=== PATIENT | female | born 1940 | race Caucasian/White ===

== ENCOUNTER 2020-03-05 14:52 | Outpatient (REF) | payer MEDICARE, MEDICAID, SELFPAY | END 2020-03-05 14:53 | disposition home or self-care (01) | LOC: HO.MANLNP 14:52 | PROVIDERS: PCP Physician Assistant; Visit Provider Physician Assistant | DX: N39.0 Urinary tract infection, site not specified (principal) | CPT/HCPCS: 87086 ==

== ENCOUNTER 2020-07-30 10:14 | Outpatient (REF) | payer MEDICARE, MEDICAID, SELFPAY ==
[2020-07-30 12:54] LABS: Monocytes Absolute Auto 0.4 X10*3/uL (0.1-1.2); Monocytes Percent Auto 9.1 % (2-11); Neutrophils Absolute Auto 3.2 X10*3/uL (2.0-8.3); Red Blood Count 4.01 X10*6/uL (4.20-5.50)
[2020-07-30 12:55] LABS: Basophils Percent Auto 0.4 % (0-2); Eosinophils Absolute Auto 0.1 X10*3/uL (0.0-0.4); Eosinophils Percent Auto 2.9 % (0-4); Hematocrit 35.1 % (37-47); Hemoglobin 11.8 g/dl (12.0-16.0); Imm Gran Abs Auto 0.01 X10*3/uL (0.00-0.03); Imm Gran Pct Auto 0.2 % (0.0-0.4); Lymphocytes Percent Auto 21.6 % (20-40); Mean Corpuscular HGB Conc 33.6 g/dl (31.0-35.0); Mean Corpuscular Hemoglobin 29.4 pg (27.0-33.0); Mean Corpuscular Volume 87.5 fL (80-98); Neutrophils Percent Auto 65.8 % (45-73); Platelet Count 134 X10*3/uL (160-400); White Blood Count 4.8 X10*3/uL (4.8-10.8)
[2020-07-30 13:11] LABS: Alanine Aminotransferase 17 U/L (0-31); Albumin Level 4.6 g/dL (3.5-5.0); Alkaline Phosphatase 81 U/L (39-117); Anion Gap 14 (12-20); Aspartate Amino Transferase 33 U/L (5-31); Bilirubin Total 0.6 mg/dL (0.0-1.0); Blood Urea Nitrogen 15 mg/dL (9-16); Calcium 9.3 mg/dL (8.4-10.2); Carbon Dioxide 23 mmol/L (22-29); Chloride 106 mmol/L (96-108); Cholesterol 228 mg/dL; Estimated Glomerular Filt Rate > 60; Glucose Fasting 79 mg/dL (60-99); HDL Cholesterol 35 mg/dL; LDL Cholesterol Calculated 172 mg/dl; Potassium 4.3 mmol/L (3.3-5.1); Sodium 139 mmol/L (135-145); Total Protein 6.8 g/dL (6.5-8.0); Triglycerides 106 mg/dL
[2020-07-30 13:18] LABS: MANUAL DIFF FLAG NO
== END 2020-07-30 10:15 | disposition home or self-care (01) ==
LOC: HO.MANLDS 10:14
PROVIDERS: PCP Internal Medicine; Visit Provider Physician Assistant
DX: E78.00 Pure hypercholesterolemia, unspecified (principal)
CPT/HCPCS: 36415; 80053; 80061; 85025

== ENCOUNTER 2020-11-12 14:59 | Outpatient (REF) | payer MEDICARE, MEDICAID, SELFPAY ==
[2020-11-12 18:14] LABS: Glucose Urine UA NEG (NEG); Leukocyte Esterase Urine 1+ (NEG); Nitrite Urine NEG (NEG); PH 6.5 (5.0-8.0); Urine Blood TRACE (NEG); Urine Ketones NEG (NEG); Urine Protein NEG (NEG-TRACE)
[2020-11-12 18:21] LABS: Appearance Urine CLEAR; Color Urine STRAW
[2020-11-12 18:43] LABS: Bacteria Urine TRACE /LPF; Squamous Epithelial Cell Urine TRACE /LPF
== END 2020-11-12 15:00 | disposition home or self-care (01) ==
LOC: HO.MANLDS 14:59
PROVIDERS: PCP Internal Medicine; Visit Provider Physician Assistant
DX: N39.0 Urinary tract infection, site not specified (principal)
CPT/HCPCS: 81001; 87086

== ENCOUNTER 2021-07-13 09:43 | Outpatient (REF) | payer MEDICARE, MEDICAID, SELFPAY ==
[2021-07-13 12:17] LABS: Anion Gap 11 (12-20); Blood Urea Nitrogen 13 mg/dL (9-16); Calcium 9.5 mg/dL (8.4-10.2); Carbon Dioxide 28 mmol/L (22-29); Chloride 103 mmol/L (96-108); Estimated Glomerular Filt Rate > 60; Glucose Random 93 mg/dL (60-115); Potassium 4.9 mmol/L (3.3-5.1); Sodium 137 mmol/L (135-145)
== END 2021-07-13 09:44 | disposition home or self-care (01) ==
LOC: HO.MANLDS 09:43
PROVIDERS: PCP Physician Assistant; Visit Provider Physician Assistant
DX: N17.8 Other acute kidney failure (principal)
CPT/HCPCS: 36415; 80048

== ENCOUNTER 2023-04-10 18:23 | Inpatient (IN) | payer MEDICARE, MEDICAID, SELFPAY ==
--- NOTE | ~2023-04-10 | CT_ITS ---
EXAMINATION: CT HEAD WITHOUT CONTRAST CLINICAL INFORMATION: Status post fall in bathroom. COMPARISON: Head CT 04/10/2023. TECHNIQUE: Contiguous axial imaging was performed from the skull base to vertex without intravenous administration of contrast. This CT examination was performed using dose optimization techniques as appropriate, variously including the following: *Automated exposure control *Adjustment of mA and/or kV according to patient size (this includes techniques or standardized protocols for targeted exams where dose is matched to indication/reason for exam; i.e. extremities or head) *Use of iterative reconstruction technique DLP: 726 mGy-cm. FINDINGS: There is no intracranial hemorrhage, large infarction, or mass lesion. There is no extra-axial collection. The ventricles are normal in size and configuration without evidence of hydrocephalus. Mild patchy hypoattenuation is seen within the cerebral white matter, typical of chronic microangiopathy. There is mild degree of brain parenchymal volume loss with prominence of ventricles and sulci. The calvarium is intact without fracture. The visualized paranasal sinuses and mastoid air cells are clear. CT/CT head/brain wo IV con IMPRESSION: No acute intracranial abnormality.
--- NOTE | ~2023-04-10 | CT_ITS ---
CT HEAD WITHOUT IV CONTRAST CT CERVICAL SPINE WITHOUT IV CONTRAST CT MAXILLOFACIAL WITHOUT IV CONTRAST INDICATION: Fall. COMPARISON: None TECHNIQUE: Multidetector CT acquisitions of the head, maxillofacial region, and cervical spine were obtained without IV contrast. Multiplanar reformats were acquired and utilized for image interpretation. DLP: 193 mGy-cm FINDINGS: Motion degradation limits assessment. HEAD: There is no intracranial hemorrhage or extra-axial fluid collection. The ventricles are unremarkable without hydrocephalus. No midline shift or mass effect. Will to white matter differentiation is diffusely maintained without evidence of an evolved acute territorial infarct. The basilar cisterns are preserved. Subcortical and periventricular white matter hypoattenuation is suggestive of [] small vessel ischemic disease. No soft tissue or osseous abnormality. The mastoid air cells and paranasal sinuses are well-aerated. MAXILLOFACIAL: The mandible, maxilla, pterygoid plates, nasal bones, zygomatic arches, paranasal sinus conde, and bony orbits are intact. No acute osseous abnormality within the maxillofacial region. The paranasal sinuses and mastoid air cells are notable for chronic mild changes of sinus disease involving the maxillary sphenoid and ethmoid sinuses.. The globes and extra-ocular musculature is intact. No significant soft tissue findings. CERVICAL SPINE: There is anatomic alignment of the vertebral bodies and posterior elements. There is no acute fracture and there is no acute subluxation. The craniocervical and atlantoaxial articulations are normal. Moderate degenerative disc space narrowing mid cervical spine and lower cervical spine with minor anterolisthesis 1 to 2 mm C4-C5 and C6-C7 likely degenerative. No disruption of the apophyseal joints. Posterior elements intact. There is no prevertebral soft tissue swelling. No significant soft tissue abnormality within the neck. The visualized lung apices are clear. CT/CT cervical spine wo IV con IMPRESSION: 1. No acute intracranial abnormality. 2. No acute osseous abnormality within the cervical spine. 3. No acute osseous abnormality within the maxillofacial region.
--- NOTE | ~2023-04-10 | CT_ITS ---
EXAMINATION: CT ABDOMEN AND PELVIS WITHOUT CONTRAST CLINICAL INFORMATION: Fall. Question fracture. COMPARISON: None available. TECHNIQUE: Multidetector volumetric imaging was performed from the superior aspect of the liver through the pubic symphysis. Sagittal and coronal reformatted images were obtained on the technologist's workstation. This CT examination was performed using dose optimization techniques as appropriate, variously including the following: *Automated exposure control *Adjustment of mA and/or kV according to patient size (this includes techniques or standardized protocols for targeted exams where dose is matched to indication/reason for exam; i.e. extremities or head) *Use of iterative reconstruction technique DLP: 326 mGy-cm FINDINGS: LUNG BASES: Minimal scarring fibrotic change at the left lower lobe posteriorly. LIVER, GALLBLADDER, AND BILIARY TREE: The liver is normal in size, shape, and attenuation. No focal hepatic lesion or biliary ductal dilatation is present. The gallbladder is unremarkable with no evidence of radiopaque gallstones, gallbladder wall thickening, or obvious pericholecystic inflammatory changes. PANCREAS: Unremarkable. SPLEEN: Unremarkable. ADRENAL GLANDS: Unremarkable. KIDNEYS AND URETERS: The kidneys are normal in size, shape, and attenuation. No hydronephrosis, hydroureter, or calculi seen. No perinephric stranding. BLADDER: Unremarkable. GASTROINTESTINAL TRACT: Contrast material noted within the large bowel scattered diverticulosis of the sigmoid colon without diverticulitis. Large bowel otherwise unremarkable. Appendix not clearly visualized. However no inflammatory changes in the right lower quadrant. Small bowel normal. Stomach unremarkable. ABDOMINAL WALL: No significant hernia is appreciated. LYMPH NODES: Normal. VASCULAR: Advanced calcific atherosclerotic disease noted throughout PELVIC VISCERA: Age-related change versus hysterectomy. No mass. OSSEOUS STRUCTURES: Severe degenerative scoliosis lumbar sacral spine with a convex left curvature estimated at 40 degrees. There is grade 1 degenerative anterolisthesis at L5-S1. No fracture. Transitional lumbosacral junction with partial lumbarization of S1 Bone and joints in the pelvis normal. No fractures of the visible portions of the ribs CT/CT abdomen pelvis wo IV con IMPRESSION: 1. No acute abnormality. 2. Severe degenerative scoliosis. 3. Advanced calcific atherosclerotic disease. 4. Diverticulosis without diverticulitis. Fleischner guidelines were followed.
--- NOTE | ~2023-04-10 | CT_ITS ---
EXAMINATION: CT CHEST WITHOUT CONTRAST CLINICAL INFORMATION: Fall rib fracture images COMPARISON: CT scanning abdomen and pelvis performed same time. TECHNIQUE: Multidetector volumetric CT imaging of the chest was done. Axial MIP volume rendering provided. Sagittal and coronal reformatted images were obtained. This CT examination was performed using dose optimization techniques as appropriate, variously including the following: *Automated exposure control *Adjustment of mA and/or kV according to patient size (this includes techniques or standardized protocols for targeted exams where dose is matched to indication/reason for exam; i.e. extremities or head) *Use of iterative reconstruction technique DLP: 174 mGy-cm FINDINGS: LUNGS: Minimal fibrotic change and/or atelectasis in the left lower lobe posteriorly. No prominent focal consolidation. No pneumothorax. MEDIASTINUM: No lymphadenopathy. Esophagus normal. Calcific atherosclerotic disease including coronary artery calcification CORONARY ARTERY CALCIFICATION: Present. PLEURA: There is no pleural effusion. No pleural mass or thickening. AXILLA: No lymphadenopathy. UPPER ABDOMEN: Arterial calcification. OSSEOUS STRUCTURES: Degenerative scoliosis of the dorsal spine with curvature estimated at 33 degrees. Ribs intact without fracture. CT/CT chest wo IV con IMPRESSION: 1. No acute abnormality. 2. No rib fracture. 3. Minimal fibrotic change and/or atelectasis in the left lower lobe. 4. Calcific atherosclerotic disease including coronary artery calcification. 5. Degenerative scoliosis of the dorsal spine. Fleischner guidelines were followed.
[2023-04-10 18:33] VITALS: BMI 19.7
[2023-04-10 18:37] VITALS: BP 127/53; PULSE 73; RESP 16; TEMP 36.9; O2SAT 94
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
[2023-04-10 19:44] LABS: MANUAL DIFF FLAG NO
--- NOTE | 2023-04-10 19:45 | PC.NURSE ---
This marine underwriter assumed care of this Pt at 1900. Pt A&O to self and place, denies any pain, c-collar in place, son at bedside. IV line placed blood work collected and sent to lab. Pt assisted to BR with one staff assist, unsteady gait.
[2023-04-10 19:47] LABS: Basophils Percent Auto 0.1 % (0-2); Eosinophils Percent Auto 0.1 % (0-4); Hematocrit 32.1 % (37.0-47.0); Hemoglobin 11.3 g/dl (12.0-16.0); Imm Gran Abs Auto 0.06 X10*3/uL (0.00-0.03); Imm Gran Pct Auto 0.6 % (0.0-0.4); Lymphocytes Absolute Auto 0.4 X10*3/uL (1.2-4.9); Lymphocytes Percent Auto 4.4 % (20-40); Mean Corpuscular HGB Conc 35.2 g/dl (31.0-35.0); Mean Corpuscular Hemoglobin 29.3 pg (27.0-33.0); Mean Corpuscular Volume 83.2 fL (80.0-98.0); Mean Platelet Volume 9.7 fL (9.4-12.3); Monocytes Absolute Auto 0.9 X10*3/uL (0.1-1.2); Monocytes Percent Auto 9.2 % (2-11); Neutrophils Absolute Auto 8.6 x10*3/uL (2.0-8.3); Neutrophils Percent Auto 85.6 % (45-73); Platelet Count 208 X10*3/uL (160-400); Red Blood Count 3.86 X10*6/uL (4.20-5.50); Red Cell Distribution Width 13.9 % (11.0-16.0)
[2023-04-10 19:52] LABS: Prothrombin Time 12.3 SEC (11.1-13.3)
[2023-04-10 19:55] LABS: Partial Thromboplastin Time 28.3 SEC (26.0-36.4)
[2023-04-10 19:59] LABS: Alanine Aminotransferase 26 U/L (0-31); Albumin Level 4.2 g/dL (3.5-5.0); Alkaline Phosphatase 90 U/L (39-117); Anion Gap 14 (12-20); Aspartate Amino Transferase 37 U/L (5-31); Bilirubin Total 0.5 mg/dL (0.0-1.0); Blood Urea Nitrogen 23 mg/dL (9-16); Calcium 9.6 mg/dL (8.4-10.2); Carbon Dioxide 23 mmol/L (22-29); Chloride 96 mmol/L (96-108); Creatinine Clr Calc Pharmacy 42.8; Estimated Glomerular Filt Rate > 60; Glucose Random 127 mg/dL (60-115); Potassium 3.8 mmol/L (3.3-5.1); Sodium 129 mmol/L (135-145); Total Protein 6.7 g/dL (6.5-8.0)
[2023-04-10 20:21] VITALS: BP 137/65; PULSE 73; RESP 16; TEMP 36.7; O2SAT 98
[2023-04-10 20:23] LABS: Influenza A PCR NEGATIVE (Negative); Influenza B PCR NEGATIVE (Negative); Resp Syncy Virus RNA Qual PCR NEGATIVE (Negative); SARS COV2 PCR INHOUSE POSITIVE (Negative)
[2023-04-10] MEDS: 0.9 % Sodium Chloride 1,000 ML 999 ML IV ×2 (21:00→22:25)
[2023-04-10 21:24] VITALS: BP 163/70; PULSE 79; RESP 18; O2SAT 97
[2023-04-10 21:58] LABS: Amphetamine Screen Urine Not Detected (Not Detect); Barbiturates, Urine Not Detected (Not Detect); Benzodiazepines Screen Urine Not Detected (Not Detect); Cannabinoid Screen Urine Not Detected (Not Detect); Cocaine Screen Urine Not Detected (Not Detect); Fentanyl, urine Not Detected (Not Detect); Opiate Screen Urine Not Detected (Not Detect); Phencyclidine Screen Urine Not Detected (Not Detect)
[2023-04-10 23:52] LABS: Appearance Urine Turbid; Color Urine Yellow; Glucose Urine UA Negative (Negative); Leukocyte Esterase Urine Small (1+) (Negative); Nitrite Urine Negative (Negative); PH 6.5 (5.0-9.0); Specific Gravity - Urine 1.015 (1.005-1.025); UMIC TRIGGER UACC YES; Urine Blood Trace (Negative); Urine Ketones Trace mg/dL (Negative); Urine Protein Negative (Neg-Trace)
[2023-04-11] LABS: Bacteria Urine 4+ (None Seen); Calcium Oxalate Crystals Urine Present; Squamous Epithelial Cell Urine 0-2 /HPF (0-2); UACC Culture Trigger YES; WBC Urine 0-5 /HPF (0-5)
[2023-04-11 01:26] LABS: Alanine Aminotransferase 21 U/L (0-31); Albumin Level 3.6 g/dL (3.5-5.0); Alkaline Phosphatase 76 U/L (39-117); Anion Gap 13 (12-20); Aspartate Amino Transferase 32 U/L (5-31); Bilirubin Total 0.4 mg/dL (0.0-1.0); Blood Urea Nitrogen 16 mg/dL (9-16); Calcium 8.5 mg/dL (8.4-10.2); Carbon Dioxide 23 mmol/L (22-29); Chloride 103 mmol/L (96-108); Creatinine Clr Calc Pharmacy 51.8; Estimated Glomerular Filt Rate > 60; Glucose Random 97 mg/dL (60-115); Potassium 3.6 mmol/L (3.3-5.1); Sodium 135 mmol/L (135-145); Total Protein 5.8 g/dL (6.5-8.0)
--- NOTE | 2023-04-11 03:22 | PC.NURSE ---
Pt attempting to get out of bed without assistance, redirected, reminded to push call gresham if need assistance. Pt forgetful, states there is a white powder on the floor, it is a chemical I cant smell .
[2023-04-11 03:44] VITALS: BP 159/66; PULSE 67; RESP 16; TEMP 37.1; O2SAT 97
--- NOTE | 2023-04-11 05:37 | PC.NURSE ---
MED REC done with facility list.
[2023-04-11 09:49] VITALS: BP 166/67; PULSE 67; RESP 15; O2SAT 98
[2023-04-11] MEDS: Metoprolol Succinate ER 25 MG TAB.ER.24H PO (10:18)
[2023-04-11] MEDS: QUEtiapine Fumarate 25 MG TABLET 12.5 MG PO (10:18)
[2023-04-11] MEDS: Sertraline HCL 100 MG TABLET PO (10:18)
[2023-04-11] MEDS: cephALEXin 500 MG CAPSULE PO (10:19)
[2023-04-11] MEDS: Haloperidol Lactate 5 MG/ML VIAL IM (15:30)
[2023-04-11 16:07] VITALS: RESP 16
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
--- NOTE | 2023-04-11 23:49 | PC.NURSE ---
this RN assumed care of pt at this time. pt resting in bed quietly with eyes closed, breathing even and unlabored, no apparent distress noted at this time. camera in place at bedside
[2023-04-12] VITALS (7 sets, daily range): BP systolic 101–155; BP diastolic 42–69; PULSE 63–97; RESP 12–18; TEMP 36.3–37.4; O2SAT 95–99
--- NOTE | 2023-04-12 | ECG_ITS ---
Test Reason : MEDICAL CLEARANCE Blood Pressure : / mmHG Vent. Rate : 080 BPM Atrial Rate : 080 BPM P-R Int : 190 ms QRS Dur : 072 ms QT Int : 392 ms P-R-T Axes : 069 035 057 degrees QTc Int : 452 ms Normal sinus rhythm Nonspecific ST abnormality Abnormal ECG No previous ECGs available Referred By: Yana Dixon Electronically Signed By:TAI DAN
--- NOTE | 2023-04-12 02:36 | MHC.EDTECH ---
patient sleeping soundly . patient continues video monitoring
--- NOTE | 2023-04-12 05:33 | PC.NURSE ---
pt's son called. updated on pt's condition, pt has been resting quietly with eyes closed, no distress throughout the night. did inform son that she refused her abx again, d/c abx order yesterday. son questioning other chief medical physicist options, states the abx is not needed, no UTI. awaiting care team and psych consults.
--- NOTE | 2023-04-12 08:04 | PC.NURSE ---
this RN resumed care of pt at this time. vss and up to date. pt asleep/resting comfortably in no apparent distress. no sob/wob noted. respirations even and unlabored. bed alarm turned on/camera in place for safety precautions. call gresham placed within reach.
[2023-04-12] MEDS: QUEtiapine Fumarate 25 MG TABLET 12.5 MG PO (09:37)
[2023-04-12] MEDS: Metoprolol Succinate ER 25 MG TAB.ER.24H PO (09:37)
[2023-04-12] MEDS: Sertraline HCL 100 MG TABLET PO (09:37)
--- NOTE | 2023-04-12 09:50 | PC.NURSE ---
medication administered per provider order. pt incontinent of urine. bed change completed - fresh pads applied. pt changed into clean hospital attire/repositioned to comfort. purewick applied. pt seemingly warm - rectal temp obtained - 99.3. resting comfortably in no apparent distress. respirations remain even and unlabored. call gresham placed within reach.
--- NOTE | 2023-04-12 12:04 | MHC.EDTECH ---
Patient was known to be COVID+ on 03/20. Patient is still testing positive but out of the window.
--- NOTE | 2023-04-12 13:56 | MHC.CARE ---
Patient to be seen by AUTOMOTIVE [employer] CONVERTER Destniy per consult order. CARE plan to observe/ meet with patient
--- NOTE | 2023-04-12 14:17 | PC.NURSE ---
Other children of Brissa include Rene, Amaya, and Basil. Son Karl, who is the primary caregiver for the patient stated that it is ok for updates to be given if and when his siblings call. Carrie from Pt experience was also here and witnessed this conversation with Karl.
--- NOTE | 2023-04-12 14:27 | PM.PSYCN ---
History of Present Illness Date of Service: 04/12/2023 Chief Complaint: fall with head strike, C collar in place Reason for Consult: ombative behaviors Discussed with referring provider: Yes Sources of Information: patient interviewed, chart reviewed and crisis/core team assessment reviewed Additional Sources of Information: Karl, son present during assessment HPI Narrative: Mrs. Barnes is a 82 year-old woman with who was brought from [facility] due to increase combative behaviors. She felt while trying to run away from staff at [facility]. Pt had been at [facility] ED last week with plan to be admitted to [facility] but later dispo changed as pt appeared calmer and had possibility of psych eval at [facility]. Pt was brought back to ED due to ongoing combative behaviors on 04/10. Pt was agitated on 04/11 at 3pm requiring haldol 5mg IM with good effect. Pt seen today. She is mumbling. She denies any physical concerns. Per son, pt was telling him that she was being accused of hurting children. Pt tells this development writer that she knows she is in [place]. She also knows month and year. However, pt is somewhat confused as to why she is here. Pt was recently started on seroquel 12.5mg po daily. She has been on sertraline 100mg po daily for several decades according to son, Karl. Diagnostics Vital Signs (24Hr): Vital Signs - 24 hr 04/11/23 16:07 04/12/23 02:26 04/12/23 04:32 Temperature Pulse Rate 82 97 Respiratory Rate 16 12 12 Blood Pressure 138/54 L 155/69 H Pulse Oximetry 97 99 Oxygen Delivery Method Room Air Room Air 04/12/23 08:03 04/12/23 09:51 04/12/23 11:26 Temperature 99.3 F 97.3 F Pulse Rate 74 84 Respiratory Rate 16 14 Blood Pressure 148/60 H 145/61 H Pulse Oximetry 98 97 Oxygen Delivery Method Room Air Room Air BMI result Body Mass Index 19.7 Labs 04/10/23 19:38 04/11/23 00:47 Labs: Laboratory Results - last 48 hr 04/10/23 04/10/23 04/10/23 19:38 21:42 21:43 WBC 10.0 RBC 3.86 L Hgb 11.3 L Hct 32.1 L MCV 83.2 MCH 29.3 MCHC 35.2 H RDW 13.9 Plt Count 208 MPV 9.7 Immature Gran % (Auto) 0.6 H Neut % (Auto) 85.6 H Lymph % (Auto) 4.4 L [place] % (Auto) 9.2 Eos % (Auto) 0.1 Baso % (Auto) 0.1 Lymph # (Auto) 0.4 L [place] # (Auto) 0.9 Eos # (Auto) 0.0 Baso # (Auto) 0.0 Abs Immat Gran (auto) 0.06 H Absolute Neuts (auto) 8.6 H Absolute Nucleated RBC 0.000 Nucleated RBC % (auto) 0.0 PT 12.3 INR 1.0 APTT 28.3 Sodium 129 L Potassium 3.8 D Chloride 96 Carbon Dioxide 23 Anion Gap 14 BUN 23 H Creatinine 0.86 Estim Creat Clear Calc 42.8 Estimated GFR > 60 Random Glucose 127 H Calcium 9.6 Total Bilirubin 0.5 AST 37 H ALT 26 Alkaline Phosphatase 90 Total Protein 6.7 Albumin 4.2 Urine Color Yellow Urine Appearance Turbid Urine pH 6.5 Ur Specific [place] 1.015 Urine Protein Negative Urine Glucose (UA) Negative Urine Ketones Trace Urine Blood Trace H Urine Nitrite Negative Ur Leukocyte Esterase Small (1+) H Urine RBC 3-5 H Urine WBC 0-5 Ur Squamous Epith Cells 0-2 Calcium Oxalate Crystal Present Urine Bacteria 4+ Hyaline Casts 3-5 Urine Opiates Screen Not Detected Urine Fentanyl Screen Not Detected Ur Barbiturates Screen Not Detected Ur Phencyclidine Scrn Not Detected Ur Amphetamines Screen Not Detected U Benzodiazepines Scrn Not Detected Urine Cocaine Screen Not Detected U Marijuana (THC) Screen Not Detected Influenza Type A (PCR) NEGATIVE Influenza Type B (PCR) NEGATIVE RSV RNA Qual (PCR) NEGATIVE SARS-CoV-2 RNA (RT-PCR) POSITIVE A 04/11/23 00:47 WBC RBC Hgb Hct MCV MCH MCHC RDW Plt Count MPV Immature Gran % (Auto) Neut % (Auto) Lymph % (Auto) [place] % (Auto) Eos % (Auto) Baso % (Auto) Lymph # (Auto) [place] # (Auto) Eos # (Auto) Baso # (Auto) Abs Immat Gran (auto) Absolute Neuts (auto) Absolute Nucleated RBC Nucleated RBC % (auto) PT INR APTT Sodium 135 Potassium 3.6 Chloride 103 Carbon Dioxide 23 Anion Gap 13 BUN 16 Creatinine 0.71 Estim Creat Clear Calc 51.8 Estimated GFR > 60 Random Glucose 97 Calcium 8.5 D Total Bilirubin 0.4 AST 32 H ALT 21 Alkaline Phosphatase 76 Total Protein 5.8 L Albumin 3.6 Urine Color Urine Appearance Urine pH Ur Specific [place] Urine Protein Urine Glucose (UA) Urine Ketones Urine Blood Urine Nitrite Ur Leukocyte Esterase Urine RBC Urine WBC Ur Squamous Epith Cells Calcium Oxalate Crystal Urine Bacteria Hyaline Casts Urine Opiates Screen Urine Fentanyl Screen Ur Barbiturates Screen Ur Phencyclidine Scrn Ur Amphetamines Screen U Benzodiazepines Scrn Urine Cocaine Screen U Marijuana (THC) Screen Influenza Type A (PCR) Influenza Type B (PCR) RSV RNA Qual (PCR) SARS-CoV-2 RNA (RT-PCR) Imaging Radiology Impressions: ITS Impressions Cervical Spine CT 04/10/23 19:54 IMPRESSION: 1. No acute intracranial abnormality. 2. No acute osseous abnormality within the cervical spine. 3. No acute osseous abnormality within the maxillofacial region. Face CT 04/10/23 19:54 IMPRESSION: 1. No acute intracranial abnormality. 2. No acute osseous abnormality within the cervical spine. 3. No acute osseous abnormality within the maxillofacial region. Head CT 04/10/23 19:54 IMPRESSION: 1. No acute intracranial abnormality. 2. No acute osseous abnormality within the cervical spine. 3. No acute osseous abnormality within the maxillofacial region. Abdomen/Pelvis CT 04/10/23 20:04 IMPRESSION: 1. No acute abnormality. 2. Severe degenerative scoliosis. 3. Advanced calcific atherosclerotic disease. 4. Diverticulosis without diverticulitis. Fleischner guidelines were followed. Chest CT 04/10/23 20:04 IMPRESSION: 1. No acute abnormality. 2. No rib fracture. 3. Minimal fibrotic change and/or atelectasis in the left lower lobe. 4. Calcific atherosclerotic disease including coronary artery calcification. 5. Degenerative scoliosis of the dorsal spine. Fleischner guidelines were followed. Mental Status Exam Mental Status Exam Narrative: Appearance: wearing hospital gown, in NAD Behavior: calm, somnolent Psychomotor: some retardation noted Speech: very soft tone, delayed response rate, minimally spontaneous TP: single word answers TC:feeling tired Mood: tired Affect: somnolent SI: none HI: none VH/AH: no overt, but pt barely talking at this point Delusions: per son, pt was just reporting she is being accused of hurting children Insight/judgment: impaired x 2. Memory/cog: alert, oriented to year, month, not situation. Pending MOCA and ACL. Medications Medications Current Medications Metoprolol Succinate (Metoprolol Succinate Er 25 Mg Tab.Er.24h) 25 mg PO DAILY [facility]; Protocol Last Admin: 04/12/23 09:37 Dose: 25 mg Quetiapine Fumarate (Quetiapine Fumarate 25 Mg Tablet) 12.5 mg PO DAILY [facility] Last Admin: 04/12/23 09:37 Dose: 12.5 mg Sertraline HCl (Sertraline Hcl 100 Mg Tablet) 100 mg PO DAILY [facility] Last Admin: 04/12/23 09:37 Dose: 100 mg Allergies Allergies Allergy/AdvReac Type Severity Reaction Status Date / Time No Known Allergies Allergy Verified 04/10/23 18:33 Assessment & Plan Assessment & Plan (1) Cognitive impairment: Status: Acute Code(s): R41.89 - Other symptoms and signs involving cognitive functions and awareness Plan Mrs. Gomez is a 82 year-old woman who was brought to [facility] ED due to increase conbative behaviors and suspiciousness at SNF where she resides. Pt recently was assessed at [facility] and plan was for [facility]. Pt finally appeared calmer and was sent back to facility with plan to be seen by their psych team there. Pt was combative yesterday requiring haldol 5mg IM. Pt presents calmer, somewhat somnolent PLAN 1. Continue psych [facility] bed search for stabilization, diagnostic clarification (per son no formal dementia dx) and medication management. 2. Will add seroquel 25mg q6h prn agitation. monitor over sedation. will order EKG, monitor Qtc <500ms, maintain K> 4, Mg>2 Total time managing care of this patient today ____ minutes.
[2023-04-13 06:00] VITALS: BP 145/59; PULSE 88; RESP 18; TEMP 36.9; O2SAT 95
--- NOTE | 2023-04-13 06:46 | PC.NURSE ---
Pt calm and cooperative. Son at bedside visiting with pt.
[2023-04-13] MEDS: Sertraline HCL 100 MG TABLET PO (07:55)
[2023-04-13] MEDS: Metoprolol Succinate ER 25 MG TAB.ER.24H PO (07:55)
[2023-04-13] MEDS: QUEtiapine Fumarate 25 MG TABLET 12.5 MG PO (07:56)
--- NOTE | 2023-04-13 09:01 | PC.NURSE ---
PT IN NAD THIS AM, RESP EVEN NONLABOURED. ENVIRONMENTAL CONSTRUCTION ENGINEER HAS BEEN AT BEDSIDE AT HER REQUEST. BREAKFAST EATEN WITH NO ISSUE, MEDICATED PER EMR. REMAINS IN GOOD HYGIENE. WCTM.
--- NOTE | 2023-04-13 12:55 | PC.NURSE ---
PT EATING SERVERAL BITES OF LUNCH. SPOKE WITH DIETARY FOR ORDERS FOR SUPPLEMENTAL NUTRITION.
[2023-04-13 13:23] VITALS: TEMP 37.9
[2023-04-13 13:30] VITALS: BP 116/50; PULSE 73; RESP 16; O2SAT 95
[2023-04-13] MEDS: Acetaminophen 325 MG TABLET 650 MG PO (13:48)
[2023-04-13] MEDS: Doxycycline Monohydrate 100 MG CAPSULE PO ×2 (13:48→20:46)
[2023-04-13 14:00] VITALS: BP 116/50; PULSE 73; RESP 16; TEMP 37.9; O2SAT 95
--- NOTE | 2023-04-13 14:51 | PC.NURSE ---
PT INTERMITTENTLY MAKING PARANOID STATEMENTS WONDERING IF WE ARE EUTHANIZING HER, CONCERNED ABOUT WRONGDOING SHE HAS COMMITTED. EASILY REASSURED. HAS REMAINED CALM & COOPERATIVE TODAY. ORDERS IN FOR ABX TO COVER UTI.
--- NOTE | 2023-04-13 17:52 | PHA.MEDREC ---
Pharmacy Consult ? Medication Reconciliation Pharmacy has reviewed the medication reconciliation completed by Xio. Mercedes Worthington, UriD
[2023-04-13 19:06] VITALS: TEMP 37.2
[2023-04-13 21:06] VITALS: BP 167/67; PULSE 77; RESP 16; TEMP 37.1; O2SAT 95
--- NOTE | 2023-04-13 23:10 | PC.NURSE ---
Patient continues to be alert and confused, paranoid that something has happened to her son. Patient's son was here earlier visiting with patient and will be back tomorrow to spend time with her. Patient cooperative with staff, chest rises even.
[2023-04-14] MEDS: Melatonin 3 MG TABLET 6 MG PO (01:01)
--- NOTE | 2023-04-14 01:06 | PC.NURSE ---
Patient laying in bed with eyes open seeming unable to sleep. Patient occasionally voices concern about family members and is otherwise calm and cooperative with staff. Provider made aware of patients inability to sleep and melatonin was ordered and administered per JUN.
[2023-04-14 04:30] VITALS: BP 153/70; PULSE 63; RESP 16; TEMP 36.6; O2SAT 94
--- NOTE | 2023-04-14 08:42 | MHC.CARE ---
Addendum entered by Christelle Jones 04/14/23 13:29: Late Entry- 04/14/23-@943-referral packet faxed to [facility] per request of pt?s son, confirmed with [facility] that no bed is available today and to continue to call back tomorrow about bed availability if deemed necessary Original Note: RAD team conducted statewide geriatric bed[place], unfortunately no beds available statewide. RAD Team will continue bedsearch tomorrow (04/15) if deemed necessary.
--- NOTE | 2023-04-14 09:30 | PC.NURSE ---
pt ambulated using walker by tech with 2 family members present.
[2023-04-14] MEDS: Doxycycline Monohydrate 100 MG CAPSULE PO ×2 (10:36→21:22)
[2023-04-14] MEDS: Metoprolol Succinate ER 25 MG TAB.ER.24H PO (10:37)
[2023-04-14] MEDS: QUEtiapine Fumarate 25 MG TABLET 12.5 MG PO (10:37)
[2023-04-14] MEDS: Sertraline HCL 100 MG TABLET PO (10:39)
--- NOTE | 2023-04-14 11:00 | PC.NURSE ---
pt given shower by tech, complete bed change done, meds given as documented. pt denies pain, vss. pt's son Karl is at her bedside. pt sitting in recliner.
--- NOTE | 2023-04-14 12:39 | PM.PSYCN ---
History of Present Illness Date of Service: 04/15/2023 Chief Complaint: psychosisi HPI Narrative: Interim Hx: pt more alert, more talkative, less suspiciousness. She does know this is the hospital. reason for her to be in the hospital is not as clear to her, but hopes to go home soon. no si/hi. sleeping well. no aggression towards self or others. Diagnostics Vital Signs (24Hr): Vital Signs - 24 hr 04/13/23 13:23 04/13/23 13:30 04/13/23 14:00 Temperature 100.3 F 100.3 F Pulse Rate 73 73 Respiratory Rate 16 16 Blood Pressure 116/50 L 116/50 L Pulse Oximetry 95 95 Oxygen Delivery Method Room Air Room Air 04/13/23 19:06 04/13/23 21:06 04/14/23 04:30 Temperature 99 F 98.7 F 97.9 F Pulse Rate 77 63 Respiratory Rate 16 16 Blood Pressure 167/67 H 153/70 H Pulse Oximetry 95 94 Oxygen Delivery Method Room Air Room Air BMI result Body Mass Index 19.7 Labs 04/10/23 19:38 04/15/23 07:49 Imaging Radiology Impressions: ITS Impressions Cervical Spine CT 04/10/23 19:54 IMPRESSION: 1. No acute intracranial abnormality. 2. No acute osseous abnormality within the cervical spine. 3. No acute osseous abnormality within the maxillofacial region. Face CT 04/10/23 19:54 IMPRESSION: 1. No acute intracranial abnormality. 2. No acute osseous abnormality within the cervical spine. 3. No acute osseous abnormality within the maxillofacial region. Head CT 04/10/23 19:54 IMPRESSION: 1. No acute intracranial abnormality. 2. No acute osseous abnormality within the cervical spine. 3. No acute osseous abnormality within the maxillofacial region. Abdomen/Pelvis CT 04/10/23 20:04 IMPRESSION: 1. No acute abnormality. 2. Severe degenerative scoliosis. 3. Advanced calcific atherosclerotic disease. 4. Diverticulosis without diverticulitis. Fleischner guidelines were followed. Chest CT 04/10/23 20:04 IMPRESSION: 1. No acute abnormality. 2. No rib fracture. 3. Minimal fibrotic change and/or atelectasis in the left lower lobe. 4. Calcific atherosclerotic disease including coronary artery calcification. 5. Degenerative scoliosis of the dorsal spine. Fleischner guidelines were followed. Mental Status Exam Mental Status Exam Narrative: Appearance: wearing hospital gown, in NAD Behavior: calm, Psychomotor: some retardation noted Speech: very soft tone, regular rate, more spontaneous TP: more linear TC:feeling better Mood: better Affect: constricted, congruent SI: none HI: none VH/AH: no overt Delusions: no overt Insight/judgment: impaired x 2. Memory/cog: alert, oriented to year, month, not situation. Pending MOCA and ACL. Medications Medications Current Medications Doxycycline Monohydrate (Doxycycline Monohydrate 100 Mg Capsule) 100 mg PO BID [facility] Stop: 04/20/23 13:44 Last Admin: 04/14/23 10:36 Dose: 100 mg Metoprolol Succinate (Metoprolol Succinate Er 25 Mg Tab.Er.24h) 25 mg PO DAILY [facility]; Protocol Last Admin: 04/14/23 10:37 Dose: 25 mg Quetiapine Fumarate (Quetiapine Fumarate 25 Mg Tablet) 12.5 mg PO DAILY [facility] Last Admin: 04/14/23 10:37 Dose: 12.5 mg Sertraline HCl (Sertraline Hcl 100 Mg Tablet) 100 mg PO DAILY [facility] Last Admin: 04/14/23 10:39 Dose: 100 mg Allergies Allergies Allergy/AdvReac Type Severity Reaction Status Date / Time No Known Allergies Allergy Verified 04/10/23 18:33 Assessment & Plan Assessment & Plan (1) Cognitive impairment: Status: Acute Code(s): R41.89 - Other symptoms and signs involving cognitive functions and awareness Plan pt less agitated, less paranoia. discussed with son admission to [facility] for dx clarification and med management, which he is in agreement, if bed comes up soon. Total time managing care of this patient today ____ minutes.
--- NOTE | 2023-04-14 12:59 | MHC.CM.PN ---
PT NO LONGER A [facility] BED SEARCH SHE HAS BEEN CLEARED BY PSYCHIATRY AND IS PENDING A PT EVAL CM INFORMED PTS SON WAS REQUESTING A REFERRAL TO [facility] REFERRAL WILL BE MADE HOWEVER PT WILL LIKELY NEED STR CARE TEAM ALSO REQUESTING [facility] BE COMPLETED CM WILL SPEAK WITH SON ABOUT APPROPRIATE REFERRALS ONCE ASSESSMENTS ARE IN
[2023-04-14 13:25] VITALS: BP 153/70; PULSE 63; O2SAT 94
--- NOTE | 2023-04-14 14:46 | MHC.CM.PN ---
CM HAS CONFIRMED WITH PSYCH PROVIDER THAT SHE WILL BE GOING TO [facility] PSYCH BED.
[2023-04-14 15:48] VITALS: BP 114/62; PULSE 80; RESP 17; TEMP 36.3; O2SAT 97
[2023-04-14 16:20] VITALS: BP 123/73; PULSE 81; RESP 18; TEMP 36.2; O2SAT 97
--- NOTE | 2023-04-14 16:21 | PC.NURSE ---
pt transported to [facility] via w/c by 2 RNs from the unit. pt's son present during transfer.
[2023-04-14 17:17] VITALS: BMI 18.9
--- NOTE | 2023-04-14 18:08 | PC.ADMIT ---
Brissa was admitted to on 04/14/23 at 16:15 from [facility] overflow on a CV for the treatment of anxiety and depression. She was boarding at [facility] and became aggressive and combative with staff and while attempting to run away from the facility she fell and hit the right side of her face. She is oriented to self and location. She was pleasant and cooperative with admission. Skin check/contraband search was completed upon arrival by staff. She reports anxiety and more frequent panic attacks recently. She denies suicidal and homicidal thoughts and intent. She denies auditory hallucinations but reports visual hallucinations of cats or other animals. She stated sometimes I look out into the [place] behind my apartment and see what looks like a giraffe or something. I wake up in the morning and see a glimpse of a cat or something running by in my house . She reports good sleep and poor appetite. Pt denies ETOH and substance abuse, utox was negative in ED. She reports history of HTN, depression, and anxiety. She was placed on 15 minute checks for safety.
[2023-04-14 19:52] VITALS: BP 107/55; PULSE 76; RESP 16; TEMP 36.5; O2SAT 95
[2023-04-14] MEDS: traZODone HCL 50 MG TABLET PO (21:22)
[2023-04-15 08:10] VITALS: BP 92/50; PULSE 74; RESP 18; TEMP 36.5; O2SAT 94
[2023-04-15 08:11] LABS: Alanine Aminotransferase 28 U/L (0-31); Albumin Level 4.1 g/dL (3.5-5.0); Alkaline Phosphatase 86 U/L (39-117); Anion Gap 14 (12-20); Aspartate Amino Transferase 57 U/L (5-31); Bilirubin Total 0.4 mg/dL (0.0-1.0); Blood Urea Nitrogen 25 mg/dL (9-16); Calcium 9.6 mg/dL (8.4-10.2); Carbon Dioxide 26 mmol/L (22-29); Chloride 101 mmol/L (96-108); Cholesterol 166 mg/dL (<200); Creatinine Clr Calc Pharmacy 43.2; Estimated Glomerular Filt Rate > 60; Glucose Fasting 113 mg/dL (60-99); HDL Cholesterol 43 mg/dL (>40); LDL Cholesterol Calculated 107 mg/dL (<100); Potassium 3.5 mmol/L (3.3-5.1); Sodium 137 mmol/L (135-145); Total Protein 6.8 g/dL (6.5-8.0); Triglycerides 80 mg/dL (<150)
[2023-04-15] MEDS: Doxycycline Monohydrate 100 MG CAPSULE PO ×2 (09:16→21:08)
[2023-04-15] MEDS: QUEtiapine Fumarate 25 MG TABLET 12.5 MG PO (09:17)
[2023-04-15] MEDS: Sertraline HCL 100 MG TABLET PO (09:21)
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
[2023-04-15 14:06] VITALS: BMI 18.9
--- NOTE | 2023-04-15 14:11 | MHC.CLN ---
RE: CONSULT PT'S FAMILY MEMBER REPORTED POOR PO INTAKE MOLDING TECHNICIAN PT WITH DX PSYCHOSIS WITH AGGRESSIVE BEHAVIORS AND COMBATIVE PT WITH 2 WEIGHTS UPON ADMISSION 109.5# (04/14/23) 118# (04/10/23) OBTAIN RE-WEIGHT PT IS 91% IBW INDICATES ADEQUATE WT FOR HT; BMI 18.9 BORDERLINE LOW WT FOR HT BUT REMAINS WNL PO INTAKE 25% X 2 MEALS DIET RX: REGULAR-APPROPRIATE PT RECEIVING ENSURE TID SUPPLEMENT SINCE IN ER R/T POOR PO SUPP PROVIDES 1050KCALS, 60G PROTEIN MONITOR PO INTAKE AND ENCOURAGE SUPPLEMENTS OBTAIN RE-WEIGHT SEE ALSO FULL CLINICAL NUTRITION ASSESSMENT
[2023-04-15 19:40] VITALS: BP 141/67; PULSE 73; RESP 16; TEMP 36.3; O2SAT 97
[2023-04-16] MEDS: traZODone HCL 50 MG TABLET PO (01:30)
--- NOTE | 2023-04-16 07:50 | HO.PSYCHPN ---
Subjective Subjective Date of Service: 04/16/23 Reason For Visit: psychosisi Subjective Notes: Conditional Voluntary Medical Problems Affecting Mental Status: Yes (covid, uti) Interim History: 82 yo with covid + and decompensation of dementia with uti as well - slowly recovering - after several falls- getting up and walking with help - 1:1 - cooperative Review of Systems Acute medical concerns: Yes Medical Review of Systems: unchanged Mental Status Exam Mental Status Exam Patient Appearance: Well Grooomed Patient Orientation: Person Level of Consciousness: Awake and Appropriate Patient Behavior: Appropriate and Cooperative Mood Description: Anxious Affect Description: Constricted Patient Cognition Impaired: Yes Ability to Follow Directions: Fair Speech Pattern: Impoverished Hallucinations: None Judgement: Poor Diagnostics Vital Signs (24Hr): Vital Signs - 24 hr 04/15/23 08:10 04/15/23 19:40 Temperature 97.7 F 97.4 F Pulse Rate 74 73 Respiratory Rate 18 16 Blood Pressure 92/50 L 141/67 H Pulse Oximetry 94 97 Oxygen Delivery Method Room Air Room Air BMI result Body Mass Index 18.9 Labs 04/10/23 19:38 04/15/23 07:49 Labs: Laboratory Results - last 48 hr 04/15/23 07:49 Sodium 137 Potassium 3.5 Chloride 101 Carbon Dioxide 26 Anion Gap 14 BUN 25 H Creatinine 0.79 Estim Creat Clear Calc 43.2 Estimated GFR > 60 Fasting Glucose 113 H Calcium 9.6 D Total Bilirubin 0.4 AST 57 H ALT 28 Alkaline Phosphatase 86 Total Protein 6.8 Albumin 4.1 Triglycerides 80 Cholesterol 166 LDL Cholesterol, Calc 107 H HDL Cholesterol 43 Imaging Radiology Impressions: ITS Impressions Cervical Spine CT 04/10/23 19:54 IMPRESSION: 1. No acute intracranial abnormality. 2. No acute osseous abnormality within the cervical spine. 3. No acute osseous abnormality within the maxillofacial region. Face CT 04/10/23 19:54 IMPRESSION: 1. No acute intracranial abnormality. 2. No acute osseous abnormality within the cervical spine. 3. No acute osseous abnormality within the maxillofacial region. Head CT 04/10/23 19:54 IMPRESSION: 1. No acute intracranial abnormality. 2. No acute osseous abnormality within the cervical spine. 3. No acute osseous abnormality within the maxillofacial region. Abdomen/Pelvis CT 04/10/23 20:04 IMPRESSION: 1. No acute abnormality. 2. Severe degenerative scoliosis. 3. Advanced calcific atherosclerotic disease. 4. Diverticulosis without diverticulitis. Fleischner guidelines were followed. Chest CT 04/10/23 20:04 IMPRESSION: 1. No acute abnormality. 2. No rib fracture. 3. Minimal fibrotic change and/or atelectasis in the left lower lobe. 4. Calcific atherosclerotic disease including coronary artery calcification. 5. Degenerative scoliosis of the dorsal spine. Fleischner guidelines were followed. Medications Medications Current Medications Acetaminophen (Acetaminophen 325 Mg Tablet) 650 mg PO Q6H PRN PRN Reason: Headache/Pain Mild Scale (1-3) Al Hydroxide/Mg Hydroxide (Magnesium Hydrox/Alum Hydrox 30 Ml Oral.Susp) 30 ml PO Q6H PRN PRN Reason: Heartburn/Nausea Doxycycline Monohydrate (Doxycycline Monohydrate 100 Mg Capsule) 100 mg PO BID [facility] Stop: 04/20/23 13:44 Last Admin: 04/15/23 21:08 Dose: 100 mg Hydroxyzine HCl (Hydroxyzine Hcl 25 Mg Tablet) 25 mg PO Q6H PRN PRN Reason: Anxiety Magnesium Hydroxide (Milk Of Magnesia 30 Ml Oral.Susp) 30 ml PO DAILY PRN PRN Reason: Constipation Metoprolol Succinate (Metoprolol Succinate Er 25 Mg Tab.Er.24h) 25 mg PO DAILY [facility]; Protocol Last Admin: 04/15/23 09:16 Dose: Not Given Quetiapine Fumarate (Quetiapine Fumarate 25 Mg Tablet) 12.5 mg PO DAILY [facility] Last Admin: 04/15/23 09:17 Dose: 12.5 mg Quetiapine Fumarate (Quetiapine Fumarate 25 Mg Tablet) 12.5 mg PO BID PRN PRN Reason: Agitation Sertraline HCl (Sertraline Hcl 100 Mg Tablet) 100 mg PO DAILY [facility] Last Admin: 04/15/23 09:21 Dose: 100 mg Trazodone HCl (Trazodone Hcl 50 Mg Tablet) 50 mg PO BEDTIME MRX1 PRN PRN Reason: Insomnia Last Admin: 04/16/23 01:30 Dose: 50 mg Allergies Allergies Allergy/AdvReac Type Severity Reaction Status Date / Time No Known Allergies Allergy Verified 04/10/23 18:33 Assessment & Plan Assessment & Plan (1) Cognitive impairment: Status: Acute Code(s): R41.89 - Other symptoms and signs involving cognitive functions and awareness Assessment and Plan: 04/16covid positive felt to be more responsible for decompensation of baseline mild dementia, than mild ? uti- but both are being cared for- pt seems improved also with geripsych admit and 1:1 care due to falls. (2) Dementia: Status: Acute Code(s): F03.90 - Unspecified dementia, unspecified severity, without behavioral disturbance, psychotic disturbance, mood disturbance, and anxiety (3) COVID-19: Status: Acute Code(s): U07.1 - COVID-19 (4) Delirium: Status: Acute Code(s): R41.0 - Disorientation, unspecified Plan pt less agitated, less paranoia. discussed with son admission to [facility] for dx clarification and med management, which he is in agreement, if bed comes up soon. Informed Consent: does not understand Reason for continued inpatient stay Substantial Risk for: inability to function and med/psych decompensation Time Spent With Patient Time: Total time managing care of this patient today ____ minutes.
[2023-04-16 08:23] VITALS: BP 116/52; PULSE 72; RESP 14; TEMP 36.7; O2SAT 96
[2023-04-16] MEDS: Doxycycline Monohydrate 100 MG CAPSULE PO ×2 (08:27→20:15)
[2023-04-16] MEDS: QUEtiapine Fumarate 25 MG TABLET 12.5 MG PO (08:28)
[2023-04-16] MEDS: Metoprolol Succinate ER 25 MG TAB.ER.24H PO (08:29)
[2023-04-16] MEDS: Sertraline HCL 100 MG TABLET PO (08:29)
[2023-04-16] MEDS: Docusate Sodium 100 MG CAPSULE PO ×2 (13:11→20:15)
[2023-04-16 19:35] VITALS: BP 147/70; PULSE 71; RESP 18; TEMP 36.7; O2SAT 98
[2023-04-17 08:49] VITALS: BP 132/60; PULSE 75; RESP 18; TEMP 36.6; O2SAT 98
[2023-04-17] MEDS: QUEtiapine Fumarate 25 MG TABLET 12.5 MG PO ×2 (08:50→20:52)
[2023-04-17] MEDS: Docusate Sodium 100 MG CAPSULE PO (08:50)
[2023-04-17] MEDS: Doxycycline Monohydrate 100 MG CAPSULE PO (08:51)
[2023-04-17] MEDS: Metoprolol Succinate ER 25 MG TAB.ER.24H PO (08:52)
[2023-04-17] MEDS: Sertraline HCL 100 MG TABLET PO (08:54)
--- NOTE | 2023-04-17 16:29 | P.PNPSI_ITS ---
Subjective Subjective Date of Service: 04/17/23 Reason For Visit: psychosisi Subjective Notes: Conditional Voluntary Medical Problems Affecting Mental Status: Yes (recovering by covid ) Interim History: 82 yo female feeling better , brighter knows it is 04/17 and year denies depression or confusion to this provider- reported what happened that brought her in- a fall at home- Asked her if she had a home alert button- she said she refused it because she likes to walk to town- Nursing reports social with roomate and went to a group Using walker with fair effect- re her balance Medication Compliance: Yes Side effects from medications: No Attending Groups: Intermittent Review of Systems recovery from covid Mental Status Exam Mental Status Exam Patient Appearance: Unkempt Patient Orientation: Person, Place and Situation Level of Consciousness: Awake and Alert Patient Behavior: Appropriate and Cooperative Mood Description: Calm Affect Description: Constricted Ability to Follow Directions: Good Speech Pattern: Clear Thought Process: Intact and Goal Oriented Thought Content: positive for Intact and positive for Goal Oriented Judgement: Fair Diagnostics Vital Signs (24Hr): Vital Signs - 24 hr 04/16/23 19:35 04/17/23 08:49 Temperature 98.0 F 97.9 F Pulse Rate 71 75 Respiratory Rate 18 18 Blood Pressure 147/70 H 132/60 Pulse Oximetry 98 98 Oxygen Delivery Method Room Air Room Air BMI result Body Mass Index 18.9 Labs 04/10/23 19:38 04/15/23 07:49 Imaging Radiology Impressions: ITS Impressions Cervical Spine CT 04/10/23 19:54 IMPRESSION: 1. No acute intracranial abnormality. 2. No acute osseous abnormality within the cervical spine. 3. No acute osseous abnormality within the maxillofacial region. Face CT 04/10/23 19:54 IMPRESSION: 1. No acute intracranial abnormality. 2. No acute osseous abnormality within the cervical spine. 3. No acute osseous abnormality within the maxillofacial region. Head CT 04/10/23 19:54 IMPRESSION: 1. No acute intracranial abnormality. 2. No acute osseous abnormality within the cervical spine. 3. No acute osseous abnormality within the maxillofacial region. Abdomen/Pelvis CT 04/10/23 20:04 IMPRESSION: 1. No acute abnormality. 2. Severe degenerative scoliosis. 3. Advanced calcific atherosclerotic disease. 4. Diverticulosis without diverticulitis. Fleischner guidelines were followed. Chest CT 04/10/23 20:04 IMPRESSION: 1. No acute abnormality. 2. No rib fracture. 3. Minimal fibrotic change and/or atelectasis in the left lower lobe. 4. Calcific atherosclerotic disease including coronary artery calcification. 5. Degenerative scoliosis of the dorsal spine. Fleischner guidelines were followed. Medications Medications Current Medications Acetaminophen (Acetaminophen 325 Mg Tablet) 650 mg PO Q6H PRN PRN Reason: Headache/Pain Mild Scale (1-3) Al Hydroxide/Mg Hydroxide (Magnesium Hydrox/Alum Hydrox 30 Ml Oral.Susp) 30 ml PO Q6H PRN PRN Reason: Heartburn/Nausea Docusate Sodium (Docusate Sodium 100 Mg Capsule) 100 mg PO BID [facility] Last Admin: 04/17/23 08:50 Dose: 100 mg Doxycycline Monohydrate (Doxycycline Monohydrate 100 Mg Capsule) 100 mg PO BID [facility] Stop: 04/20/23 13:44 Last Admin: 04/17/23 08:51 Dose: 100 mg Hydroxyzine HCl (Hydroxyzine Hcl 25 Mg Tablet) 25 mg PO Q6H PRN PRN Reason: Anxiety Magnesium Hydroxide (Milk Of Magnesia 30 Ml Oral.Susp) 30 ml PO DAILY PRN PRN Reason: Constipation Metoprolol Succinate (Metoprolol Succinate Er 25 Mg Tab.Er.24h) 25 mg PO DAILY [facility]; Protocol Last Admin: 04/17/23 08:52 Dose: 25 mg Quetiapine Fumarate (Quetiapine Fumarate 25 Mg Tablet) 12.5 mg PO DAILY [facility] Last Admin: 04/17/23 08:50 Dose: 12.5 mg Quetiapine Fumarate (Quetiapine Fumarate 25 Mg Tablet) 12.5 mg PO BID PRN PRN Reason: Agitation Sertraline HCl (Sertraline Hcl 100 Mg Tablet) 100 mg PO DAILY [facility] Last Admin: 04/17/23 08:54 Dose: 100 mg Trazodone HCl (Trazodone Hcl 50 Mg Tablet) 50 mg PO BEDTIME MRX1 PRN PRN Reason: Insomnia Last Admin: 04/16/23 01:30 Dose: 50 mg Allergies Allergies Allergy/AdvReac Type Severity Reaction Status Date / Time No Known Allergies Allergy Verified 04/10/23 18:33 Assessment & Plan Assessment & Plan (1) Cognitive impairment: Status: Acute Code(s): R41.89 - Other symptoms and signs involving cognitive functions and awareness Assessment and Plan: 04/16covid positive felt to be more responsible for decompensation of baseline mild dementia, than mild ? uti- but both are being cared for- pt seems improved also with geripsych admit and 1:1 care due to falls. (2) Dementia: Status: Acute Code(s): F03.90 - Unspecified dementia, unspecified severity, without behavioral disturbance, psychotic disturbance, mood disturbance, and anxiety (3) COVID-19: Status: Acute Code(s): U07.1 - COVID-19 (4) Delirium: Status: Acute Code(s): R41.0 - Disorientation, unspecified Plan pt less agitated, less paranoia. discussed with son admission to [facility] for dx clarification and med management, which he is in agreement, if bed comes up soon. 04/17 doing better recovering from covid/uti Patient educated on: medical condition Informed Consent: understands Reason for continued inpatient stay Substantial Risk for: med/psych decompensation Time Spent With Patient Time: Total time managing care of this patient today ____ minutes.
[2023-04-17 17:32] VITALS: BP 106/52; PULSE 70; TEMP 36.6; O2SAT 97
[2023-04-18] MEDS: Acetaminophen 325 MG TABLET 650 MG PO (03:08)
[2023-04-18 07:40] VITALS: BP 155/67; PULSE 68; RESP 16; TEMP 36.8; O2SAT 96
--- NOTE | 2023-04-18 10:51 | P.PNPSI_ITS ---
Subjective Subjective Date of Service: 04/18/23 Reason For Visit: psychosisi Subjective Notes: Conditional Voluntary Healthcare Proxy: Yes (needs to be invoked patient refusing meds) Interim History: 82 yo WF just s/p covid recovery- had been bright for last 2 days but not is refusing medications and reactive to another patient on unit saying /accusing staff of sexual things- more withdrawn and flat affect today- saying God doesn't want her to take medications- she will pray for her health- instead Medication Compliance: No Attending Groups: No (attended one yesteday where another pt accused staff) Review of Systems Acute medical concerns: No Medical Review of Systems: unchanged Mental Status Exam Mental Status Exam Patient Appearance: Unkempt and Rigid Patient Orientation: Person and Place Level of Consciousness: Awake and Alert Patient Behavior: Guarded, Passive and Resistive to Care Mood Description: Suspicious, Withdrawn and Depressed Affect Description: Blunted Patient Cognition Impaired: Yes Ability to Follow Directions: Fair Speech Pattern: Clear Delusions: Present (/ hyper tenriism or if she was just referring to her own sense of methodist) Thought Content: positive for Goal Oriented and positive for Preoccupation Depressive Symptoms: Increased Anxiety and Muscle Tension Judgement: Poor Diagnostics Vital Signs (24Hr): Vital Signs - 24 hr 04/17/23 17:32 04/18/23 07:40 Temperature 97.9 F 98.2 F Pulse Rate 70 68 Respiratory Rate 16 Blood Pressure 106/52 L 155/67 H Pulse Oximetry 97 96 Oxygen Delivery Method Room Air Room Air BMI result Body Mass Index 18.9 Labs 04/10/23 19:38 04/15/23 07:49 Imaging Radiology Impressions: ITS Impressions Cervical Spine CT 04/10/23 19:54 IMPRESSION: 1. No acute intracranial abnormality. 2. No acute osseous abnormality within the cervical spine. 3. No acute osseous abnormality within the maxillofacial region. Face CT 04/10/23 19:54 IMPRESSION: 1. No acute intracranial abnormality. 2. No acute osseous abnormality within the cervical spine. 3. No acute osseous abnormality within the maxillofacial region. Head CT 04/10/23 19:54 IMPRESSION: 1. No acute intracranial abnormality. 2. No acute osseous abnormality within the cervical spine. 3. No acute osseous abnormality within the maxillofacial region. Abdomen/Pelvis CT 04/10/23 20:04 IMPRESSION: 1. No acute abnormality. 2. Severe degenerative scoliosis. 3. Advanced calcific atherosclerotic disease. 4. Diverticulosis without diverticulitis. Fleischner guidelines were followed. Chest CT 04/10/23 20:04 IMPRESSION: 1. No acute abnormality. 2. No rib fracture. 3. Minimal fibrotic change and/or atelectasis in the left lower lobe. 4. Calcific atherosclerotic disease including coronary artery calcification. 5. Degenerative scoliosis of the dorsal spine. Fleischner guidelines were followed. Medications Medications Current Medications Acetaminophen (Acetaminophen 325 Mg Tablet) 650 mg PO Q6H PRN PRN Reason: Headache/Pain Mild Scale (1-3) Last Admin: 04/18/23 03:08 Dose: 650 mg Al Hydroxide/Mg Hydroxide (Magnesium Hydrox/Alum Hydrox 30 Ml Oral.Susp) 30 ml PO Q6H PRN PRN Reason: Heartburn/Nausea Docusate Sodium (Docusate Sodium 100 Mg Capsule) 100 mg PO BID [facility] Last Admin: 04/17/23 22:54 Dose: Not Given Doxycycline Monohydrate (Doxycycline Monohydrate 100 Mg Capsule) 100 mg PO BID [facility] Stop: 04/20/23 13:44 Last Admin: 04/17/23 22:54 Dose: Not Given Hydroxyzine HCl (Hydroxyzine Hcl 25 Mg Tablet) 25 mg PO Q6H PRN PRN Reason: Anxiety Magnesium Hydroxide (Milk Of Magnesia 30 Ml Oral.Susp) 30 ml PO DAILY PRN PRN Reason: Constipation Metoprolol Succinate (Metoprolol Succinate Er 25 Mg Tab.Er.24h) 25 mg PO DAILY [facility]; Protocol Last Admin: 04/17/23 08:52 Dose: 25 mg Quetiapine Fumarate (Quetiapine Fumarate 25 Mg Tablet) 12.5 mg PO DAILY [facility] Last Admin: 04/17/23 08:50 Dose: 12.5 mg Quetiapine Fumarate (Quetiapine Fumarate 25 Mg Tablet) 12.5 mg PO BID PRN PRN Reason: Agitation Last Admin: 04/17/23 20:52 Dose: 12.5 mg Sertraline HCl (Sertraline Hcl 100 Mg Tablet) 100 mg PO DAILY [facility] Last Admin: 04/17/23 08:54 Dose: 100 mg Trazodone HCl (Trazodone Hcl 50 Mg Tablet) 50 mg PO BEDTIME MRX1 PRN PRN Reason: Insomnia Last Admin: 04/16/23 01:30 Dose: 50 mg Allergies Allergies Allergy/AdvReac Type Severity Reaction Status Date / Time No Known Allergies Allergy Verified 04/10/23 18:33 Assessment & Plan Assessment & Plan (1) Cognitive impairment: Status: Acute Code(s): R41.89 - Other symptoms and signs involving cognitive functions and awareness Assessment and Plan: 04/16covid positive felt to be more responsible for decompensation of baseline mild dementia, than mild ? uti- but both are being cared for- pt seems improved also with geripsych admit and 1:1 care due to falls. (2) Dementia: Status: Acute Code(s): F03.90 - Unspecified dementia, unspecified severity, without behavioral disturbance, psychotic disturbance, mood disturbance, and anxiety (3) COVID-19: Status: Acute Code(s): U07.1 - COVID-19 (4) Delirium: Status: Acute Code(s): R41.0 - Disorientation, unspecified Plan pt less agitated, less paranoia. discussed with son admission to [facility] for dx clarification and med management, which he is in agreement, if bed comes up soon. 04/17 doing better recovering from covid/uti 04/18/23 scared by another patient at a group, now refusing meds, more withdrawn- even with nursing calling son to discuss taking meds- she refuses and has withdrawn from [facility] Patient educated on: medication risk/benefits, therapeutic strategies and other Informed Consent: further education needed Reason for continued inpatient stay Substantial Risk for: inability to function, rapid decompensation and med/psych decompensation Time Spent With Patient Time: Total time managing care of this patient today ____ minutes.
[2023-04-18 18:00] VITALS: BP 136/65; PULSE 79; RESP 17; TEMP 36.6; O2SAT 97
[2023-04-19 07:54] VITALS: BP 105/52; PULSE 75; RESP 16; TEMP 36.4; O2SAT 97
--- NOTE | 2023-04-19 09:29 | PC.NURSE ---
Refused meds; Dr. Mahan notified.
[2023-04-19] MEDS: Sertraline HCL 100 MG TABLET PO (11:52)
[2023-04-19] MEDS: Docusate Sodium 100 MG CAPSULE PO ×2 (11:52→21:02)
[2023-04-19] MEDS: QUEtiapine Fumarate 25 MG TABLET 12.5 MG PO (11:52)
[2023-04-19] MEDS: Metoprolol Succinate ER 25 MG TAB.ER.24H PO (11:52)
[2023-04-19] MEDS: Doxycycline Monohydrate 100 MG CAPSULE PO ×2 (11:53→21:02)
--- NOTE | 2023-04-19 13:50 | P.PNPSI_ITS ---
Subjective Subjective Date of Service: 04/19/23 Reason For Visit: psychosisi Subjective Notes: Conditional Voluntary Interim History: The nursing staff reported the patient had been very paranoid withdrawn fearful guarded refusing care. Today the nursing staff reported that they have to call her son who convince her to take her medications. He has been taking doxycycline for his UTI. On interview the patient remains paranoid and confused at times, we will try to gather more collateral information. She was selectively mute, very paranoid Mental Status Exam Mental Status Exam Patient Appearance: Appropriate Patient Orientation: Person Level of Consciousness: Awake Patient Behavior: Guarded and Passive Mood Description: Withdrawn Affect Description: Constricted Patient Cognition Impaired: Yes Ability to Follow Directions: Good Speech Pattern: Inappropriate and Delayed Hallucinations: None Delusions: Paranoid Ideation and Ideas of Reference Thought Process: Illogical, Distracted and Slowed Thinking Thought Content: positive for [place] and positive for Poverty of Content Judgement: Poor Diagnostics Vital Signs (24Hr): Vital Signs - 24 hr 04/18/23 18:00 04/19/23 07:54 Temperature 97.8 F 97.6 F Pulse Rate 79 75 Respiratory Rate 17 16 Blood Pressure 136/65 105/52 L Pulse Oximetry 97 97 Oxygen Delivery Method Room Air BMI result Body Mass Index 18.9 Labs 04/10/23 19:38 04/15/23 07:49 Imaging Radiology Impressions: ITS Impressions Cervical Spine CT 04/10/23 19:54 IMPRESSION: 1. No acute intracranial abnormality. 2. No acute osseous abnormality within the cervical spine. 3. No acute osseous abnormality within the maxillofacial region. Face CT 04/10/23 19:54 IMPRESSION: 1. No acute intracranial abnormality. 2. No acute osseous abnormality within the cervical spine. 3. No acute osseous abnormality within the maxillofacial region. Head CT 04/10/23 19:54 IMPRESSION: 1. No acute intracranial abnormality. 2. No acute osseous abnormality within the cervical spine. 3. No acute osseous abnormality within the maxillofacial region. Abdomen/Pelvis CT 04/10/23 20:04 IMPRESSION: 1. No acute abnormality. 2. Severe degenerative scoliosis. 3. Advanced calcific atherosclerotic disease. 4. Diverticulosis without diverticulitis. Fleischner guidelines were followed. Chest CT 04/10/23 20:04 IMPRESSION: 1. No acute abnormality. 2. No rib fracture. 3. Minimal fibrotic change and/or atelectasis in the left lower lobe. 4. Calcific atherosclerotic disease including coronary artery calcification. 5. Degenerative scoliosis of the dorsal spine. Fleischner guidelines were followed. Medications Medications Current Medications Acetaminophen (Acetaminophen 325 Mg Tablet) 650 mg PO Q6H PRN PRN Reason: Headache/Pain Mild Scale (1-3) Last Admin: 04/18/23 03:08 Dose: 650 mg Al Hydroxide/Mg Hydroxide (Magnesium Hydrox/Alum Hydrox 30 Ml Oral.Susp) 30 ml PO Q6H PRN PRN Reason: Heartburn/Nausea Docusate Sodium (Docusate Sodium 100 Mg Capsule) 100 mg PO BID [facility] Last Admin: 04/19/23 11:52 Dose: 100 mg Doxycycline Monohydrate (Doxycycline Monohydrate 100 Mg Capsule) 100 mg PO BID [facility] Stop: 04/20/23 13:44 Last Admin: 04/19/23 11:53 Dose: 100 mg Hydroxyzine HCl (Hydroxyzine Hcl 25 Mg Tablet) 25 mg PO Q6H PRN PRN Reason: Anxiety Magnesium Hydroxide (Milk Of Magnesia 30 Ml Oral.Susp) 30 ml PO DAILY PRN PRN Reason: Constipation Metoprolol Succinate (Metoprolol Succinate Er 25 Mg Tab.Er.24h) 25 mg PO DAILY [facility]; Protocol Last Admin: 04/19/23 11:52 Dose: 25 mg Quetiapine Fumarate (Quetiapine Fumarate 25 Mg Tablet) 12.5 mg PO DAILY [facility] Last Admin: 04/19/23 11:52 Dose: 12.5 mg Quetiapine Fumarate (Quetiapine Fumarate 25 Mg Tablet) 12.5 mg PO BID PRN PRN Reason: Agitation Last Admin: 04/17/23 20:52 Dose: 12.5 mg Sertraline HCl (Sertraline Hcl 100 Mg Tablet) 100 mg PO DAILY [facility] Last Admin: 04/19/23 11:52 Dose: 100 mg Trazodone HCl (Trazodone Hcl 50 Mg Tablet) 50 mg PO BEDTIME MRX1 PRN PRN Reason: Insomnia Last Admin: 04/16/23 01:30 Dose: 50 mg Allergies Allergies Allergy/AdvReac Type Severity Reaction Status Date / Time No Known Allergies Allergy Verified 04/10/23 18:33 Assessment & Plan Assessment & Plan (1) Cognitive impairment: Status: Acute Code(s): R41.89 - Other symptoms and signs involving cognitive functions and awareness Assessment and Plan: 04/16covid positive felt to be more responsible for decompensation of baseline mild dementia, than mild ? uti- but both are being cared for- pt seems improved also with geripsych admit and 1:1 care due to falls. (2) Dementia: Status: Acute Code(s): F03.90 - Unspecified dementia, unspecified severity, without behavioral disturbance, psychotic disturbance, mood disturbance, and anxiety (3) COVID-19: Status: Acute Code(s): U07.1 - COVID-19 (4) Delirium: Status: Acute Code(s): R41.0 - Disorientation, unspecified Plan pt less agitated, less paranoia. discussed with son admission to [facility] for dx clarification and med management, which he is in agreement, if bed comes up soon. 04/17 doing better recovering from covid/uti 04/18/23 scared by another patient at a group, now refusing meds, more withdrawn- even with nursing calling son to discuss taking meds- she refuses [facility] Plan 1. Gather collateral information. 2. Continue with pamol Garcia. We are going to discuss with the son the possibility of starting long-acting injectables or any other types of antipsychotics. Reason for continued inpatient stay Substantial Risk for: inability to function, rapid decompensation and med/psych decompensation Time Spent With Patient Time: Total time managing care of this patient today __20__ minutes.
[2023-04-19 14:50] LABS: IDNOW Serial# 9DB6401D
[2023-04-19 14:51] LABS: COVID-19 Test Positive (Negative)
[2023-04-19 19:01] VITALS: BP 134/63; PULSE 82; RESP 16; TEMP 36.3; O2SAT 97
[2023-04-19] MEDS: traZODone HCL 50 MG TABLET PO (21:02)
[2023-04-20 06:00] VITALS: BP 107/53; PULSE 83; RESP 17; TEMP 36.3; O2SAT 97
[2023-04-20] MEDS: Docusate Sodium 100 MG CAPSULE PO ×2 (08:19→21:53)
[2023-04-20] MEDS: Metoprolol Succinate ER 25 MG TAB.ER.24H PO (08:20)
[2023-04-20] MEDS: Doxycycline Monohydrate 100 MG CAPSULE PO (08:20)
[2023-04-20] MEDS: Sertraline HCL 100 MG TABLET PO (08:20)
[2023-04-20] MEDS: QUEtiapine Fumarate 25 MG TABLET 12.5 MG PO (08:20)
--- NOTE | 2023-04-20 14:01 | MHC.CLN ---
F/U DIET=REGULAR. ENSURE TID PROVIDES ADDITIONAL 1050 KCALS, 60 G PROTEIN. NO NEW WEIGHTS. PO INTAKE IS VARIABLE, 0-100%. THREE DAY RANDOM AVERAGE 42% PER MEAL. MONITOR WEIGHT, PO INTAKE, AND ENCOURAGE INTAKE ABLE.
--- NOTE | 2023-04-20 15:18 | HO.PSYCHPN ---
Subjective Subjective Date of Service: 04/20/23 Reason For Visit: psychosisi Subjective Notes: Conditional Voluntary Healthcare Proxy: Yes Interim History: The nursing staff reported the patient had been very paranoid, fearful at times, we needed to call her son so she can be compliant with treatment. The social science research assistant arrange a meeting with her son and over the phone with her other children. During the family meeting the son reported the patient does not suffer from dementia she is independent at baseline, living by herself. Whenever she has a UTI she becomes very delirium Zydis time mixed or use that she delirious. On interview the patient was pleasant cooperative, we discussed with her son and she was very pleased about that. At this moment we are going to use only Seroquel p.r.n.. Mental Status Exam Mental Status Exam Patient Appearance: Appropriate Patient Orientation: Person and Situation Level of Consciousness: Awake and Appropriate Patient Behavior: Guarded and Passive Mood Description: Withdrawn Affect Description: Constricted Patient Cognition Impaired: Yes Ability to Follow Directions: Good Speech Pattern: Clear Hallucinations: None Delusions: Paranoid Ideation and Ideas of Reference Thought Process: Distracted Thought Content: positive for [place] and positive for Poverty of Content Judgement: Fair Diagnostics Vital Signs (24Hr): Vital Signs - 24 hr 04/19/23 19:01 04/20/23 06:00 Temperature 97.3 F 97.3 F Pulse Rate 82 83 Respiratory Rate 16 17 Blood Pressure 134/63 107/53 L Pulse Oximetry 97 97 Oxygen Delivery Method Room Air Room Air BMI result Body Mass Index 18.9 Labs 04/10/23 19:38 04/15/23 07:49 Labs: Laboratory Results - last 48 hr 04/19/23 13:56 COVID-19 (ALHAJI) Positive A COVID-19 Clin Com See Note Imaging Radiology Impressions: ITS Impressions Cervical Spine CT 04/10/23 19:54 IMPRESSION: 1. No acute intracranial abnormality. 2. No acute osseous abnormality within the cervical spine. 3. No acute osseous abnormality within the maxillofacial region. Face CT 04/10/23 19:54 IMPRESSION: 1. No acute intracranial abnormality. 2. No acute osseous abnormality within the cervical spine. 3. No acute osseous abnormality within the maxillofacial region. Head CT 04/10/23 19:54 IMPRESSION: 1. No acute intracranial abnormality. 2. No acute osseous abnormality within the cervical spine. 3. No acute osseous abnormality within the maxillofacial region. Abdomen/Pelvis CT 04/10/23 20:04 IMPRESSION: 1. No acute abnormality. 2. Severe degenerative scoliosis. 3. Advanced calcific atherosclerotic disease. 4. Diverticulosis without diverticulitis. Fleischner guidelines were followed. Chest CT 04/10/23 20:04 IMPRESSION: 1. No acute abnormality. 2. No rib fracture. 3. Minimal fibrotic change and/or atelectasis in the left lower lobe. 4. Calcific atherosclerotic disease including coronary artery calcification. 5. Degenerative scoliosis of the dorsal spine. Fleischner guidelines were followed. Medications Medications Current Medications Acetaminophen (Acetaminophen 325 Mg Tablet) 650 mg PO Q6H PRN PRN Reason: Headache/Pain Mild Scale (1-3) Last Admin: 04/18/23 03:08 Dose: 650 mg Al Hydroxide/Mg Hydroxide (Magnesium Hydrox/Alum Hydrox 30 Ml Oral.Susp) 30 ml PO Q6H PRN PRN Reason: Heartburn/Nausea Docusate Sodium (Docusate Sodium 100 Mg Capsule) 100 mg PO BID [facility] Last Admin: 04/20/23 08:19 Dose: 100 mg Hydroxyzine HCl (Hydroxyzine Hcl 25 Mg Tablet) 25 mg PO Q6H PRN PRN Reason: Anxiety Magnesium Hydroxide (Milk Of Magnesia 30 Ml Oral.Susp) 30 ml PO DAILY PRN PRN Reason: Constipation Metoprolol Succinate (Metoprolol Succinate Er 25 Mg Tab.Er.24h) 25 mg PO DAILY [facility]; Protocol Last Admin: 04/20/23 08:20 Dose: 25 mg Quetiapine Fumarate (Quetiapine Fumarate 25 Mg Tablet) 12.5 mg PO DAILY [facility] Last Admin: 04/20/23 08:20 Dose: 12.5 mg Quetiapine Fumarate (Quetiapine Fumarate 25 Mg Tablet) 12.5 mg PO BID PRN PRN Reason: Agitation Last Admin: 04/17/23 20:52 Dose: 12.5 mg Sertraline HCl (Sertraline Hcl 100 Mg Tablet) 100 mg PO DAILY [facility] Last Admin: 04/20/23 08:20 Dose: 100 mg Trazodone HCl (Trazodone Hcl 50 Mg Tablet) 50 mg PO BEDTIME MRX1 PRN PRN Reason: Insomnia Last Admin: 04/19/23 21:02 Dose: 50 mg Allergies Allergies Allergy/AdvReac Type Severity Reaction Status Date / Time No Known Allergies Allergy Verified 04/10/23 18:33 Assessment & Plan Assessment & Plan (1) Cognitive impairment: Status: Acute Code(s): R41.89 - Other symptoms and signs involving cognitive functions and awareness Assessment and Plan: 04/16covid positive felt to be more responsible for decompensation of baseline mild dementia, than mild ? uti- but both are being cared for- pt seems improved also with geripsych admit and 1:1 care due to falls. (2) Dementia: Status: Acute Code(s): F03.90 - Unspecified dementia, unspecified severity, without behavioral disturbance, psychotic disturbance, mood disturbance, and anxiety (3) COVID-19: Status: Acute Code(s): U07.1 - COVID-19 (4) Delirium: Status: Acute Code(s): R41.0 - Disorientation, unspecified Plan pt less agitated, less paranoia. discussed with son admission to [facility] psych for dx clarification and med management, which he is in agreement, if bed comes up soon. 04/17 doing better recovering from covid/uti 04/18/23 scared by another patient at a group, now refusing meds, more withdrawn- even with nursing calling son to discuss taking meds- she refuses and [facility] Plan 1. Gather collateral information. 2. Continue with p.r.nPalomo Serdonta. We are going to discuss with the son the possibility of starting long-acting injectables or any other types of antipsychotics. Reason for continued inpatient stay Substantial Risk for: inability to function, rapid decompensation and med/psych decompensation Time Spent With Patient Time: Total time managing care of this patient today __20__ minutes.
[2023-04-20 18:00] VITALS: BP 129/62; PULSE 74; RESP 18; TEMP 36.6; O2SAT 97
[2023-04-20] MEDS: traZODone HCL 50 MG TABLET PO ×2 (21:53→23:14)
[2023-04-20] MEDS: hydrOXYzine HCL 25 MG TABLET PO (23:17)
[2023-04-21 07:00] VITALS: BMI 19.5
[2023-04-21 07:40] VITALS: BP 102/52; PULSE 71; RESP 16; TEMP 36.2; O2SAT 99
[2023-04-21] MEDS: QUEtiapine Fumarate 25 MG TABLET 12.5 MG PO (08:03)
[2023-04-21] MEDS: Docusate Sodium 100 MG CAPSULE PO ×2 (08:03→20:52)
[2023-04-21] MEDS: Metoprolol Succinate ER 25 MG TAB.ER.24H PO (08:03)
--- NOTE | 2023-04-21 15:05 | HO.PSYCHPN ---
Subjective Subjective Date of Service: 04/21/23 Reason For Visit: psychosisi Subjective Notes: Conditional Voluntary Interim History: The nursing staff reported the patient had been flat and quiet, withdrawal. She had been fully compliant with treatment. On interview the patient remains passive, withdrawn, slightly confused but much better than yesterday. We ordered today a UA and he came back similar to the last 1 but no clinical symptoms of UTI at this moment. She finished her antibiotic course yesterday. Mental Status Exam Mental Status Exam Patient Appearance: Well Grooomed and Appropriate Patient Orientation: Person and Situation Level of Consciousness: Awake and Appropriate Patient Behavior: Guarded and Passive Mood Description: Withdrawn Affect Description: Constricted Patient Cognition Impaired: Yes Ability to Follow Directions: Good Speech Pattern: Clear Hallucinations: None Delusions: Not Present Thought Process: Distracted and Slowed Thinking Thought Content: positive for [place] and positive for Poverty of Content Judgement: Fair Diagnostics Vital Signs (24Hr): Vital Signs - 24 hr 04/20/23 18:00 04/21/23 07:40 Temperature 97.9 F 97.1 F Pulse Rate 74 71 Respiratory Rate 18 16 Blood Pressure 129/62 102/52 L Pulse Oximetry 97 99 Oxygen Delivery Method Room Air Room Air BMI result Body Mass Index 19.5 Labs 04/10/23 19:38 04/15/23 07:49 Labs: Laboratory Results - last 48 hr 04/21/23 Unknown Urine Color Dark Yellow Urine Appearance Clear Urine pH 6.0 Ur Specific [place] 1.020 Urine Protein Negative Urine Glucose (UA) Negative Urine Ketones Trace Urine Blood Negative Urine Nitrite Negative Ur Leukocyte Esterase Small (1+) H Urine RBC 3-5 H Urine WBC 0-5 Ur Squamous Epith Cells 0-2 Urine Bacteria None Seen Hyaline Casts 0-2 Imaging Radiology Impressions: ITS Impressions Cervical Spine CT 04/10/23 19:54 IMPRESSION: 1. No acute intracranial abnormality. 2. No acute osseous abnormality within the cervical spine. 3. No acute osseous abnormality within the maxillofacial region. Face CT 04/10/23 19:54 IMPRESSION: 1. No acute intracranial abnormality. 2. No acute osseous abnormality within the cervical spine. 3. No acute osseous abnormality within the maxillofacial region. Head CT 04/10/23 19:54 IMPRESSION: 1. No acute intracranial abnormality. 2. No acute osseous abnormality within the cervical spine. 3. No acute osseous abnormality within the maxillofacial region. Abdomen/Pelvis CT 04/10/23 20:04 IMPRESSION: 1. No acute abnormality. 2. Severe degenerative scoliosis. 3. Advanced calcific atherosclerotic disease. 4. Diverticulosis without diverticulitis. Fleischner guidelines were followed. Chest CT 04/10/23 20:04 IMPRESSION: 1. No acute abnormality. 2. No rib fracture. 3. Minimal fibrotic change and/or atelectasis in the left lower lobe. 4. Calcific atherosclerotic disease including coronary artery calcification. 5. Degenerative scoliosis of the dorsal spine. Fleischner guidelines were followed. Medications Medications Current Medications Acetaminophen (Acetaminophen 325 Mg Tablet) 650 mg PO Q6H PRN PRN Reason: Headache/Pain Mild Scale (1-3) Last Admin: 04/18/23 03:08 Dose: 650 mg Al Hydroxide/Mg Hydroxide (Magnesium Hydrox/Alum Hydrox 30 Ml Oral.Susp) 30 ml PO Q6H PRN PRN Reason: Heartburn/Nausea Docusate Sodium (Docusate Sodium 100 Mg Capsule) 100 mg PO BID [facility] Last Admin: 04/21/23 08:03 Dose: 100 mg Hydroxyzine HCl (Hydroxyzine Hcl 25 Mg Tablet) 25 mg PO Q6H PRN PRN Reason: Anxiety Last Admin: 04/20/23 23:17 Dose: 25 mg Magnesium Hydroxide (Milk Of Magnesia 30 Ml Oral.Susp) 30 ml PO DAILY PRN PRN Reason: Constipation Metoprolol Succinate (Metoprolol Succinate Er 25 Mg Tab.Er.24h) 25 mg PO DAILY [facility]; Protocol Last Admin: 04/21/23 08:03 Dose: 25 mg Quetiapine Fumarate (Quetiapine Fumarate 25 Mg Tablet) 12.5 mg PO DAILY [facility] Last Admin: 04/21/23 08:03 Dose: 12.5 mg Quetiapine Fumarate (Quetiapine Fumarate 25 Mg Tablet) 12.5 mg PO BID PRN PRN Reason: Agitation Last Admin: 04/17/23 20:52 Dose: 12.5 mg Sertraline HCl (Sertraline Hcl 100 Mg Tablet) 100 mg PO DAILY [facility] Last Admin: 04/21/23 08:03 Dose: 100 mg Trazodone HCl (Trazodone Hcl 50 Mg Tablet) 50 mg PO BEDTIME MRX1 PRN PRN Reason: Insomnia Last Admin: 04/20/23 23:14 Dose: 50 mg Allergies Allergies Allergy/AdvReac Type Severity Reaction Status Date / Time No Known Allergies Allergy Verified 04/10/23 18:33 Assessment & Plan Assessment & Plan (1) Cognitive impairment: Status: Acute Code(s): R41.89 - Other symptoms and signs involving cognitive functions and awareness Assessment and Plan: 04/16covid positive felt to be more responsible for decompensation of baseline mild dementia, than mild ? uti- but both are being cared for- pt seems improved also with geripsych admit and 1:1 care due to falls. (2) Dementia: Status: Acute Code(s): F03.90 - Unspecified dementia, unspecified severity, without behavioral disturbance, psychotic disturbance, mood disturbance, and anxiety (3) COVID-19: Status: Acute Code(s): U07.1 - COVID-19 (4) Delirium: Status: Acute Code(s): R41.0 - Disorientation, unspecified Plan pt less agitated, less paranoia. discussed with son admission to [facility] psych for dx clarification and med management, which he is in agreement, if bed comes up soon. 04/17 doing better recovering from covid/uti 04/18/23 scared by another patient at a group, now refusing meds, more withdrawn- even with nursing calling son to discuss taking meds- she refuses and [facility] Plan 1. Gather collateral information. 2. Continue with p.rshila Garcia. We are going to discuss with the son the possibility of starting long-acting injectables or any other types of antipsychotics. Reason for continued inpatient stay Substantial Risk for: inability to function, rapid decompensation and med/psych decompensation Time Spent With Patient Time: Total time managing care of this patient today __20__ minutes.
[2023-04-21 18:00] VITALS: BP 106/57; PULSE 77; RESP 18; TEMP 36.3; O2SAT 97
[2023-04-21] MEDS: hydrOXYzine HCL 25 MG TABLET PO (20:52)
[2023-04-21] MEDS: traZODone HCL 50 MG TABLET PO (20:52)
[2023-04-22 08:14] VITALS: BP 122/58; PULSE 72; RESP 16; TEMP 36.3; O2SAT 98
[2023-04-22] MEDS: Metoprolol Succinate ER 25 MG TAB.ER.24H PO (08:17)
[2023-04-22 08:38] LABS: Anion Gap 10 (12-20); Blood Urea Nitrogen 19 mg/dL (9-16); Calcium 9.4 mg/dL (8.4-10.2); Carbon Dioxide 30 mmol/L (22-29); Chloride 103 mmol/L (96-108); Creatinine Clr Calc Pharmacy 48.3; Estimated Glomerular Filt Rate > 60; Glucose Random 84 mg/dL (60-115); Potassium 3.9 mmol/L (3.3-5.1); Sodium 139 mmol/L (135-145)
--- NOTE | 2023-04-22 09:18 | HO.PSYCHPN ---
Subjective Subjective Date of Service: 04/22/23 Reason For Visit: psychosisi Subjective Notes: Conditional Voluntary Interim History: The nursing staff reported the patient had poor sleep, she needed Atarax and trazodone, she slept only 4 hours. On interview the patient denies new symptoms she looks less internally preoccupied. We will continue with Seroquel 12.5 in the morning. Today we will call her son reports improvement. Her UA came back with no changes with the previous 1. Waiting for the culture. Mental Status Exam Mental Status Exam Patient Appearance: Appropriate Patient Orientation: Person and Situation Level of Consciousness: Awake Patient Behavior: Guarded and Passive Mood Description: Calm Affect Description: Blunted Patient Cognition Impaired: Yes Ability to Follow Directions: Good Speech Pattern: Impoverished Hallucinations: None Delusions: Ideas of Reference Thought Content: positive for [place] and positive for Poverty of Content Judgement: Fair Diagnostics Vital Signs (24Hr): Vital Signs - 24 hr 04/21/23 18:00 04/22/23 08:14 Temperature 97.3 F 97.4 F Pulse Rate 77 72 Respiratory Rate 18 16 Blood Pressure 106/57 L 122/58 L Pulse Oximetry 97 98 Oxygen Delivery Method Room Air Room Air BMI result Body Mass Index 19.5 Labs 04/22/23 08:12 04/22/23 08:12 Labs: Laboratory Results - last 48 hr 04/21/23 04/22/23 Unknown 08:12 WBC 4.6 L RBC 3.89 L Hgb 11.4 L Hct 34.6 L MCV 88.9 MCH 29.3 MCHC 32.9 RDW 14.6 Plt Count 169 MPV 9.6 Immature Gran % (Auto) 0.6 H Neut % (Auto) 71.4 Lymph % (Auto) 19.0 L [place] % (Auto) 7.1 Eos % (Auto) 1.7 Baso % (Auto) 0.2 Lymph # (Auto) 0.9 L [place] # (Auto) 0.3 Eos # (Auto) 0.1 Baso # (Auto) 0.0 Abs Immat Gran (auto) 0.03 Absolute Neuts (auto) 3.3 Absolute Nucleated RBC 0.000 Nucleated RBC % (auto) 0.0 Sodium 139 Potassium 3.9 Chloride 103 Carbon Dioxide 30 H Anion Gap 10 L BUN 19 H Creatinine 0.73 Estim Creat Clear Calc 48.3 Estimated GFR > 60 Random Glucose 84 Calcium 9.4 Urine Color Dark Yellow Urine Appearance Clear Urine pH 6.0 Ur Specific [place] 1.020 Urine Protein Negative Urine Glucose (UA) Negative Urine Ketones Trace Urine Blood Negative Urine Nitrite Negative Ur Leukocyte Esterase Small (1+) H Urine RBC 3-5 H Urine WBC 0-5 Ur Squamous Epith Cells 0-2 Urine Bacteria None Seen Hyaline Casts 0-2 Imaging Radiology Impressions: ITS Impressions Cervical Spine CT 04/10/23 19:54 IMPRESSION: 1. No acute intracranial abnormality. 2. No acute osseous abnormality within the cervical spine. 3. No acute osseous abnormality within the maxillofacial region. Face CT 04/10/23 19:54 IMPRESSION: 1. No acute intracranial abnormality. 2. No acute osseous abnormality within the cervical spine. 3. No acute osseous abnormality within the maxillofacial region. Head CT 04/10/23 19:54 IMPRESSION: 1. No acute intracranial abnormality. 2. No acute osseous abnormality within the cervical spine. 3. No acute osseous abnormality within the maxillofacial region. Abdomen/Pelvis CT 04/10/23 20:04 IMPRESSION: 1. No acute abnormality. 2. Severe degenerative scoliosis. 3. Advanced calcific atherosclerotic disease. 4. Diverticulosis without diverticulitis. Fleischner guidelines were followed. Chest CT 04/10/23 20:04 IMPRESSION: 1. No acute abnormality. 2. No rib fracture. 3. Minimal fibrotic change and/or atelectasis in the left lower lobe. 4. Calcific atherosclerotic disease including coronary artery calcification. 5. Degenerative scoliosis of the dorsal spine. Fleischner guidelines were followed. Medications Medications Current Medications Acetaminophen (Acetaminophen 325 Mg Tablet) 650 mg PO Q6H PRN PRN Reason: Headache/Pain Mild Scale (1-3) Last Admin: 04/18/23 03:08 Dose: 650 mg Al Hydroxide/Mg Hydroxide (Magnesium Hydrox/Alum Hydrox 30 Ml Oral.Susp) 30 ml PO Q6H PRN PRN Reason: Heartburn/Nausea Docusate Sodium (Docusate Sodium 100 Mg Capsule) 100 mg PO BID [facility] Last Admin: 04/22/23 08:16 Dose: 100 mg Hydroxyzine HCl (Hydroxyzine Hcl 25 Mg Tablet) 25 mg PO Q6H PRN PRN Reason: Anxiety Last Admin: 04/21/23 20:52 Dose: 25 mg Magnesium Hydroxide (Milk Of Magnesia 30 Ml Oral.Susp) 30 ml PO DAILY PRN PRN Reason: Constipation Metoprolol Succinate (Metoprolol Succinate Er 25 Mg Tab.Er.24h) 25 mg PO DAILY [facility]; Protocol Last Admin: 04/22/23 08:17 Dose: 25 mg Quetiapine Fumarate (Quetiapine Fumarate 25 Mg Tablet) 12.5 mg PO DAILY [facility] Last Admin: 04/22/23 08:17 Dose: 12.5 mg Quetiapine Fumarate (Quetiapine Fumarate 25 Mg Tablet) 12.5 mg PO BID PRN PRN Reason: Agitation Last Admin: 04/17/23 20:52 Dose: 12.5 mg Sertraline HCl (Sertraline Hcl 100 Mg Tablet) 100 mg PO DAILY [facility] Last Admin: 04/22/23 08:18 Dose: 100 mg Trazodone HCl (Trazodone Hcl 50 Mg Tablet) 50 mg PO BEDTIME MRX1 PRN PRN Reason: Insomnia Last Admin: 04/21/23 20:52 Dose: 50 mg Allergies Allergies Allergy/AdvReac Type Severity Reaction Status Date / Time No Known Allergies Allergy Verified 04/10/23 18:33 Assessment & Plan Assessment & Plan (1) Cognitive impairment: Status: Acute Code(s): R41.89 - Other symptoms and signs involving cognitive functions and awareness Assessment and Plan: 04/16covid positive felt to be more responsible for decompensation of baseline mild dementia, than mild ? uti- but both are being cared for- pt seems improved also with geripsych admit and 1:1 care due to falls. (2) Dementia: Status: Acute Code(s): F03.90 - Unspecified dementia, unspecified severity, without behavioral disturbance, psychotic disturbance, mood disturbance, and anxiety (3) COVID-19: Status: Acute Code(s): U07.1 - COVID-19 (4) Delirium: Status: Acute Code(s): R41.0 - Disorientation, unspecified Plan pt less agitated, less paranoia. discussed with son admission to [facility] for dx clarification and med management, which he is in agreement, if bed comes up soon. 04/17 doing better recovering from covid/uti 04/18/23 scared by another patient at a group, now refusing meds, more withdrawn- even with nursing calling son to discuss taking meds- she refuses and [facility] Plan 1. Gather collateral information. 2. Continue with pamol Garcia. We are going to discuss with the son the possibility of starting long-acting injectables or any other types of antipsychotics. Reason for continued inpatient stay Substantial Risk for: inability to function, rapid decompensation and med/psych decompensation Time Spent With Patient Time: Total time managing care of this patient today __20__ minutes.
[2023-04-22 20:13] VITALS: BP 143/65; PULSE 73; RESP 16; TEMP 36.6; O2SAT 99
[2023-04-22] MEDS: traZODone HCL 50 MG TABLET PO (20:14)
[2023-04-23 08:29] VITALS: BP 104/53; PULSE 75; RESP 15; TEMP 37; O2SAT 96
--- NOTE | 2023-04-23 15:26 | HO.PSYCHPN ---
Subjective Subjective Date of Service: 04/23/23 Reason For Visit: psychosisi Interim History: Pt seen and discussed in team rounds. Plan of care reviewed. Team reports 5 hours of sleep last night. BP parameters are low this a.m. Metoprolol held. Pt was reportedly mute last evening. Today, she is quiet spoken but interacts. She is present in the milieu, and resting. She reports feeling tired, but not ill. She smiles when she interacts, maintains eye contact and communicates clearly. Medication Compliance: Yes Side effects from medications: No Review of Systems Acute medical concerns: No Medical Review of Systems: unchanged Review of Systems Review of Systems Yes Unobtainable due to mental status Mental Status Exam Mental Status Exam Patient Appearance: Appropriate Patient Orientation: Person and Situation Level of Consciousness: Awake Patient Behavior: Guarded, Talkative and Passive Mood Description: Calm Affect Description: Constricted Patient Cognition Impaired: Yes Ability to Follow Directions: Good Speech Pattern: Impoverished and Soft-Spoken Memory Description: Remote Impaired Hallucinations: None Delusions: Ideas of Reference Thought Content: positive for [place] and positive for Poverty of Content Judgement: Fair Diagnostics Vital Signs (24Hr): Vital Signs - 24 hr 04/22/23 20:13 04/23/23 08:29 Temperature 97.9 F 98.6 F Pulse Rate 73 75 Respiratory Rate 16 15 Blood Pressure 143/65 H 104/53 L Pulse Oximetry 99 96 Oxygen Delivery Method Room Air Room Air BMI result Body Mass Index 19.5 Labs 04/22/23 08:12 04/22/23 08:12 Labs: Laboratory Results - last 48 hr 04/22/23 08:12 WBC 4.6 L RBC 3.89 L Hgb 11.4 L Hct 34.6 L MCV 88.9 MCH 29.3 MCHC 32.9 RDW 14.6 Plt Count 169 MPV 9.6 Immature Gran % (Auto) 0.6 H Neut % (Auto) 71.4 Lymph % (Auto) 19.0 L [place] % (Auto) 7.1 Eos % (Auto) 1.7 Baso % (Auto) 0.2 Lymph # (Auto) 0.9 L [place] # (Auto) 0.3 Eos # (Auto) 0.1 Baso # (Auto) 0.0 Abs Immat Gran (auto) 0.03 Absolute Neuts (auto) 3.3 Absolute Nucleated RBC 0.000 Nucleated RBC % (auto) 0.0 Sodium 139 Potassium 3.9 Chloride 103 Carbon Dioxide 30 H Anion Gap 10 L BUN 19 H Creatinine 0.73 Estim Creat Clear Calc 48.3 Estimated GFR > 60 Random Glucose 84 Calcium 9.4 Imaging Radiology Impressions: ITS Impressions Cervical Spine CT 04/10/23 19:54 IMPRESSION: 1. No acute intracranial abnormality. 2. No acute osseous abnormality within the cervical spine. 3. No acute osseous abnormality within the maxillofacial region. Face CT 04/10/23 19:54 IMPRESSION: 1. No acute intracranial abnormality. 2. No acute osseous abnormality within the cervical spine. 3. No acute osseous abnormality within the maxillofacial region. Head CT 04/10/23 19:54 IMPRESSION: 1. No acute intracranial abnormality. 2. No acute osseous abnormality within the cervical spine. 3. No acute osseous abnormality within the maxillofacial region. Abdomen/Pelvis CT 04/10/23 20:04 IMPRESSION: 1. No acute abnormality. 2. Severe degenerative scoliosis. 3. Advanced calcific atherosclerotic disease. 4. Diverticulosis without diverticulitis. Fleischner guidelines were followed. Chest CT 04/10/23 20:04 IMPRESSION: 1. No acute abnormality. 2. No rib fracture. 3. Minimal fibrotic change and/or atelectasis in the left lower lobe. 4. Calcific atherosclerotic disease including coronary artery calcification. 5. Degenerative scoliosis of the dorsal spine. Fleischner guidelines were followed. Medications Medications Current Medications Acetaminophen (Acetaminophen 325 Mg Tablet) 650 mg PO Q6H PRN PRN Reason: Headache/Pain Mild Scale (1-3) Last Admin: 04/18/23 03:08 Dose: 650 mg Al Hydroxide/Mg Hydroxide (Magnesium Hydrox/Alum Hydrox 30 Ml Oral.Susp) 30 ml PO Q6H PRN PRN Reason: Heartburn/Nausea Docusate Sodium (Docusate Sodium 100 Mg Capsule) 100 mg PO BID [facility] Last Admin: 04/23/23 08:30 Dose: 100 mg Hydroxyzine HCl (Hydroxyzine Hcl 25 Mg Tablet) 25 mg PO Q6H PRN PRN Reason: Anxiety Last Admin: 04/21/23 20:52 Dose: 25 mg Magnesium Hydroxide (Milk Of Magnesia 30 Ml Oral.Susp) 30 ml PO DAILY PRN PRN Reason: Constipation Metoprolol Succinate (Metoprolol Succinate Er 25 Mg Tab.Er.24h) 25 mg PO DAILY [facility]; Protocol Last Admin: 04/23/23 08:32 Dose: Not Given Quetiapine Fumarate (Quetiapine Fumarate 25 Mg Tablet) 12.5 mg PO DAILY [facility] Last Admin: 04/23/23 08:31 Dose: 12.5 mg Quetiapine Fumarate (Quetiapine Fumarate 25 Mg Tablet) 12.5 mg PO BID PRN PRN Reason: Agitation Last Admin: 04/17/23 20:52 Dose: 12.5 mg Sertraline HCl (Sertraline Hcl 100 Mg Tablet) 100 mg PO DAILY [facility] Last Admin: 04/23/23 08:31 Dose: 100 mg Trazodone HCl (Trazodone Hcl 50 Mg Tablet) 50 mg PO BEDTIME MRX1 PRN PRN Reason: Insomnia Last Admin: 04/22/23 20:14 Dose: 50 mg Allergies Allergies Allergy/AdvReac Type Severity Reaction Status Date / Time No Known Allergies Allergy Verified 04/10/23 18:33 Assessment & Plan Assessment & Plan (1) Cognitive impairment: Status: Acute Code(s): R41.89 - Other symptoms and signs involving cognitive functions and awareness Assessment and Plan: 04/16covid positive felt to be more responsible for decompensation of baseline mild dementia, than mild ? uti- but both are being cared for- [facility] due to falls. (2) Dementia: Status: Acute Code(s): F03.90 - Unspecified dementia, unspecified severity, without behavioral disturbance, psychotic disturbance, mood disturbance, and anxiety (3) COVID-19: Status: Acute Code(s): U07.1 - COVID-19 (4) Delirium: Status: Acute Code(s): R41.0 - Disorientation, unspecified Plan pt less agitated, less paranoia. discussed with son admission to [facility] for dx clarification and med management, which he is in agreement, if bed comes up soon. 04/17 doing better recovering from covid/uti 04/18/23 scared by another patient at a group, now refusing meds, more withdrawn- even with nursing calling son to discuss taking meds- she refuses and has withdrawn from [facility] 04/23/23 Continue tx Plan 1. Gather collateral information. 2. Continue with p.rshila Serdonta. We are going to discuss with the son the possibility of starting long-acting injectables or any other types of antipsychotics. Informed Consent: does not understand Reason for continued inpatient stay Substantial Risk for: rapid decompensation Time Spent With Patient Time: Total time managing care of this patient today ____ minutes.
[2023-04-23 19:58] VITALS: BP 148/70; PULSE 73; RESP 16; TEMP 36.4; O2SAT 99
[2023-04-23] MEDS: traZODone HCL 50 MG TABLET PO (19:59)
[2023-04-24 08:46] VITALS: BP 129/59; PULSE 88; RESP 16; TEMP 36.2; O2SAT 100
--- NOTE | 2023-04-24 17:23 | HO.PSYCHPN ---
Subjective Subjective Date of Service: 04/24/23 Reason For Visit: psychosisi Interim History: Met with pt, reviewed with team. Team has observed an increase in paranoia and accusatory sx. They report she has been focused on accusing others of accusing her of wrong doing. Pt is in bed. She is sleeping. She awakens easily, has eye contact and denies sx. She appears preoccupied, yet alisa concerns. We will continue to monitor Medication Compliance: Yes Side effects from medications: No Attending Groups: Intermittent Review of Systems Acute medical concerns: No Review of Systems Review of Systems L foot, fourth toe dressing due to skin breakdown Mental Status Exam Mental Status Exam Patient Appearance: Appropriate Patient Orientation: Person and Situation Level of Consciousness: Awake Patient Behavior: Guarded, Talkative and Passive Mood Description: Calm Affect Description: Constricted Patient Cognition Impaired: Yes Ability to Follow Directions: Good Speech Pattern: Impoverished and Soft-Spoken Memory Description: Remote Impaired Hallucinations: None Delusions: Ideas of Reference Thought Content: positive for [place] and positive for Poverty of Content Judgement: Fair Diagnostics Vital Signs (24Hr): Vital Signs - 24 hr 04/23/23 19:58 04/24/23 08:46 Temperature 97.5 F 97.2 F Pulse Rate 73 88 Respiratory Rate 16 16 Blood Pressure 148/70 H 129/59 L Pulse Oximetry 99 100 Oxygen Delivery Method Room Air Room Air BMI result Body Mass Index 19.5 Labs 04/22/23 08:12 04/22/23 08:12 Imaging Radiology Impressions: ITS Impressions Cervical Spine CT 04/10/23 19:54 IMPRESSION: 1. No acute intracranial abnormality. 2. No acute osseous abnormality within the cervical spine. 3. No acute osseous abnormality within the maxillofacial region. Face CT 04/10/23 19:54 IMPRESSION: 1. No acute intracranial abnormality. 2. No acute osseous abnormality within the cervical spine. 3. No acute osseous abnormality within the maxillofacial region. Head CT 04/10/23 19:54 IMPRESSION: 1. No acute intracranial abnormality. 2. No acute osseous abnormality within the cervical spine. 3. No acute osseous abnormality within the maxillofacial region. Abdomen/Pelvis CT 04/10/23 20:04 IMPRESSION: 1. No acute abnormality. 2. Severe degenerative scoliosis. 3. Advanced calcific atherosclerotic disease. 4. Diverticulosis without diverticulitis. Fleischner guidelines were followed. Chest CT 04/10/23 20:04 IMPRESSION: 1. No acute abnormality. 2. No rib fracture. 3. Minimal fibrotic change and/or atelectasis in the left lower lobe. 4. Calcific atherosclerotic disease including coronary artery calcification. 5. Degenerative scoliosis of the dorsal spine. Fleischner guidelines were followed. Medications Medications Current Medications Acetaminophen (Acetaminophen 325 Mg Tablet) 650 mg PO Q6H PRN PRN Reason: Headache/Pain Mild Scale (1-3) Last Admin: 04/18/23 03:08 Dose: 650 mg Al Hydroxide/Mg Hydroxide (Magnesium Hydrox/Alum Hydrox 30 Ml Oral.Susp) 30 ml PO Q6H PRN PRN Reason: Heartburn/Nausea Docusate Sodium (Docusate Sodium 100 Mg Capsule) 100 mg PO BID [facility] Last Admin: 04/24/23 08:52 Dose: Not Given Hydroxyzine HCl (Hydroxyzine Hcl 25 Mg Tablet) 25 mg PO Q6H PRN PRN Reason: Anxiety Last Admin: 04/21/23 20:52 Dose: 25 mg Magnesium Hydroxide (Milk Of Magnesia 30 Ml Oral.Susp) 30 ml PO DAILY PRN PRN Reason: Constipation Metoprolol Succinate (Metoprolol Succinate Er 25 Mg Tab.Er.24h) 25 mg PO DAILY [facility]; Protocol Last Admin: 04/24/23 08:52 Dose: Not Given Quetiapine Fumarate (Quetiapine Fumarate 25 Mg Tablet) 12.5 mg PO DAILY [facility] Last Admin: 04/24/23 08:47 Dose: 12.5 mg Quetiapine Fumarate (Quetiapine Fumarate 25 Mg Tablet) 12.5 mg PO BID PRN PRN Reason: Agitation Last Admin: 04/17/23 20:52 Dose: 12.5 mg Sertraline HCl (Sertraline Hcl 100 Mg Tablet) 100 mg PO DAILY [facility] Last Admin: 04/24/23 08:48 Dose: 100 mg Trazodone HCl (Trazodone Hcl 50 Mg Tablet) 50 mg PO BEDTIME MRX1 PRN PRN Reason: Insomnia Last Admin: 04/23/23 19:59 Dose: 50 mg Allergies Allergies Allergy/AdvReac Type Severity Reaction Status Date / Time No Known Allergies Allergy Verified 04/10/23 18:33 Assessment & Plan Assessment & Plan (1) Cognitive impairment: Status: Acute Code(s): R41.89 - Other symptoms and signs involving cognitive functions and awareness Assessment and Plan: 04/16covid positive felt to be more responsible for decompensation of baseline mild dementia, than mild ? uti- but both are being cared for- pt seems improved also with geripsych admit and 1:1 care due to falls. (2) Dementia: Status: Acute Code(s): F03.90 - Unspecified dementia, unspecified severity, without behavioral disturbance, psychotic disturbance, mood disturbance, and anxiety (3) COVID-19: Status: Acute Code(s): U07.1 - COVID-19 (4) Delirium: Status: Acute Code(s): R41.0 - Disorientation, unspecified Plan pt less agitated, less paranoia. discussed with son admission to [facility] for dx clarification and med management, which he is in agreement, if bed comes up soon. 04/17 doing better recovering from covid/uti 04/18/23 scared by another patient at a group, now refusing meds, more withdrawn- even with nursing calling son to discuss taking meds- she refuses and has withdrawn from [facility] 04/23/23 Continue tx 04/24/23 Continue tx and monitoring. Plan 1. Gather collateral information. 2. Continue with p.r.n. Seromichellel. We are going to discuss with the son the possibility of starting long-acting injectables or any other types of antipsychotics. Informed Consent: does not understand Reason for continued inpatient stay Substantial Risk for: rapid decompensation Time Spent With Patient Time: Total time managing care of this patient today ____ minutes.
[2023-04-24 18:00] VITALS: BP 171/74; PULSE 88; RESP 16; TEMP 36.9; O2SAT 96
[2023-04-24] MEDS: traZODone HCL 50 MG TABLET PO (23:00)
[2023-04-24] MEDS: hydrOXYzine HCL 25 MG TABLET PO (23:00)
[2023-04-25 07:53] VITALS: BP 164/75; PULSE 77; RESP 18; TEMP 36.4; O2SAT 99
[2023-04-25] MEDS: Metoprolol Succinate ER 25 MG TAB.ER.24H PO (08:57)
--- NOTE | 2023-04-25 10:03 | PC.NURSE ---
Morning BP 164/75, MD Mahan notified. Brissa was asymptomatic.
[2023-04-25 11:49] VITALS: BP 149/80
--- NOTE | 2023-04-25 11:50 | PC.NURSE ---
Recheck BP 149/80; Dr. Mahan notified.
--- NOTE | 2023-04-25 14:28 | HO.PSYCHPN ---
Subjective Subjective Date of Service: 04/25/23 Reason For Visit: psychosisi Subjective Notes: Conditional Voluntary Interim History: The nursing staff reported the patient has been paranoid and quiet. She had been religiously preoccupied and she slept 4 hours. On interview the patient denies new symptoms she reports that she is doing fine. Her urine culture came back only positive to contaminant leo. Today she was visited by her son and I reported that we will do some cognitive tests, blood work for tomorrow and we will have a meeting next Tuesday. Mental Status Exam Mental Status Exam Patient Appearance: Appropriate Patient Orientation: Person Level of Consciousness: Awake Patient Behavior: Guarded and Passive Mood Description: Withdrawn Affect Description: Constricted Patient Cognition Impaired: Yes Ability to Follow Directions: Good Speech Pattern: Clear Hallucinations: None Delusions: Paranoid Ideation Thought Process: Distracted Thought Content: positive for [place] and positive for Poverty of Content Judgement: Fair Diagnostics Vital Signs (24Hr): Vital Signs - 24 hr 04/24/23 18:00 04/25/23 07:53 04/25/23 11:49 Temperature 98.4 F 97.5 F Pulse Rate 88 77 Respiratory Rate 16 18 Blood Pressure 171/74 H 164/75 H 149/80 H Pulse Oximetry 96 99 Oxygen Delivery Method Room Air Room Air BMI result Body Mass Index 19.5 Labs 04/22/23 08:12 04/22/23 08:12 Imaging Radiology Impressions: ITS Impressions Cervical Spine CT 04/10/23 19:54 IMPRESSION: 1. No acute intracranial abnormality. 2. No acute osseous abnormality within the cervical spine. 3. No acute osseous abnormality within the maxillofacial region. Face CT 04/10/23 19:54 IMPRESSION: 1. No acute intracranial abnormality. 2. No acute osseous abnormality within the cervical spine. 3. No acute osseous abnormality within the maxillofacial region. Head CT 04/10/23 19:54 IMPRESSION: 1. No acute intracranial abnormality. 2. No acute osseous abnormality within the cervical spine. 3. No acute osseous abnormality within the maxillofacial region. Abdomen/Pelvis CT 04/10/23 20:04 IMPRESSION: 1. No acute abnormality. 2. Severe degenerative scoliosis. 3. Advanced calcific atherosclerotic disease. 4. Diverticulosis without diverticulitis. Fleischner guidelines were followed. Chest CT 04/10/23 20:04 IMPRESSION: 1. No acute abnormality. 2. No rib fracture. 3. Minimal fibrotic change and/or atelectasis in the left lower lobe. 4. Calcific atherosclerotic disease including coronary artery calcification. 5. Degenerative scoliosis of the dorsal spine. Fleischner guidelines were followed. Medications Medications Current Medications Acetaminophen (Acetaminophen 325 Mg Tablet) 650 mg PO Q6H PRN PRN Reason: Headache/Pain Mild Scale (1-3) Last Admin: 04/18/23 03:08 Dose: 650 mg Al Hydroxide/Mg Hydroxide (Magnesium Hydrox/Alum Hydrox 30 Ml Oral.Susp) 30 ml PO Q6H PRN PRN Reason: Heartburn/Nausea Docusate Sodium (Docusate Sodium 100 Mg Capsule) 100 mg PO BID [facility] Last Admin: 04/25/23 08:57 Dose: 100 mg Hydroxyzine HCl (Hydroxyzine Hcl 25 Mg Tablet) 25 mg PO Q6H PRN PRN Reason: Anxiety Last Admin: 04/24/23 23:00 Dose: 25 mg Magnesium Hydroxide (Milk Of Magnesia 30 Ml Oral.Susp) 30 ml PO DAILY PRN PRN Reason: Constipation Metoprolol Succinate (Metoprolol Succinate Er 25 Mg Tab.Er.24h) 25 mg PO DAILY [facility]; Protocol Last Admin: 04/25/23 08:57 Dose: 25 mg Quetiapine Fumarate (Quetiapine Fumarate 25 Mg Tablet) 12.5 mg PO DAILY [facility] Last Admin: 04/25/23 08:57 Dose: 12.5 mg Quetiapine Fumarate (Quetiapine Fumarate 25 Mg Tablet) 12.5 mg PO BID PRN PRN Reason: Agitation Last Admin: 04/17/23 20:52 Dose: 12.5 mg Sertraline HCl (Sertraline Hcl 100 Mg Tablet) 100 mg PO DAILY [facility] Last Admin: 04/25/23 08:57 Dose: 100 mg Trazodone HCl (Trazodone Hcl 50 Mg Tablet) 50 mg PO BEDTIME MRX1 PRN PRN Reason: Insomnia Last Admin: 04/24/23 23:00 Dose: 50 mg Allergies Allergies Allergy/AdvReac Type Severity Reaction Status Date / Time No Known Allergies Allergy Verified 04/10/23 18:33 Assessment & Plan Assessment & Plan (1) Cognitive impairment: Status: Acute Code(s): R41.89 - Other symptoms and signs involving cognitive functions and awareness Assessment and Plan: 04/16covid positive felt to be more responsible for decompensation of baseline mild dementia, than mild ? uti- but both are being cared for- pt seems improved also with geripsych admit and 1:1 care due to falls. (2) Dementia: Status: Acute Code(s): F03.90 - Unspecified dementia, unspecified severity, without behavioral disturbance, psychotic disturbance, mood disturbance, and anxiety (3) COVID-19: Status: Acute Code(s): U07.1 - COVID-19 (4) Delirium: Status: Acute Code(s): R41.0 - Disorientation, unspecified Plan pt less agitated, less paranoia. discussed with son admission to [facility] for dx clarification and med management, which he is in agreement, if bed comes up soon. 04/17 doing better recovering from covid/uti 04/18/23 scared by another patient at a group, now refusing meds, more withdrawn- even with nursing calling son to discuss taking meds- she refuses and has withdrawn from [facility] 04/23/23 Continue tx 04/24/23 Continue tx and monitoring. Plan 1. Gather collateral information. 2. Continue with p.r.n. Seroquel. We are going to discuss with the son the possibility of starting long-acting injectables or any other types of antipsychotics. 3. Blood work with CBC, basic metabolic panel, ammonia level for tomorrow morning. Reason for continued inpatient stay Substantial Risk for: inability to function, rapid decompensation and med/psych decompensation Time Spent With Patient Time: Total time managing care of this patient today __20__ minutes.
[2023-04-25 18:00] VITALS: BP 150/80; PULSE 71; RESP 17; TEMP 36.1; O2SAT 95
[2023-04-25] MEDS: hydrOXYzine HCL 25 MG TABLET PO (20:44)
[2023-04-25] MEDS: Docusate Sodium 100 MG CAPSULE PO (20:44)
[2023-04-26 08:04] VITALS: BP 113/62; PULSE 79; RESP 18; TEMP 36.7; O2SAT 99
[2023-04-26 08:32] LABS: MANUAL DIFF FLAG NO
[2023-04-26] MEDS: Sertraline HCL 100 MG TABLET PO (08:33)
[2023-04-26] MEDS: QUEtiapine Fumarate 25 MG TABLET 12.5 MG PO (08:33)
[2023-04-26] MEDS: Metoprolol Succinate ER 25 MG TAB.ER.24H PO (08:33)
[2023-04-26 08:35] LABS: Basophils Percent Auto 0.4 % (0-2); Eosinophils Absolute Auto 0.1 X10*3/uL (0.0-0.4); Eosinophils Percent Auto 1.5 % (0-4); Hematocrit 34.6 % (37.0-47.0); Hemoglobin 11.1 g/dl (12.0-16.0); Imm Gran Abs Auto 0.03 X10*3/uL (0.00-0.03); Imm Gran Pct Auto 0.5 % (0.0-0.4); Lymphocytes Absolute Auto 0.9 X10*3/uL (1.2-4.9); Lymphocytes Percent Auto 16.5 % (20-40); Mean Corpuscular HGB Conc 32.1 g/dl (31.0-35.0); Mean Corpuscular Hemoglobin 29.3 pg (27.0-33.0); Mean Corpuscular Volume 91.3 fL (80.0-98.0); Mean Platelet Volume 10.4 fL (9.4-12.3); Monocytes Absolute Auto 0.4 X10*3/uL (0.1-1.2); Monocytes Percent Auto 7.3 % (2-11); Neutrophils Absolute Auto 4.1 x10*3/uL (2.0-8.3); Neutrophils Percent Auto 73.8 % (45-73); Platelet Count 180 X10*3/uL (160-400); Red Blood Count 3.79 X10*6/uL (4.20-5.50); Red Cell Distribution Width 14.9 % (11.0-16.0); White Blood Count 5.5 X10*3/uL (4.8-10.8)
[2023-04-26 08:43] LABS: Ammonia 24 umol/L (13-55)
[2023-04-26 08:52] LABS: Anion Gap 12 (12-20); Blood Urea Nitrogen 13 mg/dL (9-16); Calcium 9.5 mg/dL (8.4-10.2); Carbon Dioxide 25 mmol/L (22-29); Chloride 106 mmol/L (96-108); Estimated Glomerular Filt Rate > 60; Glucose Random 87 mg/dL (60-115); Potassium 4.3 mmol/L (3.3-5.1); Sodium 139 mmol/L (135-145)
--- NOTE | 2023-04-26 13:40 | HO.PSYCHPN ---
Subjective Subjective Date of Service: 04/26/23 Reason For Visit: psychosisi Subjective Notes: Conditional Voluntary Interim History: The nursing staff reported that she slept well last night, compliant with treatment. Today OT will reassess her cogniviitely. Mental Status Exam Mental Status Exam Patient Appearance: Well Grooomed and Appropriate Patient Orientation: Person and Situation Level of Consciousness: Awake and Appropriate Patient Behavior: Guarded and Passive Mood Description: Withdrawn Affect Description: Constricted Patient Cognition Impaired: Yes Ability to Follow Directions: Good Speech Pattern: Clear Hallucinations: None Delusions: Ideas of Reference Thought Process: Distracted and Evasive Thought Content: positive for [place] and positive for Circumstantial Judgement: Fair Diagnostics Vital Signs (24Hr): Vital Signs - 24 hr 04/25/23 18:00 04/26/23 08:04 Temperature 96.9 F 98.1 F Pulse Rate 71 79 Respiratory Rate 17 18 Blood Pressure 150/80 H 113/62 Pulse Oximetry 95 99 Oxygen Delivery Method Room Air Room Air BMI result Body Mass Index 19.5 Labs 04/26/23 07:56 04/26/23 07:56 Labs: Laboratory Results - last 48 hr 04/26/23 07:56 WBC 5.5 RBC 3.79 L Hgb 11.1 L Hct 34.6 L MCV 91.3 MCH 29.3 MCHC 32.1 RDW 14.9 Plt Count 180 MPV 10.4 Immature Gran % (Auto) 0.5 H Neut % (Auto) 73.8 H Lymph % (Auto) 16.[address] [place] % (Auto) 7.3 Eos % (Auto) 1.5 Baso % (Auto) 0.4 Lymph # (Auto) 0.[address] [place] # (Auto) 0.4 Eos # (Auto) 0.1 Baso # (Auto) 0.0 Abs Immat Gran (auto) 0.03 Absolute Neuts (auto) 4.1 Absolute Nucleated RBC 0.000 Nucleated RBC % (auto) 0.0 Sodium 139 Potassium 4.3 Chloride 106 Carbon Dioxide 25 Anion Gap 12 BUN 13 Creatinine 0.75 Estim Creat Clear Calc 47.0 Estimated GFR > 60 Random Glucose 87 Calcium 9.5 Ammonia 24 Imaging Radiology Impressions: ITS Impressions Cervical Spine CT 04/10/23 19:54 IMPRESSION: 1. No acute intracranial abnormality. 2. No acute osseous abnormality within the cervical spine. 3. No acute osseous abnormality within the maxillofacial region. Face CT 04/10/23 19:54 IMPRESSION: 1. No acute intracranial abnormality. 2. No acute osseous abnormality within the cervical spine. 3. No acute osseous abnormality within the maxillofacial region. Head CT 04/10/23 19:54 IMPRESSION: 1. No acute intracranial abnormality. 2. No acute osseous abnormality within the cervical spine. 3. No acute osseous abnormality within the maxillofacial region. Abdomen/Pelvis CT 04/10/23 20:04 IMPRESSION: 1. No acute abnormality. 2. Severe degenerative scoliosis. 3. Advanced calcific atherosclerotic disease. 4. Diverticulosis without diverticulitis. Fleischner guidelines were followed. Chest CT 04/10/23 20:04 IMPRESSION: 1. No acute abnormality. 2. No rib fracture. 3. Minimal fibrotic change and/or atelectasis in the left lower lobe. 4. Calcific atherosclerotic disease including coronary artery calcification. 5. Degenerative scoliosis of the dorsal spine. Fleischner guidelines were followed. Medications Medications Current Medications Acetaminophen (Acetaminophen 325 Mg Tablet) 650 mg PO Q6H PRN PRN Reason: Headache/Pain Mild Scale (1-3) Last Admin: 04/18/23 03:08 Dose: 650 mg Al Hydroxide/Mg Hydroxide (Magnesium Hydrox/Alum Hydrox 30 Ml Oral.Susp) 30 ml PO Q6H PRN PRN Reason: Heartburn/Nausea Docusate Sodium (Docusate Sodium 100 Mg Capsule) 100 mg PO BID [facility] Last Admin: 04/26/23 08:36 Dose: Not Given Hydroxyzine HCl (Hydroxyzine Hcl 25 Mg Tablet) 25 mg PO Q6H PRN PRN Reason: Anxiety Last Admin: 04/25/23 20:44 Dose: 25 mg Magnesium Hydroxide (Milk Of Magnesia 30 Ml Oral.Susp) 30 ml PO DAILY PRN PRN Reason: Constipation Metoprolol Succinate (Metoprolol Succinate Er 25 Mg Tab.Er.24h) 25 mg PO DAILY [facility]; Protocol Last Admin: 04/26/23 08:33 Dose: 25 mg Quetiapine Fumarate (Quetiapine Fumarate 25 Mg Tablet) 12.5 mg PO DAILY [facility] Last Admin: 04/26/23 08:33 Dose: 12.5 mg Quetiapine Fumarate (Quetiapine Fumarate 25 Mg Tablet) 12.5 mg PO BID PRN PRN Reason: Agitation Last Admin: 04/17/23 20:52 Dose: 12.5 mg Sertraline HCl (Sertraline Hcl 100 Mg Tablet) 100 mg PO DAILY [facility] Last Admin: 04/26/23 08:33 Dose: 100 mg Trazodone HCl (Trazodone Hcl 50 Mg Tablet) 50 mg PO BEDTIME MRX1 PRN PRN Reason: Insomnia Last Admin: 04/24/23 23:00 Dose: 50 mg Allergies Allergies Allergy/AdvReac Type Severity Reaction Status Date / Time No Known Allergies Allergy Verified 04/10/23 18:33 Assessment & Plan Assessment & Plan (1) Cognitive impairment: Status: Acute Code(s): R41.89 - Other symptoms and signs involving cognitive functions and awareness Assessment and Plan: 04/16covid positive felt to be more responsible for decompensation of baseline mild dementia, than mild ? uti- but both are being cared for- pt seems improved also with geripsych admit and 1:1 care due to falls. (2) Dementia: Status: Acute Code(s): F03.90 - Unspecified dementia, unspecified severity, without behavioral disturbance, psychotic disturbance, mood disturbance, and anxiety (3) COVID-19: Status: Acute Code(s): U07.1 - COVID-19 (4) Delirium: Status: Acute Code(s): R41.0 - Disorientation, unspecified Plan pt less agitated, less paranoia. discussed with son admission to [facility] for dx clarification and med management, which he is in agreement, if bed comes up soon. 04/17 doing better recovering from covid/uti 04/18/23 scared by another patient at a group, now refusing meds, more withdrawn- even with nursing calling son to discuss taking meds- she refuses and has withdrawn from [facility] 04/23/23 Continue tx 04/24/23 Continue tx and monitoring. Plan 1. Gather collateral information. 2. Continue with p.rPalomonPalomo Sernicolel. We are going to discuss with the son the possibility of starting long-acting injectables or any other types of antipsychotics. 3. Blood work with CBC, basic metabolic panel, ammonia level for tomorrow morning. Reason for continued inpatient stay Substantial Risk for: inability to function, rapid decompensation and med/psych decompensation Time Spent With Patient Time: Total time managing care of this patient today _20___ minutes.
[2023-04-26 18:00] VITALS: BP 167/72; PULSE 81; RESP 18; TEMP 36.7; O2SAT 98
[2023-04-26] MEDS: Docusate Sodium 100 MG CAPSULE PO (20:39)
[2023-04-26] MEDS: hydrOXYzine HCL 25 MG TABLET PO (20:39)
[2023-04-27 06:00] VITALS: BP 104/61; PULSE 78; RESP 18; TEMP 36.8; O2SAT 98
[2023-04-27] MEDS: Metoprolol Succinate ER 25 MG TAB.ER.24H PO (09:04)
[2023-04-27] MEDS: Sertraline HCL 100 MG TABLET PO (09:04)
[2023-04-27] MEDS: Docusate Sodium 100 MG CAPSULE PO ×2 (09:04→20:11)
[2023-04-27] MEDS: QUEtiapine Fumarate 25 MG TABLET 12.5 MG PO (09:04)
--- NOTE | 2023-04-27 09:09 | HO.PSYCHPN ---
Subjective Subjective Date of Service: 04/27/23 Reason For Visit: psychosisi Subjective Notes: Conditional Voluntary Interim History: The nursing staff reported the patient took Atarax p.r.n. for anxiety. She remains minimally interactive but compliant with treatment. Today we had a family meeting and we explained to her son that the patient is severely impaired, we are discussing alternatives for safe discharge planning. They agreed to start on Namenda to target dementia. Mental Status Exam Mental Status Exam Patient Appearance: Well Grooomed and Appropriate Patient Orientation: Person and Situation Level of Consciousness: Awake Patient Behavior: Guarded and Passive Mood Description: Withdrawn Affect Description: Constricted Patient Cognition Impaired: Yes Ability to Follow Directions: Good Speech Pattern: Clear Hallucinations: None Delusions: Not Present Thought Process: Distracted and Evasive Thought Content: positive for [place] and positive for Poverty of Content Judgement: Poor Diagnostics Vital Signs (24Hr): Vital Signs - 24 hr 04/26/23 18:00 Temperature 98.1 F Pulse Rate 81 Respiratory Rate 18 Blood Pressure 167/72 H Pulse Oximetry 98 Oxygen Delivery Method Room Air BMI result Body Mass Index 19.5 Labs 04/26/23 07:56 04/26/23 07:56 Labs: Laboratory Results - last 48 hr 04/26/23 07:56 WBC 5.5 RBC 3.79 L Hgb 11.1 L Hct 34.6 L MCV 91.3 MCH 29.3 MCHC 32.1 RDW 14.9 Plt Count 180 MPV 10.4 Immature Gran % (Auto) 0.5 H Neut % (Auto) 73.8 H Lymph % (Auto) 16.5 L [place] % (Auto) 7.3 Eos % (Auto) 1.5 Baso % (Auto) 0.4 Lymph # (Auto) 0.9 L [place] # (Auto) 0.4 Eos # (Auto) 0.1 Baso # (Auto) 0.0 Abs Immat Gran (auto) 0.03 Absolute Neuts (auto) 4.1 Absolute Nucleated RBC 0.000 Nucleated RBC % (auto) 0.0 Sodium 139 Potassium 4.3 Chloride 106 Carbon Dioxide 25 Anion Gap 12 BUN 13 Creatinine 0.75 Estim Creat Clear Calc 47.0 Estimated GFR > 60 Random Glucose 87 Calcium 9.5 Ammonia 24 Imaging Radiology Impressions: ITS Impressions Cervical Spine CT 04/10/23 19:54 IMPRESSION: 1. No acute intracranial abnormality. 2. No acute osseous abnormality within the cervical spine. 3. No acute osseous abnormality within the maxillofacial region. Face CT 04/10/23 19:54 IMPRESSION: 1. No acute intracranial abnormality. 2. No acute osseous abnormality within the cervical spine. 3. No acute osseous abnormality within the maxillofacial region. Head CT 04/10/23 19:54 IMPRESSION: 1. No acute intracranial abnormality. 2. No acute osseous abnormality within the cervical spine. 3. No acute osseous abnormality within the maxillofacial region. Abdomen/Pelvis CT 04/10/23 20:04 IMPRESSION: 1. No acute abnormality. 2. Severe degenerative scoliosis. 3. Advanced calcific atherosclerotic disease. 4. Diverticulosis without diverticulitis. Fleischner guidelines were followed. Chest CT 04/10/23 20:04 IMPRESSION: 1. No acute abnormality. 2. No rib fracture. 3. Minimal fibrotic change and/or atelectasis in the left lower lobe. 4. Calcific atherosclerotic disease including coronary artery calcification. 5. Degenerative scoliosis of the dorsal spine. Fleischner guidelines were followed. Medications Medications Current Medications Acetaminophen (Acetaminophen 325 Mg Tablet) 650 mg PO Q6H PRN PRN Reason: Headache/Pain Mild Scale (1-3) Last Admin: 04/18/23 03:08 Dose: 650 mg Al Hydroxide/Mg Hydroxide (Magnesium Hydrox/Alum Hydrox 30 Ml Oral.Susp) 30 ml PO Q6H PRN PRN Reason: Heartburn/Nausea Docusate Sodium (Docusate Sodium 100 Mg Capsule) 100 mg PO BID [facility] Last Admin: 04/27/23 09:04 Dose: 100 mg Hydroxyzine HCl (Hydroxyzine Hcl 25 Mg Tablet) 25 mg PO Q6H PRN PRN Reason: Anxiety Last Admin: 04/26/23 20:39 Dose: 25 mg Magnesium Hydroxide (Milk Of Magnesia 30 Ml Oral.Susp) 30 ml PO DAILY PRN PRN Reason: Constipation Metoprolol Succinate (Metoprolol Succinate Er 25 Mg Tab.Er.24h) 25 mg PO DAILY [facility]; Protocol Last Admin: 04/27/23 09:04 Dose: 25 mg Quetiapine Fumarate (Quetiapine Fumarate 25 Mg Tablet) 12.5 mg PO DAILY [facility] Last Admin: 04/27/23 09:04 Dose: 12.5 mg Quetiapine Fumarate (Quetiapine Fumarate 25 Mg Tablet) 12.5 mg PO BID PRN PRN Reason: Agitation Last Admin: 04/17/23 20:52 Dose: 12.5 mg Sertraline HCl (Sertraline Hcl 100 Mg Tablet) 100 mg PO DAILY [facility] Last Admin: 04/27/23 09:04 Dose: 100 mg Trazodone HCl (Trazodone Hcl 50 Mg Tablet) 50 mg PO BEDTIME MRX1 PRN PRN Reason: Insomnia Last Admin: 04/24/23 23:00 Dose: 50 mg Allergies Allergies Allergy/AdvReac Type Severity Reaction Status Date / Time No Known Allergies Allergy Verified 04/10/23 18:33 Assessment & Plan Assessment & Plan (1) Cognitive impairment: Status: Acute Code(s): R41.89 - Other symptoms and signs involving cognitive functions and awareness Assessment and Plan: 04/16covid positive felt to be more responsible for decompensation of baseline mild dementia, than mild ? uti- but both are being cared for- pt seems improved also with geripsych admit and 1:1 care due to falls. (2) Dementia: Status: Acute Code(s): F03.90 - Unspecified dementia, unspecified severity, without behavioral disturbance, psychotic disturbance, mood disturbance, and anxiety (3) COVID-19: Status: Acute Code(s): U07.1 - COVID-19 (4) Delirium: Status: Acute Code(s): R41.0 - Disorientation, unspecified Plan pt less agitated, less paranoia. discussed with son admission to [facility] for dx clarification and med management, which he is in agreement, if bed comes up soon. 04/17 doing better recovering from covid/uti 04/18/23 scared by another patient at a group, now refusing meds, more withdrawn- even with nursing calling son to discuss taking meds- she refuses and has withdrawn from [facility] 04/23/23 Continue tx 04/24/23 Continue tx and monitoring. Plan 1. Gather collateral information. 2. Continue with p.r.n. Seroquel. We are going to discuss with the son the possibility of starting long-acting injectables or any other types of antipsychotics. 3. Blood work with CBC, basic metabolic panel, ammonia level and came back negative. 4. Discontinue Seroquel on April 27 and we will start Namenda 5 mg p.o. q.h.s. Reason for continued inpatient stay Substantial Risk for: inability to function, rapid decompensation and med/psych decompensation Time Spent With Patient Time: Total time managing care of this patient today __20__ minutes.
--- NOTE | 2023-04-27 14:10 | MHC.CLN ---
F/U DIET=REGULAR. ENSURE TID PROVIDES ADDITIONAL 1050 KCALS, 60 G PROTEIN. WEIGHT ON 04/21=51.5 KG, BMI=19.5. PATIENT IS NOT UNDERWEIGHT. PO INTAKE IS VARIABLE, WITH MOST MEALS 100%. RD TO MONITOR WEEKLY.
[2023-04-27 19:45] VITALS: BP 169/72; PULSE 66; RESP 17; TEMP 35.9; O2SAT 99
[2023-04-27] MEDS: Memantine HCl 5 MG TABLET PO (20:11)
[2023-04-27] MEDS: traZODone HCL 50 MG TABLET PO (20:11)
[2023-04-28 08:08] VITALS: BP 115/57; PULSE 74; RESP 16; TEMP 36.2; O2SAT 95
[2023-04-28] MEDS: Sertraline HCL 100 MG TABLET PO (08:12)
[2023-04-28] MEDS: Metoprolol Succinate ER 25 MG TAB.ER.24H PO (08:12)
--- NOTE | 2023-04-28 14:43 | HO.PSYCHPN ---
Subjective Subjective Date of Service: 04/28/23 Reason For Visit: psychosisi Subjective Notes: Conditional Voluntary Interim History: The nursing staff reported the patient complained of dizziness even though that it was not started on Namenda. On interview the patient denies new symptoms still internally preoccupied. It was evident the patient has signs and symptoms of dementia she is impaired. We are working on discharge planning with proper ancillary services. Mental Status Exam Mental Status Exam Patient Appearance: Well Grooomed and Appropriate Patient Orientation: Person and Situation Level of Consciousness: Awake and Appropriate Patient Behavior: Guarded and Passive Mood Description: Withdrawn Affect Description: Constricted Patient Cognition Impaired: Yes Ability to Follow Directions: Good Speech Pattern: Clear Hallucinations: None Delusions: Not Present Thought Process: Distracted and Slowed Thinking Thought Content: positive for [place] and positive for Poverty of Content Judgement: Fair Diagnostics Vital Signs (24Hr): Vital Signs - 24 hr 04/27/23 19:45 04/28/23 08:08 Temperature 96.7 F L 97.1 F Pulse Rate 66 74 Respiratory Rate 17 16 Blood Pressure 169/72 H 115/57 L Pulse Oximetry 99 95 Oxygen Delivery Method Room Air Room Air BMI result Body Mass Index 19.5 Labs 04/26/23 07:56 04/26/23 07:56 Imaging Radiology Impressions: ITS Impressions Cervical Spine CT 04/10/23 19:54 IMPRESSION: 1. No acute intracranial abnormality. 2. No acute osseous abnormality within the cervical spine. 3. No acute osseous abnormality within the maxillofacial region. Face CT 04/10/23 19:54 IMPRESSION: 1. No acute intracranial abnormality. 2. No acute osseous abnormality within the cervical spine. 3. No acute osseous abnormality within the maxillofacial region. Head CT 04/10/23 19:54 IMPRESSION: 1. No acute intracranial abnormality. 2. No acute osseous abnormality within the cervical spine. 3. No acute osseous abnormality within the maxillofacial region. Abdomen/Pelvis CT 04/10/23 20:04 IMPRESSION: 1. No acute abnormality. 2. Severe degenerative scoliosis. 3. Advanced calcific atherosclerotic disease. 4. Diverticulosis without diverticulitis. Fleischner guidelines were followed. Chest CT 04/10/23 20:04 IMPRESSION: 1. No acute abnormality. 2. No rib fracture. 3. Minimal fibrotic change and/or atelectasis in the left lower lobe. 4. Calcific atherosclerotic disease including coronary artery calcification. 5. Degenerative scoliosis of the dorsal spine. Fleischner guidelines were followed. Medications Medications Current Medications Acetaminophen (Acetaminophen 325 Mg Tablet) 650 mg PO Q6H PRN PRN Reason: Headache/Pain Mild Scale (1-3) Last Admin: 04/18/23 03:08 Dose: 650 mg Al Hydroxide/Mg Hydroxide (Magnesium Hydrox/Alum Hydrox 30 Ml Oral.Susp) 30 ml PO Q6H PRN PRN Reason: Heartburn/Nausea Docusate Sodium (Docusate Sodium 100 Mg Capsule) 100 mg PO BID [facility] Last Admin: 04/28/23 08:14 Dose: Not Given Hydroxyzine HCl (Hydroxyzine Hcl 25 Mg Tablet) 25 mg PO Q6H PRN PRN Reason: Anxiety Last Admin: 04/26/23 20:39 Dose: 25 mg Magnesium Hydroxide (Milk Of Magnesia 30 Ml Oral.Susp) 30 ml PO DAILY PRN PRN Reason: Constipation Memantine (Memantine Hcl 5 Mg Tablet) 5 mg PO BEDTIME [facility] Last Admin: 04/27/23 20:11 Dose: 5 mg Metoprolol Succinate (Metoprolol Succinate Er 25 Mg Tab.Er.24h) 25 mg PO DAILY [facility]; Protocol Last Admin: 04/28/23 08:12 Dose: 25 mg Quetiapine Fumarate (Quetiapine Fumarate 25 Mg Tablet) 12.5 mg PO BID PRN PRN Reason: Agitation Last Admin: 04/17/23 20:52 Dose: 12.5 mg Sertraline HCl (Sertraline Hcl 100 Mg Tablet) 100 mg PO DAILY [facility] Last Admin: 04/28/23 08:12 Dose: 100 mg Trazodone HCl (Trazodone Hcl 50 Mg Tablet) 50 mg PO BEDTIME MRX1 PRN PRN Reason: Insomnia Last Admin: 04/27/23 20:11 Dose: 50 mg Allergies Allergies Allergy/AdvReac Type Severity Reaction Status Date / Time No Known Allergies Allergy Verified 04/10/23 18:33 Assessment & Plan Assessment & Plan (1) Cognitive impairment: Status: Acute Code(s): R41.89 - Other symptoms and signs involving cognitive functions and awareness Assessment and Plan: 04/16covid positive felt to be more responsible for decompensation of baseline mild dementia, than mild ? uti- but both are being cared for- pt seems improved also with geripsych admit and 1:1 care due to falls. (2) Dementia: Status: Acute Code(s): F03.90 - Unspecified dementia, unspecified severity, without behavioral disturbance, psychotic disturbance, mood disturbance, and anxiety (3) COVID-19: Status: Acute Code(s): U07.1 - COVID-19 (4) Delirium: Status: Acute Code(s): R41.0 - Disorientation, unspecified Plan pt less agitated, less paranoia. discussed with son admission to [facility] for dx clarification and med management, which he is in agreement, if bed comes up soon. 04/17 doing better recovering from covid/uti 04/18/23 scared by another patient at a group, now refusing meds, more withdrawn- even with nursing calling son to discuss taking meds- she refuses and has withdrawn from [facility] 04/23/23 Continue tx 04/24/23 Continue tx and monitoring. Plan 1. Gather collateral information. 2. Continue with p.r.n. Seroquel. We are going to discuss with the son the possibility of starting long-acting injectables or any other types of antipsychotics. 3. Blood work with CBC, basic metabolic panel, ammonia level and came back negative. 4. Discontinue Seroquel on April 27 and we will start Namenda 5 mg p.o. q.h.s. Reason for continued inpatient stay Substantial Risk for: inability to function, rapid decompensation and med/psych decompensation Time Spent With Patient Time: Total time managing care of this patient today _20___ minutes.
[2023-04-28 19:39] VITALS: BP 164/67; PULSE 70; RESP 17; TEMP 37.2; O2SAT 96
[2023-04-28] MEDS: Docusate Sodium 100 MG CAPSULE PO (20:20)
[2023-04-28] MEDS: traZODone HCL 50 MG TABLET PO (20:20)
[2023-04-28] MEDS: Memantine HCl 5 MG TABLET PO (20:20)
[2023-04-29 08:20] VITALS: BP 114/53; PULSE 65; RESP 16; TEMP 36.3; O2SAT 99
[2023-04-29] MEDS: Metoprolol Succinate ER 25 MG TAB.ER.24H PO (08:22)
[2023-04-29] MEDS: Sertraline HCL 100 MG TABLET PO (08:22)
[2023-04-29] MEDS: Docusate Sodium 100 MG CAPSULE PO ×2 (08:22→20:44)
--- NOTE | 2023-04-29 14:49 | P.PNPSI_ITS ---
Subjective Subjective Date of Service: 04/29/23 Reason For Visit: psychosisi Subjective Notes: Conditional Voluntary Interim History: The nursing staff reported the patient complained of dizziness after taking Namenda. She had been guarded and withdrawn. The social work msw reported that [facility] facility was applied. On interview the patient remains internally preoccupied, easily redirectable. Mental Status Exam Mental Status Exam Patient Appearance: Well Grooomed and Appropriate Patient Orientation: Person and Situation Level of Consciousness: Awake Patient Behavior: Guarded and Passive Mood Description: Withdrawn Affect Description: Constricted Patient Cognition Impaired: Yes Ability to Follow Directions: Good Speech Pattern: Clear Hallucinations: None Delusions: Paranoid Ideation and Ideas of Reference Thought Process: Distracted Thought Content: positive for [place] and positive for Goal Oriented Judgement: Fair Diagnostics Vital Signs (24Hr): Vital Signs - 24 hr 04/28/23 19:39 04/29/23 08:20 Temperature 99 F 97.4 F Pulse Rate 70 65 Respiratory Rate 17 16 Blood Pressure 164/67 H 114/53 L Pulse Oximetry 96 99 Oxygen Delivery Method Room Air Room Air BMI result Body Mass Index 19.5 Labs 04/26/23 07:56 04/26/23 07:56 Imaging Radiology Impressions: ITS Impressions Cervical Spine CT 04/10/23 19:54 IMPRESSION: 1. No acute intracranial abnormality. 2. No acute osseous abnormality within the cervical spine. 3. No acute osseous abnormality within the maxillofacial region. Face CT 04/10/23 19:54 IMPRESSION: 1. No acute intracranial abnormality. 2. No acute osseous abnormality within the cervical spine. 3. No acute osseous abnormality within the maxillofacial region. Head CT 04/10/23 19:54 IMPRESSION: 1. No acute intracranial abnormality. 2. No acute osseous abnormality within the cervical spine. 3. No acute osseous abnormality within the maxillofacial region. Abdomen/Pelvis CT 04/10/23 20:04 IMPRESSION: 1. No acute abnormality. 2. Severe degenerative scoliosis. 3. Advanced calcific atherosclerotic disease. 4. Diverticulosis without diverticulitis. Fleischner guidelines were followed. Chest CT 04/10/23 20:04 IMPRESSION: 1. No acute abnormality. 2. No rib fracture. 3. Minimal fibrotic change and/or atelectasis in the left lower lobe. 4. Calcific atherosclerotic disease including coronary artery calcification. 5. Degenerative scoliosis of the dorsal spine. Fleischner guidelines were followed. Medications Medications Current Medications Acetaminophen (Acetaminophen 325 Mg Tablet) 650 mg PO Q6H PRN PRN Reason: Headache/Pain Mild Scale (1-3) Last Admin: 04/18/23 03:08 Dose: 650 mg Al Hydroxide/Mg Hydroxide (Magnesium Hydrox/Alum Hydrox 30 Ml Oral.Susp) 30 ml PO Q6H PRN PRN Reason: Heartburn/Nausea Docusate Sodium (Docusate Sodium 100 Mg Capsule) 100 mg PO BID [facility] Last Admin: 04/29/23 08:22 Dose: 100 mg Guaifenesin/Dextromethorphan (Guaifenesin Dm 200/20/10 Ml 10 Ml Syrup) 10 ml PO Q6H PRN PRN Reason: Cough Hydroxyzine HCl (Hydroxyzine Hcl 25 Mg Tablet) 25 mg PO Q6H PRN PRN Reason: Anxiety Last Admin: 04/26/23 20:39 Dose: 25 mg Magnesium Hydroxide (Milk Of Magnesia 30 Ml Oral.Susp) 30 ml PO DAILY PRN PRN Reason: Constipation Memantine (Memantine Hcl 5 Mg Tablet) 5 mg PO BEDTIME [facility] Last Admin: 04/28/23 20:20 Dose: 5 mg Metoprolol Succinate (Metoprolol Succinate Er 25 Mg Tab.Er.24h) 25 mg PO DAILY [facility]; Protocol Last Admin: 04/29/23 08:22 Dose: 25 mg Quetiapine Fumarate (Quetiapine Fumarate 25 Mg Tablet) 12.5 mg PO BID PRN PRN Reason: Agitation Last Admin: 04/17/23 20:52 Dose: 12.5 mg Sertraline HCl (Sertraline Hcl 100 Mg Tablet) 100 mg PO DAILY [facility] Last Admin: 04/29/23 08:22 Dose: 100 mg Trazodone HCl (Trazodone Hcl 50 Mg Tablet) 50 mg PO BEDTIME MRX1 PRN PRN Reason: Insomnia Last Admin: 04/28/23 20:20 Dose: 50 mg Allergies Allergies Allergy/AdvReac Type Severity Reaction Status Date / Time No Known Allergies Allergy Verified 04/10/23 18:33 Assessment & Plan Assessment & Plan (1) Cognitive impairment: Status: Acute Code(s): R41.89 - Other symptoms and signs involving cognitive functions and awareness Assessment and Plan: 04/16covid positive felt to be more responsible for decompensation of baseline mild dementia, than mild ? uti- but both are being cared for- pt seems improved also with geripsych admit and 1:1 care due to falls. (2) Dementia: Status: Acute Code(s): F03.90 - Unspecified dementia, unspecified severity, without behavioral disturbance, psychotic disturbance, mood disturbance, and anxiety (3) COVID-19: Status: Acute Code(s): U07.1 - COVID-19 (4) Delirium: Status: Acute Code(s): R41.0 - Disorientation, unspecified Plan pt less agitated, less paranoia. discussed with son admission to [facility] for dx clarification and med management, which he is in agreement, if bed comes up soon. 04/17 doing better recovering from covid/uti 04/18/23 scared by another patient at a group, now refusing meds, more withdrawn- even with nursing calling son to discuss taking meds- she refuses and has withdrawn from [facility] 04/23/23 Continue tx 04/24/23 Continue tx and monitoring. Plan 1. Gather collateral information. 2. Continue with p.r.n. Seroquel. We are going to discuss with the son the possibility of starting long-acting injectables or any other types of antipsychotics. 3. Blood work with CBC, basic metabolic panel, ammonia level and came back negative. 4. Discontinue Seroquel on April 27 and we will start Namenda 5 mg p.o. q.h.s. Reason for continued inpatient stay Substantial Risk for: inability to function, rapid decompensation and med/psych decompensation Time Spent With Patient Time: Total time managing care of this patient today __20__ minutes.
[2023-04-29 19:40] VITALS: BP 140/68; PULSE 81; RESP 18; TEMP 36.7; O2SAT 95
[2023-04-29] MEDS: traZODone HCL 50 MG TABLET PO (20:43)
[2023-04-29] MEDS: Memantine HCl 5 MG TABLET PO (20:44)
[2023-04-30 08:47] VITALS: BP 179/76; PULSE 69; RESP 16; TEMP 36.1; O2SAT 97
[2023-04-30] MEDS: Docusate Sodium 100 MG CAPSULE PO ×2 (08:52→20:43)
[2023-04-30] MEDS: Sertraline HCL 100 MG TABLET PO (08:52)
[2023-04-30] MEDS: Metoprolol Succinate ER 25 MG TAB.ER.24H PO (08:52)
--- NOTE | 2023-04-30 09:55 | HO.PSYCHPN ---
Subjective Subjective Date of Service: 04/30/23 Reason For Visit: psychosisi Subjective Notes: Conditional Voluntary Interim History: The nursing staff reported the patient was agitated yesterday after she met the staff of the facility. She become very accusatory and psychotic. Apparently she had visual hallucinations last night reported that there were people in her room. Today the staff assessed her and she reported that she is feeling anxious and paranoid but with some sense of the insight of the delusions. We discussed with the patient and I explained her that sometimes she could get confused we will start a low dose of an antipsychotic. She reports paranoia. Mental Status Exam Mental Status Exam Patient Appearance: Well Grooomed and Appropriate Patient Orientation: Person and Situation Level of Consciousness: Awake and Appropriate Patient Behavior: Guarded and Passive Mood Description: Withdrawn Affect Description: Labile Patient Cognition Impaired: Yes Ability to Follow Directions: Good Speech Pattern: Clear Hallucinations: None Delusions: Ideas of Reference Thought Process: Distracted Thought Content: positive for Circumstantial Judgement: Fair Diagnostics Vital Signs (24Hr): Vital Signs - 24 hr 04/29/23 19:40 04/30/23 08:47 Temperature 98.1 F 97.0 F Pulse Rate 81 69 Respiratory Rate 18 16 Blood Pressure 140/68 H 179/76 H Pulse Oximetry 95 97 Oxygen Delivery Method Room Air Room Air BMI result Body Mass Index 19.5 Labs 04/26/23 07:56 04/26/23 07:56 Imaging Radiology Impressions: ITS Impressions Cervical Spine CT 04/10/23 19:54 IMPRESSION: 1. No acute intracranial abnormality. 2. No acute osseous abnormality within the cervical spine. 3. No acute osseous abnormality within the maxillofacial region. Face CT 04/10/23 19:54 IMPRESSION: 1. No acute intracranial abnormality. 2. No acute osseous abnormality within the cervical spine. 3. No acute osseous abnormality within the maxillofacial region. Head CT 04/10/23 19:54 IMPRESSION: 1. No acute intracranial abnormality. 2. No acute osseous abnormality within the cervical spine. 3. No acute osseous abnormality within the maxillofacial region. Abdomen/Pelvis CT 04/10/23 20:04 IMPRESSION: 1. No acute abnormality. 2. Severe degenerative scoliosis. 3. Advanced calcific atherosclerotic disease. 4. Diverticulosis without diverticulitis. Fleischner guidelines were followed. Chest CT 04/10/23 20:04 IMPRESSION: 1. No acute abnormality. 2. No rib fracture. 3. Minimal fibrotic change and/or atelectasis in the left lower lobe. 4. Calcific atherosclerotic disease including coronary artery calcification. 5. Degenerative scoliosis of the dorsal spine. Fleischner guidelines were followed. Medications Medications Current Medications Acetaminophen (Acetaminophen 325 Mg Tablet) 650 mg PO Q6H PRN PRN Reason: Headache/Pain Mild Scale (1-3) Last Admin: 04/18/23 03:08 Dose: 650 mg Al Hydroxide/Mg Hydroxide (Magnesium Hydrox/Alum Hydrox 30 Ml Oral.Susp) 30 ml PO Q6H PRN PRN Reason: Heartburn/Nausea Docusate Sodium (Docusate Sodium 100 Mg Capsule) 100 mg PO BID [facility] Last Admin: 04/30/23 08:52 Dose: 100 mg Guaifenesin/Dextromethorphan (Guaifenesin Dm 200/20/10 Ml 10 Ml Syrup) 10 ml PO Q6H PRN PRN Reason: Cough Hydroxyzine HCl (Hydroxyzine Hcl 25 Mg Tablet) 25 mg PO Q6H PRN PRN Reason: Anxiety Last Admin: 04/26/23 20:39 Dose: 25 mg Magnesium Hydroxide (Milk Of Magnesia 30 Ml Oral.Susp) 30 ml PO DAILY PRN PRN Reason: Constipation Memantine (Memantine Hcl 5 Mg Tablet) 5 mg PO BEDTIME [facility] Last Admin: 04/29/23 20:44 Dose: 5 mg Metoprolol Succinate (Metoprolol Succinate Er 25 Mg Tab.Er.24h) 25 mg PO DAILY [facility]; Protocol Last Admin: 04/30/23 08:52 Dose: 25 mg Quetiapine Fumarate (Quetiapine Fumarate 25 Mg Tablet) 12.5 mg PO BID PRN PRN Reason: Agitation Last Admin: 04/17/23 20:52 Dose: 12.5 mg Sertraline HCl (Sertraline Hcl 100 Mg Tablet) 100 mg PO DAILY [facility] Last Admin: 04/30/23 08:52 Dose: 100 mg Trazodone HCl (Trazodone Hcl 50 Mg Tablet) 50 mg PO BEDTIME MRX1 PRN PRN Reason: Insomnia Last Admin: 04/29/23 20:43 Dose: 50 mg Allergies Allergies Allergy/AdvReac Type Severity Reaction Status Date / Time No Known Allergies Allergy Verified 04/10/23 18:33 Assessment & Plan Assessment & Plan (1) Cognitive impairment: Status: Acute Code(s): R41.89 - Other symptoms and signs involving cognitive functions and awareness Assessment and Plan: 04/16covid positive felt to be more responsible for decompensation of baseline mild dementia, than mild ? uti- but both are being cared for- pt seems improved also with geripsych admit and 1:1 care due to falls. (2) Dementia: Status: Acute Code(s): F03.90 - Unspecified dementia, unspecified severity, without behavioral disturbance, psychotic disturbance, mood disturbance, and anxiety (3) COVID-19: Status: Acute Code(s): U07.1 - COVID-19 (4) Delirium: Status: Acute Code(s): R41.0 - Disorientation, unspecified Plan pt less agitated, less paranoia. discussed with son admission to [facility] for dx clarification and med management, which he is in agreement, if bed comes up soon. 04/17 doing better recovering from covid/uti 04/18/23 scared by another patient at a group, now refusing meds, more withdrawn- even with nursing calling son to discuss taking meds- she refuses and has withdrawn from [facility] 04/23/23 Continue tx 04/24/23 Continue tx and monitoring. Plan 1. Gather collateral information. 2. Continue with p.r.n. Seroquel. We are going to discuss with the son the possibility of starting long-acting injectables or any other types of antipsychotics. 3. Blood work with CBC, basic metabolic panel, ammonia level and came back negative. 4. Discontinue Seroquel on April 27 and we will start Namenda 5 mg p.o. q.h.s. 5. Start haloperidol 0.5 p.o. b.i.d. to target psychosis. Case discussed with her son who agreed on the plan. Reason for continued inpatient stay Substantial Risk for: inability to function, rapid decompensation and med/psych decompensation Time Spent With Patient Time: Total time managing care of this patient today __20__ minutes.
[2023-04-30 10:12] VITALS: BP 142/65
--- NOTE | 2023-04-30 10:17 | PC.NURSE ---
Morning blood pressure at 0847 179/79 and Brissa asymptomatic; Dr. Mahan notified. Recheck blood pressure at 1012; 142/[address] Mahan notified.
[2023-04-30 19:35] VITALS: BP 151/75; PULSE 62; RESP 18; TEMP 36.2; O2SAT 96
[2023-04-30] MEDS: Memantine HCl 5 MG TABLET PO (20:43)
[2023-04-30] MEDS: HaloperidoL 0.5 MG TABLET PO (20:43)
[2023-04-30] MEDS: traZODone HCL 50 MG TABLET PO (20:43)
[2023-05-01 08:03] VITALS: BP 94/52; PULSE 86; RESP 16; TEMP 36.8; O2SAT 95
[2023-05-01] MEDS: HaloperidoL 0.5 MG TABLET PO ×2 (08:41→21:05)
[2023-05-01] MEDS: Docusate Sodium 100 MG CAPSULE PO ×2 (08:41→21:05)
[2023-05-01] MEDS: Sertraline HCL 100 MG TABLET PO (08:41)
[2023-05-01 11:15] VITALS: BP 109/58
--- NOTE | 2023-05-01 11:36 | P.PNPSI_ITS ---
Subjective Subjective Date of Service: 05/01/23 Reason For Visit: psychosisi Subjective Notes: Conditional Voluntary Interim History: The nursing staff reported the patient woke up very early she had been confused internally preoccupied and hypoactive. On interview the patient denies new symptoms but she looks internally preoccupied no side effects with the addition of Haldol. Mental Status Exam Mental Status Exam Patient Appearance: Well Grooomed Patient Orientation: Person and Situation Level of Consciousness: Awake and Appropriate Patient Behavior: Guarded and Passive Mood Description: Withdrawn Affect Description: Constricted Patient Cognition Impaired: Yes Ability to Follow Directions: Good Speech Pattern: Clear Hallucinations: None Delusions: Paranoid Ideation Thought Process: Distracted and Slowed Thinking Thought Content: positive for [place] and positive for Poverty of Content Judgement: Poor Diagnostics Vital Signs (24Hr): Vital Signs - 24 hr 04/30/23 19:35 05/01/23 08:03 Temperature 97.2 F 98.2 F Pulse Rate 62 86 Respiratory Rate 18 16 Blood Pressure 151/75 H 94/52 L Pulse Oximetry 96 95 Oxygen Delivery Method Room Air Room Air BMI result Body Mass Index 19.5 Labs 04/26/23 07:56 04/26/23 07:56 Imaging Radiology Impressions: ITS Impressions Cervical Spine CT 04/10/23 19:54 IMPRESSION: 1. No acute intracranial abnormality. 2. No acute osseous abnormality within the cervical spine. 3. No acute osseous abnormality within the maxillofacial region. Face CT 04/10/23 19:54 IMPRESSION: 1. No acute intracranial abnormality. 2. No acute osseous abnormality within the cervical spine. 3. No acute osseous abnormality within the maxillofacial region. Head CT 04/10/23 19:54 IMPRESSION: 1. No acute intracranial abnormality. 2. No acute osseous abnormality within the cervical spine. 3. No acute osseous abnormality within the maxillofacial region. Abdomen/Pelvis CT 04/10/23 20:04 IMPRESSION: 1. No acute abnormality. 2. Severe degenerative scoliosis. 3. Advanced calcific atherosclerotic disease. 4. Diverticulosis without diverticulitis. Fleischner guidelines were followed. Chest CT 04/10/23 20:04 IMPRESSION: 1. No acute abnormality. 2. No rib fracture. 3. Minimal fibrotic change and/or atelectasis in the left lower lobe. 4. Calcific atherosclerotic disease including coronary artery calcification. 5. Degenerative scoliosis of the dorsal spine. Fleischner guidelines were followed. Medications Medications Current Medications Acetaminophen (Acetaminophen 325 Mg Tablet) 650 mg PO Q6H PRN PRN Reason: Headache/Pain Mild Scale (1-3) Last Admin: 04/18/23 03:08 Dose: 650 mg Al Hydroxide/Mg Hydroxide (Magnesium Hydrox/Alum Hydrox 30 Ml Oral.Susp) 30 ml PO Q6H PRN PRN Reason: Heartburn/Nausea Docusate Sodium (Docusate Sodium 100 Mg Capsule) 100 mg PO BID [facility] Last Admin: 05/01/23 08:41 Dose: 100 mg Guaifenesin/Dextromethorphan (Guaifenesin Dm 200/20/10 Ml 10 Ml Syrup) 10 ml PO Q6H PRN PRN Reason: Cough Haloperidol (Haloperidol 0.5 Mg Tablet) 0.5 mg PO BID [facility] Last Admin: 05/01/23 08:41 Dose: 0.5 mg Magnesium Hydroxide (Milk Of Magnesia 30 Ml Oral.Susp) 30 ml PO DAILY PRN PRN Reason: Constipation Memantine (Memantine Hcl 5 Mg Tablet) 5 mg PO BEDTIME [facility] Last Admin: 04/30/23 20:43 Dose: 5 mg Metoprolol Succinate (Metoprolol Succinate Er 25 Mg Tab.Er.24h) 25 mg PO DAILY [facility]; Protocol Last Admin: 04/30/23 08:52 Dose: 25 mg Sertraline HCl (Sertraline Hcl 100 Mg Tablet) 100 mg PO DAILY [facility] Last Admin: 05/01/23 08:41 Dose: 100 mg Trazodone HCl (Trazodone Hcl 50 Mg Tablet) 50 mg PO BEDTIME MRX1 PRN PRN Reason: Insomnia Last Admin: 04/30/23 20:43 Dose: 50 mg Allergies Allergies Allergy/AdvReac Type Severity Reaction Status Date / Time No Known Allergies Allergy Verified 04/10/23 18:33 Assessment & Plan Assessment & Plan (1) Cognitive impairment: Status: Acute Code(s): R41.89 - Other symptoms and signs involving cognitive functions and awareness Assessment and Plan: 04/16covid positive felt to be more responsible for decompensation of baseline mild dementia, than mild ? uti- but both are being cared for- pt seems improved also with geripsych admit and 1:1 care due to falls. (2) Dementia: Status: Acute Code(s): F03.90 - Unspecified dementia, unspecified severity, without behavioral disturbance, psychotic disturbance, mood disturbance, and anxiety (3) COVID-19: Status: Acute Code(s): U07.1 - COVID-19 (4) Delirium: Status: Acute Code(s): R41.0 - Disorientation, unspecified Plan pt less agitated, less paranoia. discussed with [facility] for dx clarification and med management, which he is in agreement, if bed comes up soon. 04/17 doing better recovering from covid/uti 04/18/23 scared by another patient at a group, now refusing meds, more withdrawn- even with nursing calling son to discuss taking meds- she refuses and has withdrawn from [facility] 04/23/23 Continue tx 04/24/23 Continue tx and monitoring. Plan 1. Gather collateral information. 2. Continue with p.r.n. Seroquel. We are going to discuss with the son the possibility of starting long-acting injectables or any other types of antipsychotics. 3. Blood work with CBC, basic metabolic panel, ammonia level and came back negative. 4. Discontinue Seroquel on April 27 and we will start Namenda 5 mg p.o. q.h.s. 5. Start haloperidol 0.5 p.o. b.i.d. to target psychosis. Case discussed with her son who agreed on the plan. Reason for continued inpatient stay Substantial Risk for: inability to function, rapid decompensation and med/psych decompensation Time Spent With Patient Time: Total time managing care of this patient today __20__ minutes.
--- NOTE | 2023-05-01 11:40 | PC.NURSE ---
Morning BP 94/52, Brissa asymptomatic and Toprol held. Recheck of BP at 1115 109/58 and she continues to be asymptomatic. Dr. Mahan notified of all of the above.
[2023-05-01 18:00] VITALS: BP 125/57; PULSE 69; RESP 16; TEMP 37.2; O2SAT 96
[2023-05-01] MEDS: Memantine HCl 5 MG TABLET PO (21:05)
[2023-05-02 08:49] VITALS: BP 122/58; PULSE 79; RESP 15; TEMP 37.6; O2SAT 96
[2023-05-02] MEDS: HaloperidoL 0.5 MG TABLET PO ×2 (08:50→20:58)
[2023-05-02] MEDS: Metoprolol Succinate ER 25 MG TAB.ER.24H PO (08:50)
[2023-05-02] MEDS: Docusate Sodium 100 MG CAPSULE PO ×2 (08:51→20:58)
[2023-05-02] MEDS: Sertraline HCL 100 MG TABLET PO (08:51)
[2023-05-02 09:27] LABS: COVID-19 Test Negative (Negative); IDNOW Serial# 152EDE1D
--- NOTE | 2023-05-02 16:07 | P.PNPSI_ITS ---
Subjective Subjective Date of Service: 05/02/23 Reason For Visit: psychosisi Subjective Notes: Conditional Voluntary Interim History: The nursing staff reported the patient had been flat withdrawn, guarded. She slept well last night. Later on, the occupational therapist reported the patient participate in group and her affect was brighter. She scored 13/30 on the Gooding and 3.4 on the Curtis test. The web content & social media manager reported that she was been assessed by another facility today. On interview the patient looks better no evidence of side effects or EPS with Haldol. Mental Status Exam Mental Status Exam Patient Appearance: Appropriate Patient Orientation: Person Level of Consciousness: Awake Patient Behavior: Guarded and Passive Mood Description: Withdrawn Affect Description: Constricted Patient Cognition Impaired: Yes Ability to Follow Directions: Good Speech Pattern: Clear Hallucinations: None Delusions: Paranoid Ideation and Ideas of Reference Thought Process: Distracted Thought Content: positive for [place] and positive for Poverty of Content Judgement: Fair Diagnostics Vital Signs (24Hr): Vital Signs - 24 hr 05/01/23 18:00 05/02/23 08:49 Temperature 98.9 F 99.7 F Pulse Rate 69 79 Respiratory Rate 16 15 Blood Pressure 125/57 L 122/58 L Pulse Oximetry 96 96 Oxygen Delivery Method Room Air Room Air BMI result Body Mass Index 19.5 Labs 04/26/23 07:56 04/26/23 07:56 Labs: Laboratory Results - last 48 hr 05/02/23 09:05 COVID-19 ([facility]) Negative COVID-19 Clin Com See Note Imaging Radiology Impressions: ITS Impressions Cervical Spine CT 04/10/23 19:54 IMPRESSION: 1. No acute intracranial abnormality. 2. No acute osseous abnormality within the cervical spine. 3. No acute osseous abnormality within the maxillofacial region. Face CT 04/10/23 19:54 IMPRESSION: 1. No acute intracranial abnormality. 2. No acute osseous abnormality within the cervical spine. 3. No acute osseous abnormality within the maxillofacial region. Head CT 04/10/23 19:54 IMPRESSION: 1. No acute intracranial abnormality. 2. No acute osseous abnormality within the cervical spine. 3. No acute osseous abnormality within the maxillofacial region. Abdomen/Pelvis CT 04/10/23 20:04 IMPRESSION: 1. No acute abnormality. 2. Severe degenerative scoliosis. 3. Advanced calcific atherosclerotic disease. 4. Diverticulosis without diverticulitis. Fleischner guidelines were followed. Chest CT 04/10/23 20:04 IMPRESSION: 1. No acute abnormality. 2. No rib fracture. 3. Minimal fibrotic change and/or atelectasis in the left lower lobe. 4. Calcific atherosclerotic disease including coronary artery calcification. 5. Degenerative scoliosis of the dorsal spine. Fleischner guidelines were followed. Medications Medications Current Medications Acetaminophen (Acetaminophen 325 Mg Tablet) 650 mg PO Q6H PRN PRN Reason: Headache/Pain Mild Scale (1-3) Last Admin: 04/18/23 03:08 Dose: 650 mg Al Hydroxide/Mg Hydroxide (Magnesium Hydrox/Alum Hydrox 30 Ml Oral.Susp) 30 ml PO Q6H PRN PRN Reason: Heartburn/Nausea Docusate Sodium (Docusate Sodium 100 Mg Capsule) 100 mg PO BID [facility] Last Admin: 05/02/23 08:51 Dose: 100 mg Guaifenesin/Dextromethorphan (Guaifenesin Dm 200/20/10 Ml 10 Ml Syrup) 10 ml PO Q6H PRN PRN Reason: Cough Haloperidol (Haloperidol 0.5 Mg Tablet) 0.5 mg PO BID [facility] Last Admin: 05/02/23 08:50 Dose: 0.5 mg Magnesium Hydroxide (Milk Of Magnesia 30 Ml Oral.Susp) 30 ml PO DAILY PRN PRN Reason: Constipation Memantine (Memantine Hcl 5 Mg Tablet) 5 mg PO BEDTIME [facility] Last Admin: 05/01/23 21:05 Dose: 5 mg Metoprolol Succinate (Metoprolol Succinate Er 25 Mg Tab.Er.24h) 25 mg PO DAILY [facility]; Protocol Last Admin: 05/02/23 08:50 Dose: 25 mg Sertraline HCl (Sertraline Hcl 100 Mg Tablet) 100 mg PO DAILY [facility] Last Admin: 05/02/23 08:51 Dose: 100 mg Trazodone HCl (Trazodone Hcl 50 Mg Tablet) 50 mg PO BEDTIME MRX1 PRN PRN Reason: Insomnia Last Admin: 04/30/23 20:43 Dose: 50 mg Allergies Allergies Allergy/AdvReac Type Severity Reaction Status Date / Time No Known Allergies Allergy Verified 04/10/23 18:33 Assessment & Plan Assessment & Plan (1) Cognitive impairment: Status: Acute Code(s): R41.89 - Other symptoms and signs involving cognitive functions and awareness Assessment and Plan: 04/16covid positive felt to be more responsible for decompensation of baseline mild dementia, than mild ? uti- but both are being cared for- pt seems improved also with geripsych admit and 1:1 care due to falls. (2) Dementia: Status: Acute Code(s): F03.90 - Unspecified dementia, unspecified severity, without behavioral disturbance, psychotic disturbance, mood disturbance, and anxiety (3) COVID-19: Status: Acute Code(s): U07.1 - COVID-19 (4) Delirium: Status: Acute Code(s): R41.0 - Disorientation, unspecified Plan pt less agitated, less paranoia. discussed with son admission to [facility] for dx clarification and med management, which he is in agreement, if bed comes up soon. 04/17 doing better recovering from covid/uti 04/18/23 scared by another patient at a group, now refusing meds, more withdrawn- even with nursing calling son to discuss taking meds- she refuses and has withdrawn from [facility] 04/23/23 Continue tx 04/24/23 Continue tx and monitoring. Plan 1. Gather collateral information. 2. Continue with p.r.n. Seroquel. We are going to discuss with the son the possibility of starting long-acting injectables or any other types of antipsychotics. 3. Blood work with CBC, basic metabolic panel, ammonia level and came back negative. 4. Discontinue Seroquel on April 27 and we will start Namenda 5 mg p.o. q.h.s. 5. Start haloperidol 0.5 p.o. b.i.d. to target psychosis. Case discussed with her son who agreed on the plan. Reason for continued inpatient stay Substantial Risk for: inability to function, rapid decompensation and med/psych decompensation Time Spent With Patient Time: Total time managing care of this patient today __20__ minutes.
[2023-05-02 18:00] VITALS: BP 145/65; PULSE 77; RESP 17; TEMP 36.4; O2SAT 96
[2023-05-02] MEDS: Memantine HCl 5 MG TABLET PO (20:58)
--- NOTE | 2023-05-03 03:57 | PC.NURSE ---
Pt. at 22:00h reported to this magnetic tape typewriter operator that She slide from the toilet bowl at around 17:30h and fell in the floor. Pt said she did not call for help and she get up by herself. Pt said she did not hit her head but she hit her L.lower arm in the toilet bowl causing a skin tear around 2 cm. slghtly bleeding cleansed w/ NSS and Tegaderm applied. Body assessment done w/ no other injury noted. No bruises noted on visible areas,able to move all extremities w/o pain. No c/o dizziness,headache,nausea/vomiting. VS taken and recorded. Last Sawyer- Clara Nick and donation worker provider-Staci Maurer w/ new order to have pt on CT of the head.We ll continue to monitor patient.
[2023-05-03 08:03] LABS: MANUAL DIFF FLAG NO
[2023-05-03 08:13] LABS: Basophils Percent Auto 0.4 % (0-2); Eosinophils Absolute Auto 0.1 X10*3/uL (0.0-0.4); Eosinophils Percent Auto 1.1 % (0-4); Hematocrit 33.3 % (37.0-47.0); Hemoglobin 11.2 g/dl (12.0-16.0); Imm Gran Abs Auto 0.01 X10*3/uL (0.00-0.03); Imm Gran Pct Auto 0.2 % (0.0-0.4); Lymphocytes Absolute Auto 0.8 X10*3/uL (1.2-4.9); Lymphocytes Percent Auto 15.7 % (20-40); Mean Corpuscular HGB Conc 33.6 g/dl (31.0-35.0); Mean Corpuscular Hemoglobin 29.8 pg (27.0-33.0); Mean Corpuscular Volume 88.6 fL (80.0-98.0); Mean Platelet Volume 10.6 fL (9.4-12.3); Monocytes Absolute Auto 0.4 X10*3/uL (0.1-1.2); Monocytes Percent Auto 8.4 % (2-11); Neutrophils Absolute Auto 3.9 x10*3/uL (2.0-8.3); Neutrophils Percent Auto 74.2 % (45-73); Platelet Count 165 X10*3/uL (160-400); Red Blood Count 3.76 X10*6/uL (4.20-5.50); Red Cell Distribution Width 14.9 % (11.0-16.0); White Blood Count 5.2 X10*3/uL (4.8-10.8)
[2023-05-03 08:19] LABS: Ammonia 21 umol/L (13-55)
--- NOTE | 2023-05-03 08:26 | P.PNPSI_ITS ---
Subjective Subjective Date of Service: 05/03/23 Reason For Visit: psychosisi Subjective Notes: Conditional Voluntary Interim History: The nursing staff reported the patient had been very quiet withdrawn, she slept 8 hours. The social sciences lecturer reported that [facility] will come to assess her today. On interview the patient denies new symptoms she looks hypoactive but no evidence of EPS or tardive dyskinesia with an additional Haldol. Still internally preoccupied. Mental Status Exam Mental Status Exam Patient Appearance: Appropriate Patient Orientation: Person and Situation Level of Consciousness: Awake Patient Behavior: Guarded and Passive Mood Description: Withdrawn Affect Description: Constricted Patient Cognition Impaired: Yes Ability to Follow Directions: Good Speech Pattern: Clear Hallucinations: None Delusions: Ideas of Reference Thought Process: Distracted and Slowed Thinking Thought Content: positive for [place] and positive for Poverty of Content Judgement: Poor Diagnostics Vital Signs (24Hr): Vital Signs - 24 hr 05/02/23 08:49 05/02/23 18:00 Temperature 99.7 F 97.6 F Pulse Rate 79 77 Respiratory Rate 15 17 Blood Pressure 122/58 L 145/65 H Pulse Oximetry 96 96 Oxygen Delivery Method Room Air Room Air BMI result Body Mass Index 19.5 Labs 05/03/23 07:47 05/03/23 07:47 Labs: Laboratory Results - last 48 hr 05/02/23 05/03/23 09:05 07:47 WBC 5.2 RBC 3.76 L Hgb 11.2 L Hct 33.3 L MCV 88.6 MCH 29.8 MCHC 33.6 RDW 14.9 Plt Count 165 MPV 10.6 Immature Gran % (Auto) 0.2 Neut % (Auto) 74.2 H Lymph % (Auto) 15.7 L [place] % (Auto) 8.4 Eos % (Auto) 1.1 Baso % (Auto) 0.4 Lymph # (Auto) 0.8 L [place] # (Auto) 0.4 Eos # (Auto) 0.1 Baso # (Auto) 0.0 Abs Immat Gran (auto) 0.01 Absolute Neuts (auto) 3.9 Absolute Nucleated RBC 0.000 Nucleated RBC % (auto) 0.0 Ammonia 21 COVID-19 ([facility]) Negative COVID-19 Clin Com See Note Imaging Radiology Impressions: ITS Impressions Cervical Spine CT 04/10/23 19:54 IMPRESSION: 1. No acute intracranial abnormality. 2. No acute osseous abnormality within the cervical spine. 3. No acute osseous abnormality within the maxillofacial region. Face CT 04/10/23 19:54 IMPRESSION: 1. No acute intracranial abnormality. 2. No acute osseous abnormality within the cervical spine. 3. No acute osseous abnormality within the maxillofacial region. Head CT 04/10/23 19:54 IMPRESSION: 1. No acute intracranial abnormality. 2. No acute osseous abnormality within the cervical spine. 3. No acute osseous abnormality within the maxillofacial region. Abdomen/Pelvis CT 04/10/23 20:04 IMPRESSION: 1. No acute abnormality. 2. Severe degenerative scoliosis. 3. Advanced calcific atherosclerotic disease. 4. Diverticulosis without diverticulitis. Fleischner guidelines were followed. Chest CT 04/10/23 20:04 IMPRESSION: 1. No acute abnormality. 2. No rib fracture. 3. Minimal fibrotic change and/or atelectasis in the left lower lobe. 4. Calcific atherosclerotic disease including coronary artery calcification. 5. Degenerative scoliosis of the dorsal spine. Fleischner guidelines were followed. Medications Medications Current Medications Acetaminophen (Acetaminophen 325 Mg Tablet) 650 mg PO Q6H PRN PRN Reason: Headache/Pain Mild Scale (1-3) Last Admin: 04/18/23 03:08 Dose: 650 mg Al Hydroxide/Mg Hydroxide (Magnesium Hydrox/Alum Hydrox 30 Ml Oral.Susp) 30 ml PO Q6H PRN PRN Reason: Heartburn/Nausea Docusate Sodium (Docusate Sodium 100 Mg Capsule) 100 mg PO BID [facility] Last Admin: 05/02/23 20:58 Dose: 100 mg Guaifenesin/Dextromethorphan (Guaifenesin Dm 200/20/10 Ml 10 Ml Syrup) 10 ml PO Q6H PRN PRN Reason: Cough Haloperidol (Haloperidol 0.5 Mg Tablet) 0.5 mg PO BID [facility] Last Admin: 05/02/23 20:58 Dose: 0.5 mg Magnesium Hydroxide (Milk Of Magnesia 30 Ml Oral.Susp) 30 ml PO DAILY PRN PRN Reason: Constipation Memantine (Memantine Hcl 5 Mg Tablet) 5 mg PO BEDTIME [facility] Last Admin: 05/02/23 20:58 Dose: 5 mg Metoprolol Succinate (Metoprolol Succinate Er 25 Mg Tab.Er.24h) 25 mg PO DAILY [facility]; Protocol Last Admin: 05/02/23 08:50 Dose: 25 mg Sertraline HCl (Sertraline Hcl 100 Mg Tablet) 100 mg PO DAILY [facility] Last Admin: 05/02/23 08:51 Dose: 100 mg Trazodone HCl (Trazodone Hcl 50 Mg Tablet) 50 mg PO BEDTIME MRX1 PRN PRN Reason: Insomnia Last Admin: 04/30/23 20:43 Dose: 50 mg Allergies Allergies Allergy/AdvReac Type Severity Reaction Status Date / Time No Known Allergies Allergy Verified 04/10/23 18:33 Assessment & Plan Assessment & Plan (1) Cognitive impairment: Status: Acute Code(s): R41.89 - Other symptoms and signs involving cognitive functions and awareness Assessment and Plan: 04/16covid positive felt to be more responsible for decompensation of baseline mild dementia, than mild ? uti- but both are being cared for- pt seems improved also with geripsych admit and 1:1 care due to falls. (2) Dementia: Status: Acute Code(s): F03.90 - Unspecified dementia, unspecified severity, without behavioral disturbance, psychotic disturbance, mood disturbance, and anxiety (3) COVID-19: Status: Acute Code(s): U07.1 - COVID-19 (4) Delirium: Status: Acute Code(s): R41.0 - Disorientation, unspecified Plan pt less agitated, less paranoia. discussed with son admission [facility] for dx clarification and med management, which he is in agreement, if bed comes up soon. 04/17 doing better recovering from covid/uti 04/18/23 scared by another patient at a group, now refusing meds, more withdrawn- even with nursing calling son to discuss taking meds- she refuses and has withdrawn from [facility] 04/23/23 Continue tx 04/24/23 Continue tx and monitoring. Plan 1. Gather collateral information. 2. Continue with p.r.n. Seroquel. We are going to discuss with the son the possibility of starting long-acting injectables or any other types of antipsychotics. 3. Blood work with CBC, basic metabolic panel, ammonia level and came back negative. 4. Discontinue Seroquel on April 27 and we will start Namenda 5 mg p.o. q.h.s. 5. Start haloperidol 0.5 p.o. b.i.d. to target psychosis. Case discussed with her son who agreed on the plan. Reason for continued inpatient stay Substantial Risk for: inability to function, rapid decompensation and med/psych decompensation Time Spent With Patient Time: Total time managing care of this patient today __20__ minutes.
[2023-05-03 08:27] LABS: Alanine Aminotransferase 16 U/L (0-31); Albumin Level 4.1 g/dL (3.5-5.0); Alkaline Phosphatase 86 U/L (39-117); Anion Gap 12 (12-20); Aspartate Amino Transferase 25 U/L (5-31); Bilirubin Total 0.5 mg/dL (0.0-1.0); Blood Urea Nitrogen 14 mg/dL (9-16); Calcium 9.7 mg/dL (8.4-10.2); Carbon Dioxide 26 mmol/L (22-29); Chloride 102 mmol/L (96-108); Creatinine Clr Calc Pharmacy 45.7; Estimated Glomerular Filt Rate > 60; Glucose Fasting 92 mg/dL (60-99); Potassium 4.3 mmol/L (3.3-5.1); Sodium 136 mmol/L (135-145); Total Protein 6.8 g/dL (6.5-8.0)
[2023-05-03 10:33] VITALS: BP 149/68; PULSE 71; RESP 15; TEMP 36.9; O2SAT 97
[2023-05-03] MEDS: Metoprolol Succinate ER 25 MG TAB.ER.24H PO (10:34)
[2023-05-03] MEDS: HaloperidoL 0.5 MG TABLET PO ×2 (10:35→21:05)
[2023-05-03] MEDS: Docusate Sodium 100 MG CAPSULE PO ×2 (10:35→21:05)
[2023-05-03] MEDS: Sertraline HCL 100 MG TABLET PO (10:35)
[2023-05-03 19:40] VITALS: BP 159/72; PULSE 69; RESP 18; TEMP 36.6; O2SAT 96
[2023-05-03] MEDS: Memantine HCl 5 MG TABLET PO (21:05)
[2023-05-03] MEDS: traZODone HCL 50 MG TABLET PO (21:05)
[2023-05-04 08:18] VITALS: BP 117/56; PULSE 72; RESP 16; TEMP 36.5; O2SAT 98
[2023-05-04 09:40] VITALS: BP 134/61; PULSE 68
[2023-05-04] MEDS: Docusate Sodium 100 MG CAPSULE PO ×2 (09:46→21:02)
[2023-05-04] MEDS: Metoprolol Succinate ER 25 MG TAB.ER.24H PO (09:46)
[2023-05-04] MEDS: HaloperidoL 0.5 MG TABLET PO ×2 (09:46→21:02)
[2023-05-04] MEDS: Sertraline HCL 100 MG TABLET PO (09:46)
--- NOTE | 2023-05-04 14:50 | P.PNPSI_ITS ---
Subjective Subjective Date of Service: 05/04/23 Reason For Visit: psychosisi Subjective Notes: Conditional Voluntary Interim History: The nursing staff reported the patient had being fully workout after she fell yesterday. CT scan came back negative. On interview the patient denies new symptoms. The clinical social work aide reported that [facility] did not want her because she is on Haldol. The try to called the institution. On interview the patient denies new symptoms, no side effects. Mental Status Exam Mental Status Exam Patient Appearance: Well Grooomed and Appropriate Patient Orientation: Person and Situation Level of Consciousness: Awake and Appropriate Patient Behavior: Guarded and Passive Mood Description: Withdrawn Affect Description: Constricted Patient Cognition Impaired: Yes Ability to Follow Directions: Good Speech Pattern: Clear Hallucinations: None Delusions: Ideas of Reference Thought Process: Distracted and Slowed Thinking Thought Content: positive for [place] and positive for Poverty of Content Judgement: Fair Diagnostics Vital Signs (24Hr): Vital Signs - 24 hr 05/03/23 19:40 05/04/23 08:18 05/04/23 09:40 Temperature 97.9 F 97.7 F Pulse Rate 69 72 68 Respiratory Rate 18 16 Blood Pressure 159/72 H 117/56 L 134/61 Pulse Oximetry 96 98 Oxygen Delivery Method Room Air Room Air BMI result Body Mass Index 19.5 Labs 05/03/23 07:47 05/03/23 07:47 Labs: Laboratory Results - last 48 hr 05/03/23 07:47 WBC 5.2 RBC 3.76 L Hgb 11.2 L Hct 33.3 L MCV 88.6 MCH 29.8 MCHC 33.6 RDW 14.9 Plt Count 165 MPV 10.6 Immature Gran % (Auto) 0.2 Neut % (Auto) 74.2 H Lymph % (Auto) 15.7 L [place] % (Auto) 8.4 Eos % (Auto) 1.1 Baso % (Auto) 0.4 Lymph # (Auto) 0.8 L [place] # (Auto) 0.4 Eos # (Auto) 0.1 Baso # (Auto) 0.0 Abs Immat Gran (auto) 0.01 Absolute Neuts (auto) 3.9 Absolute Nucleated RBC 0.000 Nucleated RBC % (auto) 0.0 Sodium 136 Potassium 4.3 Chloride 102 Carbon Dioxide 26 Anion Gap 12 BUN 14 Creatinine 0.77 Estim Creat Clear Calc 45.7 Estimated GFR > 60 Fasting Glucose 92 Calcium 9.7 Total Bilirubin 0.5 AST 25 ALT 16 Alkaline Phosphatase 86 Ammonia 21 Total Protein 6.8 Albumin 4.1 Imaging Radiology Impressions: ITS Impressions Cervical Spine CT 04/10/23 19:54 IMPRESSION: 1. No acute intracranial abnormality. 2. No acute osseous abnormality within the cervical spine. 3. No acute osseous abnormality within the maxillofacial region. Face CT 04/10/23 19:54 IMPRESSION: 1. No acute intracranial abnormality. 2. No acute osseous abnormality within the cervical spine. 3. No acute osseous abnormality within the maxillofacial region. Head CT 04/10/23 19:54 IMPRESSION: 1. No acute intracranial abnormality. 2. No acute osseous abnormality within the cervical spine. 3. No acute osseous abnormality within the maxillofacial region. Abdomen/Pelvis CT 04/10/23 20:04 IMPRESSION: 1. No acute abnormality. 2. Severe degenerative scoliosis. 3. Advanced calcific atherosclerotic disease. 4. Diverticulosis without diverticulitis. Fleischner guidelines were followed. Chest CT 04/10/23 20:04 IMPRESSION: 1. No acute abnormality. 2. No rib fracture. 3. Minimal fibrotic change and/or atelectasis in the left lower lobe. 4. Calcific atherosclerotic disease including coronary artery calcification. 5. Degenerative scoliosis of the dorsal spine. Fleischner guidelines were followed. Head CT 05/03/23 11:06 IMPRESSION: No acute intracranial abnormality. Medications Medications Current Medications Acetaminophen (Acetaminophen 325 Mg Tablet) 650 mg PO Q6H PRN PRN Reason: Headache/Pain Mild Scale (1-3) Last Admin: 04/18/23 03:08 Dose: 650 mg Al Hydroxide/Mg Hydroxide (Magnesium Hydrox/Alum Hydrox 30 Ml Oral.Susp) 30 ml PO Q6H PRN PRN Reason: Heartburn/Nausea Docusate Sodium (Docusate Sodium 100 Mg Capsule) 100 mg PO BID [facility] Last Admin: 05/04/23 09:46 Dose: 100 mg Guaifenesin/Dextromethorphan (Guaifenesin Dm 200/20/10 Ml 10 Ml Syrup) 10 ml PO Q6H PRN PRN Reason: Cough Haloperidol (Haloperidol 0.5 Mg Tablet) 0.5 mg PO BID [facility] Last Admin: 05/04/23 09:46 Dose: 0.5 mg Magnesium Hydroxide (Milk Of Magnesia 30 Ml Oral.Susp) 30 ml PO DAILY PRN PRN Reason: Constipation Memantine (Memantine Hcl 5 Mg Tablet) 5 mg PO BID [facility] Metoprolol Succinate (Metoprolol Succinate Er 25 Mg Tab.Er.24h) 25 mg PO DAILY [facility]; Protocol Last Admin: 05/04/23 09:46 Dose: 25 mg Sertraline HCl (Sertraline Hcl 100 Mg Tablet) 100 mg PO DAILY [facility] Last Admin: 05/04/23 09:46 Dose: 100 mg Trazodone HCl (Trazodone Hcl 50 Mg Tablet) 50 mg PO BEDTIME MRX1 PRN PRN Reason: Insomnia Last Admin: 05/03/23 21:05 Dose: 50 mg Allergies Allergies Allergy/AdvReac Type Severity Reaction Status Date / Time No Known Allergies Allergy Verified 04/10/23 18:33 Assessment & Plan Assessment & Plan (1) Cognitive impairment: Status: Acute Code(s): R41.89 - Other symptoms and signs involving cognitive functions and awareness Assessment and Plan: 04/16covid positive felt to be more responsible for decompensation of baseline mild dementia, than mild ? uti- but both are being cared for- [facility] due to falls. (2) Dementia: Status: Acute Code(s): F03.90 - Unspecified dementia, unspecified severity, without behavioral disturbance, psychotic disturbance, mood disturbance, and anxiety (3) COVID-19: Status: Acute Code(s): U07.1 - COVID-19 (4) Delirium: Status: Acute Code(s): R41.0 - Disorientation, unspecified Plan pt less agitated, less paranoia. discussed with son admission [facility] for dx clarification and med management, which he is in agreement, if bed comes up soon. 04/17 doing better recovering from covid/uti 04/18/23 scared by another patient at a group, now refusing meds, more withdrawn- even with nursing calling son to discuss taking meds- she refuses and has withdrawn from [facility] 04/23/23 Continue tx 04/24/23 Continue tx and monitoring. Plan 1. Gather collateral information. 2. Continue with [facility]r.[facility]. We are going to discuss with the son the possibility of starting long-acting injectables or any other types of antipsychotics. 3. Blood work with CBC, basic metabolic panel, ammonia level and came back negative. 4. Discontinue Seroquel on April 27 and we will start Namenda 5 mg p.o. q.h.s. 5. Start haloperidol 0.5 p.o. b.i.d. to target psychosis. Case discussed with her son who agreed on the plan. Reason for continued inpatient stay Substantial Risk for: inability to function, rapid decompensation and med/psych decompensation Time Spent With Patient Time: Total time managing care of this patient today __20__ minutes.
--- NOTE | 2023-05-04 14:50 | MHC.CLN ---
F/U SUPPLEMENT CHANGED TO MAGIC CUP FORTIFIED ICE CREAM BID. PROVIDES 580 KCALS, 18 G PROTEIN.
[2023-05-04 18:00] VITALS: BP 138/63; PULSE 75; RESP 16; TEMP 36.6; O2SAT 96
[2023-05-04] MEDS: traZODone HCL 50 MG TABLET PO (21:02)
[2023-05-04] MEDS: Memantine HCl 5 MG TABLET PO (21:02)
[2023-05-05 07:00] VITALS: BMI 19.1
[2023-05-05 08:24] VITALS: BP 102/50; PULSE 68; RESP 16; TEMP 36.5; O2SAT 98
[2023-05-05] MEDS: Sertraline HCL 100 MG TABLET PO (08:25)
[2023-05-05] MEDS: Metoprolol Succinate ER 25 MG TAB.ER.24H PO (08:25)
[2023-05-05] MEDS: Docusate Sodium 100 MG CAPSULE PO ×2 (08:26→20:26)
[2023-05-05] MEDS: HaloperidoL 0.5 MG TABLET PO ×2 (08:26→20:26)
[2023-05-05] MEDS: Memantine HCl 5 MG TABLET PO ×2 (08:26→20:27)
--- NOTE | 2023-05-05 14:31 | P.PNPSI_ITS ---
Subjective Subjective Date of Service: 05/05/23 Reason For Visit: psychosisi Subjective Notes: Conditional Voluntary Interim History: The nursing staff reported the patient had been medication compliant she remains flat but easily redirectable. She slept 7 hours. The occupational therapist reported that today she looked more hypoactive. Yesterday spoke with her son came in regarding discharge planning and why the alf facility does not want to take her because she is on Haldol. On interview the patient denies new symptoms, waiting for placement. Mental Status Exam Mental Status Exam Patient Appearance: Well Grooomed and Appropriate Patient Orientation: Person and Situation Level of Consciousness: Awake and Appropriate Patient Behavior: Guarded and Passive Mood Description: Withdrawn Affect Description: Constricted Patient Cognition Impaired: Yes Ability to Follow Directions: Good Speech Pattern: Clear Hallucinations: None Delusions: Ideas of Reference Thought Process: Distracted and Slowed Thinking Thought Content: positive for [place] and positive for Poverty of Content Judgement: Fair Diagnostics Vital Signs (24Hr): Vital Signs - 24 hr 05/04/23 18:00 05/05/23 08:24 Temperature 97.8 F 97.7 F Pulse Rate 75 68 Respiratory Rate 16 16 Blood Pressure 138/63 102/50 L Pulse Oximetry 96 98 Oxygen Delivery Method Room Air Room Air BMI result Body Mass Index 19.1 Labs 05/03/23 07:47 05/03/23 07:47 Imaging Radiology Impressions: ITS Impressions Cervical Spine CT 04/10/23 19:54 IMPRESSION: 1. No acute intracranial abnormality. 2. No acute osseous abnormality within the cervical spine. 3. No acute osseous abnormality within the maxillofacial region. Face CT 04/10/23 19:54 IMPRESSION: 1. No acute intracranial abnormality. 2. No acute osseous abnormality within the cervical spine. 3. No acute osseous abnormality within the maxillofacial region. Head CT 04/10/23 19:54 IMPRESSION: 1. No acute intracranial abnormality. 2. No acute osseous abnormality within the cervical spine. 3. No acute osseous abnormality within the maxillofacial region. Abdomen/Pelvis CT 04/10/23 20:04 IMPRESSION: 1. No acute abnormality. 2. Severe degenerative scoliosis. 3. Advanced calcific atherosclerotic disease. 4. Diverticulosis without diverticulitis. Fleischner guidelines were followed. Chest CT 04/10/23 20:04 IMPRESSION: 1. No acute abnormality. 2. No rib fracture. 3. Minimal fibrotic change and/or atelectasis in the left lower lobe. 4. Calcific atherosclerotic disease including coronary artery calcification. 5. Degenerative scoliosis of the dorsal spine. Fleischner guidelines were followed. Head CT 05/03/23 11:06 IMPRESSION: No acute intracranial abnormality. Medications Medications Current Medications Acetaminophen (Acetaminophen 325 Mg Tablet) 650 mg PO Q6H PRN PRN Reason: Headache/Pain Mild Scale (1-3) Last Admin: 04/18/23 03:08 Dose: 650 mg Al Hydroxide/Mg Hydroxide (Magnesium Hydrox/Alum Hydrox 30 Ml Oral.Susp) 30 ml PO Q6H PRN PRN Reason: Heartburn/Nausea Docusate Sodium (Docusate Sodium 100 Mg Capsule) 100 mg PO BID [facility] Last Admin: 05/05/23 08:26 Dose: 100 mg Guaifenesin/Dextromethorphan (Guaifenesin Dm 200/20/10 Ml 10 Ml Syrup) 10 ml PO Q6H PRN PRN Reason: Cough Haloperidol (Haloperidol 0.5 Mg Tablet) 0.5 mg PO BID [facility] Last Admin: 05/05/23 08:26 Dose: 0.5 mg Magnesium Hydroxide (Milk Of Magnesia 30 Ml Oral.Susp) 30 ml PO DAILY PRN PRN Reason: Constipation Memantine (Memantine Hcl 5 Mg Tablet) 5 mg PO BID [facility] Last Admin: 05/05/23 08:26 Dose: 5 mg Metoprolol Succinate (Metoprolol Succinate Er 25 Mg Tab.Er.24h) 25 mg PO DAILY [facility]; Protocol Last Admin: 05/05/23 08:25 Dose: 25 mg Sertraline HCl (Sertraline Hcl 100 Mg Tablet) 100 mg PO DAILY [facility] Last Admin: 05/05/23 08:25 Dose: 100 mg Trazodone HCl (Trazodone Hcl 50 Mg Tablet) 50 mg PO BEDTIME MRX1 PRN PRN Reason: Insomnia Last Admin: 05/04/23 21:02 Dose: 50 mg Allergies Allergies Allergy/AdvReac Type Severity Reaction Status Date / Time No Known Allergies Allergy Verified 04/10/23 18:33 Assessment & Plan Assessment & Plan (1) Cognitive impairment: Status: Acute Code(s): R41.89 - Other symptoms and signs involving cognitive functions and awareness Assessment and Plan: 04/16covid positive felt to be more responsible for decompensation of baseline mild dementia, than mild ? uti- but both are being cared for- pt seems improved also with geripsych admit and 1:1 care due to falls. (2) Dementia: Status: Acute Code(s): F03.90 - Unspecified dementia, unspecified severity, without behavioral disturbance, psychotic disturbance, mood disturbance, and anxiety (3) COVID-19: Status: Acute Code(s): U07.1 - COVID-19 (4) Delirium: Status: Acute Code(s): R41.0 - Disorientation, unspecified Plan pt less agitated, less paranoia. discussed with son admission to [facility] for dx clarification and med management, which he is in agreement, if bed comes up soon. 04/17 doing better recovering from covid/uti 04/18/23 scared by another patient at a group, now refusing meds, more withdrawn- even with nursing calling son to discuss taking meds- she refuses and has withdrawn from [facility] 04/23/23 Continue tx 04/24/23 Continue tx and monitoring. Plan 1. Gather collateral information. 2. Continue with p.r.n. Seroquel. We are going to discuss with the son the possibility of starting long-acting injectables or any other types of antipsychotics. 3. Blood work with CBC, basic metabolic panel, ammonia level and came back negative. 4. Discontinue Seroquel on April 27 and we will start Namenda 5 mg p.o. q.h.s. 5. Start haloperidol 0.5 p.o. b.i.d. to target psychosis. Case discussed with her son who agreed on the plan. On May 05 we are lowering to Haldol to once a day at night. Reason for continued inpatient stay Substantial Risk for: inability to function, rapid decompensation and med/psych decompensation Time Spent With Patient Time: Total time managing care of this patient today _20___ minutes.
[2023-05-05 18:00] VITALS: BP 145/66; PULSE 74; RESP 18; TEMP 37.1; O2SAT 96
--- NOTE | 2023-05-05 18:31 | PC.NURSE ---
This evening, it was noted patient had a medium sized purple/yellowish bruise on her left buttocks and left hip, which appears to be in the healing stage. Patient reports it was from the fall that occurred on the but was scared to report the bruise in case it affected her discharge , she denies any pain at this time.
[2023-05-05] MEDS: traZODone HCL 50 MG TABLET PO (20:27)
[2023-05-06 08:10] VITALS: BP 144/66; PULSE 80; RESP 18; TEMP 36.5; O2SAT 98
[2023-05-06] MEDS: Docusate Sodium 100 MG CAPSULE PO ×2 (08:48→20:53)
[2023-05-06] MEDS: Sertraline HCL 100 MG TABLET PO (08:48)
[2023-05-06] MEDS: Metoprolol Succinate ER 25 MG TAB.ER.24H PO (08:48)
[2023-05-06] MEDS: Memantine HCl 5 MG TABLET PO ×2 (08:48→20:53)
--- NOTE | 2023-05-06 10:29 | P.PNPSI_ITS ---
Subjective Subjective Date of Service: 05/06/23 Reason For Visit: psychosisi Subjective Notes: Conditional Voluntary Interim History: Pt slept through the night. She reports overall feeling well, but states she ahs her ups and downs. She reported falling while going to the bathroom dome days ago. RN check bruise on left side of buttock, pt denies pain, looks with yellowish discoloration signs of older bruise. No difficulty walking to suggest hip fracture. Review of Systems Review of Systems L foot, fourth toe dressing due to skin breakdown Yes all other systems are reviewed and are negative and Unobtainable due to mental status Mental Status Exam Mental Status Exam Narrative: Appearance: wearing hospital gown, in NAD Behavior: calm, Psychomotor: some retardation noted Speech: very soft tone, regular rate, more spontaneous TP: more linear TC:feeling better Mood: better Affect: constricted, congruent SI: none HI: none VH/AH: no overt Delusions: no overt Insight/judgment: impaired x 2. Memory/cog: alert, oriented to year, month, not situation. Pending MOCA and ACL. Diagnostics Vital Signs (24Hr): Vital Signs - 24 hr 05/05/23 18:00 05/06/23 08:10 Temperature 98.7 F 97.7 F Pulse Rate 74 80 Respiratory Rate 18 18 Blood Pressure 145/66 H 144/66 H Pulse Oximetry 96 98 Oxygen Delivery Method Room Air Room Air BMI result Body Mass Index 19.1 Labs 05/03/23 07:47 05/03/23 07:47 Imaging Radiology Impressions: ITS Impressions Cervical Spine CT 04/10/23 19:54 IMPRESSION: 1. No acute intracranial abnormality. 2. No acute osseous abnormality within the cervical spine. 3. No acute osseous abnormality within the maxillofacial region. Face CT 04/10/23 19:54 IMPRESSION: 1. No acute intracranial abnormality. 2. No acute osseous abnormality within the cervical spine. 3. No acute osseous abnormality within the maxillofacial region. Head CT 04/10/23 19:54 IMPRESSION: 1. No acute intracranial abnormality. 2. No acute osseous abnormality within the cervical spine. 3. No acute osseous abnormality within the maxillofacial region. Abdomen/Pelvis CT 04/10/23 20:04 IMPRESSION: 1. No acute abnormality. 2. Severe degenerative scoliosis. 3. Advanced calcific atherosclerotic disease. 4. Diverticulosis without diverticulitis. Fleischner guidelines were followed. Chest CT 04/10/23 20:04 IMPRESSION: 1. No acute abnormality. 2. No rib fracture. 3. Minimal fibrotic change and/or atelectasis in the left lower lobe. 4. Calcific atherosclerotic disease including coronary artery calcification. 5. Degenerative scoliosis of the dorsal spine. Fleischner guidelines were followed. Head CT 05/03/23 11:06 IMPRESSION: No acute intracranial abnormality. Medications Medications Current Medications Acetaminophen (Acetaminophen 325 Mg Tablet) 650 mg PO Q6H PRN PRN Reason: Headache/Pain Mild Scale (1-3) Last Admin: 04/18/23 03:08 Dose: 650 mg Al Hydroxide/Mg Hydroxide (Magnesium Hydrox/Alum Hydrox 30 Ml Oral.Susp) 30 ml PO Q6H PRN PRN Reason: Heartburn/Nausea Docusate Sodium (Docusate Sodium 100 Mg Capsule) 100 mg PO BID [facility] Last Admin: 05/06/23 08:48 Dose: 100 mg Guaifenesin/Dextromethorphan (Guaifenesin Dm 200/20/10 Ml 10 Ml Syrup) 10 ml PO Q6H PRN PRN Reason: Cough Haloperidol (Haloperidol 0.5 Mg Tablet) 0.5 mg PO BEDTIME [facility] Last Admin: 05/05/23 20:26 Dose: 0.5 mg Magnesium Hydroxide (Milk Of Magnesia 30 Ml Oral.Susp) 30 ml PO DAILY PRN PRN Reason: Constipation Memantine (Memantine Hcl 5 Mg Tablet) 5 mg PO BID [facility] Last Admin: 05/06/23 08:48 Dose: 5 mg Metoprolol Succinate (Metoprolol Succinate Er 25 Mg Tab.Er.24h) 25 mg PO DAILY [facility]; Protocol Last Admin: 05/06/23 08:48 Dose: 25 mg Sertraline HCl (Sertraline Hcl 100 Mg Tablet) 100 mg PO DAILY [facility] Last Admin: 05/06/23 08:48 Dose: 100 mg Trazodone HCl (Trazodone Hcl 50 Mg Tablet) 50 mg PO BEDTIME MRX1 PRN PRN Reason: Insomnia Last Admin: 05/05/23 20:27 Dose: 50 mg Allergies Allergies Allergy/AdvReac Type Severity Reaction Status Date / Time No Known Allergies Allergy Verified 04/10/23 18:33 Assessment & Plan Assessment & Plan (1) Cognitive impairment: Status: Acute Code(s): R41.89 - Other symptoms and signs involving cognitive functions and awareness Assessment and Plan: 04/16covid positive felt to be more responsible for decompensation of baseline mild dementia, than mild ? uti- but both are being cared for- pt seems improved also with geripsych admit and 1:1 care due to falls. (2) Dementia: Status: Acute Code(s): F03.90 - Unspecified dementia, unspecified severity, without behavioral disturbance, psychotic disturbance, mood disturbance, and anxiety (3) COVID-19: Status: Acute Code(s): U07.1 - COVID-19 (4) Delirium: Status: Acute Code(s): R41.0 - Disorientation, unspecified Plan pt less agitated, less paranoia. discussed with son admission to [facility] for dx clarification and med management, which he is in agreement, if bed comes up soon. 04/17 doing better recovering from covid/uti 04/18/23 scared by another patient at a group, now refusing meds, more withdrawn- even with nursing calling son to discuss taking meds- she refuses and has withdrawn from [facility] 04/23/23 Continue tx 04/24/23 Continue tx and monitoring. 05/06- continue tx: Plan 1. Gather collateral information. 2. Continue with p.r.n. Seroquel. We are going to discuss with the son the possibility of starting long-acting injectables or any other types of antipsychotics. 3. Blood work with CBC, basic metabolic panel, ammonia level and came back negative. 4. Discontinue Seroquel on April 27 and we will start Namenda 5 mg p.o. q.h.s. 5. Start haloperidol 0.5 p.o. b.i.d. to target psychosis. Case discussed with her son who agreed on the plan. On May 05 we are lowering to Haldol to once a day at night. Reason for continued inpatient stay Substantial Risk for: inability to function Time Spent With Patient Time: Total time managing care of this patient today ____ minutes.
[2023-05-06 18:00] VITALS: BP 133/81; PULSE 77; RESP 18; TEMP 36.5; O2SAT 96
[2023-05-06] MEDS: HaloperidoL 0.5 MG TABLET PO (20:53)
[2023-05-06] MEDS: traZODone HCL 50 MG TABLET PO (21:17)
[2023-05-07 08:00] VITALS: BP 125/59; PULSE 72; RESP 18; TEMP 36.6; O2SAT 95
[2023-05-07] MEDS: Sertraline HCL 100 MG TABLET PO (08:26)
[2023-05-07] MEDS: Docusate Sodium 100 MG CAPSULE PO ×2 (08:26→21:04)
[2023-05-07] MEDS: Metoprolol Succinate ER 25 MG TAB.ER.24H PO (08:26)
[2023-05-07] MEDS: Memantine HCl 5 MG TABLET PO ×2 (08:26→21:04)
--- NOTE | 2023-05-07 10:35 | P.PNPSI_ITS ---
Subjective Subjective Date of Service: 05/07/23 Reason For Visit: psychosisi Subjective Notes: Conditional Voluntary Interim History: Pt slept through the night. She has been mostly in her room. She denies SI/HI. She reports feeling tired or at times states I don't know how I feel. Some muslim themes of getting in trouble but no overt delusional content noted. Review of Systems Review of Systems L foot, fourth toe dressing due to skin breakdown Yes all other systems are reviewed and are negative and Unobtainable due to mental status Mental Status Exam Mental Status Exam Narrative: Appearance: wearing hospital gown, in NAD Behavior: calm, Psychomotor: some retardation noted Speech: very soft tone, regular rate, more spontaneous TP: more linear TC:feeling better Mood: better Affect: constricted, congruent SI: none HI: none VH/AH: no overt Delusions: no overt Insight/judgment: impaired x 2. Memory/cog: alert, oriented to year, month, not situation. Pending MOCA and ACL. Diagnostics Vital Signs (24Hr): Vital Signs - 24 hr 05/06/23 18:00 05/07/23 08:00 Temperature 97.7 F 97.9 F Pulse Rate 77 72 Respiratory Rate 18 18 Blood Pressure 133/81 125/59 L Pulse Oximetry 96 95 Oxygen Delivery Method Room Air Room Air BMI result Body Mass Index 19.1 Labs 05/03/23 07:47 05/03/23 07:47 Imaging Radiology Impressions: ITS Impressions Cervical Spine CT 04/10/23 19:54 IMPRESSION: 1. No acute intracranial abnormality. 2. No acute osseous abnormality within the cervical spine. 3. No acute osseous abnormality within the maxillofacial region. Face CT 04/10/23 19:54 IMPRESSION: 1. No acute intracranial abnormality. 2. No acute osseous abnormality within the cervical spine. 3. No acute osseous abnormality within the maxillofacial region. Head CT 04/10/23 19:54 IMPRESSION: 1. No acute intracranial abnormality. 2. No acute osseous abnormality within the cervical spine. 3. No acute osseous abnormality within the maxillofacial region. Abdomen/Pelvis CT 04/10/23 20:04 IMPRESSION: 1. No acute abnormality. 2. Severe degenerative scoliosis. 3. Advanced calcific atherosclerotic disease. 4. Diverticulosis without diverticulitis. Fleischner guidelines were followed. Chest CT 04/10/23 20:04 IMPRESSION: 1. No acute abnormality. 2. No rib fracture. 3. Minimal fibrotic change and/or atelectasis in the left lower lobe. 4. Calcific atherosclerotic disease including coronary artery calcification. 5. Degenerative scoliosis of the dorsal spine. Fleischner guidelines were followed. Head CT 05/03/23 11:06 IMPRESSION: No acute intracranial abnormality. Medications Medications Current Medications Acetaminophen (Acetaminophen 325 Mg Tablet) 650 mg PO Q6H PRN PRN Reason: Headache/Pain Mild Scale (1-3) Last Admin: 04/18/23 03:08 Dose: 650 mg Al Hydroxide/Mg Hydroxide (Magnesium Hydrox/Alum Hydrox 30 Ml Oral.Susp) 30 ml PO Q6H PRN PRN Reason: Heartburn/Nausea Docusate Sodium (Docusate Sodium 100 Mg Capsule) 100 mg PO BID [facility] Last Admin: 05/07/23 08:26 Dose: 100 mg Guaifenesin/Dextromethorphan (Guaifenesin Dm 200/20/10 Ml 10 Ml Syrup) 10 ml PO Q6H PRN PRN Reason: Cough Haloperidol (Haloperidol 0.5 Mg Tablet) 0.5 mg PO BEDTIME [facility] Last Admin: 05/06/23 20:53 Dose: 0.5 mg Magnesium Hydroxide (Milk Of Magnesia 30 Ml Oral.Susp) 30 ml PO DAILY PRN PRN Reason: Constipation Memantine (Memantine Hcl 5 Mg Tablet) 5 mg PO BID [facility] Last Admin: 05/07/23 08:26 Dose: 5 mg Metoprolol Succinate (Metoprolol Succinate Er 25 Mg Tab.Er.24h) 25 mg PO DAILY [facility]; Protocol Last Admin: 05/07/23 08:26 Dose: 25 mg Sertraline HCl (Sertraline Hcl 100 Mg Tablet) 100 mg PO DAILY [facility] Last Admin: 05/07/23 08:26 Dose: 100 mg Trazodone HCl (Trazodone Hcl 50 Mg Tablet) 50 mg PO BEDTIME MRX1 PRN PRN Reason: Insomnia Last Admin: 05/06/23 21:17 Dose: 50 mg Allergies Allergies Allergy/AdvReac Type Severity Reaction Status Date / Time No Known Allergies Allergy Verified 04/10/23 18:33 Assessment & Plan Assessment & Plan (1) Cognitive impairment: Status: Acute Code(s): R41.89 - Other symptoms and signs involving cognitive functions and awareness Assessment and Plan: 04/16covid positive felt to be more responsible for decompensation of baseline mild dementia, than mild ? uti- but both are being cared for- pt seems improved also with geripsych admit and 1:1 care due to falls. (2) Dementia: Status: Acute Code(s): F03.90 - Unspecified dementia, unspecified severity, without behavioral disturbance, psychotic disturbance, mood disturbance, and anxiety (3) COVID-19: Status: Acute Code(s): U07.1 - COVID-19 (4) Delirium: Status: Acute Code(s): R41.0 - Disorientation, unspecified Plan pt less agitated, less paranoia. discussed with son admission to [facility] for dx clarification and med management, which he is in agreement, if bed comes up soon. 04/17 doing better recovering from covid/uti 04/18/23 scared by another patient at a group, now refusing meds, more withdrawn- even with nursing calling son to discuss taking meds- she refuses and has withdrawn from [facility] 04/23/23 Continue tx 04/24/23 Continue tx and monitoring. 05/06- continue tx: 05/07 continue tx Plan 1. Gather collateral information. 2. Continue with p.r.n. Seroquel. We are going to discuss with the son the possibility of starting long-acting injectables or any other types of antipsychotics. 3. Blood work with CBC, basic metabolic panel, ammonia level and came back negative. 4. Discontinue Seroquel on April 27 and we will start Namenda 5 mg p.o. q.h.s. 5. Start haloperidol 0.5 p.o. b.i.d. to target psychosis. Case discussed with her son who agreed on the plan. On May 05 we are lowering to Haldol to once a day at night. Reason for continued inpatient stay Substantial Risk for: inability to function Time Spent With Patient Time: Total time managing care of this patient today ____ minutes.
[2023-05-07 18:00] VITALS: BP 134/63; PULSE 66; RESP 18; TEMP 36.6; O2SAT 98
[2023-05-07] MEDS: HaloperidoL 0.5 MG TABLET PO (21:04)
[2023-05-08 08:15] VITALS: BP 97/51; PULSE 72; RESP 18; TEMP 36.1; O2SAT 97
[2023-05-08] MEDS: Metoprolol Succinate ER 25 MG TAB.ER.24H PO (08:57)
[2023-05-08] MEDS: Sertraline HCL 100 MG TABLET PO (08:57)
[2023-05-08] MEDS: Docusate Sodium 100 MG CAPSULE PO ×2 (08:57→19:48)
[2023-05-08] MEDS: Memantine HCl 5 MG TABLET PO (08:57)
--- NOTE | 2023-05-08 15:41 | HO.PSYCHPN ---
Subjective Subjective Date of Service: 05/08/23 Reason For Visit: psychosisi Subjective Notes: Conditional Voluntary Interim History: Pt slept through the night. She has been mostly in her room. She denies SI/HI. She reports feeling tired and wanting to rest. She is eating well. She had visit with son. Some mormonism themes of getting in trouble but no overt delusional content noted. Review of Systems Review of Systems L foot, fourth toe dressing due to skin breakdown Yes all other systems are reviewed and are negative and Unobtainable due to mental status Mental Status Exam Mental Status Exam Narrative: Appearance: wearing hospital gown, in NAD Behavior: calm, Psychomotor: some retardation noted Speech: very soft tone, regular rate, more spontaneous TP: more linear TC:feeling better Mood: better Affect: constricted, congruent SI: none HI: none VH/AH: no overt Delusions: no overt Insight/judgment: impaired x 2. Memory/cog: alert, oriented to year, month, not situation. Pending MOCA and ACL. Diagnostics Vital Signs (24Hr): Vital Signs - 24 hr 05/07/23 18:00 05/08/23 08:15 Temperature 97.8 F 97.0 F Pulse Rate 66 72 Respiratory Rate 18 18 Blood Pressure 134/63 97/51 L Pulse Oximetry 98 97 Oxygen Delivery Method Room Air Room Air BMI result Body Mass Index 19.1 Labs 05/03/23 07:47 05/03/23 07:47 Imaging Radiology Impressions: ITS Impressions Cervical Spine CT 04/10/23 19:54 IMPRESSION: 1. No acute intracranial abnormality. 2. No acute osseous abnormality within the cervical spine. 3. No acute osseous abnormality within the maxillofacial region. Face CT 04/10/23 19:54 IMPRESSION: 1. No acute intracranial abnormality. 2. No acute osseous abnormality within the cervical spine. 3. No acute osseous abnormality within the maxillofacial region. Head CT 04/10/23 19:54 IMPRESSION: 1. No acute intracranial abnormality. 2. No acute osseous abnormality within the cervical spine. 3. No acute osseous abnormality within the maxillofacial region. Abdomen/Pelvis CT 04/10/23 20:04 IMPRESSION: 1. No acute abnormality. 2. Severe degenerative scoliosis. 3. Advanced calcific atherosclerotic disease. 4. Diverticulosis without diverticulitis. Fleischner guidelines were followed. Chest CT 04/10/23 20:04 IMPRESSION: 1. No acute abnormality. 2. No rib fracture. 3. Minimal fibrotic change and/or atelectasis in the left lower lobe. 4. Calcific atherosclerotic disease including coronary artery calcification. 5. Degenerative scoliosis of the dorsal spine. Fleischner guidelines were followed. Head CT 05/03/23 11:06 IMPRESSION: No acute intracranial abnormality. Medications Medications Current Medications Acetaminophen (Acetaminophen 325 Mg Tablet) 650 mg PO Q6H PRN PRN Reason: Headache/Pain Mild Scale (1-3) Last Admin: 04/18/23 03:08 Dose: 650 mg Al Hydroxide/Mg Hydroxide (Magnesium Hydrox/Alum Hydrox 30 Ml Oral.Susp) 30 ml PO Q6H PRN PRN Reason: Heartburn/Nausea Docusate Sodium (Docusate Sodium 100 Mg Capsule) 100 mg PO BID [facility] Last Admin: 05/08/23 08:57 Dose: 100 mg Guaifenesin/Dextromethorphan (Guaifenesin Dm 200/20/10 Ml 10 Ml Syrup) 10 ml PO Q6H PRN PRN Reason: Cough Haloperidol (Haloperidol 0.5 Mg Tablet) 0.5 mg PO BEDTIME [facility] Last Admin: 05/07/23 21:04 Dose: 0.5 mg Magnesium Hydroxide (Milk Of Magnesia 30 Ml Oral.Susp) 30 ml PO DAILY PRN PRN Reason: Constipation Memantine (Memantine Hcl 5 Mg Tablet) 5 mg PO BID [facility] Last Admin: 05/08/23 08:57 Dose: 5 mg Metoprolol Succinate (Metoprolol Succinate Er 25 Mg Tab.Er.24h) 25 mg PO DAILY [facility]; Protocol Last Admin: 05/08/23 08:57 Dose: 25 mg Sertraline HCl (Sertraline Hcl 100 Mg Tablet) 100 mg PO DAILY [facility] Last Admin: 05/08/23 08:57 Dose: 100 mg Trazodone HCl (Trazodone Hcl 50 Mg Tablet) 50 mg PO BEDTIME MRX1 PRN PRN Reason: Insomnia Last Admin: 05/06/23 21:17 Dose: 50 mg Allergies Allergies Allergy/AdvReac Type Severity Reaction Status Date / Time No Known Allergies Allergy Verified 04/10/23 18:33 Assessment & Plan Assessment & Plan (1) Cognitive impairment: Status: Acute Code(s): R41.89 - Other symptoms and signs involving cognitive functions and awareness Assessment and Plan: 12/30covid positive felt to be more responsible for decompensation of baseline mild dementia, than mild ? uti- but both are being cared for- pt seems improved also with geripsych admit and 1:1 care due to falls. (2) Dementia: Status: Acute Code(s): F03.90 - Unspecified dementia, unspecified severity, without behavioral disturbance, psychotic disturbance, mood disturbance, and anxiety (3) COVID-19: Status: Acute Code(s): U07.1 - COVID-19 (4) Delirium: Status: Acute Code(s): R41.0 - Disorientation, unspecified Plan pt less agitated, less paranoia. discussed with son admission to [facility] for dx clarification and med management, which he is in agreement, if bed comes up soon. 04/17 doing better recovering from covid/uti 04/18/23 scared by another patient at a group, now refusing meds, more withdrawn- even with nursing calling son to discuss taking meds- she refuses and has withdrawn from [facility] 04/23/23 Continue tx 04/24/23 Continue tx and monitoring. 05/06- continue tx: 05/07 continue tx 05/08 continue tx. Plan 1. Gather collateral information. 2. Continue with p.r.n. Seroquel. We are going to discuss with the son the possibility of starting long-acting injectables or any other types of antipsychotics. 3. Blood work with CBC, basic metabolic panel, ammonia level and came back negative. 4. Discontinue Seroquel on April 27 and we will start Namenda 5 mg p.o. q.h.s. 5. Start haloperidol 0.5 p.o. b.i.d. to target psychosis. Case discussed with her son who agreed on the plan. On May 05 we are lowering to Haldol to once a day at night. Reason for continued inpatient stay Substantial Risk for: inability to function Time Spent With Patient Time: Total time managing care of this patient today ____ minutes.
[2023-05-08 18:00] VITALS: BP 153/67; PULSE 72; RESP 18; TEMP 36.6; O2SAT 97
[2023-05-08] MEDS: traZODone HCL 50 MG TABLET PO (19:47)
[2023-05-08] MEDS: HaloperidoL 0.5 MG TABLET PO (19:48)
[2023-05-09 08:04] VITALS: BP 118/58; PULSE 66; RESP 18; TEMP 35.8; O2SAT 98
[2023-05-09] MEDS: Memantine HCl 5 MG TABLET PO ×2 (08:39→19:51)
[2023-05-09] MEDS: Sertraline HCL 100 MG TABLET PO (08:39)
[2023-05-09] MEDS: Metoprolol Succinate ER 25 MG TAB.ER.24H PO (08:39)
[2023-05-09] MEDS: Docusate Sodium 100 MG CAPSULE PO ×2 (08:39→19:51)
--- NOTE | 2023-05-09 12:00 | PC.NURSE ---
Tegaderm dressing removed from left wrist and noted exposed vein with small amount of fresh, bloody drainage. Covered with new Tegaderm dressing. No odor, purulent drainage, tenderness, or swelling noted. Brissa denied pain to the site. Dr. Mahan notified and requested hospitalist consult.
--- NOTE | 2023-05-09 12:24 | PM.EVENT ---
Event Note Date of Service: 05/09/23 Event Note: Discussed nursing. Pt had an accidental fall when she slip from the toilet bowl, no head injury/loc. It was unwitnessed. her hand got caught in the bowl when she slid down and sustained a laceration to the dorsum of the right wrist. Nursing has been cleaning and applying dressings daily. On exam, there is a skin tear with 1 cm laceration with well approximated edges with slow healing. The wound is able to be pulled open revealing an intact vein. There is no active bleeding and wound edges return together spontaneously. No surrounding erythema or warmth. No purulent drainage. Continue with current dressings. Will place instructor industrial design consult. Unfortunately given duration of time since injury, would not recommend primary closure and would allow for routine healing due to risk of infection with closure. Please reach out for any further questions or concerns or for any acute medical issues. Time Spent With Patient Time: Total time managing care of this patient today ____ minutes.
--- NOTE | 2023-05-09 14:35 | HO.PSYCHPN ---
Subjective Subjective Date of Service: 05/09/23 Reason For Visit: psychosisi Subjective Notes: Conditional Voluntary Interim History: The nursing staff reported no changes in her mental status, she slept 8 hours and she had been less anxious. On interview the patient denies new symptoms, we are discontinuing today Haldol. Mental Status Exam Mental Status Exam Patient Appearance: Appropriate Patient Orientation: Person Level of Consciousness: Awake and Appropriate Patient Behavior: Guarded and Suspicious Mood Description: Withdrawn Affect Description: Constricted Patient Cognition Impaired: Yes Ability to Follow Directions: Good Speech Pattern: Clear Hallucinations: None Delusions: Ideas of Reference Thought Process: Distracted and Slowed Thinking Thought Content: positive for [place] and positive for Poverty of Content Judgement: Poor Diagnostics Vital Signs (24Hr): Vital Signs - 24 hr 05/08/23 18:00 05/09/23 08:04 Temperature 98 F 96.5 F L Pulse Rate 72 66 Respiratory Rate 18 18 Blood Pressure 153/67 H 118/58 L Pulse Oximetry 97 98 Oxygen Delivery Method Room Air Room Air BMI result Body Mass Index 19.1 Labs 05/03/23 07:47 05/03/23 07:47 Imaging Radiology Impressions: ITS Impressions Cervical Spine CT 04/10/23 19:54 IMPRESSION: 1. No acute intracranial abnormality. 2. No acute osseous abnormality within the cervical spine. 3. No acute osseous abnormality within the maxillofacial region. Face CT 04/10/23 19:54 IMPRESSION: 1. No acute intracranial abnormality. 2. No acute osseous abnormality within the cervical spine. 3. No acute osseous abnormality within the maxillofacial region. Head CT 04/10/23 19:54 IMPRESSION: 1. No acute intracranial abnormality. 2. No acute osseous abnormality within the cervical spine. 3. No acute osseous abnormality within the maxillofacial region. Abdomen/Pelvis CT 04/10/23 20:04 IMPRESSION: 1. No acute abnormality. 2. Severe degenerative scoliosis. 3. Advanced calcific atherosclerotic disease. 4. Diverticulosis without diverticulitis. Fleischner guidelines were followed. Chest CT 04/10/23 20:04 IMPRESSION: 1. No acute abnormality. 2. No rib fracture. 3. Minimal fibrotic change and/or atelectasis in the left lower lobe. 4. Calcific atherosclerotic disease including coronary artery calcification. 5. Degenerative scoliosis of the dorsal spine. Fleischner guidelines were followed. Head CT 05/03/23 11:06 IMPRESSION: No acute intracranial abnormality. Medications Medications Current Medications Acetaminophen (Acetaminophen 325 Mg Tablet) 650 mg PO Q6H PRN PRN Reason: Headache/Pain Mild Scale (1-3) Last Admin: 04/18/23 03:08 Dose: 650 mg Al Hydroxide/Mg Hydroxide (Magnesium Hydrox/Alum Hydrox 30 Ml Oral.Susp) 30 ml PO Q6H PRN PRN Reason: Heartburn/Nausea Docusate Sodium (Docusate Sodium 100 Mg Capsule) 100 mg PO BID [facility] Last Admin: 05/09/23 08:39 Dose: 100 mg Guaifenesin/Dextromethorphan (Guaifenesin Dm 200/20/10 Ml 10 Ml Syrup) 10 ml PO Q6H PRN PRN Reason: Cough Magnesium Hydroxide (Milk Of Magnesia 30 Ml Oral.Susp) 30 ml PO DAILY PRN PRN Reason: Constipation Memantine (Memantine Hcl 5 Mg Tablet) 5 mg PO BID [facility] Last Admin: 05/09/23 08:39 Dose: 5 mg Metoprolol Succinate (Metoprolol Succinate Er 25 Mg Tab.Er.24h) 25 mg PO DAILY [facility]; Protocol Last Admin: 05/09/23 08:39 Dose: 25 mg Sertraline HCl (Sertraline Hcl 100 Mg Tablet) 100 mg PO DAILY [facility] Last Admin: 05/09/23 08:39 Dose: 100 mg Trazodone HCl (Trazodone Hcl 50 Mg Tablet) 50 mg PO BEDTIME MRX1 PRN PRN Reason: Insomnia Last Admin: 05/08/23 19:47 Dose: 50 mg Allergies Allergies Allergy/AdvReac Type Severity Reaction Status Date / Time No Known Allergies Allergy Verified 04/10/23 18:33 Assessment & Plan Assessment & Plan (1) Cognitive impairment: Status: Acute Code(s): R41.89 - Other symptoms and signs involving cognitive functions and awareness Assessment and Plan: 04/16covid positive felt to be more responsible for decompensation of baseline mild dementia, than mild ? uti- but both are being cared for- pt seems improved also with geripsych admit and 1:1 care due to falls. (2) Dementia: Status: Acute Code(s): F03.90 - Unspecified dementia, unspecified severity, without behavioral disturbance, psychotic disturbance, mood disturbance, and anxiety (3) COVID-19: Status: Acute Code(s): U07.1 - COVID-19 (4) Delirium: Status: Acute Code(s): R41.0 - Disorientation, unspecified Plan pt less agitated, less paranoia. discussed with son admission to [facility] for dx clarification and med management, which he is in agreement, if bed comes up soon. 04/17 doing better recovering from covid/uti 04/18/23 scared by another patient at a group, now refusing meds, more withdrawn- even with nursing calling son to discuss taking meds- she refuses and has withdrawn from [facility] 04/23/23 Continue tx 04/24/23 Continue tx and monitoring. 05/06- continue tx: 05/07 continue tx 05/08 continue tx. Plan 1. Gather collateral information. 2. Continue with p.r.n. Seroquel. We are going to discuss with the son the possibility of starting long-acting injectables or any other types of antipsychotics. 3. Blood work with CBC, basic metabolic panel, ammonia level and came back negative. 4. Discontinue Seroquel on April 27 and we will start Namenda 5 mg p.o. q.h.s. 5. Start haloperidol 0.5 p.o. b.i.d. to target psychosis. Case discussed with her son who agreed on the plan. On May 05 we are lowering to Haldol to once a day at night. On May 09 we discontinue Haldol Reason for continued inpatient stay Substantial Risk for: inability to function, rapid decompensation and med/psych decompensation Time Spent With Patient Time: Total time managing care of this patient today __20__ minutes.
--- NOTE | 2023-05-09 15:18 | HO.WOUND ---
Wound Consult: Initial 82yr old?F admitted to [facility] to [facility] - See progress notes and H&P for detailed history.? Wound consult placed for Left Forearm Skin Tear.? Patient agreeable to assessment and photo documentation.? Left Forearm Etiology: ??Skin Tear s/p fall Measurements: 2cm x 0.2cm x 0.2cm Wound Bed: flap reappoximated - depth appreciated but no clearly visable wound bed 0 did not appreciate visualizing vein or structures - no active bleeding at the time of my assessment. Flap appears viable and is noted to be adherent to wound bed Drainage / Odor: None Edges: ? flap re-approximated - irregular edges Sherry wound: ?Thin frail skin some ecchymosis noted - no lesions noted - No Induration, Fluctuance or Warmth noted Pain: denies Goals of Treatment: ? Moist wound healing and protect from trauma Recommendations: 1. Left Forearm - Skin Tear - Cleanse with normal saline, pat dry. ?Apply double layer Xeroform secure with gauze pad, and gauze netting. ?Do not apply tape to patients skin - do not use Tegaderm.? Avoid Adhesive application to skin - when necessary, apply skin prep prior.? Re-consult wound care Nurse for wound deterioration or wound changes.
[2023-05-09 19:45] VITALS: BP 142/66; PULSE 71; RESP 18; TEMP 36.1; O2SAT 95
[2023-05-09] MEDS: traZODone HCL 50 MG TABLET PO (19:51)
[2023-05-10 07:46] VITALS: BP 180/84; PULSE 75; RESP 18; TEMP 35.9; O2SAT 100
[2023-05-10] MEDS: Docusate Sodium 100 MG CAPSULE PO ×2 (08:18→20:47)
[2023-05-10] MEDS: Metoprolol Succinate ER 25 MG TAB.ER.24H PO (08:18)
[2023-05-10] MEDS: Sertraline HCL 100 MG TABLET PO (08:18)
[2023-05-10] MEDS: Memantine HCl 5 MG TABLET PO ×2 (08:18→20:47)
[2023-05-10 11:41] VITALS: BP 137/64
--- NOTE | 2023-05-10 11:44 | PC.NURSE ---
Morning blood pressure 180/84 and Brissa was asymptomatic. She was administered scheduled Torpol XL and MD Mahan notified. Recheck of blood pressure 137/64 and MD Mahan updated.
--- NOTE | 2023-05-10 16:20 | P.PNPSI_ITS ---
Subjective Subjective Date of Service: 05/10/23 Reason For Visit: psychosisi Subjective Notes: Conditional Voluntary Interim History: The nursing staff reported the patient had been awake and alert fully compliant with treatment. The social media intern reported that she was visited by [facility] and she is accepted. On interview the patient reports that she is feeling much better since we stopped Haldol. At this moment at baseline ready for discharge Mental Status Exam Mental Status Exam Patient Appearance: Well Grooomed and Appropriate Patient Orientation: Person and Situation Level of Consciousness: Awake and Appropriate Patient Behavior: Guarded and Passive Mood Description: Withdrawn Affect Description: Constricted Patient Cognition Impaired: Yes Ability to Follow Directions: Good Speech Pattern: Clear Hallucinations: None Delusions: Not Present Thought Process: Distracted and Slowed Thinking Thought Content: positive for [place] and positive for Poverty of Content Judgement: Fair Diagnostics Vital Signs (24Hr): Vital Signs - 24 hr 05/09/23 19:45 05/10/23 07:46 05/10/23 11:41 Temperature 96.9 F 96.6 F L Pulse Rate 71 75 Respiratory Rate 18 18 Blood Pressure 142/66 H 180/84 H 137/64 Pulse Oximetry 95 100 Oxygen Delivery Method Room Air Room Air BMI result Body Mass Index 19.1 Labs 05/03/23 07:47 05/03/23 07:47 Imaging Radiology Impressions: ITS Impressions Cervical Spine CT 04/10/23 19:54 IMPRESSION: 1. No acute intracranial abnormality. 2. No acute osseous abnormality within the cervical spine. 3. No acute osseous abnormality within the maxillofacial region. Face CT 04/10/23 19:54 IMPRESSION: 1. No acute intracranial abnormality. 2. No acute osseous abnormality within the cervical spine. 3. No acute osseous abnormality within the maxillofacial region. Head CT 04/10/23 19:54 IMPRESSION: 1. No acute intracranial abnormality. 2. No acute osseous abnormality within the cervical spine. 3. No acute osseous abnormality within the maxillofacial region. Abdomen/Pelvis CT 04/10/23 20:04 IMPRESSION: 1. No acute abnormality. 2. Severe degenerative scoliosis. 3. Advanced calcific atherosclerotic disease. 4. Diverticulosis without diverticulitis. Fleischner guidelines were followed. Chest CT 04/10/23 20:04 IMPRESSION: 1. No acute abnormality. 2. No rib fracture. 3. Minimal fibrotic change and/or atelectasis in the left lower lobe. 4. Calcific atherosclerotic disease including coronary artery calcification. 5. Degenerative scoliosis of the dorsal spine. Fleischner guidelines were followed. Head CT 05/03/23 11:06 IMPRESSION: No acute intracranial abnormality. Medications Medications Current Medications Acetaminophen (Acetaminophen 325 Mg Tablet) 650 mg PO Q6H PRN PRN Reason: Headache/Pain Mild Scale (1-3) Last Admin: 04/18/23 03:08 Dose: 650 mg Al Hydroxide/Mg Hydroxide (Magnesium Hydrox/Alum Hydrox 30 Ml Oral.Susp) 30 ml PO Q6H PRN PRN Reason: Heartburn/Nausea Docusate Sodium (Docusate Sodium 100 Mg Capsule) 100 mg PO BID [facility] Last Admin: 05/10/23 08:18 Dose: 100 mg Guaifenesin/Dextromethorphan (Guaifenesin Dm 200/20/10 Ml 10 Ml Syrup) 10 ml PO Q6H PRN PRN Reason: Cough Magnesium Hydroxide (Milk Of Magnesia 30 Ml Oral.Susp) 30 ml PO DAILY PRN PRN Reason: Constipation Memantine (Memantine Hcl 5 Mg Tablet) 5 mg PO BID [facility] Last Admin: 05/10/23 08:18 Dose: 5 mg Metoprolol Succinate (Metoprolol Succinate Er 25 Mg Tab.Er.24h) 25 mg PO DAILY [facility]; Protocol Last Admin: 05/10/23 08:18 Dose: 25 mg Sertraline HCl (Sertraline Hcl 100 Mg Tablet) 100 mg PO DAILY [facility] Last Admin: 05/10/23 08:18 Dose: 100 mg Trazodone HCl (Trazodone Hcl 50 Mg Tablet) 50 mg PO BEDTIME MRX1 PRN PRN Reason: Insomnia Last Admin: 05/09/23 19:51 Dose: 50 mg Allergies Allergies Allergy/AdvReac Type Severity Reaction Status Date / Time No Known Allergies Allergy Verified 04/10/23 18:33 Assessment & Plan Assessment & Plan (1) Cognitive impairment: Status: Acute Code(s): R41.89 - Other symptoms and signs involving cognitive functions and awareness Assessment and Plan: 04/16covid positive felt to be more responsible for decompensation of baseline mild dementia, than mild ? uti- but both are being cared for- pt seems improved also with geripsych admit and 1:1 care due to falls. (2) Dementia: Status: Acute Code(s): F03.90 - Unspecified dementia, unspecified severity, without behavioral disturbance, psychotic disturbance, mood disturbance, and anxiety (3) COVID-19: Status: Acute Code(s): U07.1 - COVID-19 (4) Delirium: Status: Acute Code(s): R41.0 - Disorientation, unspecified Plan pt less agitated, less paranoia. discussed with son admission to [facility] for dx clarification and med management, which he is in agreement, if bed comes up soon. 04/17 doing better recovering from covid/uti 04/18/23 scared by another patient at a group, now refusing meds, more withdrawn- even with nursing calling son to discuss taking meds- she refuses and has withdrawn from [facility] 04/23/23 Continue tx 04/24/23 Continue tx and monitoring. 05/06- continue tx: 05/07 continue tx 05/08 continue tx. Plan 1. Gather collateral information. 2. Continue with p.r.n. Seroquel. We are going to discuss with the son the possibility of starting long-acting injectables or any other types of antipsychotics. 3. Blood work with CBC, basic metabolic panel, ammonia level and came back negative. 4. Discontinue Seroquel on April 27 and we will start Namenda 5 mg p.o. q.h.s. 5. Start haloperidol 0.5 p.o. b.i.d. to target psychosis. Case discussed with her son who agreed on the plan. On May 05 we are lowering to Haldol to once a day at night. On May 09 we discontinue Haldol Reason for continued inpatient stay Substantial Risk for: inability to function, rapid decompensation and med/psych decompensation Time Spent With Patient Time: Total time managing care of this patient today __20__ minutes.
[2023-05-10 18:00] VITALS: BP 139/65; PULSE 84; RESP 18; TEMP 36.8; O2SAT 96
[2023-05-11 07:55] VITALS: BP 126/61; PULSE 68; RESP 18; TEMP 36.8; O2SAT 98
[2023-05-11] MEDS: Memantine HCl 5 MG TABLET PO ×2 (09:52→20:37)
[2023-05-11] MEDS: Sertraline HCL 100 MG TABLET PO (09:52)
[2023-05-11] MEDS: Docusate Sodium 100 MG CAPSULE PO ×2 (09:52→20:37)
[2023-05-11] MEDS: Metoprolol Succinate ER 25 MG TAB.ER.24H PO (09:52)
--- NOTE | 2023-05-11 12:07 | P.PNPSI_ITS ---
Subjective Subjective Date of Service: 05/11/23 Reason For Visit: psychosisi Subjective Notes: Conditional Voluntary Interim History: The nursing staff reported the patient had been pleasant cooperative, oriented in the unit. On interview the patient denies new symptoms she is aware that she is going to be discharged tomorrow to [facility]. Mental Status Exam Mental Status Exam Patient Appearance: Well Grooomed and Appropriate Patient Orientation: Person and Situation Level of Consciousness: Awake and Appropriate Patient Behavior: Guarded and Passive Mood Description: Withdrawn Affect Description: Constricted Patient Cognition Impaired: Yes Ability to Follow Directions: Good Speech Pattern: Clear Hallucinations: None Delusions: Not Present Thought Process: Linear Thought Content: positive for [place] Judgement: Fair Diagnostics Vital Signs (24Hr): Vital Signs - 24 hr 05/10/23 18:00 05/11/23 07:55 Temperature 98.2 F 98.2 F Pulse Rate 84 68 Respiratory Rate 18 18 Blood Pressure 139/65 126/61 Pulse Oximetry 96 98 Oxygen Delivery Method Room Air Room Air BMI result Body Mass Index 19.1 Labs 05/03/23 07:47 05/03/23 07:47 Imaging Radiology Impressions: ITS Impressions Cervical Spine CT 04/10/23 19:54 IMPRESSION: 1. No acute intracranial abnormality. 2. No acute osseous abnormality within the cervical spine. 3. No acute osseous abnormality within the maxillofacial region. Face CT 04/10/23 19:54 IMPRESSION: 1. No acute intracranial abnormality. 2. No acute osseous abnormality within the cervical spine. 3. No acute osseous abnormality within the maxillofacial region. Head CT 04/10/23 19:54 IMPRESSION: 1. No acute intracranial abnormality. 2. No acute osseous abnormality within the cervical spine. 3. No acute osseous abnormality within the maxillofacial region. Abdomen/Pelvis CT 04/10/23 20:04 IMPRESSION: 1. No acute abnormality. 2. Severe degenerative scoliosis. 3. Advanced calcific atherosclerotic disease. 4. Diverticulosis without diverticulitis. Fleischner guidelines were followed. Chest CT 04/10/23 20:04 IMPRESSION: 1. No acute abnormality. 2. No rib fracture. 3. Minimal fibrotic change and/or atelectasis in the left lower lobe. 4. Calcific atherosclerotic disease including coronary artery calcification. 5. Degenerative scoliosis of the dorsal spine. Fleischner guidelines were followed. Head CT 05/03/23 11:06 IMPRESSION: No acute intracranial abnormality. Medications Medications Current Medications Acetaminophen (Acetaminophen 325 Mg Tablet) 650 mg PO Q6H PRN PRN Reason: Headache/Pain Mild Scale (1-3) Last Admin: 04/18/23 03:08 Dose: 650 mg Al Hydroxide/Mg Hydroxide (Magnesium Hydrox/Alum Hydrox 30 Ml Oral.Susp) 30 ml PO Q6H PRN PRN Reason: Heartburn/Nausea Docusate Sodium (Docusate Sodium 100 Mg Capsule) 100 mg PO BID [facility] Last Admin: 05/11/23 09:52 Dose: 100 mg Guaifenesin/Dextromethorphan (Guaifenesin Dm 200/20/10 Ml 10 Ml Syrup) 10 ml PO Q6H PRN PRN Reason: Cough Magnesium Hydroxide (Milk Of Magnesia 30 Ml Oral.Susp) 30 ml PO DAILY PRN PRN Reason: Constipation Memantine (Memantine Hcl 5 Mg Tablet) 5 mg PO BID [facility] Last Admin: 05/11/23 09:52 Dose: 5 mg Metoprolol Succinate (Metoprolol Succinate Er 25 Mg Tab.Er.24h) 25 mg PO DAILY [facility]; Protocol Last Admin: 05/11/23 09:52 Dose: 25 mg Sertraline HCl (Sertraline Hcl 100 Mg Tablet) 100 mg PO DAILY [facility] Last Admin: 05/11/23 09:52 Dose: 100 mg Trazodone HCl (Trazodone Hcl 50 Mg Tablet) 50 mg PO BEDTIME MRX1 PRN PRN Reason: Insomnia Last Admin: 05/09/23 19:51 Dose: 50 mg Allergies Allergies Allergy/AdvReac Type Severity Reaction Status Date / Time No Known Allergies Allergy Verified 04/10/23 18:33 Assessment & Plan Assessment & Plan (1) Cognitive impairment: Status: Acute Code(s): R41.89 - Other symptoms and signs involving cognitive functions and awareness Assessment and Plan: 04/16covid positive felt to be more responsible for decompensation of baseline mild dementia, than mild ? uti- but both are being cared for- pt seems improved also with geripsych admit and 1:1 care due to falls. (2) Dementia: Status: Acute Code(s): F03.90 - Unspecified dementia, unspecified severity, without behavioral disturbance, psychotic disturbance, mood disturbance, and anxiety (3) COVID-19: Status: Acute Code(s): U07.1 - COVID-19 (4) Delirium: Status: Acute Code(s): R41.0 - Disorientation, unspecified Plan pt less agitated, less paranoia. discussed with son admission to [facility] for dx clarification and med management, which he is in agreement, if bed comes up soon. 04/17 doing better recovering from covid/uti 04/18/23 scared by another patient at a group, now refusing meds, more withdrawn- even with nursing calling son to discuss taking meds- she refuses and has withdrawn from [facility] 04/23/23 Continue tx 04/24/23 Continue tx and monitoring. 05/06- continue tx: 05/07 continue tx 05/08 continue tx. Plan 1. Gather collateral information. 2. Continue with p.r.n. Seroquel. We are going to discuss with the son the possibility of starting long-acting injectables or any other types of antipsychotics. 3. Blood work with CBC, basic metabolic panel, ammonia level and came back negative. 4. Discontinue Seroquel on April 27 and we will start Namenda 5 mg p.o. q.h.s. 5. Start haloperidol 0.5 p.o. b.i.d. to target psychosis. Case discussed with her son who agreed on the plan. On May 05 we are lowering to Haldol to once a day at night. On May 09 we discontinue Haldol. 6. At this moment the patient is at baseline ready for discharge Reason for continued inpatient stay Substantial Risk for: inability to function, rapid decompensation and med/psych decompensation Time Spent With Patient Time: Total time managing care of this patient today __20__ minutes.
[2023-05-11 18:00] VITALS: BP 143/65; PULSE 69; RESP 17; TEMP 37.2; O2SAT 97
[2023-05-12 07:00] VITALS: BP 120/60; PULSE 67; RESP 17; TEMP 36.2; O2SAT 97
[2023-05-12] MEDS: Sertraline HCL 100 MG TABLET PO (09:42)
[2023-05-12] MEDS: Metoprolol Succinate ER 25 MG TAB.ER.24H PO (09:42)
[2023-05-12] MEDS: Docusate Sodium 100 MG CAPSULE PO (09:42)
[2023-05-12] MEDS: Memantine HCl 5 MG TABLET PO (09:42)
--- NOTE | 2023-05-12 09:45 | HO.PSYCHPN ---
Subjective Subjective Date of Service: 05/12/23 Reason For Visit: psychosisi Subjective Notes: Conditional Voluntary Interim History: The nursing staff reported that she slept well compliant with treatment, no changes in her mental status ready for discharge. Mental Status Exam Mental Status Exam Patient Appearance: Appropriate Patient Orientation: Person and Situation Level of Consciousness: Awake Patient Behavior: Guarded and Passive Mood Description: Withdrawn Affect Description: Constricted Patient Cognition Impaired: Yes Ability to Follow Directions: Good Speech Pattern: Clear Hallucinations: None Delusions: Not Present Thought Process: Distracted Thought Content: positive for [place] and positive for Circumstantial Judgement: Fair Diagnostics Vital Signs (24Hr): Vital Signs - 24 hr 05/11/23 18:00 Temperature 98.9 F Pulse Rate 69 Respiratory Rate 17 Blood Pressure 143/65 H Pulse Oximetry 97 Oxygen Delivery Method Room Air BMI result Body Mass Index 19.1 Labs 05/03/23 07:47 05/03/23 07:47 Imaging Radiology Impressions: ITS Impressions Cervical Spine CT 04/10/23 19:54 IMPRESSION: 1. No acute intracranial abnormality. 2. No acute osseous abnormality within the cervical spine. 3. No acute osseous abnormality within the maxillofacial region. Face CT 04/10/23 19:54 IMPRESSION: 1. No acute intracranial abnormality. 2. No acute osseous abnormality within the cervical spine. 3. No acute osseous abnormality within the maxillofacial region. Head CT 04/10/23 19:54 IMPRESSION: 1. No acute intracranial abnormality. 2. No acute osseous abnormality within the cervical spine. 3. No acute osseous abnormality within the maxillofacial region. Abdomen/Pelvis CT 04/10/23 20:04 IMPRESSION: 1. No acute abnormality. 2. Severe degenerative scoliosis. 3. Advanced calcific atherosclerotic disease. 4. Diverticulosis without diverticulitis. Fleischner guidelines were followed. Chest CT 04/10/23 20:04 IMPRESSION: 1. No acute abnormality. 2. No rib fracture. 3. Minimal fibrotic change and/or atelectasis in the left lower lobe. 4. Calcific atherosclerotic disease including coronary artery calcification. 5. Degenerative scoliosis of the dorsal spine. Fleischner guidelines were followed. Head CT 05/03/23 11:06 IMPRESSION: No acute intracranial abnormality. Medications Medications Current Medications Acetaminophen (Acetaminophen 325 Mg Tablet) 650 mg PO Q6H PRN PRN Reason: Headache/Pain Mild Scale (1-3) Last Admin: 04/18/23 03:08 Dose: 650 mg Al Hydroxide/Mg Hydroxide (Magnesium Hydrox/Alum Hydrox 30 Ml Oral.Susp) 30 ml PO Q6H PRN PRN Reason: Heartburn/Nausea Docusate Sodium (Docusate Sodium 100 Mg Capsule) 100 mg PO BID [facility] Last Admin: 05/12/23 09:42 Dose: 100 mg Guaifenesin/Dextromethorphan (Guaifenesin Dm 200/20/10 Ml 10 Ml Syrup) 10 ml PO Q6H PRN PRN Reason: Cough Magnesium Hydroxide (Milk Of Magnesia 30 Ml Oral.Susp) 30 ml PO DAILY PRN PRN Reason: Constipation Memantine (Memantine Hcl 5 Mg Tablet) 5 mg PO BID [facility] Last Admin: 05/12/23 09:42 Dose: 5 mg Metoprolol Succinate (Metoprolol Succinate Er 25 Mg Tab.Er.24h) 25 mg PO DAILY [facility]; Protocol Last Admin: 05/12/23 09:42 Dose: 25 mg Sertraline HCl (Sertraline Hcl 100 Mg Tablet) 100 mg PO DAILY [facility] Last Admin: 05/12/23 09:42 Dose: 100 mg Trazodone HCl (Trazodone Hcl 50 Mg Tablet) 50 mg PO BEDTIME MRX1 PRN PRN Reason: Insomnia Last Admin: 05/09/23 19:51 Dose: 50 mg Allergies Allergies Allergy/AdvReac Type Severity Reaction Status Date / Time No Known Allergies Allergy Verified 04/10/23 18:33 Assessment & Plan Assessment & Plan (1) Cognitive impairment: Status: Acute Code(s): R41.89 - Other symptoms and signs involving cognitive functions and awareness Assessment and Plan: 04/16covid positive felt to be more responsible for decompensation of baseline mild dementia, than mild ? uti- but both are being cared for- pt seems improved also with geripsych admit and 1:1 care due to falls. (2) Dementia: Status: Acute Code(s): F03.90 - Unspecified dementia, unspecified severity, without behavioral disturbance, psychotic disturbance, mood disturbance, and anxiety (3) COVID-19: Status: Acute Code(s): U07.1 - COVID-19 (4) Delirium: Status: Acute Code(s): R41.0 - Disorientation, unspecified Plan pt less agitated, less paranoia. discussed with son admission to [facility] for dx clarification and med management, which he is in agreement, if bed comes up soon. 04/17 doing better recovering from covid/uti 04/18/23 scared by another patient at a group, now refusing meds, more withdrawn- even with nursing calling son to discuss taking meds- she refuses and has withdrawn from [facility] 04/23/23 Continue tx 04/24/23 Continue tx and monitoring. 05/06- continue tx: 05/07 continue tx 05/08 continue tx. Plan Discharged today Reason for continued inpatient stay Substantial Risk for: inability to function, rapid decompensation and med/psych decompensation Time Spent With Patient Time: Total time managing care of this patient today __20__ minutes.
--- NOTE | 2023-05-12 09:47 | PM.PSYDC ---
DS: Providers Provider Date of Service: 05/12/23 Date of admission: 04/14/23 15:33 Date of discharge: 05/12/23 Primary care physician: Girish Sanford MD Consults: 05/09/23 12:05 Consult to Hospitalist Routine Comment: Consulting Provider: Hospitalist Reason For Exam: Assessment of lession on her wrist Attending physician on discharge: Lito Mahan DS: Diagnosis Discharge Diagnosis (1) Cognitive impairment: Status: Acute (2) Dementia: Status: Acute (3) COVID-19: Status: Acute (4) Delirium: Status: Acute DS: Medications Discharge Medications Home Medications: Home Medications Medication Instructions Recorded Confirmed metoprolol succinate 25 mg 25 mg PO DAILY 04/11/23 04/11/23 tablet,extended release 24 hr quetiapine 12.5 mg PO DAILY 04/11/23 04/11/23 sertraline 100 mg tablet 100 mg PO DAILY 04/11/23 04/11/23 quetiapine 25 mg tablet 12.5 mg PO BID PRN Agitation 04/13/23 04/13/23 Mental Status Exam Mental Status Exam Patient Appearance: Well Grooomed and Appropriate Patient Orientation: Person, Place and Situation Level of Consciousness: Awake and Appropriate Patient Behavior: Appropriate and Cooperative Mood Description: Calm Affect Description: Constricted Patient Cognition Impaired: Yes Ability to Follow Directions: Good Speech Pattern: Clear Hallucinations: None Delusions: Not Present Thought Process: Distracted and Slowed Thinking Thought Content: positive for Circumstantial Judgement: Fair Data Data Completed and Pending Completed studies during hospitalization [Text1]: 04/21/23 Unknown Urine clean catch - Urine krause top Urine Culture - Final 04/11/23 Unknown Urine clean catch - Urine krause top Urine Culture - Final Staphylococcus simulans Imaging Diagnostic Imaging Impressions Cervical Spine CT 04/10/23 19:54 IMPRESSION: 1. No acute intracranial abnormality. 2. No acute osseous abnormality within the cervical spine. 3. No acute osseous abnormality within the maxillofacial region. Face CT 04/10/23 19:54 IMPRESSION: 1. No acute intracranial abnormality. 2. No acute osseous abnormality within the cervical spine. 3. No acute osseous abnormality within the maxillofacial region. Head CT 04/10/23 19:54 IMPRESSION: 1. No acute intracranial abnormality. 2. No acute osseous abnormality within the cervical spine. 3. No acute osseous abnormality within the maxillofacial region. Abdomen/Pelvis CT 04/10/23 20:04 IMPRESSION: 1. No acute abnormality. 2. Severe degenerative scoliosis. 3. Advanced calcific atherosclerotic disease. 4. Diverticulosis without diverticulitis. Fleischner guidelines were followed. Chest CT 04/10/23 20:04 IMPRESSION: 1. No acute abnormality. 2. No rib fracture. 3. Minimal fibrotic change and/or atelectasis in the left lower lobe. 4. Calcific atherosclerotic disease including coronary artery calcification. 5. Degenerative scoliosis of the dorsal spine. Fleischner guidelines were followed. Head CT 05/03/23 11:06 IMPRESSION: No acute intracranial abnormality. DS: Summary Hospital Course Hospital Course: The patient is an elderly female, single with a past history of depressive symptoms was on Zoloft before was brought from the emergency room of another hospital with altered mental status with psychotic symptoms, paranoia and disorganized behavior. The patient did not have prior history of this symptoms before, as per her son, she was highly functional in the community. She was assessed by crisis and transferring to this facility for psychiatric stabilization. Please see the HPI note for further details. On admission the patient was confused, with poor short-term memory, very paranoid. She was started on Seroquel was discontinued. Apparently the patient had a UTI that required inpatient level of care more than 6 weeks ago and since then her mental status has not improved. It was evident the patient had psychotic symptoms and we start a low dose of Haldol that help her even though she developed EPS with Haldol 0.5 p.o. b.i.d.. Later on, when she was more stable we did cognitive assessment and he was evident the patient has dementia. We had several family meetings and we decided that the best and safest discharge plan would be to discharge to a long-term facility and the patient agreed. The patient's delirium and psychotic symptoms resolved after a few days of a low dose of Haldol. We taper it off slowly with no side effects and resolution of psychotic symptoms. Since there were no safety concerns discharge planning was discussed. Time spent discussing smoking cessation with patient: 3 to 10 minutes Status at Discharge Functional status at discharge: independent ambulation Overall status at discharge: patient is back to baseline Time Spent with Patient Time attestation: Total time managing care of this patient today __30__ minutes. Time spent: Less than 30 minutes Discharge Plan Discharge Patient Disposition: Xfer LT Discharge Diagnosis: Dementia Chronic delirium resolved Referrals: Girish Sanford MD [Primary Care Provider] - 1 Week Discharge Medications: New trazodone 50 mg Tablet 50 mg PO BEDTIME MRX1 PRN (Reason: Insomnia) 30 Days Qty: 60 0RF docusate sodium 100 mg Capsule 100 mg PO BID 30 Days Qty: 60 0RF memantine 5 mg Tablet 5 mg PO BID 30 Days Qty: 60 0RF Continued sertraline 100 mg tablet 100 mg PO DAILY 30 Days Qty: 30 0RF metoprolol succinate 25 mg tablet extended release 24 hr 25 mg PO DAILY 30 Days Qty: 30 0RF Discontinued quetiapine 12.5 MG 12.5 mg PO DAILY quetiapine 25 mg Tablet 12.5 mg PO BID PRN (Reason: Agitation) Discharge Orders: Discharge Order (Routine); Ordered 05/12/23 Ordered By: Lito Mahan Diet: Advance to usual diet Activity on Discharge: As tolerated Stand Alone Forms: Patient Portal Discharge page Care Plan Goals: Care plan goals achieved in this admission Health Concerns: Continue treatment with primary care physician Plan of Treatment: Continue psychiatric treatment as an outpatient Assessment: Elderly male with a past history of major depressive disorder was brought into the facility after she was very disorganized psychotic with change in mental status. Previously the patient had a severe UTI and was hospitalized and since then she did not recovered. She was treated with antipsychotics for a short period of time, she came back from the chronic delirium and it was evident that she had dementia. Treatment with Namenda was started. At this moment she was transferred to the community for Patient Instructions: Urinary Tract Infection in Women (ED), Depression in Older Adults (ED)
--- NOTE | 2023-05-12 16:52 | HO.PSYCHPN ---
Subjective Subjective Reason For Visit: psychosisi Diagnostics Vital Signs (24Hr): Vital Signs - 24 hr 05/11/23 18:00 05/12/23 07:00 Temperature 98.9 F 97.1 F Pulse Rate 69 67 Respiratory Rate 17 17 Blood Pressure 143/65 H 120/60 Pulse Oximetry 97 97 Oxygen Delivery Method Room Air Room Air BMI result Body Mass Index 19.1 Labs 05/03/23 07:47 05/03/23 07:47 Imaging Radiology Impressions: ITS Impressions Cervical Spine CT 04/10/23 19:54 IMPRESSION: 1. No acute intracranial abnormality. 2. No acute osseous abnormality within the cervical spine. 3. No acute osseous abnormality within the maxillofacial region. Face CT 04/10/23 19:54 IMPRESSION: 1. No acute intracranial abnormality. 2. No acute osseous abnormality within the cervical spine. 3. No acute osseous abnormality within the maxillofacial region. Head CT 04/10/23 19:54 IMPRESSION: 1. No acute intracranial abnormality. 2. No acute osseous abnormality within the cervical spine. 3. No acute osseous abnormality within the maxillofacial region. Abdomen/Pelvis CT 04/10/23 20:04 IMPRESSION: 1. No acute abnormality. 2. Severe degenerative scoliosis. 3. Advanced calcific atherosclerotic disease. 4. Diverticulosis without diverticulitis. Fleischner guidelines were followed. Chest CT 04/10/23 20:04 IMPRESSION: 1. No acute abnormality. 2. No rib fracture. 3. Minimal fibrotic change and/or atelectasis in the left lower lobe. 4. Calcific atherosclerotic disease including coronary artery calcification. 5. Degenerative scoliosis of the dorsal spine. Fleischner guidelines were followed. Head CT 05/03/23 11:06 IMPRESSION: No acute intracranial abnormality. Medications Medications Current Medications Acetaminophen (Acetaminophen 325 Mg Tablet) 650 mg PO Q6H PRN PRN Reason: Headache/Pain Mild Scale (1-3) Last Admin: 04/18/23 03:08 Dose: 650 mg Al Hydroxide/Mg Hydroxide (Magnesium Hydrox/Alum Hydrox 30 Ml Oral.Susp) 30 ml PO Q6H PRN PRN Reason: Heartburn/Nausea Docusate Sodium (Docusate Sodium 100 Mg Capsule) 100 mg PO BID [facility] Last Admin: 05/12/23 09:42 Dose: 100 mg Guaifenesin/Dextromethorphan (Guaifenesin Dm 200/20/10 Ml 10 Ml Syrup) 10 ml PO Q6H PRN PRN Reason: Cough Magnesium Hydroxide (Milk Of Magnesia 30 Ml Oral.Susp) 30 ml PO DAILY PRN PRN Reason: Constipation Memantine (Memantine Hcl 5 Mg Tablet) 5 mg PO BID [facility] Last Admin: 05/12/23 09:42 Dose: 5 mg Metoprolol Succinate (Metoprolol Succinate Er 25 Mg Tab.Er.24h) 25 mg PO DAILY [facility]; Protocol Last Admin: 05/12/23 09:42 Dose: 25 mg Sertraline HCl (Sertraline Hcl 100 Mg Tablet) 100 mg PO DAILY [facility] Last Admin: 05/12/23 09:42 Dose: 100 mg Trazodone HCl (Trazodone Hcl 50 Mg Tablet) 50 mg PO BEDTIME MRX1 PRN PRN Reason: Insomnia Last Admin: 05/09/23 19:51 Dose: 50 mg Allergies Allergies Allergy/AdvReac Type Severity Reaction Status Date / Time No Known Allergies Allergy Verified 04/10/23 18:33 Assessment & Plan Assessment & Plan (1) Cognitive impairment: Status: Acute Code(s): R41.89 - Other symptoms and signs involving cognitive functions and awareness Assessment and Plan: 04/16covid positive felt to be more responsible for decompensation of baseline mild dementia, than mild ? uti- but both are being cared for- pt [facility]1 care due to falls. (2) Dementia: Status: Acute Code(s): F03.90 - Unspecified dementia, unspecified severity, without behavioral disturbance, psychotic disturbance, mood disturbance, and anxiety (3) COVID-19: Status: Acute Code(s): U07.1 - COVID-19 (4) Delirium: Status: Acute Code(s): R41.0 - Disorientation, unspecified Plan pt less agitated, less paranoia. discussed with son admission to [facility] for dx clarification and med management, which he is in agreement, if bed comes up soon. 04/17 doing better recovering from covid/uti 04/18/23 scared by another patient at a group, now refusing meds, more withdrawn- even with nursing calling son to discuss taking meds- she refuses and has withdrawn from [facility] 04/23/23 Continue tx 04/24/23 Continue tx and monitoring. 05/06- continue tx: 05/07 continue tx 05/08 continue tx. Plan Discharged today Time Spent With Patient Time: Total time managing care of this patient today ____ minutes.
== END 2023-05-12 17:15 | DRG 885 ==
LOC: HO.ED 04-12 10:50 → HO.PGERI 04-14 15:37
PROVIDERS: Physician Assistant; Admitting Provider Psychiatry & Neurology Psychiatry; Emergency Provider Emergency Medicine; PCP Internal Medicine; Visit Provider Psychiatry & Neurology Psychiatry
DX: F29 Unspecified psychosis not due to a substance or known physiological condition (principal); U07.1 COVID-19; G25.70 Drug induced movement disorder, unspecified; T43.4X5A Adverse effect of butyrophenone and thiothixene neuroleptics, initial encounter; F41.9 Anxiety disorder, unspecified; I10 Essential (primary) hypertension; F03.A0 Unspecified dementia, mild, without behavioral disturbance, psychotic disturbance, mood disturbance, and anxiety; F32.A Depression, unspecified; Z79.899 Other long term (current) drug therapy
CPT/HCPCS: 0241U; 36415; 70450; 70486; 71250; 72125; 74176; 80048; 80053; 80061; 80307; 81001; 81003; 82140; 85025; 85610; 85730; 87086; 87088; 87186; 87635; 93005; 97161; 99285; J1630; S9485

== ENCOUNTER → 2023-04-10 19:28 | Outpatient (BNV) | payer MEDICARE, MEDICAID, SELFPAY | PROVIDERS: Emergency Provider Emergency Medicine; PCP Internal Medicine; Visit Provider Social Worker | DX: F03.90 Unspecified dementia, unspecified severity, without behavioral disturbance, psychotic disturbance, mood disturbance, and anxiety (principal); R41.89 Other symptoms and signs involving cognitive functions and awareness; U07.1 COVID-19; R41.0 Disorientation, unspecified | CPT/HCPCS: 90792; 99222; 99231; 99232; 99239; 99285; 99499 ==

== ENCOUNTER → 2023-04-12 19:50 | Outpatient (BNV) | payer MEDICARE, MEDICAID, SELFPAY | PROVIDERS: Emergency Provider Emergency Medicine; PCP Internal Medicine; Visit Provider Internal Medicine | DX: R94.31 Abnormal electrocardiogram [ECG] [EKG] (principal) | CPT/HCPCS: 93010 ==

== ENCOUNTER 2023-07-12 15:47 | Outpatient (REF) | payer MEDICARE, MEDICAID, SELFPAY ==
[2023-07-12 17:30] LABS: MANUAL DIFF FLAG NO
[2023-07-12 17:39] LABS: Basophils Percent Auto 0.4 % (0-2); Eosinophils Absolute Auto 0.1 X10*3/uL (0.0-0.4); Hemoglobin 12.3 g/dl (12.0-16.0); Imm Gran Abs Auto 0.03 X10*3/uL (0.00-0.03); Imm Gran Pct Auto 0.6 % (0.0-0.4); Lymphocytes Absolute Auto 0.9 X10*3/uL (1.2-4.9); Lymphocytes Percent Auto 17.8 % (20-40); Mean Corpuscular HGB Conc 33.2 g/dl (31.0-35.0); Mean Corpuscular Hemoglobin 29.7 pg (27.0-33.0); Mean Corpuscular Volume 89.4 fL (80.0-98.0); Mean Platelet Volume 11.1 fL (9.4-12.3); Monocytes Absolute Auto 0.5 X10*3/uL (0.1-1.2); Monocytes Percent Auto 9.4 % (2-11); Neutrophils Absolute Auto 3.5 x10*3/uL (2.0-8.3); Neutrophils Percent Auto 70.8 % (45-73); Platelet Count 166 X10*3/uL (160-400); Red Blood Count 4.14 X10*6/uL (4.20-5.50); Red Cell Distribution Width 15.6 % (11.0-16.0)
[2023-07-12 17:57] LABS: Alanine Aminotransferase 10 U/L (0-31); Albumin Level 4.4 g/dL (3.5-5.0); Alkaline Phosphatase 83 U/L (39-117); Anion Gap 13 (12-20); Aspartate Amino Transferase 19 U/L (5-31); Bilirubin Total 0.4 mg/dL (0.0-1.0); Blood Urea Nitrogen 15 mg/dL (9-16); Calcium 9.4 mg/dL (8.4-10.2); Carbon Dioxide 27 mmol/L (22-29); Chloride 102 mmol/L (96-108); Estimated Glomerular Filt Rate > 60; Glucose Random 95 mg/dL (60-115); Potassium 4.4 mmol/L (3.3-5.1); Sodium 138 mmol/L (135-145); Total Protein 7.1 g/dL (6.5-8.0)
== END 2023-07-12 15:48 | disposition home or self-care (01) ==
LOC: HO.MANLDS 15:47
PROVIDERS: Visit Provider Physician Assistant
DX: N17.8 Other acute kidney failure (principal)
CPT/HCPCS: 36415; 80053; 85025

== ENCOUNTER 2023-08-19 11:15 | Inpatient (IN) | payer MEDICARE, SELFPAY ==
[2023-08-19] VITALS (9 sets, daily range): BP systolic 116–138; BP diastolic 55–75; PULSE 83–100; RESP 14–20; TEMP 36.5–36.8; O2SAT 96–100; BMI 17.3
--- NOTE | ~2023-08-19 | CT_ITS ---
EXAMINATION: CT HEAD WITHOUT CONTRAST CLINICAL INFORMATION: Altered mental status. COMPARISON: CT head 05/02/2023. TECHNIQUE: Contiguous axial imaging was performed from the skull base to vertex without intravenous administration of contrast. This CT examination was performed using dose optimization techniques as appropriate, variously including the following: *Automated exposure control *Adjustment of mA and/or kV according to patient size (this includes techniques or standardized protocols for targeted exams where dose is matched to indication/reason for exam; i.e. extremities or head) *Use of iterative reconstruction technique DLP: 632 mGy-cm FINDINGS: There is no evidence of acute intracranial hemorrhage or edematous territorial infarction. A few foci of hypoattenuation in the periventricular and deep white matter are consistent with mild microangiopathy. Chronic lacunar infarct in the left basal ganglia. Will-white matter differentiation is preserved. Proportional prominence of the ventricles and sulcal spaces. No evidence for obstructive hydrocephalus. No abnormal mass effect or midline shift. No extra-axial fluid collections. No acute soft tissue or osseous abnormalities. The mastoid air cells and paranasal sinuses are clear. Bilateral lens extraction. CT/CT head/brain wo IV con IMPRESSION: 1. No evidence of acute intracranial hemorrhage or edematous territorial infarction. 2. Mild chronic microangiopathy and generalized cerebral volume loss.
[2023-08-19 11:54] LABS: MANUAL DIFF FLAG NO
[2023-08-19 11:56] LABS: Basophils Percent Auto 0.1 % (0-2); Eosinophils Absolute Auto 0.1 X10*3/uL (0.0-0.4); Eosinophils Percent Auto 1.3 % (0-4); Hematocrit 33.2 % (37.0-47.0); Hemoglobin 11.5 g/dl (12.0-16.0); Imm Gran Abs Auto 0.03 X10*3/uL (0.00-0.03); Imm Gran Pct Auto 0.3 % (0.0-0.4); Lymphocytes Absolute Auto 0.4 X10*3/uL (1.2-4.9); Lymphocytes Percent Auto 4.9 % (20-40); Mean Corpuscular HGB Conc 34.6 g/dl (31.0-35.0); Mean Corpuscular Hemoglobin 30.5 pg (27.0-33.0); Mean Corpuscular Volume 88.1 fL (80.0-98.0); Mean Platelet Volume 10.4 fL (9.4-12.3); Monocytes Absolute Auto 0.5 X10*3/uL (0.1-1.2); Neutrophils Absolute Auto 7.9 x10*3/uL (2.0-8.3); Neutrophils Percent Auto 87.4 % (45-73); Platelet Count 142 X10*3/uL (160-400); Red Blood Count 3.77 X10*6/uL (4.20-5.50); Red Cell Distribution Width 15.3 % (11.0-16.0)
--- NOTE | 2023-08-19 11:57 | ED.GENADULT ---
HPI - General Adult General Chief complaint: Altered Mental Status Stated complaint: DEMENTIA CONFUSION FALLS Time Seen by Provider: 08/19/23 11:17 Source: patient and family (son) Mode of arrival: ambulatory Limitations: no limitations History of Present Illness HPI narrative: 82 year old female hx of dementia, recurrent UTIs presents w/ ams, agitation, poor po intake, fall yesterday w/ headstrike no LOC . AMS worsening over the past few days, combative. Per son this is how she acts when she has a UTI. No reported flakn pain, fevers, chills, cp, sob, nausea, vomiting, abd pain. Patient aggitated and not answering my questions. Related Data Home Medications ?Medication ?Instructions ?Recorded ?Confirmed divalproex 125 mg tablet,delayed 125 mg PO BID 08/19/23 08/19/23 release melatonin 3 mg tablet 6 mg PO BEDTIME 08/19/23 08/19/23 sertraline 25 mg tablet 25 mg PO DAILY 08/19/23 08/19/23 sertraline 50 mg tablet 50 mg PO DAILY 08/19/23 08/19/23 thiamine HCl (vitamin B1) 100 mg 100 mg PO DAILY 08/19/23 08/19/23 tablet trazodone 50 mg tablet 25 mg PO DAILY@0800 08/19/23 08/19/23 Previous Rx's ?Medication ?Instructions ?Recorded docusate sodium 100 mg capsule 100 mg PO BID 30 days #60 caps 05/12/23 memantine 5 mg tablet 5 mg PO BID 30 days #60 tabs 05/12/23 metoprolol succinate 25 mg 25 mg PO DAILY 30 days #30 tabs 05/12/23 tablet,extended release 24 hr trazodone 50 mg tablet 50 mg PO BEDTIME MRX1 PRN Insomnia 05/12/23 30 days #60 tabs Allergies Allergy/AdvReac Type Severity Reaction Status Date / Time No Known Allergies Allergy Verified 08/19/23 11:34 Review of Systems Review of Systems: Yes all other systems are reviewed and are negative PMFSH Past Medical History Attestation statement: The following information was validated with the patient. Source: old records reviewed and nursing notes reviewed Social History Social History Household Members: None Housing: Other Housing Other:: lives alone in senior housing Do you presently have visiting nurse or other home services: No Comment: 1:1 Patient Tobacco Use Status: Never used Tobacco service: No Sexual orientation: Straight/Heterosexual Physical Exam ED Vital Signs: Vital Signs - 24 hr 08/19/23 17:58 08/19/23 19:38 08/19/23 21:40 Temperature 98.2 F 97.7 F Pulse Rate 93 100 100 Respiratory Rate 16 14 16 Blood Pressure 126/69 138/75 Pulse Oximetry 98 100 Oxygen Delivery Method Room Air Room Air 08/20/23 05:46 08/20/23 06:26 08/20/23 08:48 Temperature 97.8 F Pulse Rate 130 H 103 H 130 H Respiratory Rate 14 11 L 14 Blood Pressure 126/78 120/84 126/80 Pulse Oximetry 97 95 Oxygen Delivery Method Room Air Room Air 08/20/23 11:00 08/20/23 11:15 08/20/23 11:45 Temperature Pulse Rate 134 H 132 H 113 H Respiratory Rate 18 13 14 Blood Pressure 123/69 89/67 L 107/60 Pulse Oximetry 96 96 Oxygen Delivery Method Room Air Room Air 08/20/23 12:00 Temperature Pulse Rate 131 H Respiratory Rate 14 Blood Pressure 92/43 L Pulse Oximetry 97 Oxygen Delivery Method Room Air BMI result Body Mass Index 17.3 vss Appearance: Alert.? Oriented X3.? No acute distress.? Head: Normocephalic, atraumatic, no step-offs or deformities Eyes: Pupils equal, round and reactive to light.? CVS: Normal heart rate and rhythm.? Pulses normal.? Respiratory: No respiratory distress.? Breath sounds normal.? Abdomen: Soft and nontender.? Skin: Skin warm and dry.? Normal skin color.? Normal skin turgor.? Extremities: No lower extremity edema.? No calf ttp. global weakness. Neuro: Oriented X 3.? No motor deficit.? No sensory deficit. CN 2-12 intact Course Course Course Narrative: -at 06:00, I was informed by the patient's nurse that the patient has been having a heart rate in the 130s. Patient's blood pressure 126/78. Patient not answering questions, awake and alert. -patient was given 1 dose of IV metoprolol 5 mg. Reevaluation(s) Reevaluation #1: CBC unremarkable. BUN and creatinine slightly elevated. UA still pending. Time: 16:03 Reevaluation #2: Patient was given Zyprexa earlier due to combative behavior towards son and nursing staff. I am was ordered. For patient's safety Time: 16:14 Reevaluation #3: Patient's UA is negative for any acute infection. I spoke with the patient's son who states that the patient has required a sayda-psych admission before. At this time, given the patient's new agitation with no acute medical cause, I believe the patient would be appropriate for sayda-psych. CARE consult placed. Physician observation started at 1907. Time: 19:14 Additional Reevaluation(s): Patient is pending a care team consultation. Care team did ask for psych consult and so this was ordered by nursing. The patient's medications were reconciled this morning. Her vitals are stable. Will continue physician observation pending disposition Consultations Consultation #1: HR 130's this morning per nursing. EKG shows ST with rate 130, normal pr, normal qrs, normal qt. Blood pressure normotensive. Patient is alert. Did not want breakfast, Taking sips of PO but per report decreased oral intake [facility]. Will repeat labs, give 1L NS and re-assess. Consultation #2: 1045-Per nursing patient is agitated, removed IV/school bus monitor leads, refusing to take all morning medications despite multiple attempts. Unable to re-direct patient. Will give IM zyprexa Consultation #3: 1300-patient now in rapid AFib with rates of 130. Blood pressure stable. Will not take oral metoprolol or any of her other regular medications despite multiple attempts. Will give IV Lopressor, discussed with medicine Additional Consultation(s): 1315-I spoke to the medicine team about the patient and per their request I spoke to the family about goals of care. I discussed the patient's current clinical status with her son who is her healthcare proxy (Karl Barnes). He tells me that over the last month the patient has been refusing to eat and drink. She has had significant weight loss. She has been intermittently agitated. She has not been wanting to take her medication. I explained to him that she is refusing all oral medication and food here. We did place an IV and she removed this although we are able to place a 2nd IV and give her some IV fluids. Tells me he does not want any invasive measures and would not consider a PICC line for TPN or a G-tube for tube feeding. He would like her to be kept comfortable. Therefore he would like to move forward with making his mother hospice. Case management was informed, waiting their dispo. 1620-Completed [employer]IE[employer] EXECUTIVE [employer] only. Plans for hospice nurse to meet with family tomorrow and complete a GI IP evaluation. I spoke to the medicine team and they will admit the patient for further management. Medications Administered Generic Name Dose Route Start Last Admin Trade Name Freq PRN Reason Stop Dose Admin Divalproex Sodium 125 mg 08/20/23 09:00 08/20/23 11:13 Divalproex Sodium Sprinkles 125 Mg Cap. PO Not Given BID VIKTOR Docusate Sodium 100 mg 08/20/23 09:00 08/20/23 11:13 Docusate Sodium 100 Mg Capsule PO Not Given BID VIKTOR Memantine 5 mg 08/20/23 09:00 08/20/23 11:15 Memantine Hcl 5 Mg Tablet PO Not Given BID VIKTOR Metoprolol Succinate 25 mg 08/20/23 09:00 08/20/23 11:15 Metoprolol Succinate Er 25 Mg Tab.Er.24h PO Not Given DAILY VIKTOR Protocol Sertraline HCl 25 mg 08/20/23 09:00 08/20/23 11:16 Sertraline Hcl 25 Mg Tablet PO Not Given DAILY VIKTOR Sertraline HCl 50 mg 08/20/23 09:00 08/20/23 11:17 Sertraline Hcl 50 Mg Tablet PO Not Given DAILY VKITOR Thiamine HCl 100 mg 08/20/23 09:00 08/20/23 11:17 Thiamine Hcl 100 Mg Tablet PO Not Given DAILY VIKTOR Trazodone HCl 25 mg 08/20/23 08:00 08/20/23 11:12 Trazodone Hcl 25 Mg Halftab PO Not Given DAILY@0800 VIKTOR Discontinued Medications Generic Name Dose Route Start Last Admin Trade Name Freq PRN Reason Stop Dose Admin Sodium Chloride 1,000 mls @ 999 mls/hr 08/19/23 20:30 08/19/23 21:27 Ns IV 08/19/23 21:30 Infused .Q1H1M VIKTOR Infusion Sodium Chloride 1,000 mls @ 999 mls/hr 08/20/23 09:02 08/20/23 11:00 Ns IV 08/20/23 10:02 Infused .Q1H1M STA Infusion Metoprolol Tartrate 5 mg 08/20/23 06:12 08/20/23 06:16 Metoprolol Tartrate 5 Mg/5 Ml Vial IVPUSH 08/20/23 06:13 5 mg ONCE ONE Administration Protocol Metoprolol Tartrate 5 mg 08/20/23 12:55 08/20/23 13:18 Metoprolol Tartrate 5 Mg/5 Ml Vial IVPUSH 08/20/23 12:56 5 mg ONCE ONE Administration Protocol Olanzapine 5 mg 08/19/23 12:17 08/19/23 13:09 Olanzapine 5 Mg Tablet PO 08/19/23 12:18 5 mg ONCE ONE Administration Olanzapine 5 mg 08/19/23 12:15 08/19/23 12:15 Olanzapine 10 Mg Vial IM 08/19/23 12:16 5 mg STAT STA Administration Olanzapine 5 mg 08/20/23 10:47 08/20/23 11:01 Olanzapine 10 Mg Vial IM 08/20/23 10:48 5 mg STAT STA Administration Medical Decision Making Medical Decision Making MDM Narrative: 82 yo f presents w/ ams, weakness and ? UTI per son PE aggressive, no ttp of abd or cva tendernss History and physical exam concerning for UTI versus cystitis versus metabolic derangements. Unlikely acute abdomen, intracranial hemorrhage, stroke, posterior stroke. Plan labs, imaging, urine Differential Diagnosis Differential Diagnoses: The differential diagnosis associated with the presentation includes History and physical exam concerning for UTI versus cystitis versus metabolic derangements. Unlikely acute abdomen, intracranial hemorrhage, stroke, posterior stroke. Admission/Observation Consideration of admission/observation: Escalation of care including admission/observation considered sugar Lab Data [facility] Lab Attestation statement: I reviewed the patient's lab results. 08/20/23 09:54 08/20/23 09:54 Labs: Lab Results 08/19/23 08/19/23 08/20/23 Range/Units 11:47 17:58 09:54 WBC 9.0 5.5 (4.8-10.8) X10*3/uL RBC 3.77 L 3.95 L (4.20-5.50) X10*6/uL Hgb 11.5 L 12.0 (12.0-16.0) g/dl Hct 33.2 L 35.0 L (37.0-47.0) % MCV 88.1 88.6 (80.0-98.0) fL MCH 30.5 30.4 (27.0-33.0) pg MCHC 34.6 34.3 (31.0-35.0) g/dl RDW 15.3 15.2 (11.0-16.0) % Plt Count 142 L 134 L (160-400) X10*3/uL MPV 10.4 10.4 (9.4-12.3) fL Immature Gran % (Auto) 0.3 0.5 H (0.0-0.4) % Neut % (Auto) 87.4 H 78.6 H (45-73) % Lymph % (Auto) 4.9 L 10.0 L (20-40) % [place] % (Auto) 6.0 7.4 (2-11) % Eos % (Auto) 1.3 3.1 (0-4) % Baso % (Auto) 0.1 0.4 (0-2) % Lymph # (Auto) 0.4 L 0.6 L (1.2-4.9) X10*3/uL [place] # (Auto) 0.5 0.4 (0.1-1.2) X10*3/uL Eos # (Auto) 0.1 0.2 (0.0-0.4) X10*3/uL Baso # (Auto) 0.0 0.0 (0.0-0.2) X10*3/uL Abs Immat Gran (auto) 0.03 0.03 (0.00-0.03) X10*3/uL Absolute Neuts (auto) 7.9 4.3 (2.0-8.3) x10*3/uL Absolute Nucleated RBC 0.000 0.000 (0.0-0.012) X10*3/uL Nucleated RBC % (auto) 0.0 0.0 (0.0-0.2) /100WBC Sodium 135 141 (135-145) mmol/L Potassium 3.9 3.8 (3.3-5.1) mmol/L Chloride 98 108 (96-108) mmol/L Carbon Dioxide 25 19 L (22-29) mmol/L Anion Gap 16 18 (12-20) BUN 46 H 31 H (9-16) mg/dL Creatinine 1.37 0.73 (0.5-1.4) mg/dL Estim Creat Clear Calc 23.5 44.2 Estimated GFR 37 > 60 Random Glucose 94 70 (60-115) mg/dL Calcium 9.9 8.7 D (8.4-10.2) mg/dL Magnesium 2.4 (1.6-2.6) mg/dL Total Bilirubin 0.6 (0.0-1.0) mg/dL AST 25 (5-31) U/L ALT 18 (0-31) U/L Alkaline Phosphatase 89 (39-117) U/L Total Protein 6.9 (6.5-8.0) g/dL Albumin 4.3 (3.5-5.0) g/dL TSH 1.56 (0.32-4.0) uIU/mL Urine Color Yellow Urine Appearance Clear Urine pH 5.5 (5.0-9.0) Ur Specific [place] 1.010 (1.005-1.025) Urine Protein Negative (Neg-Trace) mg/dL Urine Glucose (UA) Negative (Negative) mg/dL Urine Ketones Negative (Negative) mg/dL Urine Blood Negative (Negative) Urine Nitrite Negative (Negative) Ur Leukocyte Esterase Negative (Negative) Independent Interpretation I performed an independent interpretation of an: CT Scan Radiology Impression Discussion of test interpretation with radiology: I have reviewed the radiologist's reading. Chronic Conditions Patient?s care impacted by: Other (dementia ) Critical Care Time Critical Care Time Critical Care Time: Yes Total Critical Care Time: 90 Attestation: see course of care Discharge Plan Discharge Clinical Impression: Dementia, Acute UTI, Atrial fibrillation with rapid ventricular response Patient Disposition: Admitted As Inpatient Print Language: Icelandic
[2023-08-19 12:09] LABS: Alanine Aminotransferase 18 U/L (0-31); Albumin Level 4.3 g/dL (3.5-5.0); Alkaline Phosphatase 89 U/L (39-117); Anion Gap 16 (12-20); Aspartate Amino Transferase 25 U/L (5-31); Bilirubin Total 0.6 mg/dL (0.0-1.0); Blood Urea Nitrogen 46 mg/dL (9-16); Calcium 9.9 mg/dL (8.4-10.2); Carbon Dioxide 25 mmol/L (22-29); Chloride 98 mmol/L (96-108); Creatinine Clr Calc Pharmacy 23.5; Estimated Glomerular Filt Rate 37; Glucose Random 94 mg/dL (60-115); Magnesium 2.4 mg/dL (1.6-2.6); Potassium 3.9 mmol/L (3.3-5.1); Sodium 135 mmol/L (135-145); Total Protein 6.9 g/dL (6.5-8.0)
[2023-08-19] MEDS: OLANZapine 10 MG VIAL 5 MG IM (12:15)
--- NOTE | 2023-08-19 13:00 | PC.NURSE ---
unable to obtain vital signs w/ medical restraint. patient continued to remove blood pressure cuff/crawl out of bed.
[2023-08-19] MEDS: OLANZapine 5 MG TABLET PO (13:09)
--- NOTE | 2023-08-19 13:10 | PC.NURSE ---
pt medicated per provider order. effectiveness pending. camera remains in place for safety precautions.
--- NOTE | 2023-08-19 18:00 | PC.NURSE ---
straight cath obtained and urine sent. patient resting quietly in room at this time, no obvious signs/symptoms of distress noted. video camera remains in place for patient safety. awaiting dispo
[2023-08-19 18:25] LABS: Appearance Urine Clear; Color Urine Yellow; Glucose Urine UA Negative (Negative); Leukocyte Esterase Urine Negative (Negative); Nitrite Urine Negative (Negative); PH 5.5 (5.0-9.0); Urine Blood Negative (Negative); Urine Ketones Negative (Negative); Urine Protein Negative (Neg-Trace)
--- NOTE | 2023-08-19 18:35 | PC.NURSE ---
late entry: patient presenting from assisted living for increasing agitation. upon arrival, patient pulling at medical equipment and attempting to get out of bed. son at bedside assisting with re-directing patient back into her bed. multiple attempts to re-direct patient to stay in bed. @ 1215, 5mg IM zyprexa verbal order was placed for patient. patient continued to attempt to get out of bed. willingly took PO zyprexa at different time. patient observer with patient, video camera in place for patient safety.
--- NOTE | 2023-08-19 19:48 | MHC.EDTECH ---
This tech took over care of patient at 1900,hourly rounds and vitals completed,pure-wick placed to keep patient clean and dry,patient tolerated well,call gresham in reach
[2023-08-19] MEDS: 0.9 % Sodium Chloride 1,000 ML 999 ML IV (20:26)
--- NOTE | 2023-08-19 21:01 | PHA.MEDREC ---
Pharmacy Consult ? Medication Reconciliation Pharmacy has completed the medication reconciliation. Patient from [facility] with med list. The only difference from pharmacy claim history is list say metoprolol tartrate but patient is filling metorpolol succinate. I left has metoprolol succinate since that is what is being dispensed by the pharmacy. Mercedes Worthington, UriD
--- NOTE | 2023-08-19 21:41 | MHC.EDTECH ---
Hourly rounds completed,patient is resting at this time,call gresham in reach and camera at bedside
--- NOTE | 2023-08-19 22:13 | MHC.CARE ---
Pt is currently sleeping and has been medicated . The CARE team will assess her in the morning.
[2023-08-20] VITALS (9 sets, daily range): BP systolic 89–126; BP diastolic 43–84; PULSE 97–134; RESP 11–18; TEMP 36.6; O2SAT 95–97
--- NOTE | 2023-08-20 01:09 | MHC.EDTECH ---
Hourly rounds completed,patient is sleeping,clean and dry,call gresham in reach and camera for safety
--- NOTE | 2023-08-20 05:46 | PC.NURSE ---
pt appears to be more somnolent that on prior rounds. she is making eye contact however is not following commands. HR 130 on monitor. MD made aware. Dr Boston at bedside. pt mentation improved with MD doing assessment. metoprolol to be ordered IV for heart rate.
--- NOTE | 2023-08-20 05:47 | MHC.EDTECH ---
Hourly rounds and vitals completed,patients HR is elevated 130 RN and MD at bedside and are aware,warm blanket given and call gresham in reach
[2023-08-20] MEDS: Metoprolol Tartrate 5 MG/5 ML VIAL IVPUSH ×2 (06:16→13:18)
--- NOTE | 2023-08-20 08:35 | ECG_ITS ---
Test Reason : TACHYCARDIA Blood Pressure : / mmHG Vent. Rate : 130 BPM Atrial Rate : 130 BPM P-R Int : 228 ms QRS Dur : 088 ms QT Int : 360 ms P-R-T Axes : 103 040 233 degrees QTc Int : 529 ms Sinus tachycardia with 1st degree A-V block Nonspecific ST and T wave abnormality Abnormal ECG When compared with ECG of 12-APR-2023 19:50, Vent. rate has increased BY 50 BPM Referred By: Montserrat Grullon Electronically Signed By:TAI DAN
--- NOTE | 2023-08-20 08:36 | PC.NURSE ---
This RN assumed care at 0700, RN at bedside pt sleeping, attempted to encourage her to eat food, no desire to eat any food. Heart rate in the 130, EKG being obtained. BP: 126/80, Pt attempted to pull leads of during EKG & purwick Pt refused to eat any breakfast, Call gresham within reach
--- NOTE | 2023-08-20 09:15 | PC.NURSE ---
Pt is refusing IVF, attempting to pull out IV line, saying she doesnt want any meds.
[2023-08-20] MEDS: 0.9 % Sodium Chloride 1,000 ML 999 ML IV (09:27)
[2023-08-20 09:57] LABS: MANUAL DIFF FLAG NO
[2023-08-20 10:01] LABS: Basophils Percent Auto 0.4 % (0-2); Eosinophils Absolute Auto 0.2 X10*3/uL (0.0-0.4); Eosinophils Percent Auto 3.1 % (0-4); Imm Gran Abs Auto 0.03 X10*3/uL (0.00-0.03); Imm Gran Pct Auto 0.5 % (0.0-0.4); Lymphocytes Absolute Auto 0.6 X10*3/uL (1.2-4.9); Mean Corpuscular HGB Conc 34.3 g/dl (31.0-35.0); Mean Corpuscular Hemoglobin 30.4 pg (27.0-33.0); Mean Corpuscular Volume 88.6 fL (80.0-98.0); Mean Platelet Volume 10.4 fL (9.4-12.3); Monocytes Absolute Auto 0.4 X10*3/uL (0.1-1.2); Monocytes Percent Auto 7.4 % (2-11); Neutrophils Absolute Auto 4.3 x10*3/uL (2.0-8.3); Neutrophils Percent Auto 78.6 % (45-73); Platelet Count 134 X10*3/uL (160-400); Red Blood Count 3.95 X10*6/uL (4.20-5.50); Red Cell Distribution Width 15.2 % (11.0-16.0); White Blood Count 5.5 X10*3/uL (4.8-10.8)
[2023-08-20 10:28] LABS: Anion Gap 18 (12-20); Blood Urea Nitrogen 31 mg/dL (9-16); Calcium 8.7 mg/dL (8.4-10.2); Carbon Dioxide 19 mmol/L (22-29); Chloride 108 mmol/L (96-108); Creatinine Clr Calc Pharmacy 44.2; Estimated Glomerular Filt Rate > 60; Glucose Random 70 mg/dL (60-115); Potassium 3.8 mmol/L (3.3-5.1); Sodium 141 mmol/L (135-145)
[2023-08-20 10:49] LABS: TSH reflex Free T4 1.56 uIU/mL (0.32-4.0)
[2023-08-20] MEDS: OLANZapine 10 MG VIAL 5 MG IM (11:01)
--- NOTE | 2023-08-20 11:06 | PC.NURSE ---
Addendum entered by Vicki Ly 08/20/23 11:18: Pt became paranoid/aggressive when attempting to given meds. Pt states they're all trying to kill me AM meds not given. Original Note: This RN attempted to give PO meds, pt refused x2 with apple sauce, pt also removed IV and tele monitor, monitor replace, currently no IV at this time. [employer] Montserrat made aware, IM Xyprexa administered, RN Babita taking over. This RN talked to son, and he is aware of the plan of care going forward. Awaiting psych consult. Call gresham in place, Camera in room.
--- NOTE | 2023-08-20 12:36 | ECG_ITS ---
Test Reason : REPEAT Blood Pressure : / mmHG Vent. Rate : 130 BPM Atrial Rate : 000 BPM P-R Int : 000 ms QRS Dur : 080 ms QT Int : 270 ms P-R-T Axes : 000 039 261 degrees QTc Int : 397 ms Atrial fibrillation with rapid ventricular response Nonspecific T wave abnormality Abnormal ECG When compared with ECG of 20-AUG-2023 08:42, Atrial fibrillation has replaced Sinus rhythm Referred By: Montserrat Grullon Electronically Signed By:TAI DAN
--- NOTE | 2023-08-20 13:10 | PC.NURSE ---
Patient continues to be intermittently restless/combative with staff, continues to refuse PO meds, noted to be in afib w/ RVR, Ekg obtained, provider made aware, IV placed R FA and wrapped with gauze.
--- NOTE | 2023-08-20 13:19 | P.HPHOSP_ITS ---
History of Present Illness Date of Service: 08/20/23 Attending physician on admission: Karl Agosto Chief Complaint: AMS, poor p.o. intake Pt is an 82-year-old female with a PMH significant for unspecified dementia, recurrent UTIs, HTN, poor p.o. intake, and frequent falls at?home who presents to the ED for evaluation of increasing agitation and worsening dementia. Pt with advanced dementia at baseline, is minimally responsive at time of interview and exam and nonresponsive to questions than to occasionally shake her head. HPI taken from chart and provider review. Family initially brought patient to the ED for evaluation of possible UTI, as she has had increased agitation, AMS, and combativeness in the past when infected. However, workup in the ED negative for acute infection: UA negative, CT of head negative, and labs grossly unremarkable, including no leukocytosis. In the ED patient was agitated, combative, and refusing to take any p.o. medications or to eat or drink anything. ED spoke with family who report she has been declining over the past month and refusing to eat, drink, or take her medications at home. Has been intermittently agitated and had a significant amount of weight loss during this time. ED discussed goals of care with family who do not want patient to receive any invasive measures including TPN or G-tube feeding. They prefer to make patient comfortable and will move forward with placing patient on hospice. Patient will be admitted to the hospital for observation for hospice evaluation in the morning. Review of Systems 2 Review of Systems: Unable to obtain due to patient's mentation PMFSH Social History Household Members: None Housing: Other Housing Other:: lives alone in senior housing Do you presently have visiting nurse or other home services: No Comment: 1:1 Patient Tobacco Use Status: Never used Tobacco service: No Sexual orientation: Straight/Heterosexual Meds Allergies Allergy/AdvReac Type Severity Reaction Status Date / Time No Known Allergies Allergy Verified 08/19/23 11:34 Active Medications: Current Medications Divalproex Sodium (Divalproex Sodium Sprinkles 125 Mg ) 125 mg PO BID [facility] Last Admin: 08/20/23 11:13 Dose: Not Given Docusate Sodium (Docusate Sodium 100 Mg Capsule) 100 mg PO BID [facility] Last Admin: 08/20/23 11:13 Dose: Not Given Melatonin (Melatonin 3 Mg Tablet) 6 mg PO BEDTIME [facility] Memantine (Memantine Hcl 5 Mg Tablet) 5 mg PO BID [facility] Last Admin: 08/20/23 11:15 Dose: Not Given Metoprolol Succinate (Metoprolol Succinate Er 25 Mg Tab.Er.24h) 25 mg PO DAILY [facility]; Protocol Last Admin: 08/20/23 11:15 Dose: Not Given Sertraline HCl (Sertraline Hcl 25 Mg Tablet) 25 mg PO DAILY [facility] Last Admin: 08/20/23 11:16 Dose: Not Given Sertraline HCl (Sertraline Hcl 50 Mg Tablet) 50 mg PO DAILY [facility] Last Admin: 08/20/23 11:17 Dose: Not Given Thiamine HCl (Thiamine Hcl 100 Mg Tablet) 100 mg PO DAILY [facility] Last Admin: 08/20/23 11:17 Dose: Not Given Trazodone HCl (Trazodone Hcl 50 Mg Tablet) 50 mg PO BEDTIME MRX1 PRN PRN Reason: Insomnia Trazodone HCl (Trazodone Hcl 25 Mg Halftab) 25 mg PO DAILY@0800 [facility] Last Admin: 08/20/23 11:12 Dose: Not Given Home Medications ?Medication ?Instructions ?Recorded ?Confirmed ?Last Taken ?Type divalproex 125 mg tablet,delayed 125 mg PO BID 08/19/23 08/19/23 Unknown History release melatonin 3 mg tablet 6 mg PO BEDTIME 08/19/23 08/19/23 Unknown History sertraline 25 mg tablet 25 mg PO DAILY 08/19/23 08/19/23 Unknown History sertraline 50 mg tablet 50 mg PO DAILY 08/19/23 08/19/23 Unknown History thiamine HCl (vitamin B1) 100 mg 100 mg PO DAILY 08/19/23 08/19/23 Unknown History tablet trazodone 50 mg tablet 25 mg PO DAILY@0800 08/19/23 08/19/23 Unknown History Physical Exam 2 Vital Signs and Narrative: Vital Signs: Last Vital Signs Temp 97.8 F 08/20/23 05:46 Pulse 113 H 08/20/23 11:45 Resp 14 08/20/23 11:45 BP 107/60 08/20/23 11:45 Pulse Ox 96 08/20/23 11:45 O2 Del Method Room Air 08/20/23 11:45 BMI result Body Mass Index 17.3 General: Minimally responsive, cachectic, confused, in no acute distress Resp: CTA bilaterally CVS: Irregularly irregular rhythm, tachycardic GI: +BS, NT, no distention Skin: Warm, dry Neuro: Cranial nerves II-XII grossly intact bilaterally. Motor grossly intact bilaterally Extremities: No edema Results Labs 08/20/23 09:54 08/20/23 09:54 Labs: Laboratory Results - last 24 hr 08/19/23 08/20/23 17:58 09:54 MCV 88.6 MCH 30.4 MCHC 34.3 RDW 15.2 Plt Count 134 L MPV 10.4 Immature Gran % (Auto) 0.5 H Neut % (Auto) 78.6 H Lymph % (Auto) 10.0 L [place] % (Auto) 7.4 Eos % (Auto) 3.1 Baso % (Auto) 0.4 Lymph # (Auto) 0.6 L [place] # (Auto) 0.4 Eos # (Auto) 0.2 Baso # (Auto) 0.0 Abs Immat Gran (auto) 0.03 Absolute Neuts (auto) 4.3 Absolute Nucleated RBC 0.000 Nucleated RBC % (auto) 0.0 Anion Gap 18 Estim Creat Clear Calc 44.2 Estimated GFR > 60 Random Glucose 70 Calcium 8.7 D TSH 1.56 Urine Color Yellow Urine Appearance Clear Urine pH 5.5 Ur Specific [place] 1.010 Urine Protein Negative Urine Glucose (UA) Negative Urine Ketones Negative Urine Blood Negative Urine Nitrite Negative Ur Leukocyte Esterase Negative Imaging Radiologist's Impressions: Impressions Head CT 08/19/23 15:23 IMPRESSION: 1. No evidence of acute intracranial hemorrhage or edematous territorial infarction. 2. Mild chronic microangiopathy and generalized cerebral volume loss. Assessment and Plan (1) Dementia: Status: Acute Plan Pt is an 82-year-old female with a PMH significant for unspecified dementia, recurrent UTIs, HTN, poor p.o. intake, and frequent falls at?home who presents to the ED for evaluation of increasing agitation and worsening dementia. Patient will be admitted to the hospital for observation for hospice evaluation in the morning. Failure to thrive Pt with significant decline x1 month, refusing to eat, drink, or take medications at home Has been agitated, combative, refusing p.o. intake in the ED Family does not want invasive measures but wishes her to be made comfortable Hospice consult tomorrow for GIP evaluation Comfort measures only Attending:?Dr. Agosto DVT Prophylaxis: N/A Patient will be admitted to the hospital under observation while awaiting hospice evaluation in the morning. Quality Stroke Does the patient have a stroke diagnosis?: No VTE Prior VTE?: No VTE Risk Level:: Medical - moderate - high VTE Device Contraindication: Treatment Not Indicated VTE Drug Contraindication: Treatment Not Indicated
--- NOTE | 2023-08-20 14:30 | MHC.CM.PN ---
Addendum entered by Adilene Penny RN 08/20/23 15:48: PT TO BE ASSESSED BY HOSPICE NURSE IN AM FOR GIP, ED PROVIDER AWARE AND PT WILL LIKELY GO TO [facility] VS BEING ADMITTED, [facility] WILL REACH OUT TO SON FOR TIME. Addendum entered by Adilene Penny RN 08/20/23 14:36: PCP IS GERDA PORTILLO Original Note: CM RECEIVED CM CONSULT FROM ED PROVIDER CHET JUÁREZ AND REQUESTED CM CONTACT HCP REGARDING HOSPICE, CM CONTACTED PT'S SON/HCP SUKHJINDER AT NUMBER ON FILE, SUKHJINDER REPORTS PT IS FROM [facility] HOWEVER D/T PT'S ADVANCING DEMENTIA W/COMBATIVE BEHAVIORS THEY ARE UNABLE TO TAKE PT BACK. SUKHJINDER REPORTS HE IS UNABLE TO PROVIDE 24HR CARE AT HOME FOR PT AND WOULD LIEK GIP VS HOSPICE IN A FACILITY. HAS SENT [facility] TO REVIEW PT FOR GIP HOWEVER PT WILL LIKELY NEED PLACEMENT WHICH WILL BE DIFFICULT D/T BEHAVIORS. SUKHJINDER ALSO REPORTS PT HAS NOT BEEN EATING OR TAKING MEDS X3 WKS AT [facility] AND HAS ONLY HAD SIPS OF WATER, HCP IS ON FILE FROM PREVIOUS VISIT.
--- NOTE | 2023-08-20 14:36 | PC.NURSE ---
Informed by provider Montserrat family has opted to change to hospice care, crocodile farmer removed, patient repositioned for comfort in bed.
--- NOTE | 2023-08-20 15:36 | HO.EVEPSY2_ITS ---
Event Note Date of Service: 08/20/23 Psych On-Call Event Note: Noted patient came to the ER with a fall, poor oral intake and intermittent agitation. Has a history of UTIs, but urinalysis unremarkable. Was discharged from [facility] in April 2023 following a UTI. Establish dementia. Haldol was helpful, but got extra pair middle symptoms on same and this was tapered off. Medications included Depakote 125 mg twice daily Zoloft 75 mg and trazodone 25 mg in the morning. Noted during this ED stay, heart rate has been elevated in the 130s. Going out IVs for fluids. Patient was obtunded in the ED, when curriculum writer attempted to evaluate. spoke with nursing and understand that patient has been in and out of rapid AFib. Family confirmed with ED treatment team, that they would prefer comfort care measures for now. In the context of same, curriculum writer did not pursue full consult. Overall for agitation would recommend Haldol 1 mg as needed q.4 hours, while also balancing comfort care needs as per family wishes. Nursing aware. Please consult if there is a need for same moving forward. Time Spent With Patient Time: Total time managing care of this patient today ____ minutes.
--- NOTE | 2023-08-20 19:44 | PC.NURSE ---
Patient resting quietly on stretcher at this time, family left to make phone calls to patient's parish to have smoking pipe mounter come and visit with patient. Pastor Carolina from [facility] pastoral care also [facility], waiting to hear back regarding smoking pipe mounter availability. Patient adamantly refusing PO night time meds at this time.
--- NOTE | 2023-08-20 20:20 | MHC.EDTECH ---
This tech took over care of patient at 1900,hourly rounds completed,suction canister emptied 600MLS,upon entry to room rubio-wick was on the floor,this tech will attempt to replace and patient is being placed in hospital bed for comfort.
--- NOTE | 2023-08-20 20:34 | MHC.EDTECH ---
Patient placed in hospital bed,patient was very agitated and trying to hit staff,patient didn't tolerate pure-wick,bed alarm on and camera in the room for safety.
[2023-08-20] MEDS: Valproic Acid (as Sodium Salt) 250 MG in Dextrose 5 % 50 ML 52.5 MG IV (20:56)
--- NOTE | 2023-08-20 21:02 | PC.NURSE ---
Patient increasingly restless and agitated, attempting to hit staff, throwing purewick on the floor. Patient transitioned to hospital bed with ED techs, reached out to provider for medication, medicated per mar.
[2023-08-20] MEDS: 0.9 % Sodium Chloride Flush 3 ML SYRINGE IVFLUSH (23:27)
--- NOTE | 2023-08-20 23:32 | PC.NURSE ---
Attempted to medicate pt with PO PRN trazadone. Pt refuses at this time, stating she doesnt want to lose any time
[2023-08-21] VITALS (10 sets, daily range): BP systolic 111–147; BP diastolic 60–84; PULSE 116–134; RESP 16–18; TEMP 35.5–36.8; O2SAT 95–99; BMI 17.3
--- NOTE | 2023-08-21 05:46 | PC.NURSE ---
PATIENT ADMITTED TO [place] [id number] VIA HOSPITAL BED FROM ED SETTING. UPON ADMISSION PT WAS SOFT SPOKEN, CALM, ASKING FOR FOOD, VOIDED ON BEDPAN, AND NOTED SOME ANSWERS WITH CONFUSION, BUT ABLE TO REDIRECT.. SHORTLY AFTERWARD PT BECAME IMPULSIVE WITH ATTEMPTS GETTING OOB, INSISTING SHE WAS NOT IN THE HOSPITAL, WANTING TO LEAVE, INSISTING ON WALKING BUT VERY UNSTEADY. AMBULATING WITH 2 STAFF MEMBERS TO HALLWAY, UNHAPPY BEING ESCORTED, BECAME LOUD, AND WHEN ATTEMPTING TO DISCUSS SITUATION BECAME UPSET. THEREFORE, PATIENT WAS AGREEABLE TO SIT IN A WHEELCHAIR AND BROUGHT AROUND UNIT WITH LOW LEVEL CONVERSATION. WITHIN A 20 MINUTE SPAN, ABLE TO ASSIST PT BACK INTO BED, PROVIDED COMFORT AND REASSURANCE, BEVERAGE OFFERED AND ACCEPTED, WARM BLANKET, HOB UP, BED ALARM IN USE, CAMERA IN ROOM, AND WILL CONTINUE TO MONITOR CLOSELY
[2023-08-21] MEDS: 0.9 % Sodium Chloride Flush 3 ML SYRINGE IVFLUSH ×3 (08:46→23:56)
--- NOTE | 2023-08-21 11:28 | MHC.CM.PN ---
Addendum entered by Julieta Thorne RN 08/21/23 11:49: PER MD PATIENT IS NOT APPROPRIATE FOR HOSPICE, BEHAVIORS CLEARING AND ENGAGING IN CONVERSATION RE: CARE. MD WILL ORDER PT EVAL. GOAL IS NOW STR THEN RETURN TO [facility]. CM WILL CONTINUE TO FOLLOW. Original Note: CM MET WITH FAMILY AT BEDSIDE. IMM DELIVERED. PATIENT IS FROM [facility]. ADVANCED DEMENTIA W/ COMBATIVE BEHAVIORS. UNABLE TO RETURN TO FACILITY. SHANNAN SLAUGHTER IS UNABLE TO CARE FOR PATIENT IN HIS HOME. IMM DELIVERED. DP: PER PREVIOUS CM AWAITING [facility] GIP HOSPICE EVAL. CM WILL FOLLOW UP AFTER EVAL.
[2023-08-21] MEDS: Metoprolol Succinate ER 25 MG TAB.ER.24H PO (11:30)
[2023-08-21] MEDS: Valproic Acid (as Sodium Salt) 250 MG in Dextrose 5 % 50 ML 52.5 MG IV ×2 (11:30→20:26)
--- NOTE | 2023-08-21 11:58 | HO.PM.IMPN ---
Subjective Subjective Date of Service: 08/21/23 Interval History: Markedly improved this. Awake, articulate... Asking questions about medications Review of Systems Denies chest pain Denies shortness of breath Denies nausea vomiting diarrhea Denies fever chills Physical Exam Vital Signs: Vital Signs: Last Vital Signs Temp 97.5 F 08/21/23 08:00 Pulse 116 H 08/21/23 11:30 Resp 16 08/21/23 08:00 BP 120/65 08/21/23 11:30 Pulse Ox 99 08/21/23 08:00 O2 Del Method Room Air 08/21/23 08:00 BMI result Body Mass Index 17.3 Const: Other: Awake alert oriented x2 Resp: Other: Clear to auscultation bilaterally no rales rhonchi or wheezes Cardio: Other: No S4; positive S1-S2; no S3 murmurs rubs or gallops GI: Other: Soft nontender nondistended normoactive bowel sounds Extrem: Other: No edema bilaterally Objective Data Active Medications Acetaminophen (Acetaminophen 325 Mg Tablet) 650 mg PO Q6H PRN PRN Reason: Pain, Mild (Pain Scale 1-3) Divalproex Sodium (Divalproex Sodium Sprinkles 125 Mg ) 125 mg PO BID [facility] Last Admin: 08/21/23 08:53 Dose: Not Given Documented By: COLTEN Non-Admin Reason: Patient Refused Docusate Sodium (Docusate Sodium 100 Mg Capsule) 100 mg PO BID [facility] Last Admin: 08/21/23 08:45 Dose: Not Given Documented By: COLTEN Non-Admin Reason: Patient Refused Valproic Acid 250 mg/ Dextrose 52.5 mls @ 52.5 mls/hr IV BID [facility] Last Admin: 08/21/23 11:30 Dose: 52.5 mls/hr Documented By: COLTEN Melatonin (Melatonin 3 Mg Tablet) 6 mg PO BEDTIME [facility] Last Admin: 08/20/23 20:08 Dose: Not Given Documented By: VINH Non-Admin Reason: Patient Refused Memantine (Memantine Hcl 5 Mg Tablet) 5 mg PO BID [facility] Last Admin: 08/21/23 08:53 Dose: Not Given Documented By: COLTEN Non-Admin Reason: Patient Refused Metoprolol Succinate (Metoprolol Succinate Er 25 Mg Tab.Er.24h) 25 mg PO DAILY [facility]; Protocol Last Admin: 08/21/23 11:30 Dose: 25 mg Documented By: COLTEN Sertraline HCl (Sertraline Hcl 25 Mg Tablet) 25 mg PO DAILY [facility] Last Admin: 08/21/23 08:53 Dose: Not Given Documented By: COLTEN Non-Admin Reason: Patient Refused Sertraline HCl (Sertraline Hcl 50 Mg Tablet) 50 mg PO DAILY [facility] Last Admin: 08/21/23 08:53 Dose: Not Given Documented By: COLTEN Non-Admin Reason: Patient Refused Sodium Chloride (0.9 % Sodium Chloride Flush 3 Ml Syringe) 3 ml IVFLUSH QSHIFT [facility] Last Admin: 08/21/23 08:46 Dose: 3 ml Documented By: COLTEN Thiamine HCl (Thiamine Hcl 100 Mg Tablet) 100 mg PO DAILY [facility] Last Admin: 08/21/23 08:53 Dose: Not Given Documented By: COLTEN Non-Admin Reason: Patient Refused Trazodone HCl (Trazodone Hcl 50 Mg Tablet) 50 mg PO BEDTIME MRX1 PRN PRN Reason: Insomnia Trazodone HCl (Trazodone Hcl 25 Mg Halftab) 25 mg PO DAILY@0800 [facility] Last Admin: 08/21/23 08:53 Dose: Not Given Documented By: COLTEN Non-Admin Reason: Patient Refused Labs 08/20/23 09:54 08/20/23 09:54 Assessment and Plan (1) Dementia: Status: Acute (2) Atrial fibrillation with rapid ventricular response: Status: Acute Plan Pt is an 82-year-old female with a PMH significant for unspecified dementia, recurrent UTIs, HTN, poor p.o. intake, and frequent falls at?home who presents to the ED for evaluation of increasing agitation and worsening dementia. Depakote restarted IV with dramatic improvement in presentation. 1.Dementia No further agitation since initial dose of Depakote. Patient awake cooperative and compliant with therapies -continued Depakote load IV today -check VPA level in a.m. -switch to p.o. when appropriate 2.Failure to thrive Likely secondary from decompensation in the absence of medication. Took 50% of breakfast this a.m. -continue current therapies 3. AFib with RVR -adequate rate control now that back on metoprolol -no anticoagulation at this time given fall risk -adjust therapies as clinically indicated DNR/DNI Pneumatics Patient requires ongoing hospitalization to reestablish Depakote level with IV administration. Quality Stroke Does the patient have a stroke diagnosis?: No VTE Prior VTE?: No VTE Risk Level:: Medical - moderate - high VTE Device Contraindication: Treatment Not Indicated VTE Drug Contraindication: Treatment Not Indicated
[2023-08-21] MEDS: Metoprolol Tartrate 5 MG/5 ML VIAL IVPUSH ×2 (14:25→19:10)
[2023-08-21] MEDS: Sertraline HCL 25 MG TABLET PO (15:44)
[2023-08-21] MEDS: Memantine HCl 5 MG TABLET PO ×2 (15:49→20:21)
[2023-08-21] MEDS: traZODone HCL 25 MG HALFTAB PO (15:50)
[2023-08-21] MEDS: Sertraline HCL 50 MG TABLET PO (15:59)
--- NOTE | 2023-08-21 16:01 | PC.NURSE ---
Patient initialy was refusing medication but after explanation and encouragement did agree to take daily doses of Trazodone ,Memantine and Sertraline
--- NOTE | 2023-08-21 16:38 | PC.NURSE ---
Unable to complete EKG ,patient refused,patient also took off her media monitor ,will try to reapply art a later time,Dr. Agosto notified
--- NOTE | 2023-08-21 18:08 | PC.NURSE ---
RN able to place heart monitor back on with assistance of charge nurse Mora
--- NOTE | 2023-08-21 18:17 | PC.NURSE ---
Addendum entered by Toya Lawton RN 08/21/23 18:45: Patient seen by THOMAS Mir Original Note: Patient took her heart monitor off again,but agreed to put it back on,refuses EKG
--- NOTE | 2023-08-21 20:18 | PC.NURSE ---
Valproic Acid not available,pharmacy notified,unable to administer early as advised by THOMAS Mir
[2023-08-21] MEDS: Docusate Sodium 100 MG CAPSULE PO (20:21)
[2023-08-21] MEDS: Melatonin 3 MG TABLET 6 MG PO (20:21)
--- NOTE | 2023-08-21 21:41 | PC.NURSE ---
Patient became very resistive when attempted to help to reposition with PYROMETER OPERATOR Anu,taken for a walk in the hallway,patient confused,assisted back to bed ,more calm at present
[2023-08-22] VITALS (10 sets, daily range): BP systolic 95–126; BP diastolic 52–80; PULSE 68–137; RESP 16–18; TEMP 35.5–36.2; O2SAT 95–98
--- NOTE | 2023-08-22 06:35 | PC.NURSE ---
PATIENTS HEARTRATE NOTED 130 S, CARDIAC REHAB NURSE IN USE, RHYTHM ST AND A FLUTTER AFIB PER [facility] AUTOMOTIVE HEAVY MECHANIC. PT DENIED ALL PAIN AND PREVIOUS RN REPORTED THAT HOSPITALIST PA AWARE OF HR AND FAMILY DID NOT WANT [facility] TRANSFER, DRIPS, OR WORKUP, OTHER THAN LOPRESSOR AND MONITOR. PT SLEPT WELL, AMBULATED WITH I ASSIST TO BR, GAIT NOTED WEAK AND UNSTEADY. PT AGREEABLE BACK TO BED WITH NO S/SX DISTRESS, COLOR WNL, LUNG MCGEE DIM, HFR PROTOCOL IN USE WITH ALARM AND CAMERA. WILL CONT TO MONITOR.
[2023-08-22] MEDS: 0.9 % Sodium Chloride Flush 3 ML SYRINGE IVFLUSH ×2 (08:14→16:25)
[2023-08-22] MEDS: Valproic Acid (as Sodium Salt) 250 MG in Dextrose 5 % 50 ML 52.5 MG IV ×2 (08:15→22:04)
--- NOTE | 2023-08-22 08:40 | MHC.CLN ---
NUTRITION CONSULT FOR POOR PO AND WEIGHT LOSS. PATIENT IS HUMAN RESOURCES PROJECT COORDINATOR. DIET=REGULAR, GROUND CONSISTENCY. TAKING SOME PO. CONTINUE CURRENT DIET. PROVIDE FOOD PREFERENCES ABLE.
[2023-08-22] MEDS: Metoprolol Tartrate 5 MG/5 ML VIAL IVPUSH (11:09)
[2023-08-22] MEDS: Sertraline HCL 50 MG TABLET PO (11:19)
[2023-08-22] MEDS: Sertraline HCL 25 MG TABLET PO (11:19)
[2023-08-22] MEDS: traZODone HCL 25 MG HALFTAB PO (11:19)
[2023-08-22] MEDS: Docusate Sodium 100 MG CAPSULE PO ×2 (11:19→21:54)
[2023-08-22] MEDS: Memantine HCl 5 MG TABLET PO ×2 (11:19→21:54)
[2023-08-22] MEDS: Thiamine HCL 100 MG TABLET PO (11:19)
[2023-08-22] MEDS: Metoprolol Succinate ER 25 MG TAB.ER.24H PO (11:19)
--- NOTE | 2023-08-22 12:04 | P.PNIM_ITS ---
Subjective Subjective Date of Service: 08/22/23 Interval History: Continues to be intermittently combative. Continues to be in persistent AFib with RVR Review of Systems Unable to obtain Physical Exam 2 Vital Signs: Vital Signs: Last Vital Signs Temp 97.1 F 08/22/23 07:19 Pulse 137 H 08/22/23 11:09 Resp 18 08/22/23 11:09 BP 123/80 08/22/23 11:09 Pulse Ox 97 08/22/23 11:09 O2 Del Method Room Air 08/22/23 11:09 BMI result Body Mass Index 17.3 Const: Other: Awake alert oriented x2 Resp: Other: Clear to auscultation bilaterally no rales rhonchi or wheezes Cardio: Other: No S4; positive S1-S2; no S3 murmurs rubs or gallops GI: Other: Soft nontender nondistended normoactive bowel sounds Extrem: Other: No edema bilaterally Objective Data Active Medications Acetaminophen (Acetaminophen 325 Mg Tablet) 650 mg PO Q6H PRN PRN Reason: Pain, Mild (Pain Scale 1-3) Digoxin (Digoxin 0.5 Mg/2 Ml Ampul) 0.25 mg IVPUSH Q6H [facility] Stop: 08/23/23 00:01 Docusate Sodium (Docusate Sodium 100 Mg Capsule) 100 mg PO BID [facility] Last Admin: 08/22/23 11:19 Dose: 100 mg Documented By: TIMA Valproic Acid 250 mg/ Dextrose 52.5 mls @ 52.5 mls/hr IV BID [facility] Last Infusion: 08/22/23 09:45 Dose: Infused Documented By: TIMA Melatonin (Melatonin 3 Mg Tablet) 6 mg PO BEDTIME [facility] Last Admin: 08/21/23 20:21 Dose: 6 mg Documented By: BRIT Memantine (Memantine Hcl 5 Mg Tablet) 5 mg PO BID [facility] Last Admin: 08/22/23 11:19 Dose: 5 mg Documented By: TIMA Metoprolol Succinate (Metoprolol Succinate Er 25 Mg Tab.Er.24h) 25 mg PO DAILY [facility]; Protocol Last Admin: 08/22/23 11:19 Dose: 25 mg Documented By: TIMA Sertraline HCl (Sertraline Hcl 25 Mg Tablet) 25 mg PO DAILY [facility] Last Admin: 05/06/24 11:19 Dose: 25 mg Documented By: TIMA Sertraline HCl (Sertraline Hcl 50 Mg Tablet) 50 mg PO DAILY [facility] Last Admin: 08/22/23 11:19 Dose: 50 mg Documented By: TIMA Sodium Chloride (0.9 % Sodium Chloride Flush 3 Ml Syringe) 3 ml IVFLUSH QSHIFT [facility] Last Admin: 08/22/23 08:14 Dose: 3 ml Documented By: TIMA Thiamine HCl (Thiamine Hcl 100 Mg Tablet) 100 mg PO DAILY [facility] Last Admin: 08/22/23 11:19 Dose: 100 mg Documented By: TIMA Trazodone HCl (Trazodone Hcl 50 Mg Tablet) 50 mg PO BEDTIME MRX1 PRN PRN Reason: Insomnia Trazodone HCl (Trazodone Hcl 25 Mg Halftab) 25 mg PO DAILY@0800 [facility] Last Admin: 08/22/23 11:19 Dose: 25 mg Documented By: TIMA Labs 08/20/23 09:54 08/20/23 09:54 Assessment and Plan (1) Dementia: Status: Acute (2) Atrial fibrillation with rapid ventricular response: Status: Acute Plan Pt is an 82-year-old female with a PMH significant for unspecified dementia, recurrent UTIs, HTN, poor p.o. intake, and frequent falls at?home who presents to the ED for evaluation of increasing agitation and worsening dementia. Depakote restarted IV with dramatic improvement in presentation. 1.Dementia Continues with intermittent refusal of care/resistant the therapies -continues on IV Depakote -check level and dose appropriately 2.Failure to thrive Likely secondary from decompensation in the absence of medication. Took 50% of breakfast this a.m. -continue current therapies... Not a candidate for senior care secondary to compliance 3. AFib with RVR -poor response to IV metoprolol; not consistent with oral meds -started dig load -no anticoagulation at this time given fall risk -cardiology consult DNR/DNI Pneumatics Patient requires ongoing hospitalization to stabilize heart rate and specialty consultation. Also requires safe placement Quality Stroke Does the patient have a stroke diagnosis?: No VTE Prior VTE?: No VTE Risk Level:: Medical - moderate - high VTE Device Contraindication: Treatment Not Indicated VTE Drug Contraindication: Treatment Not Indicated
[2023-08-22] MEDS: Digoxin 0.5 MG/2 ML AMPUL 0.25 MG IVPUSH ×2 (12:11→17:05)
--- NOTE | 2023-08-22 13:06 | PM.CNCAR ---
History of Present Illness History of Present Illness Date of Service: 08/22/23 Requesting physician: Karl Agosto Chief complaint: increased agitation, Afib with RVR Narrative: 82-year-old female with dementia, UTI and Afib with RVR. She has difficult to control Afib due to off and on agitation. She is on metoprolol and is receiving a dig load. She is denying any symptoms. No CP, SOB or palpitations. [facility] Social History Social History Household Members: Unknown / Unable to assess Housing: Assisted Living Facility Housing Other:: lives alone in senior housing Do you presently have visiting nurse or other home services: No Comment: 1:1 Patient Tobacco Use Status: Never used Tobacco Smoked in Last 30 Days: No Second Hand Smoke Exposure: No Use of substances other than those prescribed or required for medical reasons: Unable to respond Currently Displaying Signs/Symptoms of Drug Intoxication Withdrawal: No Advance Directives: Yes Advance Directives Information Provided: Yes Do you have a plan to hurt others: No Plan Recently lost weight without trying: Yes How much weight loss: Unsure Eating poorly because of decreased appetite: Yes Nutrition screen score: 5 Nutrition Risks: Anorexia and Poor intake 0-25% >4 days Patient : No : No Poor oral hygiene: No service: No Sexual orientation: Straight/Heterosexual Meds Allergies Allergy/AdvReac Type Severity Reaction Status Date / Time No Known Allergies Allergy Verified 08/19/23 11:34 Active Medications: Current Medications Acetaminophen (Acetaminophen 325 Mg Tablet) 650 mg PO Q6H PRN PRN Reason: Pain, Mild (Pain Scale 1-3) Digoxin (Digoxin 0.5 Mg/2 Ml Ampul) 0.25 mg IVPUSH Q6H [facility] Stop: 08/23/23 00:01 Last Admin: 08/22/23 12:11 Dose: 0.25 mg Docusate Sodium (Docusate Sodium 100 Mg Capsule) 100 mg PO BID [facility] Last Admin: 08/22/23 11:19 Dose: 100 mg Valproic Acid 250 mg/ Dextrose 52.5 mls @ 52.5 mls/hr IV BID [facility] Last Infusion: 08/22/23 09:45 Dose: Infused Melatonin (Melatonin 3 Mg Tablet) 6 mg PO BEDTIME [facility] Last Admin: 08/21/23 20:21 Dose: 6 mg Memantine (Memantine Hcl 5 Mg Tablet) 5 mg PO BID [facility] Last Admin: 08/22/23 11:19 Dose: 5 mg Metoprolol Succinate (Metoprolol Succinate Er 25 Mg Tab.Er.24h) 25 mg PO DAILY [facility]; Protocol Last Admin: 08/22/23 11:19 Dose: 25 mg Sertraline HCl (Sertraline Hcl 25 Mg Tablet) 25 mg PO DAILY [facility] Last Admin: 08/22/23 11:19 Dose: 25 mg Sertraline HCl (Sertraline Hcl 50 Mg Tablet) 50 mg PO DAILY [facility] Last Admin: 08/22/23 11:19 Dose: 50 mg Sodium Chloride (0.9 % Sodium Chloride Flush 3 Ml Syringe) 3 ml IVFLUSH QSHIFT [facility] Last Admin: 08/22/23 08:14 Dose: 3 ml Thiamine HCl (Thiamine Hcl 100 Mg Tablet) 100 mg PO DAILY [facility] Last Admin: 08/22/23 11:19 Dose: 100 mg Trazodone HCl (Trazodone Hcl 50 Mg Tablet) 50 mg PO BEDTIME MRX1 PRN PRN Reason: Insomnia Trazodone HCl (Trazodone Hcl 25 Mg Halftab) 25 mg PO DAILY@0800 [facility] Last Admin: 08/22/23 11:19 Dose: 25 mg Home Medications ?Medication ?Instructions ?Recorded ?Confirmed ?Last Taken ?Type divalproex 125 mg tablet,delayed 125 mg PO BID 08/19/23 08/19/23 Unknown History release melatonin 3 mg tablet 6 mg PO BEDTIME 08/19/23 08/19/23 Unknown History sertraline 25 mg tablet 25 mg PO DAILY 08/19/23 08/19/23 Unknown History sertraline 50 mg tablet 50 mg PO DAILY 08/19/23 08/19/23 Unknown History thiamine HCl (vitamin B1) 100 mg 100 mg PO DAILY 08/19/23 08/19/23 Unknown History tablet trazodone 50 mg tablet 25 mg PO DAILY@0800 08/19/23 08/19/23 Unknown History Physical Exam Vital Signs: Vital Signs: Last Vital Signs Temp 97.1 F 08/22/23 07:19 Pulse 137 H 08/22/23 11:09 Resp 18 08/22/23 11:09 BP 123/80 08/22/23 11:09 Pulse Ox 97 08/22/23 11:09 O2 Del Method Room Air 08/22/23 11:09 BMI result Body Mass Index 17.3 GENERAL APPEARANCE: in no acute distress. NECK: no carotid bruit, no jugular venous distention. SKIN: no suspicious lesions, warm and dry. HEART: no murmurs, irregular rate and rhythm. tachycardic. LUNGS: clear to auscultation bilaterally. ABDOMEN: soft, nontender. EXTREMITIES: no edema. PERIPHERAL PULSES: equal. NEUROLOGIC: No gross deficits, AAO X 3 Objective Labs and Meds 08/20/23 09:54 08/20/23 09:54 Assessment and Plan (1) Atrial fibrillation with rapid ventricular response: Status: Acute Plan 82 female with Afib with RVR. Agree with digoxin load. c/w metoprolol and titrate to 25 mg TID. If stays in Afib >6 hours then would consider anticoagulation. We will follow along. Procedures Date of Service Date of Service: 08/22/23
[2023-08-22] MEDS: Haloperidol Lactate 5 MG/ML VIAL 2.5 MG IM (13:26)
[2023-08-23 03:27] VITALS: BP 111/63; PULSE 87; RESP 17; TEMP 36.3; O2SAT 96
[2023-08-23 07:30] LABS: Alanine Aminotransferase 15 U/L (0-31); Albumin Level 3.5 g/dL (3.5-5.0); Alkaline Phosphatase 85 U/L (39-117); Anion Gap 15 (12-20); Aspartate Amino Transferase 24 U/L (5-31); Bilirubin Total 0.4 mg/dL (0.0-1.0); Blood Urea Nitrogen 12 mg/dL (9-16); Calcium 9.3 mg/dL (8.4-10.2); Carbon Dioxide 26 mmol/L (22-29); Chloride 105 mmol/L (96-108); Creatinine Clr Calc Pharmacy 42.9; Estimated Glomerular Filt Rate > 60; Glucose Fasting 83 mg/dL (60-99); Potassium 3.8 mmol/L (3.3-5.1); Sodium 142 mmol/L (135-145); Total Protein 5.7 g/dL (6.5-8.0)
[2023-08-23 07:46] VITALS: BP 138/79; PULSE 88; RESP 18; TEMP 36; O2SAT 96
[2023-08-23] MEDS: Sertraline HCL 50 MG TABLET PO (08:40)
[2023-08-23] MEDS: 0.9 % Sodium Chloride Flush 3 ML SYRINGE IVFLUSH ×2 (08:40→15:42)
[2023-08-23] MEDS: Docusate Sodium 100 MG CAPSULE PO ×2 (08:40→21:32)
[2023-08-23] MEDS: Valproic Acid (as Sodium Salt) 250 MG in Dextrose 5 % 50 ML 52.5 MG IV (08:40)
[2023-08-23] MEDS: Memantine HCl 5 MG TABLET PO ×2 (08:40→21:32)
[2023-08-23] MEDS: traZODone HCL 25 MG HALFTAB PO (08:40)
[2023-08-23] MEDS: Thiamine HCL 100 MG TABLET PO (08:40)
[2023-08-23] MEDS: Metoprolol Succinate ER 25 MG TAB.ER.24H PO (08:41)
[2023-08-23] MEDS: Sertraline HCL 25 MG TABLET PO (08:41)
--- NOTE | 2023-08-23 11:04 | P.PNIM_ITS ---
Subjective Subjective Date of Service: 08/23/23 Interval History: Being followed for paroxysmal atrial fibrillation, dementia with intermittent agitation. This morning patient awake alert, took her breakfast requesting for tea and coffee, now in sinus rhythm with stable heart rate. Review of Systems All other system reviewed and negative Physical Exam 2 Vital Signs: Vital Signs: Last Vital Signs Temp 96.8 F 08/23/23 07:46 Pulse 88 08/23/23 07:46 Resp 18 08/23/23 07:46 BP 138/79 08/23/23 07:46 Pulse Ox 96 08/23/23 07:46 O2 Del Method Room Air 08/23/23 07:46 BMI result Body Mass Index 17.3 Const: Other: General awake alert, resting comfortably in no acute distress. Neck supple no JVD. CVS regular rate rhythm, Respiratory lungs clear to auscultation, no respiratory distress, no wheeze, no rhonchi. Gastrointestinal abdomen soft, non tender, bowel sounds audible, no guarding , no rigidity. Extremities no edema. Neuro non focal,speech clear. Skin no rash Objective Data Active Medications Acetaminophen (Acetaminophen 325 Mg Tablet) 650 mg PO Q6H PRN PRN Reason: Pain, Mild (Pain Scale 1-3) Docusate Sodium (Docusate Sodium 100 Mg Capsule) 100 mg PO BID [facility] Last Admin: 08/23/23 08:40 Dose: 100 mg Documented By: TIMA Valproic Acid 250 mg/ Dextrose 52.5 mls @ 52.5 mls/hr IV BID [facility] Last Infusion: 08/23/23 09:40 Dose: Infused Documented By: TIMA Melatonin (Melatonin 3 Mg Tablet) 6 mg PO BEDTIME [facility] Last Admin: 08/22/23 22:04 Dose: Not Given Documented By: GUDELIA Non-Admin Reason: pt too sleepy Memantine (Memantine Hcl 5 Mg Tablet) 5 mg PO BID [facility] Last Admin: 08/23/23 08:40 Dose: 5 mg Documented By: TIMA Metoprolol Succinate (Metoprolol Succinate Er 25 Mg Tab.Er.24h) 25 mg PO DAILY [facility]; Protocol Last Admin: 08/23/23 08:41 Dose: 25 mg Documented By: TIMA Sertraline HCl (Sertraline Hcl 25 Mg Tablet) 25 mg PO DAILY [facility] Last Admin: 08/23/23 08:41 Dose: 25 mg Documented By: TIMA Sertraline HCl (Sertraline Hcl 50 Mg Tablet) 50 mg PO DAILY [facility] Last Admin: 08/23/23 08:40 Dose: 50 mg Documented By: TIMA Sodium Chloride (0.9 % Sodium Chloride Flush 3 Ml Syringe) 3 ml IVFLUSH QSHIFT [facility] Last Admin: 08/23/23 08:40 Dose: 3 ml Documented By: TIMA Thiamine HCl (Thiamine Hcl 100 Mg Tablet) 100 mg PO DAILY [facility] Last Admin: 08/23/23 08:40 Dose: 100 mg Documented By: TIMA Trazodone HCl (Trazodone Hcl 50 Mg Tablet) 50 mg PO BEDTIME MRX1 PRN PRN Reason: Insomnia Trazodone HCl (Trazodone Hcl 25 Mg Halftab) 25 mg PO DAILY@0800 [facility] Last Admin: 08/23/23 08:40 Dose: 25 mg Documented By: TIMA Labs 08/20/23 09:54 08/23/23 05:29 Labs: Laboratory Results - last 24 hr 08/23/23 05:29 Anion Gap 15 Estim Creat Clear Calc 42.9 Estimated GFR > 60 Fasting Glucose 83 Calcium 9.3 D Total Bilirubin 0.4 AST 24 ALT 15 Alkaline Phosphatase 85 Total Protein 5.7 L Albumin 3.5 Assessment and Plan (1) Atrial fibrillation with rapid ventricular response: Status: Acute (2) Dementia: Status: Acute Plan 82-year-old female with a PMH significant for unspecified dementia, recurrent UTIs, HTN, poor p.o. intake, and frequent falls at?home who presents to the ED for evaluation of increasing agitation and worsening dementia. Depakote restarted IV with dramatic improvement in presentation. 1. Unspecified Dementia with behavioral issues -this morning awake, alert, requesting for toast and coffee, had her breakfast, during hospitalization noted to have intermittent agitation with refusal of care/resistant to therapies/events from last 24 hours noted patient received Haldol yesterday. -will DC IV Depakote and transition to by mouth Depakote -will order Depakote level and adjust dose 2.Failure to thrive -continue current therapies. 3. AFib with RVR -status post digoxin load and IV metoprolol , heart rate stable today on metoprolol 25 mg daily -no anticoagulation at this time given fall risk, seen by product/industry consultant they recommend to continue metoprolol succinate, follow clinical course DNR/DNI Pneumatics Patient requires ongoing hospitalization to stabilize heart rate and also for safe placement Quality Stroke Does the patient have a stroke diagnosis?: No VTE Prior VTE?: No VTE Risk Level:: Medical - moderate - high VTE Device Contraindication: Treatment Not Indicated VTE Drug Contraindication: Treatment Not Indicated
--- NOTE | 2023-08-23 11:05 | PM.PNCARD ---
Subjective Subjective Date of Service: 08/23/23 Interval history: Seen and examined at bedside. Appears to be back in sinus rhythm. Physical Exam Vital Signs: Last Vital Signs Temp 96.8 F 08/23/23 07:46 Pulse 88 08/23/23 07:46 Resp 18 08/23/23 07:46 BP 138/79 08/23/23 07:46 Pulse Ox 96 08/23/23 07:46 O2 Del Method Room Air 08/23/23 07:46 BMI result Body Mass Index 17.3 GENERAL APPEARANCE: in no acute distress. NECK: no carotid bruit, no jugular venous distention. SKIN: no suspicious lesions, warm and dry. HEART: no murmurs, regular rate and rhythm. LUNGS: clear to auscultation bilaterally. ABDOMEN: soft, nontender. EXTREMITIES: no edema. PERIPHERAL PULSES: equal. NEUROLOGIC: No gross deficits, AAO X 3 Objective Labs and Meds 08/20/23 09:54 08/23/23 05:29 Lab results: Laboratory Results - last 24 hr 08/23/23 05:29 Sodium 142 Potassium 3.8 Chloride 105 Carbon Dioxide 26 Anion Gap 15 BUN 12 Creatinine 0.75 Estim Creat Clear Calc 42.9 Estimated GFR > 60 Fasting Glucose 83 Calcium 9.3 D Total Bilirubin 0.4 AST 24 ALT 15 Alkaline Phosphatase 85 Total Protein 5.7 L Albumin 3.5 Progress Note: A&P Assessment and plan (1) Atrial fibrillation with rapid ventricular response: Status: Acute (2) Acute UTI: Status: Acute (3) Dementia: Status: Acute Plan [age] year female with paroxysmal atrial fibrillation, UTI and dementia. She was given metoprolol and IV digoxin yesterday for AFib with RVR. It appears she went back into AFib at this stage. Continue metoprolol succinate. Would not continue digoxin in sinus rhythm. Clinically stable. We are signing off for now. Time Spent With Patient Time: Total time managing care of this patient today ____ minutes. Progress Note: Quality Stroke Does the patient have a stroke diagnosis?: No Procedures Date of Service Date of Service: 08/23/23
[2023-08-23 12:00] VITALS: BP 117/58; PULSE 83; RESP 12; TEMP 36.1; O2SAT 96
[2023-08-23 14:11] LABS: Valproate 28.3 mcg/mL (50.0-100.0)
[2023-08-23 15:12] VITALS: BP 116/55; PULSE 83; RESP 12; TEMP 36.2; O2SAT 95
[2023-08-23] MEDS: Dextrose 5 % and Lactated Ring 1,000 ML 80 ML IVCONT (15:42)
--- NOTE | 2023-08-23 18:36 | PC.NURSE ---
last night 2251 pt had pause 3.25 sec. aware
[2023-08-23 19:07] VITALS: BP 116/53; PULSE 91; RESP 15; TEMP 36.7; O2SAT 96
[2023-08-23] MEDS: Divalproex Sodium Sprinkles 125 MG CAP.DR.SPR PO (21:31)
[2023-08-23] MEDS: Melatonin 3 MG TABLET 6 MG PO (21:32)
[2023-08-23 23:49] VITALS: BP 96/52; PULSE 88; RESP 16; TEMP 36.2; O2SAT 96
[2023-08-24] VITALS (8 sets, daily range): BP systolic 101–125; BP diastolic 56–97; PULSE 77–132; RESP 14–18; TEMP 36.1–36.3; O2SAT 95–98
[2023-08-24] MEDS: Metoprolol Succinate ER 25 MG TAB.ER.24H PO ×2 (09:23→12:23)
[2023-08-24] MEDS: Memantine HCl 5 MG TABLET PO ×2 (09:24→21:27)
[2023-08-24] MEDS: Sertraline HCL 25 MG TABLET PO (09:24)
[2023-08-24] MEDS: Divalproex Sodium Sprinkles 125 MG CAP.DR.SPR PO ×2 (09:24→21:27)
[2023-08-24] MEDS: traZODone HCL 25 MG HALFTAB PO (09:24)
[2023-08-24] MEDS: Sertraline HCL 50 MG TABLET PO (09:24)
[2023-08-24] MEDS: 0.9 % Sodium Chloride Flush 3 ML SYRINGE IVFLUSH ×3 (09:31→21:27)
[2023-08-24 10:24] LABS: Alanine Aminotransferase 12 U/L (0-31); Albumin Level 3.5 g/dL (3.5-5.0); Alkaline Phosphatase 87 U/L (39-117); Anion Gap 14 (12-20); Aspartate Amino Transferase 20 U/L (5-31); Bilirubin Total 0.4 mg/dL (0.0-1.0); Blood Urea Nitrogen 10 mg/dL (9-16); Calcium 9.2 mg/dL (8.4-10.2); Carbon Dioxide 26 mmol/L (22-29); Chloride 104 mmol/L (96-108); Creatinine Clr Calc Pharmacy 48.1; Estimated Glomerular Filt Rate > 60; Glucose Fasting 95 mg/dL (60-99); Potassium 3.8 mmol/L (3.3-5.1); Sodium 140 mmol/L (135-145); Total Protein 5.8 g/dL (6.5-8.0)
[2023-08-24] MEDS: Docusate Sodium 100 MG CAPSULE PO ×2 (12:23→21:27)
[2023-08-24] MEDS: Thiamine HCL 100 MG TABLET PO (12:23)
--- NOTE | 2023-08-24 13:01 | MHC.CM.PN ---
dc cancelled to [facility] as pt is in afib
--- NOTE | 2023-08-24 13:24 | HO.PM.IMPN ---
Subjective Subjective Date of Service: 08/25/23 Interval History: Patient from assisted living facility, admitted for decreased by mouth intake, increasing agitation and worsening dementia, at present patient awake alert refusing to eat breakfast, was in normal sinus rhythm but converted this morning to atrial fibrillation with rapid ventricular response rate fluctuating between 100 to 130s, patient offers no complain of chest pain, no palpitation. Review of Systems All other system reviewed and negative but limited due to patient's dementia Physical Exam Vital Signs: Vital Signs: Last Vital Signs Temp 96.9 F 08/24/23 11:29 Pulse 120 H 08/24/23 12:23 Resp 16 08/24/23 11:29 BP 123/97 H 08/24/23 12:23 Pulse Ox 96 08/24/23 11:29 O2 Del Method Room Air 08/24/23 11:29 BMI result Body Mass Index 17.3 Const: Other: General awake alert, resting comfortably in no acute distress. Neck supple no JVD. CVS regular rate rhythm, Respiratory lungs clear to auscultation, no respiratory distress, no wheeze, no rhonchi. Gastrointestinal abdomen soft, non tender, bowel sounds audible, no guarding , no rigidity. Extremities no edema. Neuro non focal,speech clear. Skin no rash Objective Data Active Medications Acetaminophen (Acetaminophen 325 Mg Tablet) 650 mg PO Q6H PRN PRN Reason: Pain, Mild (Pain Scale 1-3) Divalproex Sodium (Divalproex Sodium Sprinkles 125 Mg ) 125 mg PO BID [facility] Last Admin: 08/24/23 09:24 Dose: 125 mg Documented By: PRIYANKA Docusate Sodium (Docusate Sodium 100 Mg Capsule) 100 mg PO BID [facility] Last Admin: 08/24/23 12:23 Dose: 100 mg Documented By: PRIYANKA Melatonin (Melatonin 3 Mg Tablet) 6 mg PO BEDTIME [facility] Last Admin: 08/23/23 21:32 Dose: 6 mg Documented By: GUDELIA Memantine (Memantine Hcl 5 Mg Tablet) 5 mg PO BID [facility] Last Admin: 08/24/23 09:24 Dose: 5 mg Documented By: PRIYANKA Metoprolol Succinate (Metoprolol Succinate Er 25 Mg Tab.Er.24h) 25 mg PO DAILY [facility]; Protocol Last Admin: 08/24/23 09:23 Dose: 25 mg Documented By: PRIYANKA Sertraline HCl (Sertraline Hcl 25 Mg Tablet) 25 mg PO DAILY [facility] Last Admin: 08/24/23 09:24 Dose: 25 mg Documented By: PRIYANKA Sertraline HCl (Sertraline Hcl 50 Mg Tablet) 50 mg PO DAILY [facility] Last Admin: 08/24/23 09:24 Dose: 50 mg Documented By: PRIYANKA Sodium Chloride (0.9 % Sodium Chloride Flush 3 Ml Syringe) 3 ml IVFLUSH QSHIFT [facility] Last Admin: 08/24/23 09:31 Dose: 3 ml Documented By: PRIYANKA Thiamine HCl (Thiamine Hcl 100 Mg Tablet) 100 mg PO DAILY [facility] Last Admin: 08/24/23 12:23 Dose: 100 mg Documented By: PRIYANKA Trazodone HCl (Trazodone Hcl 50 Mg Tablet) 50 mg PO BEDTIME MRX1 PRN PRN Reason: Insomnia Trazodone HCl (Trazodone Hcl 25 Mg Halftab) 25 mg PO DAILY@0800 [facility] Last Admin: 08/24/23 09:24 Dose: 25 mg Documented By: PRIYANKA Labs 08/20/23 09:54 08/24/23 08:55 Labs: Laboratory Results - last 24 hr 08/23/23 08/24/23 13:38 08:55 Anion Gap 14 Estim Creat Clear Calc 48.1 Estimated GFR > 60 Fasting Glucose 95 Calcium 9.2 Total Bilirubin 0.4 AST 20 ALT 12 Alkaline Phosphatase 87 Total Protein 5.8 L Albumin 3.5 Valproic Acid 28.3 L Assessment and Plan (1) Atrial fibrillation with rapid ventricular response: Status: Acute Plan 82-year-old female with a PMH significant for unspecified dementia, recurrent UTIs, HTN, poor p.o. intake, and frequent falls at?home who presents to the ED for evaluation of increasing agitation and worsening dementia. Depakote restarted IV with dramatic improvement in presentation. 1. Unspecified Dementia with behavioral issues - awake, alert, drinking coffee refusing breakfast No episodes of agitation in last 24 hours/did not require as needed antipsychotics Placed back on by mouth Depakote 125 mg by mouth b.i.d., Depakote level 28.3 Will continue home medications Zoloft send 5 mg daily, trazodone and Namenda 2.Failure to thrive -spoke with patient's son Karl Barnes he wants to pursue [employer] versus hospice since he feels patient unable to be managed at assisted living with ongoing issues of agitation refusal to eat he does not want to see his mother suffering . 3. AFib with RVR -noted to be in AFib with RVR this morning heart rate in 130s, patient offers no symptoms of shortness of breath, or chest palpitation -status post digoxin load and IV metoprolol , currently on metoprolol 25 mg daily -will give additional dose of metoprolol 25 mg , follow clinical course -no anticoagulation at this time given fall risk, seen by welfare director they recommend to continue metoprolol succinate, follow clinical course DNR/DNI Pneumatics Patient requires ongoing hospitalization to stabilize heart rate and also for safe placement Quality Stroke Does the patient have a stroke diagnosis?: No VTE Prior VTE?: No VTE Risk Level:: Medical - moderate - high VTE Device Contraindication: Treatment Not Indicated VTE Drug Contraindication: Treatment Not Indicated
[2023-08-24] MEDS: traZODone HCL 50 MG TABLET PO (21:27)
[2023-08-24] MEDS: Melatonin 3 MG TABLET 6 MG PO (21:27)
--- NOTE | 2023-08-24 23:48 | MHC.PIE ---
p; pt agitated, anxious, restless and confused. pt resistive to care/trying to jump out of bed numerous times. note; prn trazodone given at 2126. repeat prn trazodone attempted with pt refusing anything po at this time i; dr johnson notified. prn ativan iv daily e; pt in bed trying to sleep? pt calmer at this time, will cont to monitor
[2023-08-25] VITALS (7 sets, daily range): BP systolic 94–125; BP diastolic 55–82; PULSE 74–104; RESP 16–18; TEMP 36–36.4; O2SAT 95–97
--- NOTE | 2023-08-25 04:20 | MHC.PIE ---
p; tele monitor shows 3.5 second pause i; dr johnson notified e; will cont to monitor
[2023-08-25] MEDS: Divalproex Sodium Sprinkles 125 MG CAP.DR.SPR PO (09:09)
[2023-08-25] MEDS: Memantine HCl 5 MG TABLET PO ×2 (09:09→20:49)
[2023-08-25] MEDS: Metoprolol Succinate ER 50 MG TAB.ER.24H PO (09:10)
[2023-08-25] MEDS: traZODone HCL 25 MG HALFTAB PO (09:10)
[2023-08-25] MEDS: Docusate Sodium 100 MG CAPSULE PO ×2 (09:10→20:49)
[2023-08-25] MEDS: Thiamine HCL 100 MG TABLET PO (09:10)
[2023-08-25] MEDS: Sertraline HCL 50 MG TABLET PO (09:10)
[2023-08-25] MEDS: Sertraline HCL 25 MG TABLET PO (09:10)
[2023-08-25] MEDS: 0.9 % Sodium Chloride Flush 3 ML SYRINGE IVFLUSH ×2 (09:11→20:49)
--- NOTE | 2023-08-25 13:25 | P.PNIM_ITS ---
Subjective Subjective Date of Service: 08/25/23 Interval History: Resting comfortably, poor by mouth intake, denying pain, offers no acute complaints, events from last night noted patient was agitated trying to get out of that therefore treated with 1 mg of IV Ativan. Review of Systems Unable to obtain due to mental status Physical Exam 2 Vital Signs: Vital Signs: Last Vital Signs Temp 96.8 F 08/25/23 11:25 Pulse 96 08/25/23 11:25 Resp 16 08/25/23 11:25 BP 94/55 L 08/25/23 11:25 Pulse Ox 97 08/25/23 11:25 O2 Del Method Room Air 08/25/23 11:25 BMI result Body Mass Index 17.3 Const: Other: General awake alert, resting comfortably in no acute distress. Neck supple no JVD. CVS regular rate rhythm, Respiratory lungs clear to auscultation, no respiratory distress, no wheeze, no rhonchi. Gastrointestinal abdomen soft, non tender, bowel sounds audible, no guarding , no rigidity. Extremities no edema. Neuro non focal,speech clear. Skin no rash Objective Data Active Medications Acetaminophen (Acetaminophen 325 Mg Tablet) 650 mg PO Q6H PRN PRN Reason: Pain, Mild (Pain Scale 1-3) Divalproex Sodium (Divalproex Sodium Sprinkles 125 Mg ) 125 mg PO BID [facility] Last Admin: 08/25/23 09:09 Dose: 125 mg Documented By: PRIYANKA Docusate Sodium (Docusate Sodium 100 Mg Capsule) 100 mg PO BID [facility] Last Admin: 08/25/23 09:10 Dose: 100 mg Documented By: PRIYANKA Lorazepam (Lorazepam 2 Mg/Ml Vial) 1 mg IVPUSH DAILY PRN PRN Reason: anxiety/restlessness Melatonin (Melatonin 3 Mg Tablet) 6 mg PO BEDTIME [facility] Last Admin: 08/24/23 21:27 Dose: 6 mg Documented By: DIANNA Memantine (Memantine Hcl 5 Mg Tablet) 5 mg PO BID [facility] Last Admin: 08/25/23 09:09 Dose: 5 mg Documented By: PRIYANKA Metoprolol Succinate (Metoprolol Succinate Er 50 Mg Tab.Er.24h) 50 mg PO DAILY [facility]; Protocol Last Admin: 08/25/23 09:10 Dose: 50 mg Documented By: PRIYANKA Sertraline HCl (Sertraline Hcl 25 Mg Tablet) 25 mg PO DAILY [facility] Last Admin: 08/25/23 09:10 Dose: 25 mg Documented By: PRIYANKA Sertraline HCl (Sertraline Hcl 50 Mg Tablet) 50 mg PO DAILY [facility] Last Admin: 08/25/23 09:10 Dose: 50 mg Documented By: PRIYANKA Sodium Chloride (0.9 % Sodium Chloride Flush 3 Ml Syringe) 3 ml IVFLUSH QSHIFT [facility] Last Admin: 08/25/23 09:11 Dose: 3 ml Documented By: PRIYANKA Thiamine HCl (Thiamine Hcl 100 Mg Tablet) 100 mg PO DAILY [facility] Last Admin: 08/25/23 09:10 Dose: 100 mg Documented By: PRIYANKA Trazodone HCl (Trazodone Hcl 50 Mg Tablet) 50 mg PO BEDTIME MRX1 PRN PRN Reason: Insomnia Last Admin: 08/24/23 21:27 Dose: 50 mg Documented By: DIANNA Trazodone HCl (Trazodone Hcl 25 Mg Halftab) 25 mg PO DAILY@0800 [facility] Last Admin: 08/25/23 09:10 Dose: 25 mg Documented By: PRIYANKA Labs 08/20/23 09:54 08/24/23 08:55 Assessment and Plan (1) Atrial fibrillation with rapid ventricular response: Status: Acute Plan 82-year-old female with a PMH significant for unspecified dementia, recurrent UTIs, HTN, poor p.o. intake, and frequent falls at?home who presents to the ED for evaluation of increasing agitation and worsening dementia. Depakote restarted IV with dramatic improvement in presentation. 1. Unspecified Dementia with behavioral issues - awake, alert, intermittent agitation, required IV Ativan last night on by mouth Depakote 125 mg by mouth b.i.d., Depakote level 28.3 , will increase dose of Depakote 250 mg b.i.d. Will continue home medications Zoloft send 5 mg daily, trazodone and Namenda 2.Failure to thrive -spoke with patient's son Karl Barnes he wants to pursue [employer] versus hospice since he feels patient unable to be managed at assisted living with ongoing issues of agitation refusal to eat he does not want to see his mother suffering . Spoke with behavioral health case manager to arrange for hospice upon discharge 3. AFib with RVR -patient remains in AFib better ventricular rate dose of metoprolol increased to 50 meal g daily , patient noted to have 3.2nd pause on tele monitor patient remained asymptomatic, status post digoxin will continue tele monitoring -no anticoagulation at this time given fall risk, seen by piece dye worker they recommend to continue metoprolol succinate, follow clinical course DNR/DNI Pneumatics Patient requires ongoing hospitalization to stabilize heart rate and also for safe placement Quality Stroke Does the patient have a stroke diagnosis?: No VTE Prior VTE?: No VTE Risk Level:: Medical - moderate - high VTE Device Contraindication: Treatment Not Indicated VTE Drug Contraindication: Treatment Not Indicated
--- NOTE | 2023-08-25 15:24 | MHC.CM.PN ---
met with pts son and explained there isnt a dc planned for today he says he has not talked with [facility] .IN SPEAKING WITH LILY FROM [facility] DC PLAN WOULD BE TO RETURN TO [facility] AND THEY WOULD PLAN TO HAVE AN INFORMATIONAL FOR EITHER HOSPICE OR PALLATIVE
[2023-08-25] MEDS: Divalproex Sodium Sprinkles 125 MG CAP.DR.SPR 250 MG PO (20:49)
[2023-08-25] MEDS: traZODone HCL 50 MG TABLET PO (20:49)
[2023-08-25] MEDS: Melatonin 3 MG TABLET 6 MG PO (20:49)
[2023-08-26 04:00] VITALS: BP 133/84; PULSE 96; RESP 16; TEMP 36.1; O2SAT 99
[2023-08-26 07:20] VITALS: BP 120/76; PULSE 78; RESP 16; TEMP 36; O2SAT 98
[2023-08-26 09:34] VITALS: BP 120/76; PULSE 78
[2023-08-26] MEDS: Docusate Sodium 100 MG CAPSULE PO (09:34)
[2023-08-26] MEDS: Memantine HCl 5 MG TABLET PO (09:34)
[2023-08-26] MEDS: Metoprolol Succinate ER 50 MG TAB.ER.24H PO (09:34)
[2023-08-26] MEDS: traZODone HCL 25 MG HALFTAB PO (09:34)
[2023-08-26] MEDS: Sertraline HCL 25 MG TABLET PO (09:34)
[2023-08-26] MEDS: Thiamine HCL 100 MG TABLET PO (09:34)
[2023-08-26] MEDS: Divalproex Sodium Sprinkles 125 MG CAP.DR.SPR 250 MG PO (09:34)
[2023-08-26] MEDS: 0.9 % Sodium Chloride Flush 3 ML SYRINGE IVFLUSH (09:35)
[2023-08-26] MEDS: Sertraline HCL 50 MG TABLET PO (09:35)
--- NOTE | 2023-08-26 11:23 | PM.DS ---
DS: Providers Provider Date of Service: 08/26/23 Date of admission: 08/21/23 08:45 Primary care physician: Girish Sanford MD Consults: 08/22/23 12:01 Consult to Cardiology Routine Consulting Provider: [facility] – [place] Cardiovascular Services Reason for consultation: AFib w /RVR Has provider been notified: Yes DS: Diagnosis Discharge Diagnosis (1) Atrial fibrillation with rapid ventricular response: Status: Acute DS: Summary Hospital Course Hospital Course: Date of Service: 08/20/23 Attending physician on admission: Karl Agosto Chief Complaint: AMS, poor p.o. intake Pt is an 82-year-old female with a PMH significant for unspecified dementia, recurrent UTIs, HTN, poor p.o. intake, and frequent falls at?home who presents to the ED for evaluation of increasing agitation and worsening dementia. Pt with advanced dementia at baseline, is minimally responsive at time of interview and exam and nonresponsive to questions than to occasionally shake her head. HPI taken from chart and provider review. Family initially brought patient to the ED for evaluation of possible UTI, as she has had increased agitation, AMS, and combativeness in the past when infected. However, workup in the ED negative for acute infection: UA negative, CT of head negative, and labs grossly unremarkable, including no leukocytosis. In the ED patient was agitated, combative, and refusing to take any p.o. medications or to eat or drink anything. ED spoke with family who report she has been declining over the past month and refusing to eat, drink, or take her medications at home. Has been intermittently agitated and had a significant amount of weight loss during this time. ED discussed goals of care with family who do not want patient to receive any invasive measures including TPN or G-tube feeding. They prefer to make patient comfortable and will move forward with placing patient on hospice. Patient will be admitted to the hospital for observation for hospice evaluation in the morning. Hospital course: 82-year-old female with a PMH significant for unspecified dementia, recurrent UTIs, HTN, poor p.o. intake, and frequent falls at?home who presents to the ED for evaluation of increasing agitation and worsening dementia. 1. Unspecified Dementia with behavioral issues patient admitted to medical floor was noted to have intermittent episodes of agitation required IV Ativan and IV Haldol, subsequently dose of Depakote increased to 250 mg b.i.d. since then patient noted to have no episodes of agitation did not require as needed medications she has been continued on Zoloft, trazodone and Namenda, Depakote level was subtherapeutic. 2.Failure to thrive recommend to continue Ensure 3 times a day will require one-to-one feed. 3. AFib with RVR patient noted to have episodes of rapid ventricular response therefore dose of metoprolol increased to 50 mg daily with good response, patient is not on anticoagulation given high fall risk. Was noted to have 3.2nd pause remained asymptomatic no further pauses noted. Time Attestation Discharge Coordination Time (in mins): 35 Quality: Safe Use of Opioids Does Pt have an Active Cancer Diagnosis on the Problem List?: No Quality: Stroke Does the patient have a stroke diagnosis?: No Physical Exam Vital Signs: Vital Signs: Last Vital Signs Temp 96.8 F 08/26/23 07:20 Pulse 78 08/26/23 09:34 Resp 16 08/26/23 07:20 BP 120/76 08/26/23 09:34 Pulse Ox 98 08/26/23 07:20 O2 Del Method Room Air 08/26/23 07:20 BMI result Body Mass Index 17.3 Const: Other: General awake alert, resting comfortably in no acute distress. Neck supple no JVD. CVS irregular rate rhythm, Respiratory lungs clear to auscultation, no respiratory distress, no wheeze, no rhonchi. Gastrointestinal abdomen soft, non tender, bowel sounds audible, no guarding , no rigidity. Extremities no edema. Neuro non focal,speech clear. Skin no rash Discharge Plan Discharge Anticipated Discharge Date/Time: 08/26/23 11:17 Patient Disposition: Xfer SNF Discharge Diagnosis: Unspecified dementia with behavioral issues Atrial fibrillation with RVR Failure to thrive Referrals: derrick lowe [Other] - 1 Day (RESUMPTION OF CARE) Girish Sanford MD [Primary Care Provider] - 1 Week Discharge Medications: New metoprolol succinate 50 mg Tablet Extended Release 24 Hr 50 mg PO DAILY Qty: 30 0RF Protocol: Hold for SBP/HR < HOLD for SBP < : 90 HOLD for HR < : 60 divalproex 125 mg Capsule, Delayed Rel Sprinkle 250 mg PO BID Qty: 60 0RF Continued trazodone 50 mg Tablet 50 mg PO BEDTIME MRX1 PRN (Reason: Insomnia) 30 Days Qty: 60 0RF docusate sodium 100 mg Capsule 100 mg PO BID 30 Days Qty: 60 0RF memantine 5 mg Tablet 5 mg PO BID 30 Days Qty: 60 0RF trazodone 50 mg tablet 25 mg PO DAILY@0800 thiamine HCl (vitamin B1) 100 mg Tablet 100 mg PO DAILY melatonin 3 mg tablet 6 mg PO BEDTIME sertraline 25 mg tablet 25 mg PO DAILY sertraline 50 mg tablet 50 mg PO DAILY Discontinued metoprolol succinate 25 mg tablet extended release 24 hr 25 mg PO DAILY 30 Days Qty: 30 0RF divalproex 125 mg tablet,delayed release (DR/EC) 125 mg PO BID Discharge Orders: Discharge Order (Routine); Ordered 08/26/23 Ordered By: Margarita Purdy Diet: Advance to usual diet Activity on Discharge: As tolerated Stand Alone Forms: Patient Portal Discharge page Print Language: Lao Care Plan Goals: Unspecified dementia with behavioral issues dose of Depakote increased to 250 b.i.d. Atrial fibrillation with rapid ventricular response dose of metoprolol increased to 50 mg daily Health Concerns: Failure to thrive continue ensure one-to-one feeds Plan of Treatment: Outpatient follow-up with primary care Assessment: As above
--- NOTE | 2023-08-26 11:38 | MHC.CM.PN ---
IMM 08/26/23 DELIVERED TO SON/HCP SUKHJINDER AT NUMBER ON FILE, PT MEDICALLY CLEARED TO RETURN TO [facility], PER [facility] THEY WILL PROVIDE SN/OT/PT AND PT ALREADY HAS A ASSIST W/AMBULATION, PER [facility] THEY WILL AUTH BLS TRANSPORT D/T PT'S DEMENTIA AND HX OF [place] FOR [place]SPORT AT 1:30PM.
[2023-08-26 12:00] VITALS: BP 98/57; PULSE 87; RESP 16; TEMP 36; O2SAT 94
== END 2023-08-26 15:16 | disposition skilled nursing facility (03) | DRG 309 ==
LOC: HO.ED 08-20 13:15 → HO.EDOVER 08-20 18:18 → HO.S3 08-21 00:20
PROVIDERS: Hospitalist; Nurse Practitioner Family; Physician Assistant; Admitting Provider Student in an Organized Health Care Education/Training Program; Emergency Provider Emergency Medicine; PCP Internal Medicine; Visit Provider Hospitalist
DX: I48.0 Paroxysmal atrial fibrillation (principal); F03.918 Unspecified dementia, unspecified severity, with other behavioral disturbance; Z68.1 Body mass index [BMI] 19.9 or less, adult; Z87.440 Personal history of urinary (tract) infections; I10 Essential (primary) hypertension; R62.7 Adult failure to thrive; Z51.5 Encounter for palliative care; Z91.148 Patient's other noncompliance with medication regimen for other reason; Z79.899 Other long term (current) drug therapy
CPT/HCPCS: 36415; 70450; 80048; 80053; 80164; 81003; 83735; 84443; 85025; 93005; 97163; 99285; J1160; J1630; J2359

== ENCOUNTER → 2023-08-20 08:35 | Outpatient (BNV) | payer MEDICARE, MEDICAID, SELFPAY | PROVIDERS: Admitting Provider Student in an Organized Health Care Education/Training Program; Emergency Provider Emergency Medicine; PCP Internal Medicine; Visit Provider Internal Medicine | DX: I44.0 Atrioventricular block, first degree (principal); R00.0 Tachycardia, unspecified; I48.91 Unspecified atrial fibrillation | CPT/HCPCS: 93010 ==

== ENCOUNTER → 2023-08-20 18:08 | Outpatient (BNV) | payer MEDICARE, MEDICAID, SELFPAY | PROVIDERS: Admitting Provider Student in an Organized Health Care Education/Training Program; Emergency Provider Emergency Medicine; PCP Internal Medicine; Visit Provider Student in an Organized Health Care Education/Training Program | DX: I48.91 Unspecified atrial fibrillation (principal) | CPT/HCPCS: 99222; 99232; 99239 ==

== ENCOUNTER → 2023-08-21 08:45 | Outpatient (BNV) | payer MEDICARE, SELFPAY | PROVIDERS: Admitting Provider Student in an Organized Health Care Education/Training Program; Emergency Provider Emergency Medicine; PCP Internal Medicine; Visit Provider Internal Medicine Cardiovascular Disease | DX: I48.91 Unspecified atrial fibrillation (principal); N39.0 Urinary tract infection, site not specified; F03.90 Unspecified dementia, unspecified severity, without behavioral disturbance, psychotic disturbance, mood disturbance, and anxiety | CPT/HCPCS: 99222; 99232 ==

== ENCOUNTER 2024-04-08 11:39 | Inpatient (IN) | payer MEDICARE, SELFPAY ==
[2024-04-08 11:50] VITALS: BP 142/90; BP 180/73; PULSE 64; PULSE 75; RESP 18; TEMP 37.1; O2SAT 98; BMI 20.4
--- NOTE | 2024-04-08 12:07 | ED.GENADULT ---
HPI - General Adult General Chief complaint: Altered Mental Status Stated complaint: AMS Time Seen by Provider: 04/08/24 12:06 Source: patient, family (patient's son) and EMS Mode of arrival: EMS Limitations: other (patient is confused) History of Present Illness ED Provider: Trudi Quan PA-C HPI narrative: Patient is an 83 year old assigned female at with a history of atrial fib, anxiety, HTN, HLD, dementia, and gait instability presenting to the emergency department today with increased paranoia / delusions and medication non-compliance. Patient refused to answer any questions other than denying any pain at this time. Patient's son states that the patient lives in an assisted living facility and has not taken her medications for a month, leading to her being much more paranoid / delusional. Patient stated multiple times that the staff at her assisted living place is posioning her. Related Data Home Medications ?Medication ?Instructions ?Recorded ?Confirmed melatonin 3 mg tablet 6 mg PO BEDTIME 08/19/23 08/19/23 sertraline 25 mg tablet 25 mg PO DAILY 08/19/23 08/19/23 sertraline 50 mg tablet 50 mg PO DAILY 08/19/23 08/19/23 thiamine HCl (vitamin B1) 100 mg 100 mg PO DAILY 08/19/23 08/19/23 tablet trazodone 50 mg tablet 25 mg PO DAILY@0800 08/19/23 08/19/23 Previous Rx's ?Medication ?Instructions ?Recorded docusate sodium 100 mg capsule 100 mg PO BID 30 days #60 caps 05/12/23 memantine 5 mg tablet 5 mg PO BID 30 days #60 tabs 05/12/23 trazodone 50 mg tablet 50 mg PO BEDTIME MRX1 PRN Insomnia 05/12/23 30 days #60 tabs divalproex 125 mg capsule,delayed 250 mg (2 x 125 mg) PO BID #60 caps 08/26/23 release sprinkle metoprolol succinate 50 mg 50 mg PO DAILY #30 tabs 08/26/23 tablet,extended release 24 hr Allergies Allergy/AdvReac Type Severity Reaction Status Date / Time lisinopril Allergy Unknown Verified 04/08/24 17:06 sulfamethoxazole Allergy Unknown Verified 04/08/24 17:06 [From Bactrim] trazodone Allergy Unknown Verified 04/08/24 17:06 trimethoprim [From Bactrim] Allergy Unknown Verified 04/08/24 17:06 Review of Systems Review of Systems: Yes Other (patient is paranoid and refuses to answer any ROS questions) Psychiatric: Psychiatric: Reports paranoia PMFSH Past Medical History Attestation statement: The following information was validated with the patient. (all information validated with the patient's son) Source: old records reviewed, obtained from family (patient's son provided all history and ROS) and nursing notes reviewed Medical History Dementia Social History Social History Household Members: Unknown / Unable to assess Housing: Assisted Living Facility Housing Other:: lives alone in senior housing Do you presently have visiting nurse or other home services: No Comment: 1;1 Patient Tobacco Use Status: Never used Tobacco Smoked in Last 30 Days: No Second Hand Smoke Exposure: No Use of substances other than those prescribed or required for medical reasons: No Advance Directives: Yes Advance Directives on File: Yes Advance Directives Date on File: 05/13/23 service: No Sexual orientation: Straight/Heterosexual Physical Exam ED Vital Signs: Vital Signs - 24 hr 04/08/24 11:50 04/08/24 12:10 04/08/24 12:25 Temperature 98.7 F 98.3 F Pulse Rate 64 62 58 Respiratory Rate 18 16 18 Blood Pressure 180/73 H 161/63 H 167/67 H Pulse Oximetry 98 98 99 Oxygen Delivery Method Room Air Room Air Room Air 04/08/24 13:49 04/08/24 15:03 04/08/24 20:04 Temperature 98.5 F 97.8 F 98.2 F Pulse Rate 114 H 64 55 Respiratory Rate 18 16 16 Blood Pressure 147/77 H 168/145 H 114/45 L Pulse Oximetry 97 100 98 Oxygen Delivery Method Room Air Room Air Room Air BMI result Body Mass Index 20.4 Const General: cooperative, no acute distress, alert and awake Nutritional Appearance: well nourished Orientation/consciousness: patient oriented x3 Limitations: no limitations HENMT Head: Yes normal to inspection and Yes atraumatic Ears: hearing grossly normal bilaterally and external ears normal General nose exam: Normal external nose present, no nasal discharge noted and no epistaxis Face and sinus: Yes normal facial exam, No abrasion and No laceration Mouth: Normal oral and palatal mucosa present, no drooling and no muffled voice Eyes General: appearance normal, both eyes and all related structures Periorbital: periorbital findings normal Eyelids: Yes eyelids normal Conjunctivae: conjunctivae normal Pupils: Equal, round and reactive pupils present EOM: EOMs intact bilaterally Neck Neck: Yes normal visual inspection, Yes full ROM and Yes no lymphadenopathy Chest Chest palpation & inspection: normal inspection of the chest Resp Effort & Inspection: normal respiratory effort and able to speak in complete sentences GI Inspection: Yes normal to inspection Neuro General: patient oriented x3 and moves all extremities Cranial nerves: Yes Equal, round and reactive pupils present Cognition (Neuro): normal cognition Extrem General: Yes normal to inspection, Yes full ROM and Yes capillary refill normal Psych Appearance: grossly normal Mental Status: mental status grossly normal Affect: Anxious affect present and Hostile affect present Attitude: Belligerent attititude/behavior present and Guarded attititude/behavior present Thought process: Illogical thought process present Thought content: Paranoid delusions present Insight: Poor insight present (Psych) Judgement: Poor judgement present (Psych) Course Course Course Narrative: 04/09/24--0638--physician observation continued. Labs reviewed. Currently on Ceftin for UTI. Med rec pending. Patient was evaluated by CARE team and deemed they would benefit from [facility] inpatient level of care at this time. Patient placed on section 12 pending bed search. We will continue to monitor for dispo needs Reevaluation(s) Reevaluation #1: Patient is seen by the care team and it was recommended that she be evaluated by Psychiatry for possible inpatient psych due to decompensation despite the fact that she resides in a locked memory unit. I placed a consult to Psychiatry Time: 16:55 Medications Administered Generic Name Dose Route Start Last Admin Trade Name Freq PRN Reason Stop Dose Admin Cefuroxime Axetil 250 mg 04/08/24 14:15 04/08/24 21:02 Cefuroxime Axetil 250 Mg Tablet PO 04/15/24 14:14 250 mg BID VIKTOR Administration Discontinued Medications Generic Name Dose Route Start Last Admin Trade Name Freq PRN Reason Stop Dose Admin Olanzapine 5 mg 04/08/24 11:58 04/08/24 12:10 Olanzapine 10 Mg Vial IM 04/08/24 11:59 5 mg ONCE ONE Administration Medical Decision Making Medical Decision Making [facility] Narrative: Patient is an 83 year old assigned female at with a history of atrial fib, anxiety, HTN, HLD, dementia, and gait instability presenting to the emergency department today with increased paranoia / delusions and medication non-compliance. Patient's physical exam showed a paranoid individual but was otherwise unremarkable. Initially, patient became agitated and began to be physical with staff requiring 5mg of IM Zyprexa. Patient's blood work was unremarkable. Patient's urine showed a possible UTI, given her presentation, will treat. I explained my physical exam findings as well as all test results to the patient and the patient's son. I answered all questions asked by the patient and the patient's son. Patient is awaiting CARE team evaluation. 04/08/2024 at 16:58 hours,Dr. Romero Barnard's note: Physician observation continued Patient was seen by the care team. The patient has been aggressive therefore she was placed on a Section 12. The patient will be a [facility] psych bed search. Differential Diagnosis Differential Diagnoses: The differential diagnosis associated with the presentation includes Paranoia Worsening dementia UTI Admission/Observation Consideration of admission/observation: Escalation of care including admission/observation considered Patient's disposition will be determined after CARE Team evaluation. Lab Data [facility] Lab Attestation statement: I reviewed the patient's lab results. My interpretation of these results are in the MDM Rationale portion of this note. 04/08/24 12:48 04/08/24 12:48 Labs: Lab Results 04/08/24 04/08/24 Range/Units 12:29 12:48 WBC 4.5 L (4.8-10.8) X10*3/uL RBC 3.59 L (4.20-5.50) X10*6/uL Hgb 11.4 L (12.0-16.0) g/dl Hct 32.3 L (37.0-47.0) % MCV 90.0 (80.0-98.0) fL MCH 31.8 (27.0-33.0) pg MCHC 35.3 H (31.0-35.0) g/dl RDW 13.7 (11.0-16.0) % Plt Count 150 L (160-400) X10*3/uL MPV 10.3 (9.4-12.3) fL Immature Gran % (Auto) 0.2 (0.0-0.4) % Neut % (Auto) 70.4 (45-73) % Lymph % (Auto) 20.3 (20-40) % [place] % (Auto) 8.2 (2-11) % Eos % (Auto) 0.9 (0-4) % Baso % (Auto) 0.0 (0-2) % Lymph # (Auto) 0.9 L (1.2-4.9) X10*3/uL [place] # (Auto) 0.4 (0.1-1.2) X10*3/uL Eos # (Auto) 0.0 (0.0-0.4) X10*3/uL Baso # (Auto) 0.0 (0.0-0.2) X10*3/uL Abs Immat Gran (auto) 0.01 (0.00-0.03) X10*3/uL Absolute Neuts (auto) 3.2 (2.0-8.3) x10*3/uL Absolute Nucleated RBC 0.000 (0.0-0.012) X10*3/uL Nucleated RBC % (auto) 0.0 (0.0-0.2) /100WBC Sodium 139 (135-145) mmol/L Potassium 3.9 (3.3-5.1) mmol/L Chloride 106 (96-108) mmol/L Carbon Dioxide 25 (22-29) mmol/L Anion Gap 12 (12-20) BUN 21 H (9-16) mg/dL Creatinine 0.67 (0.5-1.4) mg/dL Estim Creat Clear Calc 52.4 Estimated GFR > 60 Random Glucose 86 (60-115) mg/dL Calcium 9.0 (8.4-10.2) mg/dL Total Bilirubin 0.5 (0.0-1.0) mg/dL AST 23 (5-31) U/L ALT 14 (0-31) U/L Alkaline Phosphatase 67 (39-117) U/L Total Protein 6.4 L (6.5-8.0) g/dL Albumin 4.1 (3.5-5.0) g/dL Urine Color Yellow Urine Appearance Cloudy Urine pH 5.5 (5.0-9.0) Ur Specific [place] 1.020 (1.005-1.025) Urine Protein Negative (Neg-Trace) mg/dL Urine Glucose (UA) Negative (Negative) mg/dL Urine Ketones Negative (Negative) mg/dL Urine Blood Negative (Negative) Urine Nitrite Negative (Negative) Ur Leukocyte Esterase Moderate (2+) H (Negative) Urine RBC 0-2 (0-2) /HPF Urine WBC 6-10 H (0-5) /HPF Ur Squamous Epith Cells 0-2 (0-2) /HPF Urine Bacteria 4+ (None Seen) Hyaline Casts 0-2 (0-2) /LPF Salicylates < 5.0 L (15-30) mg/dL Urine Opiates Screen Not Detected (Not Detect) Ur Buprenorphine Scrn Not Detected (Not Detect) ng/mL Ur Oxycodone Screen Not Detected (Not Detect) ng/mL Urine Methadone Screen Not Detected (Not Detect) ng/mL Urine Fentanyl Screen Not Detected (Not Detect) Acetaminophen < 3 (<30) mcg/mL Ur Barbiturates Screen Not Detected (Not Detect) Ur Phencyclidine Scrn Not Detected (Not Detect) Ur Amphetamines Screen Not Detected (Not Detect) U Benzodiazepines Scrn Not Detected (Not Detect) Urine Cocaine Screen Not Detected (Not Detect) U Marijuana (THC) Screen Not Detected (Not Detect) Ethyl Alcohol < 10 mg/dL Independent Historian Clinical information obtained from an independent historian. History obtained from or confirmed by: Other (patient's son provided all history and ROS) Discharge Plan Discharge Clinical Impression: Acute paranoia, Dementia, Acute UTI, Aggressive behavior Patient Disposition: Still a Patient Prescriptions: No Action trazodone 50 mg Tablet 50 mg PO BEDTIME MRX1 PRN (Reason: Insomnia) 30 Days Qty: 60 0RF docusate sodium 100 mg Capsule 100 mg PO BID 30 Days Qty: 60 0RF memantine 5 mg Tablet 5 mg PO BID 30 Days Qty: 60 0RF trazodone 50 mg tablet 25 mg PO DAILY@0800 thiamine HCl (vitamin B1) 100 mg Tablet 100 mg PO DAILY melatonin 3 mg tablet 6 mg PO BEDTIME sertraline 25 mg tablet 25 mg PO DAILY sertraline 50 mg tablet 50 mg PO DAILY metoprolol succinate 50 mg Tablet Extended Release 24 Hr 50 mg PO DAILY Qty: 30 0RF Protocol: Hold for SBP/HR < HOLD for SBP < : 90 HOLD for HR < : 60 divalproex 125 mg Capsule, Delayed Rel Sprinkle 250 mg PO BID Qty: 60 0RF Print Language: Sami
[2024-04-08 12:10] VITALS: BP 161/63; PULSE 62; RESP 16; O2SAT 98
[2024-04-08] MEDS: OLANZapine 10 MG VIAL 5 MG IM (12:10)
[2024-04-08 12:25] VITALS: BP 167/67; PULSE 58; RESP 18; TEMP 36.8; O2SAT 99
[2024-04-08 12:53] LABS: MANUAL DIFF FLAG NO
[2024-04-08 12:54] LABS: Eosinophils Percent Auto 0.9 % (0-4); Hematocrit 32.3 % (37.0-47.0); Hemoglobin 11.4 g/dl (12.0-16.0); Imm Gran Abs Auto 0.01 X10*3/uL (0.00-0.03); Imm Gran Pct Auto 0.2 % (0.0-0.4); Lymphocytes Absolute Auto 0.9 X10*3/uL (1.2-4.9); Lymphocytes Percent Auto 20.3 % (20-40); Mean Corpuscular HGB Conc 35.3 g/dl (31.0-35.0); Mean Corpuscular Hemoglobin 31.8 pg (27.0-33.0); Mean Platelet Volume 10.3 fL (9.4-12.3); Monocytes Absolute Auto 0.4 X10*3/uL (0.1-1.2); Monocytes Percent Auto 8.2 % (2-11); Neutrophils Absolute Auto 3.2 x10*3/uL (2.0-8.3); Neutrophils Percent Auto 70.4 % (45-73); Platelet Count 150 X10*3/uL (160-400); Red Blood Count 3.59 X10*6/uL (4.20-5.50); Red Cell Distribution Width 13.7 % (11.0-16.0); White Blood Count 4.5 X10*3/uL (4.8-10.8)
[2024-04-08 13:06] LABS: Amphetamine Screen Urine Not Detected (Not Detect); Barbiturates, Urine Not Detected (Not Detect); Benzodiazepines Screen Urine Not Detected (Not Detect); Buprenorphine Scr Not Detected (Not Detect); Cannabinoid Screen Urine Not Detected (Not Detect); Cocaine Screen Urine Not Detected (Not Detect); Fentanyl, urine Not Detected (Not Detect); Methadone Screen, Urine Not Detected (Not Detect); Opiate Screen Urine Not Detected (Not Detect); Oxycodone Screen Urine Not Detected (Not Detect); Phencyclidine Screen Urine Not Detected (Not Detect)
[2024-04-08 13:07] LABS: Appearance Urine Cloudy; Color Urine Yellow; Glucose Urine UA Negative (Negative); Leukocyte Esterase Urine Moderate (2+) (Negative); Nitrite Urine Negative (Negative); PH 5.5 (5.0-9.0); UMIC TRIGGER UA YES; Urine Blood Negative (Negative); Urine Ketones Negative (Negative); Urine Protein Negative (Neg-Trace)
[2024-04-08 13:11] LABS: Alanine Aminotransferase 14 U/L (0-31); Albumin Level 4.1 g/dL (3.5-5.0); Alkaline Phosphatase 67 U/L (39-117); Anion Gap 12 (12-20); Aspartate Amino Transferase 23 U/L (5-31); Bilirubin Total 0.5 mg/dL (0.0-1.0); Blood Urea Nitrogen 21 mg/dL (9-16); Carbon Dioxide 25 mmol/L (22-29); Chloride 106 mmol/L (96-108); Creatinine Clr Calc Pharmacy 52.4; Estimated Glomerular Filt Rate > 60; Ethanol < 10 mg/dL; Glucose Random 86 mg/dL (60-115); Potassium 3.9 mmol/L (3.3-5.1); Sodium 139 mmol/L (135-145); Total Protein 6.4 g/dL (6.5-8.0)
[2024-04-08 13:19] LABS: Acetaminophen LAB < 3 mcg/mL (<30); Salicylate < 5.0 mg/dL (15-30)
[2024-04-08 13:23] LABS: Bacteria Urine 4+ (None Seen); Hyaline Casts Urine 0-2 /LPF (0-2); RBC Urine 0-2 /HPF (0-2); Squamous Epithelial Cell Urine 0-2 /HPF (0-2)
[2024-04-08 13:49] VITALS: BP 147/77; PULSE 114; RESP 18; TEMP 36.9; O2SAT 97
[2024-04-08 15:03] VITALS: BP 168/145; PULSE 64; RESP 16; TEMP 36.6; O2SAT 100
[2024-04-08] MEDS: cefuroxime axetiL 250 MG TABLET PO ×2 (15:05→21:02)
--- NOTE | 2024-04-08 15:05 | PC.NURSE ---
abx administered per provider order. pt continues to rest in no apparent distress at this time. plan of care ongoing. call gresham placed within reach.
--- NOTE | 2024-04-08 16:16 | PC.NURSE ---
pt continuously attempting to get out of bed without assistance. pt is a high fall risk. stand by assist d/t unsteady gait. pt transitioned to hospital bed to promote comfort as well as safety precautions. bed alarm turned on for safety precautions at this time. plan of care ongoing. call gresham placed within reach.
[2024-04-08 20:04] VITALS: BP 114/45; PULSE 55; RESP 16; TEMP 36.8; O2SAT 98
--- NOTE | 2024-04-08 20:53 | MHC.EDTECH ---
pt ate approximately 40% of dinner meal.
[2024-04-09 06:43] VITALS: BP 127/46; PULSE 59; RESP 14; TEMP 36.4; O2SAT 100
[2024-04-09 08:43] VITALS: BP 99/44; PULSE 58; RESP 12; TEMP 36.6; O2SAT 99
[2024-04-09] MEDS: cefuroxime axetiL 250 MG TABLET PO ×2 (08:45→20:17)
--- NOTE | 2024-04-09 08:48 | PC.NURSE ---
patient resting quietly in bed, resp even and unlabored, skin dry and intact. patient sat up and ate breakfast this morning, gave patient warm tea as requested. patient medicated per JUN, takes meds whole with water. VSS.
--- NOTE | 2024-04-09 11:23 | PC.NURSE ---
patient ambulated to bathroom with standby assist, patient tended to her ADLS this morning. patient disclosed to it support technician that she was not completely truthful to Yana adjunct psychology faculty member during consult and that she does feel increasingly paranoid and feels that her UTI usually exaggerates these symptoms. Yana MERINO made aware
--- NOTE | 2024-04-09 11:45 | ECG_ITS ---
Test Reason : MED [employer] Blood Pressure : / mmHG Vent. Rate : 066 BPM Atrial Rate : 066 BPM P-R Int : 208 ms QRS Dur : 068 ms QT Int : 416 ms P-R-T Axes : 079 036 057 degrees QTc Int : 436 ms Normal sinus rhythm Normal ECG When compared with ECG of 20-AUG-2023 12:45, Sinus rhythm has replaced Atrial fibrillation Vent. rate has decreased BY 64 BPM Non-specific change in ST segment in Inferior leads Non-specific change in ST segment in Lateral leads Nonspecific T wave abnormality no longer evident in Inferior leads Nonspecific T wave abnormality no longer evident in Lateral leads Referred By: Romero Barnard Electronically Signed By:Norberto Gaviria
--- NOTE | 2024-04-09 11:45 | PM.PSYCN ---
History of Present Illness Date of Service: 04/09/2024 Chief Complaint: AMS Reason for Consult: paranoia Requesting physician: Karla Lewis Discussed with referring provider: Yes Sources of Information: patient interviewed, chart reviewed and crisis/core team assessment reviewed Additional Sources of Information: Son Karl who is HCP. HPI Narrative: Mrs. Barnse is an 83 year-old woman with hx of Dementia, seems to be vascular dementia with paranoid delusions. She was brought by her son to [facility] due to refusing medications for about one month due to increase paranoid delusions, thinking people were trying to harm her and poison her. In the ED, pt was found to have a UTI and was started on Ceftin. Pt is known to this policy writer sales through previous admission to [facility] with same symptoms including paranoia thinking she is being poisoned in context of dementia. Pt seen in the ED, pt presents as pleasant. She is oriented to place, month, year and even situation, understanding her son was concern about her not taking medications and she is also aware that she was diagnosed with a UTI, which she gets frequently and taking an antibiotic. She reports she was concern about side effects of medications. She also reports she does not like to take any medications. She tells this policy writer sales she realizes not taking medications was a mistake and she will resume taking them. Yesterday, she was accusing son of trying to poison her when he brought some coffee for her while in the ED. She has also had cap grass delusions thinking that her son is an impostor and her actual son has been killed. She denies SI/HI. Past Psychiatric History: Inpt: 2017 at [facility], 04/2023 S1 (paranoia, thinking food is poisoned same as medications) OP: none Past med trials: seroquel, haldol, abilify. Medical Evaluation Reviewed: Yes [facility] Medical History Dementia Diagnostics Vital Signs (24Hr): Vital Signs - 24 hr 04/08/24 11:50 04/08/24 12:10 04/08/24 12:25 Temperature 98.7 F 98.3 F Pulse Rate 64 62 58 Respiratory Rate 18 16 18 Blood Pressure 180/73 H 161/63 H 167/67 H Pulse Oximetry 98 98 99 Oxygen Delivery Method Room Air Room Air Room Air 04/08/24 13:49 04/08/24 15:03 04/08/24 20:04 Temperature 98.5 F 97.8 F 98.2 F Pulse Rate 114 H 64 55 Respiratory Rate 18 16 16 Blood Pressure 147/77 H 168/145 H 114/45 L Pulse Oximetry 97 100 98 Oxygen Delivery Method Room Air Room Air Room Air 04/09/24 06:43 04/09/24 08:43 Temperature 97.6 F 97.9 F Pulse Rate 59 58 Respiratory Rate 14 12 Blood Pressure 127/46 L 99/44 L Pulse Oximetry 100 99 Oxygen Delivery Method Room Air Room Air BMI result Body Mass Index 20.4 Labs 04/08/24 12:48 04/08/24 12:48 Labs: Laboratory Results - last 48 hr 04/08/24 04/08/24 12:29 12:48 WBC 4.5 L RBC 3.59 L Hgb 11.4 L Hct 32.3 L MCV 90.0 MCH 31.8 MCHC 35.3 H RDW 13.7 Plt Count 150 L MPV 10.3 Immature Gran % (Auto) 0.2 Neut % (Auto) 70.4 Lymph % (Auto) 20.3 [place] % (Auto) 8.2 Eos % (Auto) 0.9 Baso % (Auto) 0.0 Lymph # (Auto) 0.9 L [place] # (Auto) 0.4 Eos # (Auto) 0.0 Baso # (Auto) 0.0 Abs Immat Gran (auto) 0.01 Absolute Neuts (auto) 3.2 Absolute Nucleated RBC 0.000 Nucleated RBC % (auto) 0.0 Sodium 139 Potassium 3.9 Chloride 106 Carbon Dioxide 25 Anion Gap 12 BUN 21 H Creatinine 0.67 Estim Creat Clear Calc 52.4 Estimated GFR > 60 Random Glucose 86 Calcium 9.0 Total Bilirubin 0.5 AST 23 ALT 14 Alkaline Phosphatase 67 Total Protein 6.4 L Albumin 4.1 Urine Color Yellow Urine Appearance Cloudy Urine pH 5.5 Ur Specific [place] 1.020 Urine Protein Negative Urine Glucose (UA) Negative Urine Ketones Negative Urine Blood Negative Urine Nitrite Negative Ur Leukocyte Esterase Moderate (2+) H Urine RBC 0-2 Urine WBC 6-10 H Ur Squamous Epith Cells 0-2 Urine Bacteria 4+ Hyaline Casts 0-2 Salicylates < 5.0 L Urine Opiates Screen Not Detected Ur Buprenorphine Scrn Not Detected Ur Oxycodone Screen Not Detected Urine Methadone Screen Not Detected Urine Fentanyl Screen Not Detected Acetaminophen < 3 Ur Barbiturates Screen Not Detected Ur Phencyclidine Scrn Not Detected Ur Amphetamines Screen Not Detected U Benzodiazepines Scrn Not Detected Urine Cocaine Screen Not Detected U Marijuana (THC) Screen Not Detected Ethyl Alcohol < 10 Mental Status Exam Mental Status Exam Narrative: Appearance: wearing hospital gown, fair hygiene, in NAD Behavior: cooperative Speech: mostly clear, normal rate/rhythm/volume, spontaneous TP: linear TC: agreeing to take medications again Mood: better, I know I did not do the right thing Affect: congruent, brighter SI: denies HI: none VH/AH: none Delusions: paranoid delusions and cap gras delusions Insight/judgment: impaired x 2. Memory/cog: alert, oriented x 4. although she is oriented, pattern of cognitive impairments is of vascular type where orientation and language are fairly intact compared to executive function, visuospatial and recall. Medications Medications Current Medications Cefuroxime Axetil (Cefuroxime Axetil 250 Mg Tablet) 250 mg PO BID [facility] Stop: 04/15/24 14:14 Last Admin: 04/09/24 08:45 Dose: 250 mg Allergies Allergies Allergy/AdvReac Type Severity Reaction Status Date / Time lisinopril Allergy Unknown Verified 04/08/24 17:06 sulfamethoxazole Allergy Unknown Verified 04/08/24 17:06 [From Bactrim] trazodone Allergy Unknown Verified 04/08/24 17:06 trimethoprim [From Bactrim] Allergy Unknown Verified 04/08/24 17:06 Assessment & Plan Assessment & Plan (1) Major neurocognitive disorder due to another medical condition, with psychotic disturbance: Status: Acute Code(s): F02.82 - Dementia in other diseases classified elsewhere, unspecified severity, with psychotic disturbance Plan Mrs. Barnes is a 83 year-old woman with hx of dementia, vascular type primarily who was brought by son due to presenting with increased paranoid delusions of being poisoned and cap gras delusions thinking son is an impostor for about one month. In the ED, she was found to have a UTI and started on ceftin. However, pt is not presenting as delirious and current paranoia is related to underlying dementia. She is not combative, superficially cooperative although not fully forthcoming with extend of paranoid delusions. This policy writer sales spoke with her son Karl, who is her HCP, to discuss addition of risperidone low dose 0.5mg po BID. Given that pt is concern about amount of medications that she is taking, can d/c depakote. Start risperidone 0.5mg po BID. PLAN 1. No need for inpt psychiatric admission. She can continue tx OP. Will start risperidone 0.5mg po BID. Total time managing care of this patient today ____ minutes.
--- NOTE | 2024-04-09 11:50 | PC.NURSE ---
pharmacy contacted for patient med list, patient bought to hospital with two med lists. patient unable to participate in med list
--- NOTE | 2024-04-09 12:17 | PC.NURSE ---
patient son shows up at bedside, patient seemingly more paranoid. this RN completed EKG, patient paranoid about the ekg machine, this RN gave patient verbal reassurance during ekg procedure. patient repositioned in bed, covered with blankets.
--- NOTE | 2024-04-09 12:32 | PC.NURSE ---
patient noted to be crying and holding onto her son requesting that we keep him safe, patient having delusions that something will happen to her son because she told us things patient tearful, unredirectable not trying to exit bed. building construction professor Sussy made aware. family at bedside requesting psychopaedic nurse to come to bedside, this RN messaged psychopaedic nurse sussy
--- NOTE | 2024-04-09 12:38 | PHA.MEDREC ---
Addendum entered by Gilberto Rabago [facility] 04/09/24 12:55: med rec checked by [facility] Original Note: Pharmacy Consult ? Medication Reconciliation Pharmacy has completed the medication reconciliation. Got list from [facility] and sign off date on that list seems to be July 06 2023. I tried speaking with the patient but she didn't know much about her medications despite stating shes been taking care of her own medications for the last month but also stating she has not been consistent with taking her medications by herself in this last month and doesn't know what she has or has not taken lately. I utilized claims to confirm the med rec.
[2024-04-09] MEDS: fluPHENAZine HCL 2.5 MG/ML 10 ML VIAL IM (13:15)
[2024-04-09] MEDS: LORazepam 2 MG/ML VIAL 0.5 MG IM (13:15)
--- NOTE | 2024-04-09 13:15 | MHC.CM.ED ---
Received telephone call from Kalyani. He is aware patient is inpatient [facility] bed search. Jonas can be reached via telephone at [phone]. Per Care Team, patient accepted in S1.
--- NOTE | 2024-04-09 13:27 | PC.NURSE ---
patient needed IM restraints, patient unredirectable. son at bedside. medicated per JUN
--- NOTE | 2024-04-09 14:24 | HO.PSYADMNOT ---
HPI Date of Service: 04/09/24 Chief Complaint: disorganized behavior Sources of Information: patient interviewed, chart reviewed and crisis/core team assessment reviewed HPI Subjective Notes: Allred Warning and Conditional Voluntary Healthcare Proxy: Yes (CV by healthcare proxy, the healthcare proxy is her son.) Narrative: The patient is an 83-year-old female, mother of adult children, resident of long-term facility with a prior history of dementia and psychosis, who was admitted in this facility last year and discharged with a very low dose of antipsychotics. The patient carries a diagnosis of dementia and previously she was admitted for delirium due to UTI with exacerbation of psychosis. The patient was rushed to the emergency room since she was becoming belligerent, agitated and paranoid stating that she was been stolen. On admission, the patient was a very poor historian but her son reported that she had been noncompliant with medications for the last month stating that the medications are poison, she progressively decompensate with disorganized behavior, paranoid thoughts and agitation.. On the intake interview, the patient reported that she was feeling fine but she was pleasantly confused easily redirectable. She was chemically restrain a few hours ago in the emergency room due to agitation. The patient is unable to remember details but it is clear that the patient had a UTI and she had been started on antibiotics for UTI. We will monitor it closely. Past Psychiatric History: Inpt: [address] [facility], 04/2023 S1 (paranoia, thinking food is poisoned same as medications) She was admitted again on 2022 and this facility for a similar episode of paranoia. OP: none Past med trials: seroquel, haldol, abilify. Medical Evaluation Reviewed: Yes [facility] Medical History Dementia Diagnostics Vital Signs (24Hr): Vital Signs - 24 hr 04/08/24 15:03 04/08/24 20:04 04/09/24 06:43 Temperature 97.8 F 98.2 F 97.6 F Pulse Rate 64 55 59 Respiratory Rate 16 16 14 Blood Pressure 168/145 H 114/45 L 127/46 L Pulse Oximetry 100 98 100 Oxygen Delivery Method Room Air Room Air Room Air 04/09/24 08:43 Temperature 97.9 F Pulse Rate 58 Respiratory Rate 12 Blood Pressure 99/44 L Pulse Oximetry 99 Oxygen Delivery Method Room Air BMI result Body Mass Index 20.4 Labs 04/08/24 12:48 04/09/24 15:46 Labs: Laboratory Results - last 48 hr 04/08/24 04/08/24 12:29 12:48 WBC 4.5 L RBC 3.59 L Hgb 11.4 L Hct 32.3 L MCV 90.0 MCH 31.8 MCHC 35.3 H RDW 13.7 Plt Count 150 L MPV 10.3 Immature Gran % (Auto) 0.2 Neut % (Auto) 70.4 Lymph % (Auto) 20.3 [place] % (Auto) 8.2 Eos % (Auto) 0.9 Baso % (Auto) 0.0 Lymph # (Auto) 0.9 L [place] # (Auto) 0.4 Eos # (Auto) 0.0 Baso # (Auto) 0.0 Abs Immat Gran (auto) 0.01 Absolute Neuts (auto) 3.2 Absolute Nucleated RBC 0.000 Nucleated RBC % (auto) 0.0 Sodium 139 Potassium 3.9 Chloride 106 Carbon Dioxide 25 Anion Gap 12 BUN 21 H Creatinine 0.67 Estim Creat Clear Calc 52.4 Estimated GFR > 60 Random Glucose 86 Calcium 9.0 Total Bilirubin 0.5 AST 23 ALT 14 Alkaline Phosphatase 67 Total Protein 6.4 L Albumin 4.1 Urine Color Yellow Urine Appearance Cloudy Urine pH 5.5 Ur Specific [place] 1.020 Urine Protein Negative Urine Glucose (UA) Negative Urine Ketones Negative Urine Blood Negative Urine Nitrite Negative Ur Leukocyte Esterase Moderate (2+) H Urine RBC 0-2 Urine WBC 6-10 H Ur Squamous Epith Cells 0-2 Urine Bacteria 4+ Hyaline Casts 0-2 Salicylates < 5.0 L Urine Opiates Screen Not Detected Ur Buprenorphine Scrn Not Detected Ur Oxycodone Screen Not Detected Urine Methadone Screen Not Detected Urine Fentanyl Screen Not Detected Acetaminophen < 3 Ur Barbiturates Screen Not Detected Ur Phencyclidine Scrn Not Detected Ur Amphetamines Screen Not Detected U Benzodiazepines Scrn Not Detected Urine Cocaine Screen Not Detected U Marijuana (THC) Screen Not Detected Ethyl Alcohol < 10 Meds/Allergies Meds Home Medications ?Medication ?Instructions ?Recorded ?Confirmed ?Type melatonin 3 mg tablet 6 mg PO BEDTIME 08/19/23 04/09/24 History thiamine HCl (vitamin B1) 100 mg 100 mg PO DAILY 08/19/23 04/09/24 History tablet metoprolol succinate 25 mg 25 mg PO DAILY 04/09/24 04/09/24 History tablet,extended release 24 hr sertraline 100 mg tablet 100 mg PO DAILY 04/09/24 04/09/24 History Allergies Allergies Allergy/AdvReac Type Severity Reaction Status Date / Time lisinopril Allergy Unknown Verified 04/08/24 17:06 sulfamethoxazole Allergy Unknown Verified 04/08/24 17:06 [From Bactrim] trazodone Allergy Unknown Verified 04/08/24 17:06 trimethoprim [From Bactrim] Allergy Unknown Verified 04/08/24 17:06 Mental Status Exam Mental Status Exam Patient Appearance: Appropriate Patient Orientation: Person Level of Consciousness: Awake and Appropriate Patient Behavior: Guarded and Passive Mood Description: Withdrawn Affect Description: Blunted Patient Cognition Impaired: Yes Ability to Follow Directions: Good Speech Pattern: Clear Hallucinations: None Delusions: Paranoid Ideation and Ideas of Reference Thought Process: Distracted and Slowed Thinking Thought Content: positive for [place] and positive for Poverty of Content Judgement: Poor Assessment & Plan Assessment & Plan (1) Dementia: Status: Acute Code(s): F03.90 - Unspecified dementia, unspecified severity, without behavioral disturbance, psychotic disturbance, mood disturbance, and anxiety (2) Acute UTI: Status: Acute Code(s): N39.0 - Urinary tract infection, site not specified (3) Acute paranoia: Status: Acute Code(s): F22 - Delusional disorders (4) Delirium: Status: Resolved Code(s): R41.0 - Disorientation, unspecified Plan The patient is an elderly female with a past history of dementia who was admitted into the emergency room for exacerbation of psychosis in the context of delirium due to UTI, noncompliance with medications for the last month and a previous history of psychosis with dementia. She was assessed by crisis and transferring to this facility for psychiatric stabilization. Plan 1. Gather collateral information. 2. Keep on 5 minute checks. 3. Continue with medical workout. 4. Reassessment with results. 5. Continue cefuroxime as antibiotic Patient educated on: diagnosis Informed Consent: does not understand Reason for continued inpatient stay Substantial Risk for: inability to function, rapid decompensation and med/psych decompensation Statement Statement: I have reviewed the history and physical and performed a pertinent examination on my patient. No changes have occurred unless specified. If the History and Physical was not performed prior to admission, the Hospitalist's service will be consulted for completing the admission physical. Time Spent With Patient Time: Total time managing care of this patient today __45__ minutes.
[2024-04-09 14:30] VITALS: BP 137/64; PULSE 89; RESP 18; TEMP 36.4; O2SAT 100
[2024-04-09 14:51] VITALS: BMI 19.5
[2024-04-09 16:32] LABS: Albumin Level 4.3 g/dL (3.5-5.0); Anion Gap 15 (12-20); Aspartate Amino Transferase 25 U/L (5-31); Bilirubin Total 0.5 mg/dL (0.0-1.0); Blood Urea Nitrogen 18 mg/dL (9-16); Calcium 9.5 mg/dL (8.4-10.2); Carbon Dioxide 23 mmol/L (22-29); Chloride 105 mmol/L (96-108); Estimated Glomerular Filt Rate > 60; Glucose Random 130 mg/dL (60-115); Potassium 4.2 mmol/L (3.3-5.1); Sodium 139 mmol/L (135-145); Total Protein 6.8 g/dL (6.5-8.0)
[2024-04-09 17:27] LABS: Alanine Aminotransferase 18 U/L (0-31); Alkaline Phosphatase 71 U/L (39-117)
--- NOTE | 2024-04-09 17:50 | PC.ADMIT ---
Patient arrived to S1 in w/c from ED. She resides in [facility]. Her Dx is Dementia with behavioral disturbance. In [facility] pt was not taking medications past month which resulted with increased paranoia, delusions. Similar presentation was last year around this time when she was admitted to [facility]. Pt says that staff at the [facility] was poisoning her. Med restrained while in ER today. Med Hx of Anxiety, Depression, HTN, UTI. Patient on antibiotic therapy for UTI. Upon assessment patient was alert, oriented to self and place. Calm and pleasant. Son, Karl Barnes/HCP at her side. VS as follow; T 97.5, P 89, BP 137/64, O2sat 100% on RA, Wt 110.2 lbs, Ht 5'3''. Patient denies pain. Ambulatory with supervision. Skin check completed and wnl. Per pt's son, Brissa was not vaccinated for flu and agrees to be vaccinated. Pt oriented to the unit, room and surroundings. Good appetite for supper. Will continue to monitor.
[2024-04-09 20:00] VITALS: BP 115/57; PULSE 60; RESP 16; TEMP 37.1; O2SAT 97
[2024-04-09] MEDS: hydrOXYzine HCL 25 MG TABLET PO (20:17)
[2024-04-09] MEDS: Melatonin 3 MG TABLET 6 MG PO (20:17)
[2024-04-09] MEDS: Memantine HCl 5 MG TABLET PO (20:17)
[2024-04-10 07:38] VITALS: BP 114/62; PULSE 60; RESP 18; TEMP 36.6; O2SAT 97
[2024-04-10] MEDS: Memantine HCl 5 MG TABLET PO ×2 (08:27→20:43)
[2024-04-10] MEDS: Thiamine HCL 100 MG TABLET PO (08:27)
[2024-04-10] MEDS: Sertraline HCL 100 MG TABLET PO (08:27)
[2024-04-10] MEDS: cefuroxime axetiL 250 MG TABLET PO ×2 (08:27→20:43)
[2024-04-10] MEDS: Metoprolol Succinate ER 25 MG TAB.ER.24H PO (08:27)
[2024-04-10 09:19] LABS: Cholesterol 154 mg/dL (<200); HDL Cholesterol 42 mg/dL (>40); LDL Cholesterol Calculated 93 mg/dL (<100); Triglycerides 95 mg/dL (<150)
--- NOTE | 2024-04-10 12:34 | HO.PSYCHPN ---
Subjective Subjective Date of Service: 04/10/24 Reason For Visit: disorganized behavior Subjective Notes: Conditional Voluntary Healthcare Proxy: Yes Interim History: The nursing staff reported the patient was noncompliant with medications she was confused but redirectable. She was chemically restrained in the emergency room. On interview the patient denies new symptoms she looks pleasantly confused and easily redirectable. Mental Status Exam Mental Status Exam Patient Appearance: Well Grooomed and Appropriate Patient Orientation: Person and Situation Level of Consciousness: Awake and Appropriate Patient Behavior: Guarded and Passive Mood Description: Withdrawn Affect Description: Constricted Patient Cognition Impaired: Yes Ability to Follow Directions: Good Speech Pattern: Clear Hallucinations: None Delusions: Paranoid Ideation and Ideas of Reference Thought Process: Distracted and Slowed Thinking Thought Content: positive for [place] and positive for Poverty of Content Judgement: Fair Diagnostics Vital Signs (24Hr): Vital Signs - 24 hr 04/09/24 14:30 04/09/24 20:00 04/10/24 07:38 Temperature 97.5 F 98.7 F 97.9 F Pulse Rate 89 60 60 Respiratory Rate 18 16 18 Blood Pressure 137/64 115/57 L 114/62 Pulse Oximetry 100 97 97 Oxygen Delivery Method Room Air Room Air Room Air BMI result Body Mass Index 19.5 Labs 04/08/24 12:48 04/09/24 15:46 Labs: Laboratory Results - last 48 hr 04/08/24 04/08/24 04/09/24 12:29 12:48 15:46 WBC 4.5 L RBC 3.59 L Hgb 11.4 L Hct 32.3 L MCV 90.0 MCH 31.8 MCHC 35.3 H RDW 13.7 Plt Count 150 L MPV 10.3 Immature Gran % (Auto) 0.2 Neut % (Auto) 70.4 Lymph % (Auto) 20.3 [place] % (Auto) 8.2 Eos % (Auto) 0.9 Baso % (Auto) 0.0 Lymph # (Auto) 0.9 L [place] # (Auto) 0.4 Eos # (Auto) 0.0 Baso # (Auto) 0.0 Abs Immat Gran (auto) 0.01 Absolute Neuts (auto) 3.2 Absolute Nucleated RBC 0.000 Nucleated RBC % (auto) 0.0 Sodium 139 139 Potassium 3.9 4.2 Chloride 106 105 Carbon Dioxide 25 23 Anion Gap 12 15 BUN 21 H 18 H Creatinine 0.67 0.78 Estim Creat Clear Calc 52.4 43.0 Estimated GFR > 60 > 60 Random Glucose 86 130 H Calcium 9.0 9.5 Total Bilirubin 0.5 0.5 AST 23 25 ALT 14 18 Alkaline Phosphatase 67 71 Total Protein 6.4 L 6.8 Albumin 4.1 4.3 Triglycerides Cholesterol LDL Cholesterol, Calc HDL Cholesterol Urine Color Yellow Urine Appearance Cloudy Urine pH 5.5 Ur Specific [place] 1.020 Urine Protein Negative Urine Glucose (UA) Negative Urine Ketones Negative Urine Blood Negative Urine Nitrite Negative Ur Leukocyte Esterase Moderate (2+) H Urine RBC 0-2 Urine WBC 6-10 H Ur Squamous Epith Cells 0-2 Urine Bacteria 4+ Hyaline Casts 0-2 Salicylates < 5.0 L Urine Opiates Screen Not Detected Ur Buprenorphine Scrn Not Detected Ur Oxycodone Screen Not Detected Urine Methadone Screen Not Detected Urine Fentanyl Screen Not Detected Acetaminophen < 3 Ur Barbiturates Screen Not Detected Ur Phencyclidine Scrn Not Detected Ur Amphetamines Screen Not Detected U Benzodiazepines Scrn Not Detected Urine Cocaine Screen Not Detected U Marijuana (THC) Screen Not Detected Ethyl Alcohol < 10 04/10/24 08:51 WBC RBC Hgb Hct MCV MCH MCHC RDW Plt Count MPV Immature Gran % (Auto) Neut % (Auto) Lymph % (Auto) [place] % (Auto) Eos % (Auto) Baso % (Auto) Lymph # (Auto) [place] # (Auto) Eos # (Auto) Baso # (Auto) Abs Immat Gran (auto) Absolute Neuts (auto) Absolute Nucleated RBC Nucleated RBC % (auto) Sodium Potassium Chloride Carbon Dioxide Anion Gap BUN Creatinine Estim Creat Clear Calc Estimated GFR Random Glucose Calcium Total Bilirubin AST ALT Alkaline Phosphatase Total Protein Albumin Triglycerides 95 Cholesterol 154 LDL Cholesterol, Calc 93 HDL Cholesterol 42 Urine Color Urine Appearance Urine pH Ur Specific [place] Urine Protein Urine Glucose (UA) Urine Ketones Urine Blood Urine Nitrite Ur Leukocyte Esterase Urine RBC Urine WBC Ur Squamous Epith Cells Urine Bacteria Hyaline Casts Salicylates Urine Opiates Screen Ur Buprenorphine Scrn Ur Oxycodone Screen Urine Methadone Screen Urine Fentanyl Screen Acetaminophen Ur Barbiturates Screen Ur Phencyclidine Scrn Ur Amphetamines Screen U Benzodiazepines Scrn Urine Cocaine Screen U Marijuana (THC) Screen Ethyl Alcohol Medications Medications Current Medications Acetaminophen (Acetaminophen 325 Mg Tablet) 650 mg PO Q6H PRN PRN Reason: Headache/Pain Mild Scale (1-3) Al Hydroxide/Mg Hydroxide (Magnesium Hydrox/Alum Hydrox 30 Ml Oral.Susp) 30 ml PO Q6H PRN PRN Reason: Heartburn/Nausea Cefuroxime Axetil (Cefuroxime Axetil 250 Mg Tablet) 250 mg PO BID [facility] Stop: 04/15/24 14:14 Last Admin: 04/10/24 08:27 Dose: 250 mg Fluphenazine HCl (Fluphenazine Hcl 1 Mg Tablet) 1 mg PO TID [facility] Hydroxyzine HCl (Hydroxyzine Hcl 25 Mg Tablet) 25 mg PO Q6H PRN PRN Reason: Anxiety Last Admin: 04/09/24 20:17 Dose: 25 mg Magnesium Hydroxide (Milk Of Magnesia 30 Ml Oral.Susp) 30 ml PO DAILY PRN PRN Reason: Constipation Melatonin (Melatonin 3 Mg Tablet) 6 mg PO BEDTIME [facility] Last Admin: 04/09/24 20:17 Dose: 6 mg Memantine (Memantine Hcl 5 Mg Tablet) 5 mg PO BID [facility] Last Admin: 04/10/24 08:27 Dose: 5 mg Metoprolol Succinate (Metoprolol Succinate Er 25 Mg Tab.Er.24h) 25 mg PO DAILY [facility]; Protocol Last Admin: 04/10/24 08:27 Dose: 25 mg Sertraline HCl (Sertraline Hcl 100 Mg Tablet) 100 mg PO DAILY [facility] Last Admin: 04/10/24 08:27 Dose: 100 mg Thiamine HCl (Thiamine Hcl 100 Mg Tablet) 100 mg PO DAILY [facility] Last Admin: 04/10/24 08:27 Dose: 100 mg Allergies Allergies Allergy/AdvReac Type Severity Reaction Status Date / Time lisinopril Allergy Unknown Verified 04/08/24 17:06 sulfamethoxazole Allergy Unknown Verified 04/08/24 17:06 [From Bactrim] trazodone Allergy Unknown Verified 04/08/24 17:06 trimethoprim [From Bactrim] Allergy Unknown Verified 04/08/24 17:06 Assessment & Plan Assessment & Plan (1) Major neurocognitive disorder due to another medical condition, with psychotic disturbance: Status: Acute Code(s): F02.82 - Dementia in other diseases classified elsewhere, unspecified severity, with psychotic disturbance Plan Mrs. Barnes is a 83 year-old woman with hx of dementia, vascular type primarily who was brought by son due to presenting with increased paranoid delusions of being poisoned and cap gras delusions thinking son is an impostor for about one month. In the ED, she was found to have a UTI and started on ceftin. However, pt is not presenting as delirious and current paranoia is related to underlying dementia. She is not combative, superficially cooperative although not fully forthcoming with extend of paranoid delusions. This press writer spoke with her son Karl, who is her HCP, to discuss addition of risperidone low dose 0.5mg po BID. Given that pt is concern about amount of medications that she is taking, can d/c depakote. Start risperidone 0.5mg po BID. PLAN 1. Start fluphenazine 1 mg p.o. t.i.d. to target psychosis. Reason for continued inpatient stay Substantial Risk for: inability to function, rapid decompensation and med/psych decompensation Time Spent With Patient Time: Total time managing care of this patient today __20__ minutes.
[2024-04-10] MEDS: fluPHENAZine HCl 1 MG TABLET PO ×2 (14:25→20:43)
[2024-04-10 19:49] VITALS: BP 150/67; PULSE 55; RESP 16; TEMP 36.4; O2SAT 98
[2024-04-10] MEDS: Melatonin 3 MG TABLET 6 MG PO (20:43)
[2024-04-11 08:35] VITALS: BP 134/62; PULSE 75; RESP 18; TEMP 35.9; O2SAT 98
--- NOTE | 2024-04-11 09:01 | P.PNPSI_ITS ---
Subjective Subjective Date of Service: 04/11/24 Reason For Visit: disorganized behavior Interim History: Pt seen, discussed with the team Refuses medications, guarded today, minimally interactive with tw. Team report she may progress to 15 minute checks today which were ordered. Medication Compliance: No Review of Systems Acute medical concerns: No Review of Systems Review of Systems Yes Unobtainable due to mental status Mental Status Exam Mental Status Exam Patient Appearance: Well Grooomed and Appropriate Patient Orientation: Person and Situation Level of Consciousness: Awake and Appropriate Patient Behavior: Guarded and Passive Mood Description: Withdrawn Affect Description: Constricted Patient Cognition Impaired: Yes Ability to Follow Directions: Good Speech Pattern: Clear Hallucinations: None Delusions: Paranoid Ideation and Ideas of Reference Thought Process: Distracted and Slowed Thinking Thought Content: positive for [place] and positive for Poverty of Content Judgement: Fair Diagnostics Vital Signs (24Hr): Vital Signs - 24 hr 04/10/24 19:49 04/11/24 08:35 Temperature 97.6 F 96.6 F L Pulse Rate 55 75 Respiratory Rate 16 18 Blood Pressure 150/67 H 134/62 Pulse Oximetry 98 98 Oxygen Delivery Method Room Air Room Air BMI result Body Mass Index 19.5 Labs 04/08/24 12:48 04/09/24 15:46 Labs: Laboratory Results - last 48 hr 04/09/24 04/10/24 15:46 08:51 Sodium 139 Potassium 4.2 Chloride 105 Carbon Dioxide 23 Anion Gap 15 BUN 18 H Creatinine 0.78 Estim Creat Clear Calc 43.0 Estimated GFR > 60 Random Glucose 130 H Calcium 9.5 Total Bilirubin 0.5 AST 25 ALT 18 Alkaline Phosphatase 71 Total Protein 6.8 Albumin 4.3 Triglycerides 95 Cholesterol 154 LDL Cholesterol, Calc 93 HDL Cholesterol 42 Medications Medications Current Medications Acetaminophen (Acetaminophen 325 Mg Tablet) 650 mg PO Q6H PRN PRN Reason: Headache/Pain Mild Scale (1-3) Al Hydroxide/Mg Hydroxide (Magnesium Hydrox/Alum Hydrox 30 Ml Oral.Susp) 30 ml PO Q6H PRN PRN Reason: Heartburn/Nausea Cefuroxime Axetil (Cefuroxime Axetil 250 Mg Tablet) 250 mg PO BID [facility] Stop: 04/15/24 14:14 Last Admin: 04/11/24 08:58 Dose: Not Given Fluphenazine HCl (Fluphenazine Hcl 1 Mg Tablet) 1 mg PO TID [facility] Last Admin: 04/11/24 08:58 Dose: Not Given Hydroxyzine HCl (Hydroxyzine Hcl 25 Mg Tablet) 25 mg PO Q6H PRN PRN Reason: Anxiety Last Admin: 04/09/24 20:17 Dose: 25 mg Magnesium Hydroxide (Milk Of Magnesia 30 Ml Oral.Susp) 30 ml PO DAILY PRN PRN Reason: Constipation Melatonin (Melatonin 3 Mg Tablet) 6 mg PO BEDTIME [facility] Last Admin: 04/10/24 20:43 Dose: 6 mg Memantine (Memantine Hcl 5 Mg Tablet) 5 mg PO BID [facility] Last Admin: 04/11/24 08:58 Dose: Not Given Metoprolol Succinate (Metoprolol Succinate Er 25 Mg Tab.Er.24h) 25 mg PO DAILY [facility]; Protocol Last Admin: 04/11/24 08:58 Dose: Not Given Sertraline HCl (Sertraline Hcl 100 Mg Tablet) 100 mg PO DAILY [facility] Last Admin: 04/11/24 08:58 Dose: Not Given Thiamine HCl (Thiamine Hcl 100 Mg Tablet) 100 mg PO DAILY [facility] Last Admin: 04/11/24 08:59 Dose: Not Given Allergies Allergies Allergy/AdvReac Type Severity Reaction Status Date / Time lisinopril Allergy Unknown Verified 04/08/24 17:06 sulfamethoxazole Allergy Unknown Verified 04/08/24 17:06 [From Bactrim] trazodone Allergy Unknown Verified 04/08/24 17:06 trimethoprim [From Bactrim] Allergy Unknown Verified 04/08/24 17:06 Assessment & Plan Assessment & Plan (1) Major neurocognitive disorder due to another medical condition, with psychotic disturbance: Status: Acute Code(s): F02.82 - Dementia in other diseases classified elsewhere, unspecified severity, with psychotic disturbance Plan Mrs. Barnes is a 83 year-old woman with hx of dementia, vascular type primarily who was brought by son due to presenting with increased paranoid delusions of being poisoned and cap gras delusions thinking son is an impostor for about one month. In the ED, she was found to have a UTI and started on ceftin. However, pt is not presenting as delirious and current paranoia is related to underlying dementia. She is not combative, superficially cooperative although not fully forthcoming with extend of paranoid delusions. This real estate underwriter spoke with her son Karl, who is her HCP, to discuss addition of risperidone low dose 0.5mg po BID. Given that pt is concern about amount of medications that she is taking, can d/c depakote. Start risperidone 0.5mg po BID. 04/11/24: Encourage alliance and treatment. PLAN 1. Start fluphenazine 1 mg p.o. t.i.d. to target psychosis. Reason for continued inpatient stay Substantial Risk for: rapid decompensation Time Spent With Patient Time: Total time managing care of this patient today ____ minutes.
[2024-04-11 20:00] VITALS: BP 138/60; PULSE 56; RESP 16; TEMP 36.5; O2SAT 98
[2024-04-11] MEDS: cefuroxime axetiL 250 MG TABLET PO (20:56)
[2024-04-12 07:00] VITALS: BMI 20.1
[2024-04-12 08:00] VITALS: BP 147/65; PULSE 64; RESP 16; TEMP 36.6; O2SAT 100
[2024-04-12] MEDS: Flu Vacc TS2024-25(6mos up)/PF 0.5 ML SYRINGE IM (13:59)
--- NOTE | 2024-04-12 14:20 | HO.PSYCHPN ---
Subjective Subjective Date of Service: 04/12/24 Reason For Visit: disorganized behavior Subjective Notes: Conditional Voluntary Healthcare Proxy: Yes Interim History: The nursing staff reported the patient has refused medications, she had been flat and guarded. She was able to continue taking antibiotics. Today on interview the patient reported that she was scared to restart medications and explained her that we are going to do slow titration and she agreed on the plan. Mental Status Exam Mental Status Exam Patient Appearance: Appropriate Patient Orientation: Person and Situation Level of Consciousness: Awake and Appropriate Patient Behavior: Guarded and Passive Mood Description: Withdrawn Affect Description: Constricted Patient Cognition Impaired: Yes Ability to Follow Directions: Good Speech Pattern: Clear Hallucinations: None Delusions: Paranoid Ideation and Ideas of Reference Thought Process: Distracted and Slowed Thinking Thought Content: positive for [place] and positive for Poverty of Content Judgement: Fair Diagnostics Vital Signs (24Hr): Vital Signs - 24 hr 04/11/24 20:00 04/12/24 08:00 Temperature 97.7 F 97.9 F Pulse Rate 56 64 Respiratory Rate 16 16 Blood Pressure 138/60 147/65 H Pulse Oximetry 98 100 Oxygen Delivery Method Room Air Room Air BMI result Body Mass Index 20.1 Labs 04/08/24 12:48 04/09/24 15:46 Medications Medications Current Medications Acetaminophen (Acetaminophen 325 Mg Tablet) 650 mg PO Q6H PRN PRN Reason: Headache/Pain Mild Scale (1-3) Al Hydroxide/Mg Hydroxide (Magnesium Hydrox/Alum Hydrox 30 Ml Oral.Susp) 30 ml PO Q6H PRN PRN Reason: Heartburn/Nausea Cefuroxime Axetil (Cefuroxime Axetil 250 Mg Tablet) 250 mg PO BID [facility] Stop: 04/15/24 14:14 Last Admin: 04/12/24 09:44 Dose: Not Given Fluphenazine HCl (Fluphenazine Hcl 1 Mg Tablet) 1 mg PO TID [facility] Last Admin: 04/12/24 09:44 Dose: Not Given Hydroxyzine HCl (Hydroxyzine Hcl 25 Mg Tablet) 25 mg PO Q6H PRN PRN Reason: Anxiety Last Admin: 04/09/24 20:17 Dose: 25 mg Magnesium Hydroxide (Milk Of Magnesia 30 Ml Oral.Susp) 30 ml PO DAILY PRN PRN Reason: Constipation Melatonin (Melatonin 3 Mg Tablet) 6 mg PO BEDTIME [facility] Last Admin: 04/11/24 20:57 Dose: Not Given Memantine (Memantine Hcl 5 Mg Tablet) 5 mg PO BID [facility] Last Admin: 04/12/24 09:44 Dose: Not Given Metoprolol Succinate (Metoprolol Succinate Er 25 Mg Tab.Er.24h) 25 mg PO DAILY [facility]; Protocol Last Admin: 04/12/24 09:44 Dose: Not Given Sertraline HCl (Sertraline Hcl 100 Mg Tablet) 100 mg PO DAILY [facility] Last Admin: 04/12/24 09:44 Dose: Not Given Thiamine HCl (Thiamine Hcl 100 Mg Tablet) 100 mg PO DAILY [facility] Last Admin: 04/12/24 09:44 Dose: Not Given Allergies Allergies Allergy/AdvReac Type Severity Reaction Status Date / Time lisinopril Allergy Unknown Verified 04/08/24 17:06 sulfamethoxazole Allergy Unknown Verified 04/08/24 17:06 [From Bactrim] trazodone Allergy Unknown Verified 04/08/24 17:06 trimethoprim [From Bactrim] Allergy Unknown Verified 04/08/24 17:06 Assessment & Plan Assessment & Plan (1) Major neurocognitive disorder due to another medical condition, with psychotic disturbance: Status: Acute Code(s): F02.82 - Dementia in other diseases classified elsewhere, unspecified severity, with psychotic disturbance Plan Mrs. Barnes is a 83 year-old woman with hx of dementia, vascular type primarily who was brought by son due to presenting with increased paranoid delusions of being poisoned and cap gras delusions thinking son is an impostor for about one month. In the ED, she was found to have a UTI and started on ceftin. However, pt is not presenting as delirious and current paranoia is related to underlying dementia. She is not combative, superficially cooperative although not fully forthcoming with extend of paranoid delusions. This senior grant writer spoke with her son Karl, who is her HCP, to discuss addition of risperidone low dose 0.5mg po BID. Given that pt is concern about amount of medications that she is taking, can d/c depakote. Start risperidone 0.5mg po BID. 04/11/24: Encourage alliance and treatment. PLAN 1. Start fluphenazine 1 mg p.o. t.i.d. to target psychosis. 2. Continue with other medication. Reason for continued inpatient stay Substantial Risk for: inability to function, rapid decompensation and med/psych decompensation Time Spent With Patient Time: Total time managing care of this patient today __20__ minutes.
[2024-04-12] MEDS: fluPHENAZine HCl 1 MG TABLET PO (15:22)
[2024-04-12 20:00] VITALS: BP 127/59; PULSE 66; RESP 16; TEMP 36.1; O2SAT 97
[2024-04-12] MEDS: cefuroxime axetiL 250 MG TABLET PO (20:12)
[2024-04-13 08:00] VITALS: BP 129/62; PULSE 74; RESP 18; TEMP 36.4; O2SAT 97
[2024-04-13] MEDS: cefuroxime axetiL 250 MG TABLET PO ×2 (08:48→20:45)
[2024-04-13] MEDS: Memantine HCl 5 MG TABLET PO ×2 (08:48→20:45)
[2024-04-13] MEDS: Metoprolol Succinate ER 25 MG TAB.ER.24H PO (08:48)
[2024-04-13] MEDS: Thiamine HCL 100 MG TABLET PO (08:48)
[2024-04-13] MEDS: Sertraline HCL 50 MG TABLET PO (08:48)
[2024-04-13] MEDS: fluPHENAZine HCl 1 MG TABLET PO ×2 (08:48→20:45)
--- NOTE | 2024-04-13 09:09 | HO.PSYCHPN ---
Subjective Subjective Date of Service: 04/13/24 Reason For Visit: disorganized behavior Subjective Notes: Conditional Voluntary Interim History: Pt slept through the night. She continues to refuse antipsychotic. She is guarded not fully forthcoming with extend of delusional content. She did take medications this morning with much encouragement. Review of Systems Review of Systems Yes Unobtainable due to mental status and Other (patient is paranoid and refuses to answer any ROS questions) Psychiatric: Reports paranoia Mental Status Exam Mental Status Exam Narrative: Appearance: wearing hospital gown, fair hygiene, in NAD Behavior: cooperative Speech: mostly clear, normal rate/rhythm/volume, spontaneous TP: linear TC: agreeing to take medications again Mood: better, I know I did not do the right thing Affect: congruent, brighter SI: denies HI: none VH/AH: none Delusions: paranoid delusions and cap gras delusions Insight/judgment: impaired x 2. Memory/cog: alert, oriented x 4. although she is oriented, pattern of cognitive impairments is of vascular type where orientation and language are fairly intact compared to executive function, visuospatial and recall. Diagnostics Vital Signs (24Hr): Vital Signs - 24 hr 04/12/24 20:00 Temperature 96.9 F Pulse Rate 66 Respiratory Rate 16 Blood Pressure 127/59 L Pulse Oximetry 97 Oxygen Delivery Method Room Air BMI result Body Mass Index 20.1 Labs 04/08/24 12:48 04/09/24 15:46 Medications Medications Current Medications Acetaminophen (Acetaminophen 325 Mg Tablet) 650 mg PO Q6H PRN PRN Reason: Headache/Pain Mild Scale (1-3) Al Hydroxide/Mg Hydroxide (Magnesium Hydrox/Alum Hydrox 30 Ml Oral.Susp) 30 ml PO Q6H PRN PRN Reason: Heartburn/Nausea Cefuroxime Axetil (Cefuroxime Axetil 250 Mg Tablet) 250 mg PO BID [facility] Stop: 04/15/24 14:14 Last Admin: 04/13/24 08:48 Dose: 250 mg Fluphenazine HCl (Fluphenazine Hcl 1 Mg Tablet) 1 mg PO TID [facility] Last Admin: 04/13/24 08:48 Dose: 1 mg Hydroxyzine HCl (Hydroxyzine Hcl 25 Mg Tablet) 25 mg PO Q6H PRN PRN Reason: Anxiety Last Admin: 04/09/24 20:17 Dose: 25 mg Magnesium Hydroxide (Milk Of Magnesia 30 Ml Oral.Susp) 30 ml PO DAILY PRN PRN Reason: Constipation Melatonin (Melatonin 3 Mg Tablet) 6 mg PO BEDTIME [facility] Last Admin: 04/12/24 22:27 Dose: Not Given Memantine (Memantine Hcl 5 Mg Tablet) 5 mg PO BID [facility] Last Admin: 04/13/24 08:48 Dose: 5 mg Metoprolol Succinate (Metoprolol Succinate Er 25 Mg Tab.Er.24h) 25 mg PO DAILY [facility]; Protocol Last Admin: 04/13/24 08:48 Dose: 25 mg Sertraline HCl (Sertraline Hcl 50 Mg Tablet) 50 mg PO DAILY [facility] Last Admin: 04/13/24 08:48 Dose: 50 mg Thiamine HCl (Thiamine Hcl 100 Mg Tablet) 100 mg PO DAILY [facility] Last Admin: 04/13/24 08:48 Dose: 100 mg Allergies Allergies Allergy/AdvReac Type Severity Reaction Status Date / Time lisinopril Allergy Unknown Verified 04/08/24 17:06 sulfamethoxazole Allergy Unknown Verified 04/08/24 17:06 [From Bactrim] trazodone Allergy Unknown Verified 04/08/24 17:06 trimethoprim [From Bactrim] Allergy Unknown Verified 04/08/24 17:06 Assessment & Plan Assessment & Plan (1) Major neurocognitive disorder due to another medical condition, with psychotic disturbance: Status: Acute Code(s): F02.82 - Dementia in other diseases classified elsewhere, unspecified severity, with psychotic disturbance Plan Mrs. Barnes is a 83 year-old woman with hx of dementia, vascular type primarily who was brought by son due to presenting with increased paranoid delusions of being poisoned and cap gras delusions thinking son is an impostor for about one month. In the ED, she was found to have a UTI and started on ceftin. However, pt is not presenting as delirious and current paranoia is related to underlying dementia. She is not combative, superficially cooperative although not fully forthcoming with extend of paranoid delusions. This mortgage underwriter spoke with her son Karl, who is her HCP, to discuss addition of risperidone low dose 0.5mg po BID. Given that pt is concern about amount of medications that she is taking, can d/c depakote. Start risperidone 0.5mg po BID. 04/11/24: Encourage alliance and treatment. 04/12 continue tx. Reason for continued inpatient stay Substantial Risk for: inability to function Time Spent With Patient Time: Total time managing care of this patient today ____ minutes.
[2024-04-13 20:00] VITALS: BP 130/60; PULSE 70; RESP 16; TEMP 36.4; O2SAT 97
[2024-04-13] MEDS: Melatonin 3 MG TABLET 6 MG PO (20:45)
[2024-04-14] MEDS: Acetaminophen 325 MG TABLET 650 MG PO (01:52)
[2024-04-14] MEDS: hydrOXYzine HCL 25 MG TABLET PO ×2 (01:52→20:32)
[2024-04-14 08:52] VITALS: BP 186/73; PULSE 61; RESP 16; TEMP 36.6; O2SAT 100
[2024-04-14] MEDS: fluPHENAZine HCl 1 MG TABLET PO ×3 (08:55→20:31)
[2024-04-14] MEDS: Sertraline HCL 50 MG TABLET PO (08:55)
[2024-04-14] MEDS: cefuroxime axetiL 250 MG TABLET PO ×2 (08:55→20:31)
[2024-04-14] MEDS: Metoprolol Succinate ER 25 MG TAB.ER.24H PO (08:55)
[2024-04-14] MEDS: Thiamine HCL 100 MG TABLET PO (08:55)
[2024-04-14 10:20] VITALS: BP 97/51
--- NOTE | 2024-04-14 15:21 | HO.PSYCHPN ---
Subjective Subjective Date of Service: 04/14/24 Reason For Visit: disorganized behavior Interim History: Pt seen, discussed with the team. Plan of care was reviewed. Pt is accepting medicine. She reports she believes she was poisoned when at her ASSIST[employer] (food and medicine). She tells team this is not her belief while in hospital. She denies pain, questions or concerns today, but does report poor sleep, adverse response to Trazodone. Medication Compliance: Yes Side effects from medications: No Attending Groups: Yes Review of Systems Acute medical concerns: No Review of Systems Review of Systems sleep disturbance Mental Status Exam Mental Status Exam Narrative: Alert, interactive, calm, engaged Reports intermittent sleep disturbance Denies other sx. Diagnostics Vital Signs (24Hr): Vital Signs - 24 hr 04/13/24 20:00 04/14/24 08:52 04/14/24 10:20 Temperature 97.6 F 97.9 F Pulse Rate 70 61 Respiratory Rate 16 16 Blood Pressure 130/60 186/73 H 97/51 L Pulse Oximetry 97 100 Oxygen Delivery Method Room Air Room Air BMI result Body Mass Index 20.1 Labs 04/08/24 12:48 04/09/24 15:46 Medications Medications Current Medications Acetaminophen (Acetaminophen 325 Mg Tablet) 650 mg PO Q6H PRN PRN Reason: Headache/Pain Mild Scale (1-3) Last Admin: 04/14/24 01:52 Dose: 650 mg Al Hydroxide/Mg Hydroxide (Magnesium Hydrox/Alum Hydrox 30 Ml Oral.Susp) 30 ml PO Q6H PRN PRN Reason: Heartburn/Nausea Cefuroxime Axetil (Cefuroxime Axetil 250 Mg Tablet) 250 mg PO BID [facility] Stop: 04/15/24 14:14 Last Admin: 04/14/24 08:55 Dose: 250 mg Fluphenazine HCl (Fluphenazine Hcl 1 Mg Tablet) 1 mg PO TID [facility] Last Admin: 04/14/24 08:55 Dose: 1 mg Hydroxyzine HCl (Hydroxyzine Hcl 25 Mg Tablet) 25 mg PO Q6H PRN PRN Reason: Anxiety Last Admin: 04/14/24 01:52 Dose: 25 mg Magnesium Hydroxide (Milk Of Magnesia 30 Ml Oral.Susp) 30 ml PO DAILY PRN PRN Reason: Constipation Melatonin (Melatonin 3 Mg Tablet) 6 mg PO BEDTIME [facility] Last Admin: 04/13/24 20:45 Dose: 6 mg Memantine (Memantine Hcl 5 Mg Tablet) 5 mg PO BID [facility] Last Admin: 04/14/24 10:15 Dose: Not Given Metoprolol Succinate (Metoprolol Succinate Er 25 Mg Tab.Er.24h) 25 mg PO DAILY [facility]; Protocol Last Admin: 04/14/24 08:55 Dose: 25 mg Sertraline HCl (Sertraline Hcl 50 Mg Tablet) 50 mg PO DAILY [facility] Last Admin: 04/14/24 08:55 Dose: 50 mg Thiamine HCl (Thiamine Hcl 100 Mg Tablet) 100 mg PO DAILY [facility] Last Admin: 04/14/24 08:55 Dose: 100 mg Allergies Allergies Allergy/AdvReac Type Severity Reaction Status Date / Time lisinopril Allergy Unknown Verified 04/08/24 17:06 sulfamethoxazole Allergy Unknown Verified 04/08/24 17:06 [From Bactrim] trazodone Allergy Unknown Verified 04/08/24 17:06 trimethoprim [From Bactrim] Allergy Unknown Verified 04/08/24 17:06 Assessment & Plan Assessment & Plan (1) Major neurocognitive disorder due to another medical condition, with psychotic disturbance: Status: Acute Code(s): F02.82 - Dementia in other diseases classified elsewhere, unspecified severity, with psychotic disturbance Plan Mrs. Barnes is a 83 year-old woman with hx of dementia, vascular type primarily who was brought by son due to presenting with increased paranoid delusions of being poisoned and cap gras delusions thinking son is an impostor for about one month. In the ED, she was found to have a UTI and started on ceftin. However, pt is not presenting as delirious and current paranoia is related to underlying dementia. She is not combative, superficially cooperative although not fully forthcoming with extend of paranoid delusions. This telegraphic typewriter mechanic spoke with her son Karl, who is her HCP, to discuss addition of risperidone low dose 0.5mg po BID. Given that pt is concern about amount of medications that she is taking, can d/c depakote. Start risperidone 0.5mg po BID. 04/11/24: Encourage alliance and treatment. 04/12 continue tx. 04/14: Continue current regime and plan of care If insomnia continues, ?increase Risperdone, ?add low dose Remeron Reason for continued inpatient stay Substantial Risk for: rapid decompensation Time Spent With Patient Time: Total time managing care of this patient today ____ minutes.
[2024-04-14 19:42] VITALS: BP 130/62; PULSE 63; TEMP 36.8
[2024-04-14] MEDS: Melatonin 3 MG TABLET 6 MG PO (20:31)
[2024-04-14] MEDS: Memantine HCl 5 MG TABLET PO (20:32)
[2024-04-15 08:12] VITALS: BP 135/87; PULSE 68; RESP 14; TEMP 36.8; O2SAT 100
[2024-04-15] MEDS: cefuroxime axetiL 250 MG TABLET PO (08:13)
[2024-04-15] MEDS: Sertraline HCL 50 MG TABLET PO (08:13)
[2024-04-15] MEDS: Thiamine HCL 100 MG TABLET PO (08:13)
[2024-04-15] MEDS: Memantine HCl 5 MG TABLET PO ×2 (08:13→20:14)
[2024-04-15] MEDS: Metoprolol Succinate ER 25 MG TAB.ER.24H PO (08:13)
[2024-04-15] MEDS: fluPHENAZine HCl 1 MG TABLET PO ×3 (08:14→20:14)
--- NOTE | 2024-04-15 13:56 | HO.PSYCHPN ---
Subjective Subjective Date of Service: 04/15/24 Reason For Visit: disorganized behavior Interim History: Pt seen in the milieu. Discussed with team. Team reports she has shared with them that she believes her son to be an imposter, being replaced when he sees her. Team have attempted reassurance. Today, pt does not mention this, she is seen in the milieu and in her room. She denies issues of concern or symptoms Medication Compliance: Yes Review of Systems Review of Systems Denies Mental Status Exam Mental Status Exam Narrative: Alert, interactive, calm, engaged Denies symptoms of concern. Diagnostics Vital Signs (24Hr): Vital Signs - 24 hr 04/14/24 19:42 04/15/24 08:12 Temperature 98.3 F 98.3 F Pulse Rate 63 68 Respiratory Rate 14 Blood Pressure 130/62 135/87 Pulse Oximetry 100 Oxygen Delivery Method Room Air Room Air BMI result Body Mass Index 20.1 Labs 04/08/24 12:48 04/09/24 15:46 Medications Medications Current Medications Acetaminophen (Acetaminophen 325 Mg Tablet) 650 mg PO Q6H PRN PRN Reason: Headache/Pain Mild Scale (1-3) Last Admin: 04/14/24 01:52 Dose: 650 mg Al Hydroxide/Mg Hydroxide (Magnesium Hydrox/Alum Hydrox 30 Ml Oral.Susp) 30 ml PO Q6H PRN PRN Reason: Heartburn/Nausea Cefuroxime Axetil (Cefuroxime Axetil 250 Mg Tablet) 250 mg PO BID [facility] Stop: 04/15/24 14:14 Last Admin: 04/15/24 08:13 Dose: 250 mg Fluphenazine HCl (Fluphenazine Hcl 1 Mg Tablet) 1 mg PO TID [facility] Last Admin: 04/15/24 08:14 Dose: 1 mg Hydroxyzine HCl (Hydroxyzine Hcl 25 Mg Tablet) 25 mg PO Q6H PRN PRN Reason: Anxiety Last Admin: 04/14/24 20:32 Dose: 25 mg Magnesium Hydroxide (Milk Of Magnesia 30 Ml Oral.Susp) 30 ml PO DAILY PRN PRN Reason: Constipation Melatonin (Melatonin 3 Mg Tablet) 6 mg PO BEDTIME [facility] Last Admin: 04/14/24 20:31 Dose: 6 mg Memantine (Memantine Hcl 5 Mg Tablet) 5 mg PO BID [facility] Last Admin: 04/15/24 08:13 Dose: 5 mg Metoprolol Succinate (Metoprolol Succinate Er 25 Mg Tab.Er.24h) 25 mg PO DAILY [facility]; Protocol Last Admin: 04/15/24 08:13 Dose: 25 mg Sertraline HCl (Sertraline Hcl 50 Mg Tablet) 50 mg PO DAILY [facility] Last Admin: 04/15/24 08:13 Dose: 50 mg Thiamine HCl (Thiamine Hcl 100 Mg Tablet) 100 mg PO DAILY [facility] Last Admin: 04/15/24 08:13 Dose: 100 mg Allergies Allergies Allergy/AdvReac Type Severity Reaction Status Date / Time lisinopril Allergy Unknown Verified 04/08/24 17:06 sulfamethoxazole Allergy Unknown Verified 04/08/24 17:06 [From Bactrim] trazodone Allergy Unknown Verified 04/08/24 17:06 trimethoprim [From Bactrim] Allergy Unknown Verified 04/08/24 17:06 Assessment & Plan Assessment & Plan (1) Major neurocognitive disorder due to another medical condition, with psychotic disturbance: Status: Acute Code(s): F02.82 - Dementia in other diseases classified elsewhere, unspecified severity, with psychotic disturbance Plan Mrs. Barnes is a 83 year-old woman with hx of dementia, vascular type primarily who was brought by son due to presenting with increased paranoid delusions of being poisoned and cap gras delusions thinking son is an impostor for about one month. In the ED, she was found to have a UTI and started on ceftin. However, pt is not presenting as delirious and current paranoia is related to underlying dementia. She is not combative, superficially cooperative although not fully forthcoming with extend of paranoid delusions. This technical report writer spoke with her son Karl, who is her HCP, to discuss addition of risperidone low dose 0.5mg po BID. Given that pt is concern about amount of medications that she is taking, can d/c depakote. Start risperidone 0.5mg po BID. 04/11/24: Encourage alliance and treatment. 04/12 continue tx. 04/14: Continue current regime and plan of care If insomnia continues, ?increase Risperdone, ?add low dose Remeron 04/15: Continue current regime and plan of care. Reason for continued inpatient stay Substantial Risk for: rapid decompensation Time Spent With Patient Time: Total time managing care of this patient today ____ minutes.
[2024-04-15 20:00] VITALS: BP 145/64; PULSE 68; RESP 16; TEMP 36.2; O2SAT 99
[2024-04-15] MEDS: hydrOXYzine HCL 25 MG TABLET PO (20:14)
[2024-04-15] MEDS: Melatonin 3 MG TABLET 6 MG PO (20:14)
[2024-04-16] MEDS: Acetaminophen 325 MG TABLET 650 MG PO (00:35)
[2024-04-16] MEDS: hydrOXYzine HCL 25 MG TABLET PO (01:35)
[2024-04-16 08:27] VITALS: BP 154/68; PULSE 62; RESP 17; TEMP 36.2; O2SAT 100
[2024-04-16] MEDS: Memantine HCl 5 MG TABLET PO ×2 (08:29→19:58)
[2024-04-16] MEDS: Thiamine HCL 100 MG TABLET PO (08:29)
[2024-04-16] MEDS: Metoprolol Succinate ER 25 MG TAB.ER.24H PO (08:29)
[2024-04-16] MEDS: fluPHENAZine HCl 1 MG TABLET PO (08:29)
[2024-04-16] MEDS: Sertraline HCL 50 MG TABLET PO (08:29)
--- NOTE | 2024-04-16 14:23 | HO.PSYCHPN ---
Subjective Subjective Date of Service: 04/16/24 Reason For Visit: disorganized behavior Subjective Notes: Conditional Voluntary Interim History: The nursing staff reported the patient is very paranoid, she reported that her son is an imposter and she had been paranoid slept only a few hours. Today on interview the patient reported she has very poor sleep so she agreed to change her medications. I will try her on a low dose of Zyprexa. Initially I decided to increase her Prolixin to 2 mg p.o. t.i.d. but probably will change it to olanzapine. Mental Status Exam Mental Status Exam Patient Appearance: Appropriate Patient Orientation: Person and Situation Level of Consciousness: Awake and Appropriate Patient Behavior: Guarded and Passive Mood Description: Withdrawn Affect Description: Constricted Patient Cognition Impaired: Yes Ability to Follow Directions: Good Speech Pattern: Clear Hallucinations: None Delusions: Paranoid Ideation and Ideas of Reference Thought Process: Distracted and Slowed Thinking Thought Content: positive for [place] and positive for Poverty of Content Judgement: Poor Diagnostics Vital Signs (24Hr): Vital Signs - 24 hr 04/15/24 20:00 04/16/24 08:27 Temperature 97.1 F 97.2 F Pulse Rate 68 62 Respiratory Rate 16 17 Blood Pressure 145/64 H 154/68 H Pulse Oximetry 99 100 Oxygen Delivery Method Room Air Room Air BMI result Body Mass Index 20.1 Labs 04/08/24 12:48 04/09/24 15:46 Medications Medications Current Medications Acetaminophen (Acetaminophen 325 Mg Tablet) 650 mg PO Q6H PRN PRN Reason: Headache/Pain Mild Scale (1-3) Last Admin: 04/16/24 00:35 Dose: 650 mg Al Hydroxide/Mg Hydroxide (Magnesium Hydrox/Alum Hydrox 30 Ml Oral.Susp) 30 ml PO Q6H PRN PRN Reason: Heartburn/Nausea Fluphenazine HCl (Fluphenazine Hcl 1 Mg Tablet) 2 mg PO TID [facility] Last Admin: 04/16/24 09:08 Dose: Not Given Hydroxyzine HCl (Hydroxyzine Hcl 25 Mg Tablet) 25 mg PO Q6H PRN PRN Reason: Anxiety Last Admin: 04/16/24 01:35 Dose: 25 mg Magnesium Hydroxide (Milk Of Magnesia 30 Ml Oral.Susp) 30 ml PO DAILY PRN PRN Reason: Constipation Melatonin (Melatonin 3 Mg Tablet) 6 mg PO BEDTIME [facility] Last Admin: 04/15/24 20:14 Dose: 6 mg Memantine (Memantine Hcl 5 Mg Tablet) 5 mg PO BID [facility] Last Admin: 04/16/24 08:29 Dose: 5 mg Metoprolol Succinate (Metoprolol Succinate Er 25 Mg Tab.Er.24h) 25 mg PO DAILY [facility]; Protocol Last Admin: 04/16/24 08:29 Dose: 25 mg Sertraline HCl (Sertraline Hcl 50 Mg Tablet) 50 mg PO DAILY [facility] Last Admin: 04/16/24 08:29 Dose: 50 mg Thiamine HCl (Thiamine Hcl 100 Mg Tablet) 100 mg PO DAILY [facility] Last Admin: 04/16/24 08:29 Dose: 100 mg Allergies Allergies Allergy/AdvReac Type Severity Reaction Status Date / Time lisinopril Allergy Unknown Verified 04/08/24 17:06 sulfamethoxazole Allergy Unknown Verified 04/08/24 17:06 [From Bactrim] trazodone Allergy Unknown Verified 04/08/24 17:06 trimethoprim [From Bactrim] Allergy Unknown Verified 04/08/24 17:06 Assessment & Plan Assessment & Plan (1) Major neurocognitive disorder due to another medical condition, with psychotic disturbance: Status: Acute Code(s): F02.82 - Dementia in other diseases classified elsewhere, unspecified severity, with psychotic disturbance Plan Mrs. Barnes is a 83 year-old woman with hx of dementia, vascular type primarily who was brought by son due to presenting with increased paranoid delusions of being poisoned and cap gras delusions thinking son is an impostor for about one month. In the ED, she was found to have a UTI and started on ceftin. However, pt is not presenting as delirious and current paranoia is related to underlying dementia. She is not combative, superficially cooperative although not fully forthcoming with extend of paranoid delusions. This typewriter operator automatic spoke with her son Karl, who is her HCP, to discuss addition of risperidone low dose 0.5mg po BID. Given that pt is concern about amount of medications that she is taking, can d/c depakote. Start risperidone 0.5mg po BID. Plan 1. Continue with antipsychotics. 2. Gather more collateral information. Reason for continued inpatient stay Substantial Risk for: inability to function, rapid decompensation and med/psych decompensation Time Spent With Patient Time: Total time managing care of this patient today __20__ minutes.
[2024-04-16] MEDS: fluPHENAZine HCl 1 MG TABLET 2 MG PO ×2 (15:16→19:57)
[2024-04-16] MEDS: Melatonin 3 MG TABLET 6 MG PO (19:58)
[2024-04-16 20:00] VITALS: BP 102/47; PULSE 69; RESP 16; TEMP 36.1; O2SAT 96
[2024-04-17 08:00] VITALS: BP 107/51; PULSE 62; RESP 16; TEMP 37; O2SAT 95
[2024-04-17] MEDS: fluPHENAZine HCl 1 MG TABLET 2 MG PO ×3 (08:37→20:38)
[2024-04-17] MEDS: Memantine HCl 5 MG TABLET PO ×2 (08:37→20:38)
[2024-04-17] MEDS: Sertraline HCL 50 MG TABLET PO (08:38)
[2024-04-17] MEDS: Thiamine HCL 100 MG TABLET PO (08:38)
[2024-04-17 09:43] VITALS: BP 107/51; PULSE 62
--- NOTE | 2024-04-17 13:51 | P.PNPSI_ITS ---
Subjective Subjective Date of Service: 04/17/24 Reason For Visit: disorganized behavior Subjective Notes: Conditional Voluntary Healthcare Proxy: Yes Interim History: The nursing staff reported the patient had poor sleep, she had been compliant with her medications slept 7 hours. The social and human services assistant reported that the patient had been compliant with treatment but she is very confused. On interview the patient denies new symptoms she reports poor sleep agreed to change melatonin to 9 mg at night. We discussed today on rounds the possibility of long-acting injectable but the patient does not have a prior history of schizophrenia. We will discuss with her son came in who is the healthcare proxy about treatment for long-term since the patient has poorly compliant with antipsychotics in the past. Mental Status Exam Mental Status Exam Patient Appearance: Appropriate Patient Orientation: Person and Situation Level of Consciousness: Awake Patient Behavior: Guarded and Passive Mood Description: Withdrawn Affect Description: Constricted Patient Cognition Impaired: Yes Ability to Follow Directions: Good Speech Pattern: Clear Hallucinations: None Delusions: Paranoid Ideation and Ideas of Reference Thought Process: Distracted and Slowed Thinking Thought Content: positive for [place] and positive for Poverty of Content Judgement: Fair Diagnostics Vital Signs (24Hr): Vital Signs - 24 hr 04/16/24 20:00 04/17/24 08:00 04/17/24 09:43 Temperature 97 F 98.6 F Pulse Rate 69 62 62 Respiratory Rate 16 16 Blood Pressure 102/47 L 107/51 L 107/51 L Pulse Oximetry 96 95 Oxygen Delivery Method Room Air Room Air BMI result Body Mass Index 20.1 Labs 04/08/24 12:48 04/09/24 15:46 Medications Medications Current Medications Acetaminophen (Acetaminophen 325 Mg Tablet) 650 mg PO Q6H PRN PRN Reason: Headache/Pain Mild Scale (1-3) Last Admin: 04/16/24 00:35 Dose: 650 mg Al Hydroxide/Mg Hydroxide (Magnesium Hydrox/Alum Hydrox 30 Ml Oral.Susp) 30 ml PO Q6H PRN PRN Reason: Heartburn/Nausea Fluphenazine HCl (Fluphenazine Hcl 1 Mg Tablet) 2 mg PO TID [facility] Last Admin: 04/17/24 08:37 Dose: 2 mg Hydroxyzine HCl (Hydroxyzine Hcl 25 Mg Tablet) 25 mg PO Q6H PRN PRN Reason: Anxiety Last Admin: 04/16/24 01:35 Dose: 25 mg Magnesium Hydroxide (Milk Of Magnesia 30 Ml Oral.Susp) 30 ml PO DAILY PRN PRN Reason: Constipation Melatonin (Melatonin 3 Mg Tablet) 9 mg PO BEDTIME [facility] Memantine (Memantine Hcl 5 Mg Tablet) 5 mg PO BID [facility] Last Admin: 04/17/24 08:37 Dose: 5 mg Metoprolol Succinate (Metoprolol Succinate Er 25 Mg Tab.Er.24h) 25 mg PO DAILY [facility]; Protocol Last Admin: 04/17/24 09:43 Dose: Not Given Sertraline HCl (Sertraline Hcl 50 Mg Tablet) 50 mg PO DAILY [facility] Last Admin: 04/17/24 08:38 Dose: 50 mg Thiamine HCl (Thiamine Hcl 100 Mg Tablet) 100 mg PO DAILY [facility] Last Admin: 04/17/24 08:38 Dose: 100 mg Allergies Allergies Allergy/AdvReac Type Severity Reaction Status Date / Time lisinopril Allergy Unknown Verified 04/08/24 17:06 sulfamethoxazole Allergy Unknown Verified 04/08/24 17:06 [From Bactrim] trazodone Allergy Unknown Verified 04/08/24 17:06 trimethoprim [From Bactrim] Allergy Unknown Verified 04/08/24 17:06 Assessment & Plan Assessment & Plan (1) Major neurocognitive disorder due to another medical condition, with psychotic disturbance: Status: Acute Code(s): F02.82 - Dementia in other diseases classified elsewhere, unspecified severity, with psychotic disturbance Plan Mrs. Barnes is a 83 year-old woman with hx of dementia, vascular type primarily who was brought by son due to presenting with increased paranoid delusions of being poisoned and cap gras delusions thinking son is an impostor for about one month. In the ED, she was found to have a UTI and started on ceftin. However, pt is not presenting as delirious and current paranoia is related to underlying dementia. She is not combative, superficially cooperative although not fully forthcoming with extend of paranoid delusions. This scenario writer spoke with her son Karl, who is her HCP, to discuss addition of risperidone low dose 0.5mg po BID. Given that pt is concern about amount of medications that she is taking, can d/c depakote. Start risperidone 0.5mg po BID. Plan 1. Continue with antipsychotics. Fluphenazine had been increased to 10 mg p.o. t.i.d. on April 16. 2. Gather more collateral information. 3. Melatonin was increased up to 9 mg p.o. q.h.s. on April 17 Reason for continued inpatient stay Substantial Risk for: inability to function, rapid decompensation and med/psych decompensation Time Spent With Patient Time: Total time managing care of this patient today __20__ minutes.
--- NOTE | 2024-04-17 15:12 | PC.NURSE ---
Patient's son called in and said his mom was taking Trazodone at night for sleep and she didn't have any allergies to this medication. He knows that the allergy list with Trazodone included follows Brissa everywhere she goes. Dr Mahan notified.
[2024-04-17 20:00] VITALS: BP 168/78; PULSE 64; RESP 18; TEMP 36.4; O2SAT 96
[2024-04-17] MEDS: Melatonin 3 MG TABLET 9 MG PO (20:38)
[2024-04-17] MEDS: hydrOXYzine HCL 25 MG TABLET PO (20:38)
[2024-04-17] MEDS: traZODone HCL 50 MG TABLET PO (20:38)
[2024-04-17 20:41] VITALS: BP 152/66; PULSE 62
[2024-04-18 08:19] VITALS: BP 119/58; PULSE 67; RESP 18; TEMP 36.1; O2SAT 95
[2024-04-18] MEDS: Metoprolol Succinate ER 25 MG TAB.ER.24H PO (08:26)
[2024-04-18] MEDS: fluPHENAZine HCl 1 MG TABLET 2 MG PO ×3 (08:26→20:20)
[2024-04-18] MEDS: Sertraline HCL 50 MG TABLET PO (08:26)
[2024-04-18] MEDS: Thiamine HCL 100 MG TABLET PO (08:26)
[2024-04-18] MEDS: Memantine HCl 5 MG TABLET PO ×2 (08:26→20:20)
--- NOTE | 2024-04-18 18:37 | HO.PSYCHPN ---
Subjective Subjective Date of Service: 04/18/24 Reason For Visit: disorganized behavior Interim History: Met with patient; discussed with team Patient tells editorial writer that she is anxious. Staff reports patient is taking medications and going to groups. Also that she slept. Patient remains with delusional idea that her son is an imposter Mental Status Exam Mental Status Exam Patient Appearance: Appropriate Patient Orientation: Person Level of Consciousness: Awake Patient Behavior: Guarded, Passive and Good Eye Contact Mood Description: Appropriate Affect Description: Constricted Patient Cognition Impaired: Yes Ability to Follow Directions: Fair Speech Pattern: Clear Hallucinations: None Delusions: Paranoid Ideation and Ideas of Reference Thought Process: Distracted and Slowed Thinking Thought Content: positive for [place] and positive for Preoccupation (delusional idea son is an imposter) Judgement and Insight: Impaired Diagnostics Vital Signs (24Hr): Vital Signs - 24 hr 04/17/24 20:00 04/17/24 20:41 04/18/24 08:19 Temperature 97.5 F 96.9 F Pulse Rate 64 62 67 Respiratory Rate 18 18 Blood Pressure 168/78 H 152/66 H 119/58 L Pulse Oximetry 96 95 Oxygen Delivery Method Room Air Room Air BMI result Body Mass Index 20.1 Labs 04/08/24 12:48 04/09/24 15:46 Medications Medications Current Medications Acetaminophen (Acetaminophen 325 Mg Tablet) 650 mg PO Q6H PRN PRN Reason: Headache/Pain Mild Scale (1-3) Last Admin: 04/16/24 00:35 Dose: 650 mg Al Hydroxide/Mg Hydroxide (Magnesium Hydrox/Alum Hydrox 30 Ml Oral.Susp) 30 ml PO Q6H PRN PRN Reason: Heartburn/Nausea Fluphenazine HCl (Fluphenazine Hcl 1 Mg Tablet) 2 mg PO TID [facility] Last Admin: 04/18/24 14:58 Dose: 2 mg Hydroxyzine HCl (Hydroxyzine Hcl 25 Mg Tablet) 25 mg PO Q6H PRN PRN Reason: Anxiety Last Admin: 04/17/24 20:38 Dose: 25 mg Magnesium Hydroxide (Milk Of Magnesia 30 Ml Oral.Susp) 30 ml PO DAILY PRN PRN Reason: Constipation Melatonin (Melatonin 3 Mg Tablet) 9 mg PO BEDTIME [facility] Last Admin: 04/17/24 20:38 Dose: 9 mg Memantine (Memantine Hcl 5 Mg Tablet) 5 mg PO BID [facility] Last Admin: 04/18/24 08:26 Dose: 5 mg Metoprolol Succinate (Metoprolol Succinate Er 25 Mg Tab.Er.24h) 25 mg PO DAILY [facility]; Protocol Last Admin: 04/18/24 08:26 Dose: 25 mg Sertraline HCl (Sertraline Hcl 50 Mg Tablet) 50 mg PO DAILY [facility] Last Admin: 04/18/24 08:26 Dose: 50 mg Thiamine HCl (Thiamine Hcl 100 Mg Tablet) 100 mg PO DAILY [facility] Last Admin: 04/18/24 08:26 Dose: 100 mg Trazodone HCl (Trazodone Hcl 50 Mg Tablet) 50 mg PO BEDTIME [facility] Last Admin: 04/17/24 20:38 Dose: 50 mg Allergies Allergies Allergy/AdvReac Type Severity Reaction Status Date / Time lisinopril Allergy Unknown Verified 04/08/24 17:06 sulfamethoxazole Allergy Unknown Verified 04/08/24 17:06 [From Bactrim] trimethoprim [From Bactrim] Allergy Unknown Verified 04/08/24 17:06 Assessment & Plan Assessment & Plan (1) Major neurocognitive disorder due to another medical condition, with psychotic disturbance: Status: Acute Code(s): F02.82 - Dementia in other diseases classified elsewhere, unspecified severity, with psychotic disturbance Plan Mrs. Barnes is a 83 year-old woman with hx of dementia, vascular type primarily who was brought by son due to presenting with increased paranoid delusions of being poisoned and cap gras delusions thinking son is an impostor for about one month. In the ED, she was found to have a UTI and started on ceftin. However, pt is not presenting as delirious and current paranoia is related to underlying dementia. She is not combative, superficially cooperative although not fully forthcoming with extend of paranoid delusions. This editorial writer spoke with her son Karl, who is her HCP, to discuss addition of risperidone low dose 0.5mg po BID. Given that pt is concern about amount of medications that she is taking, can d/c depakote. Start risperidone 0.5mg po BID. 04/11/24: Encourage alliance and treatment. 04/12 continue tx. 04/14: Continue current regime and plan of care If insomnia continues, ?increase Risperdone, ?add low dose Remeron 04/15: Continue current regime and plan of care. Reason for continued inpatient stay Substantial Risk for: inability to function Time Spent With Patient Time: Total time managing care of this patient today ____ minutes.
[2024-04-18 19:51] VITALS: BP 113/58; PULSE 55; TEMP 36.6; O2SAT 95
[2024-04-18] MEDS: Melatonin 3 MG TABLET 9 MG PO (20:20)
[2024-04-18] MEDS: traZODone HCL 50 MG TABLET PO (20:20)
[2024-04-18] MEDS: hydrOXYzine HCL 25 MG TABLET PO (20:20)
[2024-04-19 08:32] VITALS: BP 92/43; PULSE 59; RESP 16; TEMP 36.6; O2SAT 97
[2024-04-19] MEDS: Sertraline HCL 50 MG TABLET PO (08:33)
[2024-04-19] MEDS: Memantine HCl 5 MG TABLET PO ×2 (08:33→19:58)
[2024-04-19] MEDS: fluPHENAZine HCl 1 MG TABLET 2 MG PO ×3 (08:33→19:58)
[2024-04-19] MEDS: Thiamine HCL 100 MG TABLET PO (08:34)
--- NOTE | 2024-04-19 12:11 | P.PNPSI_ITS ---
Subjective Subjective Date of Service: 04/19/24 Reason For Visit: disorganized behavior Subjective Notes: Conditional Voluntary Healthcare Proxy: Yes Interim History: The nursing staff reported the patient had been eating well pleasant cooperative. She slept 8 hours. The occupational therapist reported that she goes to groups and she is quiet. On interview the patient denies new symptoms, we are increasing her Zoloft up to 100 mg p.o. q.h.s. since we recently restarted. Mental Status Exam Mental Status Exam Patient Appearance: Appropriate Patient Orientation: Person Level of Consciousness: Awake and Appropriate Patient Behavior: Guarded and Passive Mood Description: Withdrawn Affect Description: Constricted Patient Cognition Impaired: Yes Ability to Follow Directions: Good Speech Pattern: Clear Hallucinations: None Delusions: Ideas of Reference Thought Process: Distracted and Slowed Thinking Thought Content: positive for [place] and positive for Poverty of Content Judgement: Poor Diagnostics Vital Signs (24Hr): Vital Signs - 24 hr 04/18/24 19:51 04/19/24 08:32 Temperature 97.9 F 97.9 F Pulse Rate 55 59 Respiratory Rate 16 Blood Pressure 113/58 L 92/43 L Pulse Oximetry 95 97 Oxygen Delivery Method Room Air Room Air BMI result Body Mass Index 20.1 Labs 04/08/24 12:48 04/09/24 15:46 Medications Medications Current Medications Acetaminophen (Acetaminophen 325 Mg Tablet) 650 mg PO Q6H PRN PRN Reason: Headache/Pain Mild Scale (1-3) Last Admin: 04/16/24 00:35 Dose: 650 mg Al Hydroxide/Mg Hydroxide (Magnesium Hydrox/Alum Hydrox 30 Ml Oral.Susp) 30 ml PO Q6H PRN PRN Reason: Heartburn/Nausea Fluphenazine HCl (Fluphenazine Hcl 1 Mg Tablet) 2 mg PO TID [facility] Last Admin: 04/19/24 08:33 Dose: 2 mg Hydroxyzine HCl (Hydroxyzine Hcl 25 Mg Tablet) 25 mg PO Q6H PRN PRN Reason: Anxiety Last Admin: 04/18/24 20:20 Dose: 25 mg Magnesium Hydroxide (Milk Of Magnesia 30 Ml Oral.Susp) 30 ml PO DAILY PRN PRN Reason: Constipation Melatonin (Melatonin 3 Mg Tablet) 9 mg PO BEDTIME [facility] Last Admin: 04/18/24 20:20 Dose: 9 mg Memantine (Memantine Hcl 5 Mg Tablet) 5 mg PO BID [facility] Last Admin: 04/19/24 08:33 Dose: 5 mg Metoprolol Succinate (Metoprolol Succinate Er 25 Mg Tab.Er.24h) 25 mg PO DAILY [facility]; Protocol Last Admin: 04/19/24 08:33 Dose: Not Given Sertraline HCl (Sertraline Hcl 100 Mg Tablet) 100 mg PO DAILY [facility] Thiamine HCl (Thiamine Hcl 100 Mg Tablet) 100 mg PO DAILY [facility] Last Admin: 04/19/24 08:34 Dose: 100 mg Trazodone HCl (Trazodone Hcl 50 Mg Tablet) 50 mg PO BEDTIME [facility] Last Admin: 04/18/24 20:20 Dose: 50 mg Allergies Allergies Allergy/AdvReac Type Severity Reaction Status Date / Time lisinopril Allergy Unknown Verified 04/08/24 17:06 sulfamethoxazole Allergy Unknown Verified 04/08/24 17:06 [From Bactrim] trimethoprim [From Bactrim] Allergy Unknown Verified 04/08/24 17:06 Assessment & Plan Assessment & Plan (1) Major neurocognitive disorder due to another medical condition, with psychotic disturbance: Status: Acute Code(s): F02.82 - Dementia in other diseases classified elsewhere, unspecified severity, with psychotic disturbance Plan Mrs. Barnes is a 83 year-old woman with hx of dementia, vascular type primarily who was brought by son due to presenting with increased paranoid delusions of being poisoned and cap gras delusions thinking son is an impostor for about one month. In the ED, she was found to have a UTI and started on ceftin. However, pt is not presenting as delirious and current paranoia is related to underlying dementia. She is not combative, superficially cooperative although not fully forthcoming with extend of paranoid delusions. Plan 1. The patient was restarted on her Zoloft initially 50 mg and later on titrated up to 100 mg p.o. daily on April 19. 2. Fluphenazine 2 mg p.o. t.i.d. to target psychosis. 3. Continue with regular medications. 4. 15 minute checks. Reason for continued inpatient stay Substantial Risk for: inability to function, rapid decompensation and med/psych decompensation Time Spent With Patient Time: Total time managing care of this patient today __20__ minutes.
[2024-04-19 12:30] VITALS: BMI 21.4
[2024-04-19 19:33] VITALS: BP 149/67; PULSE 61; TEMP 36.3; O2SAT 97
[2024-04-19] MEDS: Melatonin 3 MG TABLET 9 MG PO (19:57)
[2024-04-19] MEDS: traZODone HCL 50 MG TABLET PO (19:58)
[2024-04-20 09:35] VITALS: BP 120/60; PULSE 73; RESP 18; TEMP 36.7; O2SAT 95
[2024-04-20] MEDS: fluPHENAZine HCl 1 MG TABLET 2 MG PO ×3 (09:52→20:54)
[2024-04-20] MEDS: Metoprolol Succinate ER 25 MG TAB.ER.24H PO (09:52)
[2024-04-20] MEDS: Sertraline HCL 100 MG TABLET PO (09:52)
[2024-04-20] MEDS: Memantine HCl 5 MG TABLET PO ×2 (09:52→20:53)
[2024-04-20] MEDS: Thiamine HCL 100 MG TABLET PO (09:52)
--- NOTE | 2024-04-20 13:43 | P.PNPSI_ITS ---
Subjective Subjective Date of Service: 04/20/24 Reason For Visit: disorganized behavior Subjective Notes: Conditional Voluntary Healthcare Proxy: Yes Interim History: The nursing staff reported the patient had been brighter, less elusive, she complains of poor sleep even though that the staff has noticed that she slept well at night. Yesterday her son came to visit her and she had a good visit. The occupational therapist reported that she attends to all the groups. On interview the patient denies new symptoms, she feels better, we will encourage compliance. No side effects with increase of Zoloft. Mental Status Exam Mental Status Exam Patient Appearance: Appropriate Patient Orientation: Person and Situation Level of Consciousness: Awake and Appropriate Patient Behavior: Guarded and Passive Mood Description: Withdrawn Affect Description: Constricted Patient Cognition Impaired: Yes Ability to Follow Directions: Good Speech Pattern: Clear Hallucinations: None Delusions: Paranoid Ideation and Ideas of Reference Thought Process: Distracted Thought Content: positive for [place] and positive for Poverty of Content Judgement: Fair Diagnostics Vital Signs (24Hr): Vital Signs - 24 hr 04/19/24 19:33 Temperature 97.3 F Pulse Rate 61 Blood Pressure 149/67 H Pulse Oximetry 97 Oxygen Delivery Method Room Air BMI result Body Mass Index 21.4 Labs 04/08/24 12:48 04/09/24 15:46 Medications Medications Current Medications Acetaminophen (Acetaminophen 325 Mg Tablet) 650 mg PO Q6H PRN PRN Reason: Headache/Pain Mild Scale (1-3) Last Admin: 04/16/24 00:35 Dose: 650 mg Al Hydroxide/Mg Hydroxide (Magnesium Hydrox/Alum Hydrox 30 Ml Oral.Susp) 30 ml PO Q6H PRN PRN Reason: Heartburn/Nausea Fluphenazine HCl (Fluphenazine Hcl 1 Mg Tablet) 2 mg PO TID [facility] Last Admin: 04/20/24 09:52 Dose: 2 mg Hydroxyzine HCl (Hydroxyzine Hcl 25 Mg Tablet) 25 mg PO Q6H PRN PRN Reason: Anxiety Last Admin: 04/18/24 20:20 Dose: 25 mg Magnesium Hydroxide (Milk Of Magnesia 30 Ml Oral.Susp) 30 ml PO DAILY PRN PRN Reason: Constipation Melatonin (Melatonin 3 Mg Tablet) 9 mg PO BEDTIME [facility] Last Admin: 04/19/24 19:57 Dose: 9 mg Memantine (Memantine Hcl 5 Mg Tablet) 5 mg PO BID [facility] Last Admin: 04/20/24 09:52 Dose: 5 mg Metoprolol Succinate (Metoprolol Succinate Er 25 Mg Tab.Er.24h) 25 mg PO DAILY [facility]; Protocol Last Admin: 04/20/24 09:52 Dose: 25 mg Sertraline HCl (Sertraline Hcl 100 Mg Tablet) 100 mg PO DAILY [facility] Last Admin: 04/20/24 09:52 Dose: 100 mg Thiamine HCl (Thiamine Hcl 100 Mg Tablet) 100 mg PO DAILY [facility] Last Admin: 04/20/24 09:52 Dose: 100 mg Trazodone HCl (Trazodone Hcl 50 Mg Tablet) 50 mg PO BEDTIME [facility] Last Admin: 04/19/24 19:58 Dose: 50 mg Allergies Allergies Allergy/AdvReac Type Severity Reaction Status Date / Time lisinopril Allergy Unknown Verified 04/08/24 17:06 sulfamethoxazole Allergy Unknown Verified 04/08/24 17:06 [From Bactrim] trimethoprim [From Bactrim] Allergy Unknown Verified 04/08/24 17:06 Assessment & Plan Assessment & Plan (1) Major neurocognitive disorder due to another medical condition, with psychotic disturbance: Status: Acute Code(s): F02.82 - Dementia in other diseases classified elsewhere, unspecified severity, with psychotic disturbance Plan Mrs. Barnes is a 83 year-old woman with hx of dementia, vascular type primarily who was brought by son due to presenting with increased paranoid delusions of being poisoned and cap gras delusions thinking son is an impostor for about one month. In the ED, she was found to have a UTI and started on ceftin. However, pt is not presenting as delirious and current paranoia is related to underlying dementia. She is not combative, superficially cooperative although not fully forthcoming with extend of paranoid delusions. Plan 1. The patient was restarted on her Zoloft initially 50 mg and later on titrated up to 100 mg p.o. daily on April 19. 2. Fluphenazine 2 mg p.o. t.i.d. to target psychosis. 3. Continue with regular medications. 4. 15 minute checks. 5. We will arrange family meeting for discharge planning next week.. Reason for continued inpatient stay Substantial Risk for: inability to function, rapid decompensation and med/psych decompensation Time Spent With Patient Time: Total time managing care of this patient today __20__ minutes.
[2024-04-20 20:00] VITALS: BP 181/77; PULSE 78; RESP 18; TEMP 36.7; O2SAT 97
[2024-04-20] MEDS: Melatonin 3 MG TABLET 9 MG PO (20:53)
[2024-04-20] MEDS: traZODone HCL 50 MG TABLET PO (20:53)
[2024-04-21 02:43] VITALS: BP 162/70; PULSE 66
[2024-04-21 08:30] VITALS: BP 180/77; PULSE 67; RESP 17; TEMP 36.4; O2SAT 97
[2024-04-21] MEDS: fluPHENAZine HCl 1 MG TABLET 2 MG PO ×3 (08:52→20:33)
[2024-04-21] MEDS: Metoprolol Succinate ER 25 MG TAB.ER.24H PO (08:53)
[2024-04-21] MEDS: Memantine HCl 5 MG TABLET PO ×2 (08:53→20:34)
[2024-04-21] MEDS: Thiamine HCL 100 MG TABLET PO (08:53)
[2024-04-21] MEDS: Sertraline HCL 100 MG TABLET PO (08:53)
--- NOTE | 2024-04-21 09:42 | HO.PSYCHPN ---
Subjective Subjective Date of Service: 04/21/24 Reason For Visit: disorganized behavior Subjective Notes: Conditional Voluntary Healthcare Proxy: Yes Interim History: met with patient. Discussed with Nursing. Has been pleasant but withdrawn. Med compliant. With automobile service writer states that she feels much better compared to admission and notes feeling more relaxed and less anxious. Reports she is finally sleeping well which is positive. Reports that she can hopefully return to [facility] where she was residing previously. Medication Compliance: Yes Side effects from medications: No Attending Groups: Intermittent Review of Systems Acute medical concerns: No Review of Systems Review of Systems unremarkable Mental Status Exam Mental Status Exam Narrative: Alert, interactive, calm, engaged Denies symptoms of concern. Patient Appearance: Appropriate Patient Orientation: Person and Situation Level of Consciousness: Awake and Appropriate Patient Behavior: Passive Mood Description: Withdrawn Affect Description: Constricted Patient Cognition Impaired: Yes Ability to Follow Directions: Good Speech Pattern: Clear Diagnostics Vital Signs (24Hr): Vital Signs - 24 hr 04/20/24 20:00 04/21/24 02:43 04/21/24 08:30 Temperature 98.0 F 97.6 F Pulse Rate 78 66 67 Respiratory Rate 18 17 Blood Pressure 181/77 H 162/70 H 180/77 H Pulse Oximetry 97 97 Oxygen Delivery Method Room Air Room Air BMI result Body Mass Index 21.4 Labs 04/08/24 12:48 04/09/24 15:46 Medications Medications Current Medications Acetaminophen (Acetaminophen 325 Mg Tablet) 650 mg PO Q6H PRN PRN Reason: Headache/Pain Mild Scale (1-3) Last Admin: 04/16/24 00:35 Dose: 650 mg Al Hydroxide/Mg Hydroxide (Magnesium Hydrox/Alum Hydrox 30 Ml Oral.Susp) 30 ml PO Q6H PRN PRN Reason: Heartburn/Nausea Fluphenazine HCl (Fluphenazine Hcl 1 Mg Tablet) 2 mg PO TID REPLACED BY [facility] Last Admin: 04/21/24 08:52 Dose: 2 mg Hydroxyzine HCl (Hydroxyzine Hcl 25 Mg Tablet) 25 mg PO Q6H PRN PRN Reason: Anxiety Last Admin: 04/18/24 20:20 Dose: 25 mg Magnesium Hydroxide (Milk Of Magnesia 30 Ml Oral.Susp) 30 ml PO DAILY PRN PRN Reason: Constipation Melatonin (Melatonin 3 Mg Tablet) 9 mg PO BEDTIME REPLACED BY [facility] Last Admin: 04/20/24 20:53 Dose: 9 mg Memantine (Memantine Hcl 5 Mg Tablet) 5 mg PO BID REPLACED BY [facility] Last Admin: 04/21/24 08:53 Dose: 5 mg Metoprolol Succinate (Metoprolol Succinate Er 25 Mg Tab.Er.24h) 25 mg PO DAILY REPLACED BY [facility]; Protocol Last Admin: 04/21/24 08:53 Dose: 25 mg Sertraline HCl (Sertraline Hcl 100 Mg Tablet) 100 mg PO DAILY REPLACED BY [facility] Last Admin: 04/21/24 08:53 Dose: 100 mg Thiamine HCl (Thiamine Hcl 100 Mg Tablet) 100 mg PO DAILY REPLACED BY [facility] Last Admin: 04/21/24 08:53 Dose: 100 mg Trazodone HCl (Trazodone Hcl 50 Mg Tablet) 50 mg PO BEDTIME REPLACED BY [facility] Last Admin: 04/20/24 20:53 Dose: 50 mg Allergies Allergies Allergy/AdvReac Type Severity Reaction Status Date / Time lisinopril Allergy Unknown Verified 04/08/24 17:06 sulfamethoxazole Allergy Unknown Verified 04/08/24 17:06 [From Bactrim] trimethoprim [From Bactrim] Allergy Unknown Verified 04/08/24 17:06 Assessment & Plan Assessment & Plan (1) Major neurocognitive disorder due to another medical condition, with psychotic disturbance: Status: Acute Code(s): F02.82 - Dementia in other diseases classified elsewhere, unspecified severity, with psychotic disturbance Plan Mrs. Barnes is a 83 year-old woman with hx of dementia, vascular type primarily who was brought by son due to presenting with increased paranoid delusions of being poisoned and cap gras delusions thinking son is an impostor for about one month. In the ED, she was found to have a UTI and started on ceftin. However, pt is not presenting as delirious and current paranoia is related to underlying dementia. She is not combative, superficially cooperative although not fully forthcoming with extend of paranoid delusions. Plan 1. The patient was restarted on her Zoloft initially 50 mg and later on titrated up to 100 mg p.o. daily on April 19. 2. Fluphenazine 2 mg p.o. t.i.d. to target psychosis. 3. Continue with regular medications. 4. 15 minute checks. 5. We will arrange family meeting for discharge planning next week.. 04/21/2024: No changes Reason for continued inpatient stay Substantial Risk for: rapid decompensation Time Spent With Patient Time: Total time managing care of this patient today ____ minutes.
[2024-04-21 20:00] VITALS: BP 97/46; PULSE 52; RESP 16; TEMP 36.2; O2SAT 94
[2024-04-21] MEDS: hydrOXYzine HCL 25 MG TABLET PO (20:34)
[2024-04-21] MEDS: traZODone HCL 50 MG TABLET PO (20:34)
[2024-04-21] MEDS: Melatonin 3 MG TABLET 9 MG PO (20:34)
[2024-04-22 08:24] VITALS: BP 96/48; PULSE 61; RESP 17; TEMP 36; O2SAT 99
--- NOTE | 2024-04-22 08:26 | P.PNPSI_ITS ---
Subjective Subjective Date of Service: 04/22/24 Reason For Visit: disorganized behavior Interim History: met with patient. Discussed with Nursing. Overall reports things are going okay. Less anxious and depressed. Hopeful discharge planning soon. Attending groups. No med concerns. Sleep okay.. Medication Compliance: Yes Side effects from medications: No Attending Groups: Yes Review of Systems Review of Systems unremarkable Mental Status Exam Mental Status Exam Narrative: Alert, interactive, calm, engaged Denies symptoms of concern. No evidence of SI or HI Patient Appearance: Appropriate Patient Orientation: Person and Situation Level of Consciousness: Awake and Appropriate Patient Behavior: Passive Mood Description: Withdrawn Affect Description: Constricted Patient Cognition Impaired: Yes Ability to Follow Directions: Good Speech Pattern: Clear Diagnostics Vital Signs (24Hr): Vital Signs - 24 hr 04/21/24 08:30 04/21/24 20:00 04/22/24 08:24 Temperature 97.6 F 97.2 F 96.8 F Pulse Rate 67 52 61 Respiratory Rate 17 16 17 Blood Pressure 180/77 H 97/46 L 96/48 L Pulse Oximetry 97 94 99 Oxygen Delivery Method Room Air Room Air Room Air BMI result Body Mass Index 21.4 Labs 04/08/24 12:48 04/09/24 15:46 Medications Medications Current Medications Acetaminophen (Acetaminophen 325 Mg Tablet) 650 mg PO Q6H PRN PRN Reason: Headache/Pain Mild Scale (1-3) Last Admin: 04/16/24 00:35 Dose: 650 mg Al Hydroxide/Mg Hydroxide (Magnesium Hydrox/Alum Hydrox 30 Ml Oral.Susp) 30 ml PO Q6H PRN PRN Reason: Heartburn/Nausea Fluphenazine HCl (Fluphenazine Hcl 1 Mg Tablet) 2 mg PO TID [facility] Last Admin: 04/21/24 20:33 Dose: 2 mg Hydroxyzine HCl (Hydroxyzine Hcl 25 Mg Tablet) 25 mg PO Q6H PRN PRN Reason: Anxiety Last Admin: 04/21/24 20:34 Dose: 25 mg Magnesium Hydroxide (Milk Of Magnesia 30 Ml Oral.Susp) 30 ml PO DAILY PRN PRN Reason: Constipation Melatonin (Melatonin 3 Mg Tablet) 9 mg PO BEDTIME [facility] Last Admin: 04/21/24 20:34 Dose: 9 mg Memantine (Memantine Hcl 5 Mg Tablet) 5 mg PO BID [facility] Last Admin: 04/21/24 20:34 Dose: 5 mg Metoprolol Succinate (Metoprolol Succinate Er 25 Mg Tab.Er.24h) 25 mg PO DAILY [facility]; Protocol Last Admin: 04/21/24 08:53 Dose: 25 mg Sertraline HCl (Sertraline Hcl 100 Mg Tablet) 100 mg PO DAILY [facility] Last Admin: 04/21/24 08:53 Dose: 100 mg Thiamine HCl (Thiamine Hcl 100 Mg Tablet) 100 mg PO DAILY [facility] Last Admin: 04/21/24 08:53 Dose: 100 mg Trazodone HCl (Trazodone Hcl 50 Mg Tablet) 50 mg PO BEDTIME [facility] Last Admin: 04/21/24 20:34 Dose: 50 mg Allergies Allergies Allergy/AdvReac Type Severity Reaction Status Date / Time lisinopril Allergy Unknown Verified 04/08/24 17:06 sulfamethoxazole Allergy Unknown Verified 04/08/24 17:06 [From Bactrim] trimethoprim [From Bactrim] Allergy Unknown Verified 04/08/24 17:06 Assessment & Plan Assessment & Plan (1) Major neurocognitive disorder due to another medical condition, with psychotic disturbance: Status: Acute Code(s): F02.82 - Dementia in other diseases classified elsewhere, unspecified severity, with psychotic disturbance Plan Mrs. Barnes is a 83 year-old woman with hx of dementia, vascular type primarily who was brought by son due to presenting with increased paranoid delusions of being poisoned and cap gras delusions thinking son is an impostor for about one month. In the ED, she was found to have a UTI and started on ceftin. However, pt is not presenting as delirious and current paranoia is related to underlying dementia. She is not combative, superficially cooperative although not fully forthcoming with extend of paranoid delusions. Plan 1. The patient was restarted on her Zoloft initially 50 mg and later on titrated up to 100 mg p.o. daily on April 19. 2. Fluphenazine 2 mg p.o. t.i.d. to target psychosis. 3. Continue with regular medications. 4. 15 minute checks. 5. We will arrange family meeting for discharge planning next week. 04/22/2024: Continue current treatment plan Reason for continued inpatient stay Substantial Risk for: rapid decompensation Time Spent With Patient Time: Total time managing care of this patient today ____ minutes.
[2024-04-22] MEDS: Sertraline HCL 100 MG TABLET PO (08:38)
[2024-04-22] MEDS: Thiamine HCL 100 MG TABLET PO (08:38)
[2024-04-22] MEDS: Memantine HCl 5 MG TABLET PO ×2 (08:38→20:16)
[2024-04-22] MEDS: fluPHENAZine HCl 1 MG TABLET 2 MG PO ×3 (08:38→20:16)
[2024-04-22 08:39] VITALS: BP 164/69; PULSE 62
[2024-04-22] MEDS: Metoprolol Succinate ER 25 MG TAB.ER.24H PO (08:39)
[2024-04-22 20:00] VITALS: BP 151/69; PULSE 62; RESP 16; TEMP 36.4; O2SAT 93
[2024-04-22] MEDS: Melatonin 3 MG TABLET 9 MG PO (20:16)
[2024-04-22] MEDS: hydrOXYzine HCL 25 MG TABLET PO (20:16)
[2024-04-22] MEDS: traZODone HCL 50 MG TABLET PO (20:16)
[2024-04-23 09:04] VITALS: BP 186/66; PULSE 62; RESP 14; TEMP 36.6; O2SAT 98
[2024-04-23] MEDS: fluPHENAZine HCl 1 MG TABLET 2 MG PO ×3 (09:08→21:01)
[2024-04-23] MEDS: Thiamine HCL 100 MG TABLET PO (09:09)
[2024-04-23] MEDS: Sertraline HCL 100 MG TABLET PO (09:09)
[2024-04-23] MEDS: Memantine HCl 5 MG TABLET PO ×2 (09:09→21:01)
[2024-04-23] MEDS: Metoprolol Succinate ER 25 MG TAB.ER.24H PO (09:09)
[2024-04-23 13:37] VITALS: BP 151/70; PULSE 60; TEMP 36.8; O2SAT 95
[2024-04-23 13:38] VITALS: BP 151/72; PULSE 62; O2SAT 98
--- NOTE | 2024-04-23 13:46 | PM.EVENT ---
Event Note Date of Service: 04/23/24 Event Note: Called to see patient after a witnessed fall with head strike. Patient confused at baseline but moving all extremities. Full cervical range of motion without pain at extremes. No cervical bony point tenderness. No palpable hematoma to scalp. We will order CT of the head and follow up patient clinically. Time Spent With Patient Time: Total time managing care of this patient today ____ minutes.
--- NOTE | 2024-04-23 14:23 | P.PNPSI_ITS ---
Subjective Subjective Date of Service: 04/23/24 Reason For Visit: disorganized behavior Subjective Notes: Conditional Voluntary Interim History: The nursing staff reported that she had been with brighter affect cheerful slept 8 hours. The occupational therapy reported she has attended to groups and she is more organized. Today she had a fall no head trauma. On interview the patient denies new symptoms pleasant and cooperative Mental Status Exam Mental Status Exam Patient Appearance: Appropriate Patient Orientation: Person and Situation Level of Consciousness: Awake and Appropriate Patient Behavior: Guarded and Passive Mood Description: Withdrawn Affect Description: Constricted Patient Cognition Impaired: Yes Ability to Follow Directions: Good Speech Pattern: Clear Hallucinations: None Delusions: Ideas of Reference Thought Process: Distracted and Slowed Thinking Thought Content: positive for [place] and positive for Circumstantial Judgement: Fair Diagnostics Vital Signs (24Hr): Vital Signs - 24 hr 04/22/24 20:00 04/23/24 09:04 04/23/24 13:37 Temperature 97.6 F 97.9 F 98.2 F Pulse Rate 62 62 60 Respiratory Rate 16 14 Blood Pressure 151/69 H 186/66 H 151/70 H Pulse Oximetry 93 98 95 Oxygen Delivery Method Room Air Room Air 04/23/24 13:38 Temperature Pulse Rate 62 Respiratory Rate Blood Pressure 151/72 H Pulse Oximetry 98 Oxygen Delivery Method BMI result Body Mass Index 21.4 Labs 04/08/24 12:48 04/09/24 15:46 Medications Medications Current Medications Acetaminophen (Acetaminophen 325 Mg Tablet) 650 mg PO Q6H PRN PRN Reason: Headache/Pain Mild Scale (1-3) Last Admin: 04/16/24 00:35 Dose: 650 mg Al Hydroxide/Mg Hydroxide (Magnesium Hydrox/Alum Hydrox 30 Ml Oral.Susp) 30 ml PO Q6H PRN PRN Reason: Heartburn/Nausea Fluphenazine HCl (Fluphenazine Hcl 1 Mg Tablet) 2 mg PO TID [facility] Last Admin: 04/23/24 14:03 Dose: 2 mg Hydroxyzine HCl (Hydroxyzine Hcl 25 Mg Tablet) 25 mg PO Q6H PRN PRN Reason: Anxiety Last Admin: 04/22/24 20:16 Dose: 25 mg Magnesium Hydroxide (Milk Of Magnesia 30 Ml Oral.Susp) 30 ml PO DAILY PRN PRN Reason: Constipation Melatonin (Melatonin 3 Mg Tablet) 9 mg PO BEDTIME [facility] Last Admin: 04/22/24 20:16 Dose: 9 mg Memantine (Memantine Hcl 5 Mg Tablet) 5 mg PO BID [facility] Last Admin: 04/23/24 09:09 Dose: 5 mg Metoprolol Succinate (Metoprolol Succinate Er 25 Mg Tab.Er.24h) 25 mg PO DAILY [facility]; Protocol Last Admin: 04/23/24 09:09 Dose: 25 mg Sertraline HCl (Sertraline Hcl 100 Mg Tablet) 100 mg PO DAILY [facility] Last Admin: 04/23/24 09:09 Dose: 100 mg Thiamine HCl (Thiamine Hcl 100 Mg Tablet) 100 mg PO DAILY [facility] Last Admin: 04/23/24 09:09 Dose: 100 mg Trazodone HCl (Trazodone Hcl 50 Mg Tablet) 50 mg PO BEDTIME [facility] Last Admin: 04/22/24 20:16 Dose: 50 mg Allergies Allergies Allergy/AdvReac Type Severity Reaction Status Date / Time lisinopril Allergy Unknown Verified 04/08/24 17:06 sulfamethoxazole Allergy Unknown Verified 04/08/24 17:06 [From Bactrim] trimethoprim [From Bactrim] Allergy Unknown Verified 04/08/24 17:06 Assessment & Plan Assessment & Plan (1) Major neurocognitive disorder due to another medical condition, with psychotic disturbance: Status: Acute Code(s): F02.82 - Dementia in other diseases classified elsewhere, unspecified severity, with psychotic disturbance Plan Mrs. Barnes is a 83 year-old woman with hx of dementia, vascular type primarily who was brought by son due to presenting with increased paranoid delusions of being poisoned and cap gras delusions thinking son is an impostor for about one month. In the ED, she was found to have a UTI and started on ceftin. However, pt is not presenting as delirious and current paranoia is related to underlying dementia. She is not combative, superficially cooperative although not fully forthcoming with extend of paranoid delusions. Plan 1. The patient was restarted on her Zoloft initially 50 mg and later on titrated up to 100 mg p.o. daily on April 19. 2. Fluphenazine 2 mg p.o. t.i.d. to target psychosis. 3. Continue with regular medications. 4. 15 minute checks. 5. We will arrange family meeting for discharge planning next week. Reason for continued inpatient stay Substantial Risk for: inability to function, rapid decompensation and med/psych decompensation Time Spent With Patient Time: Total time managing care of this patient today __20__ minutes.
--- NOTE | 2024-04-23 16:12 | PC.NURSE ---
Pt. approached nurses station and reported that she had just gotten up from a chair and lost her balance and fell, hitting her head on the wall. Rapid response called per policy. Surveillance video reviewed by leadership, revealing pt. actually attempting to sit in chair and missed and went to floor, but did not strike her head. No injury noted to pt.
[2024-04-23 19:54] VITALS: BP 127/58; PULSE 71; TEMP 35.6; O2SAT 98
[2024-04-23] MEDS: hydrOXYzine HCL 25 MG TABLET PO (21:01)
[2024-04-23] MEDS: Melatonin 3 MG TABLET 9 MG PO (21:01)
[2024-04-23] MEDS: traZODone HCL 50 MG TABLET PO (21:01)
[2024-04-24 08:51] VITALS: BP 180/76; PULSE 61; RESP 17; TEMP 36; O2SAT 96
[2024-04-24] MEDS: Thiamine HCL 100 MG TABLET PO (08:52)
[2024-04-24] MEDS: fluPHENAZine HCl 1 MG TABLET 2 MG PO ×3 (08:52→20:06)
[2024-04-24] MEDS: Sertraline HCL 100 MG TABLET PO (08:52)
[2024-04-24] MEDS: Memantine HCl 5 MG TABLET PO ×2 (08:52→20:06)
[2024-04-24] MEDS: Metoprolol Succinate ER 25 MG TAB.ER.24H PO (08:52)
--- NOTE | 2024-04-24 12:31 | HO.PSYCHPN ---
Subjective Subjective Date of Service: 04/24/24 Reason For Visit: disorganized behavior Subjective Notes: Conditional Voluntary Interim History: The nursing staff reported the patient sleep of the chair yesterday but no head trauma. She has been pleasant cooperative cheerful. Fully compliant with treatment. The social group worker reported that we will contact found nursing home facility. On interview the patient denies new symptoms pleasantly confused easily redirectable. Mental Status Exam Mental Status Exam Patient Appearance: Well Grooomed and Appropriate Patient Orientation: Person and Situation Level of Consciousness: Awake and Appropriate Patient Behavior: Guarded and Passive Mood Description: Withdrawn Affect Description: Constricted Patient Cognition Impaired: Yes Ability to Follow Directions: Good Speech Pattern: Clear Hallucinations: None Delusions: Paranoid Ideation and Ideas of Reference Thought Process: Distracted and Slowed Thinking Thought Content: positive for [place] and positive for Poverty of Content Judgement: Fair Diagnostics Vital Signs (24Hr): Vital Signs - 24 hr 04/23/24 13:37 04/23/24 13:38 04/23/24 19:54 Temperature 98.2 F 96.1 F L Pulse Rate 60 62 71 Respiratory Rate Blood Pressure 151/70 H 151/72 H 127/58 L Pulse Oximetry 95 98 98 Oxygen Delivery Method Room Air 04/24/24 08:51 Temperature 96.8 F Pulse Rate 61 Respiratory Rate 17 Blood Pressure 180/76 H Pulse Oximetry 96 Oxygen Delivery Method Room Air BMI result Body Mass Index 21.4 Labs 04/08/24 12:48 04/09/24 15:46 Medications Medications Current Medications Acetaminophen (Acetaminophen 325 Mg Tablet) 650 mg PO Q6H PRN PRN Reason: Headache/Pain Mild Scale (1-3) Last Admin: 04/16/24 00:35 Dose: 650 mg Al Hydroxide/Mg Hydroxide (Magnesium Hydrox/Alum Hydrox 30 Ml Oral.Susp) 30 ml PO Q6H PRN PRN Reason: Heartburn/Nausea Fluphenazine HCl (Fluphenazine Hcl 1 Mg Tablet) 2 mg PO TID [facility] Last Admin: 04/24/24 08:52 Dose: 2 mg Hydroxyzine HCl (Hydroxyzine Hcl 25 Mg Tablet) 25 mg PO Q6H PRN PRN Reason: Anxiety Last Admin: 04/23/24 21:01 Dose: 25 mg Magnesium Hydroxide (Milk Of Magnesia 30 Ml Oral.Susp) 30 ml PO DAILY PRN PRN Reason: Constipation Melatonin (Melatonin 3 Mg Tablet) 9 mg PO BEDTIME [facility] Last Admin: 04/23/24 21:01 Dose: 9 mg Memantine (Memantine Hcl 5 Mg Tablet) 5 mg PO BID [facility] Last Admin: 04/24/24 08:52 Dose: 5 mg Metoprolol Succinate (Metoprolol Succinate Er 25 Mg Tab.Er.24h) 25 mg PO DAILY [facility]; Protocol Last Admin: 04/24/24 08:52 Dose: 25 mg Sertraline HCl (Sertraline Hcl 100 Mg Tablet) 100 mg PO DAILY [facility] Last Admin: 04/24/24 08:52 Dose: 100 mg Thiamine HCl (Thiamine Hcl 100 Mg Tablet) 100 mg PO DAILY [facility] Last Admin: 04/24/24 08:52 Dose: 100 mg Trazodone HCl (Trazodone Hcl 50 Mg Tablet) 50 mg PO BEDTIME [facility] Last Admin: 04/23/24 21:01 Dose: 50 mg Allergies Allergies Allergy/AdvReac Type Severity Reaction Status Date / Time lisinopril Allergy Unknown Verified 04/08/24 17:06 sulfamethoxazole Allergy Unknown Verified 04/08/24 17:06 [From Bactrim] trimethoprim [From Bactrim] Allergy Unknown Verified 04/08/24 17:06 Assessment & Plan Assessment & Plan (1) Major neurocognitive disorder due to another medical condition, with psychotic disturbance: Status: Acute Code(s): F02.82 - Dementia in other diseases classified elsewhere, unspecified severity, with psychotic disturbance Plan Mrs. Barnes is a 83 year-old woman with hx of dementia, vascular type primarily who was brought by son due to presenting with increased paranoid delusions of being poisoned and cap gras delusions thinking son is an impostor for about one month. In the ED, she was found to have a UTI and started on ceftin. However, pt is not presenting as delirious and current paranoia is related to underlying dementia. She is not combative, superficially cooperative although not fully forthcoming with extend of paranoid delusions. Plan 1. The patient was restarted on her Zoloft initially 50 mg and later on titrated up to 100 mg p.o. daily on April 19. 2. Fluphenazine 2 mg p.o. t.i.d. to target psychosis. 3. Continue with regular medications. 4. 15 minute checks. 5. We will arrange family meeting for discharge planning next week. Reason for continued inpatient stay Substantial Risk for: inability to function, rapid decompensation and med/psych decompensation Time Spent With Patient Time: Total time managing care of this patient today __20__ minutes.
[2024-04-24] MEDS: Docusate Sodium 100 MG CAPSULE PO (17:22)
[2024-04-24 20:03] VITALS: BP 150/66; PULSE 61; RESP 16; TEMP 36.3; O2SAT 95
[2024-04-24] MEDS: traZODone HCL 50 MG TABLET PO (20:06)
[2024-04-24] MEDS: Melatonin 3 MG TABLET 9 MG PO (20:07)
[2024-04-25 08:15] VITALS: BP 133/66; PULSE 63; RESP 17; TEMP 36.4; O2SAT 99
[2024-04-25] MEDS: Thiamine HCL 100 MG TABLET PO (08:16)
[2024-04-25] MEDS: fluPHENAZine HCl 1 MG TABLET 2 MG PO ×3 (08:16→20:33)
[2024-04-25] MEDS: Metoprolol Succinate ER 25 MG TAB.ER.24H PO (08:16)
[2024-04-25] MEDS: Sertraline HCL 100 MG TABLET PO (08:17)
[2024-04-25] MEDS: Memantine HCl 5 MG TABLET PO ×2 (08:17→20:36)
--- NOTE | 2024-04-25 13:06 | P.PNPSI_ITS ---
Subjective Subjective Date of Service: 04/25/24 Reason For Visit: disorganized behavior Subjective Notes: Conditional Voluntary Healthcare Proxy: Yes Interim History: The nursing staff reported the patient had been constipated but finally yesterday she had a bowel movement. She slept 7 hours. We had today with the family welfare social work professor and his team a meeting on soon. At this moment the patient is much better cooperative and pleasant. On interview the patient denies new symptoms, we are going to send her scripts today to the pharmacy. Mental Status Exam Mental Status Exam Patient Appearance: Appropriate Patient Orientation: Person and Situation Level of Consciousness: Awake and Appropriate Patient Behavior: Cooperative and Passive Mood Description: Calm Affect Description: Constricted Patient Cognition Impaired: Yes Ability to Follow Directions: Good Speech Pattern: Clear Hallucinations: None Delusions: Not Present Thought Process: Distracted and Slowed Thinking Thought Content: positive for [place] and positive for Poverty of Content Judgement: Fair Diagnostics Vital Signs (24Hr): Vital Signs - 24 hr 04/24/24 20:03 04/25/24 08:15 Temperature 97.4 F 97.6 F Pulse Rate 61 63 Respiratory Rate 16 17 Blood Pressure 150/66 H 133/66 Pulse Oximetry 95 99 Oxygen Delivery Method Room Air Room Air BMI result Body Mass Index 21.4 Labs 04/08/24 12:48 04/09/24 15:46 Medications Medications Current Medications Acetaminophen (Acetaminophen 325 Mg Tablet) 650 mg PO Q6H PRN PRN Reason: Headache/Pain Mild Scale (1-3) Last Admin: 04/16/24 00:35 Dose: 650 mg Al Hydroxide/Mg Hydroxide (Magnesium Hydrox/Alum Hydrox 30 Ml Oral.Susp) 30 ml PO Q6H PRN PRN Reason: Heartburn/Nausea Docusate Sodium (Docusate Sodium 100 Mg Capsule) 100 mg PO BID PRN PRN Reason: Constipation Last Admin: 04/24/24 17:22 Dose: 100 mg Fluphenazine HCl (Fluphenazine Hcl 1 Mg Tablet) 2 mg PO TID [facility] Last Admin: 04/25/24 08:16 Dose: 2 mg Hydroxyzine HCl (Hydroxyzine Hcl 25 Mg Tablet) 25 mg PO Q6H PRN PRN Reason: Anxiety Last Admin: 04/23/24 21:01 Dose: 25 mg Magnesium Hydroxide (Milk Of Magnesia 30 Ml Oral.Susp) 30 ml PO DAILY PRN PRN Reason: Constipation Melatonin (Melatonin 3 Mg Tablet) 9 mg PO BEDTIME [facility] Last Admin: 04/24/24 20:07 Dose: 9 mg Memantine (Memantine Hcl 5 Mg Tablet) 5 mg PO BID [facility] Last Admin: 04/25/24 08:17 Dose: 5 mg Metoprolol Succinate (Metoprolol Succinate Er 25 Mg Tab.Er.24h) 25 mg PO DAILY [facility]; Protocol Last Admin: 04/25/24 08:16 Dose: 25 mg Sertraline HCl (Sertraline Hcl 100 Mg Tablet) 100 mg PO DAILY [facility] Last Admin: 04/25/24 08:17 Dose: 100 mg Thiamine HCl (Thiamine Hcl 100 Mg Tablet) 100 mg PO DAILY [facility] Last Admin: 04/25/24 08:16 Dose: 100 mg Trazodone HCl (Trazodone Hcl 50 Mg Tablet) 50 mg PO BEDTIME [facility] Last Admin: 04/24/24 20:06 Dose: 50 mg Allergies Allergies Allergy/AdvReac Type Severity Reaction Status Date / Time lisinopril Allergy Unknown Verified 04/08/24 17:06 sulfamethoxazole Allergy Unknown Verified 04/08/24 17:06 [From Bactrim] trimethoprim [From Bactrim] Allergy Unknown Verified 04/08/24 17:06 Assessment & Plan Assessment & Plan (1) Major neurocognitive disorder due to another medical condition, with psychotic disturbance: Status: Acute Code(s): F02.82 - Dementia in other diseases classified elsewhere, unspecified severity, with psychotic disturbance Plan Mrs. Barnes is a 83 year-old woman with hx of dementia, vascular type primarily who was brought by son due to presenting with increased paranoid delusions of being poisoned and cap gras delusions thinking son is an impostor for about one month. In the ED, she was found to have a UTI and started on ceftin. However, pt is not presenting as delirious and current paranoia is related to underlying dementia. She is not combative, superficially cooperative although not fully forthcoming with extend of paranoid delusions. 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 Given that pt is concern about amount of medications that she is taking, can d/c depakote. Start risperidone 0.5mg po BID. Plan 1. We discontinue Risperdal and start fluphenazine titrated up to 2 mg p.o. t.i.d. with for improvement and no evidence of EPS. 2. Zoloft was restarted titrated up to 100 mg p.o. q.h.s.. 3. Karl, her son, reported that she has never been allergic to trazodone so we are restarting it 50 mg p.o. q.h.s. to target insomnia. 4. Fifteen minute checks. Reason for continued inpatient stay Substantial Risk for: inability to function, rapid decompensation and med/psych decompensation Time Spent With Patient Time: Total time managing care of this patient today __20__ minutes.
[2024-04-25 20:00] VITALS: BP 142/63; PULSE 67; RESP 16; TEMP 36.5; O2SAT 93
[2024-04-25] MEDS: hydrOXYzine HCL 25 MG TABLET PO (20:33)
[2024-04-25] MEDS: traZODone HCL 50 MG TABLET PO (20:33)
[2024-04-25] MEDS: Melatonin 3 MG TABLET 9 MG PO (20:35)
[2024-04-26] MEDS: Metoprolol Succinate ER 25 MG TAB.ER.24H PO (08:36)
[2024-04-26] MEDS: Thiamine HCL 100 MG TABLET PO (08:36)
[2024-04-26] MEDS: Sertraline HCL 100 MG TABLET PO (08:36)
[2024-04-26] MEDS: Memantine HCl 5 MG TABLET PO ×2 (08:36→20:34)
[2024-04-26] MEDS: fluPHENAZine HCl 1 MG TABLET 2 MG PO ×3 (08:36→20:34)
--- NOTE | 2024-04-26 14:17 | P.PNPSI_ITS ---
Subjective Subjective Date of Service: 04/26/24 Reason For Visit: disorganized behavior Subjective Notes: Conditional Voluntary Healthcare Proxy: Yes Interim History: The nursing staff reported the patient has been pleasant cooperative fully compliant with treatment, she slept well. The social worker psychiatric reported that she is going to be accepted to a residential facility for next Tuesday. Her son will be her up. On interview the patient denies new symptoms compliant with treatment. Mental Status Exam Mental Status Exam Patient Appearance: Appropriate Patient Orientation: Person and Situation Level of Consciousness: Awake and Appropriate Patient Behavior: Guarded and Passive Mood Description: Withdrawn Affect Description: Constricted Patient Cognition Impaired: Yes Ability to Follow Directions: Good Speech Pattern: Clear Hallucinations: None Delusions: Not Present Thought Process: Distracted and Slowed Thinking Thought Content: positive for [place] and positive for Poverty of Content Judgement: Fair Diagnostics Vital Signs (24Hr): Vital Signs - 24 hr 04/25/24 20:00 04/26/24 08:30 Temperature 97.7 F Pulse Rate 67 Respiratory Rate 16 Blood Pressure 142/63 H Pulse Oximetry 93 Oxygen Delivery Method Room Air Room Air BMI result Body Mass Index 21.4 Labs 04/08/24 12:48 04/09/24 15:46 Medications Medications Current Medications Acetaminophen (Acetaminophen 325 Mg Tablet) 650 mg PO Q6H PRN PRN Reason: Headache/Pain Mild Scale (1-3) Last Admin: 04/16/24 00:35 Dose: 650 mg Al Hydroxide/Mg Hydroxide (Magnesium Hydrox/Alum Hydrox 30 Ml Oral.Susp) 30 ml PO Q6H PRN PRN Reason: Heartburn/Nausea Docusate Sodium (Docusate Sodium 100 Mg Capsule) 100 mg PO BID PRN PRN Reason: Constipation Last Admin: 04/24/24 17:22 Dose: 100 mg Fluphenazine HCl (Fluphenazine Hcl 1 Mg Tablet) 2 mg PO TID [facility] Last Admin: 04/26/24 08:36 Dose: 2 mg Hydroxyzine HCl (Hydroxyzine Hcl 25 Mg Tablet) 25 mg PO Q6H PRN PRN Reason: Anxiety Last Admin: 04/25/24 20:33 Dose: 25 mg Magnesium Hydroxide (Milk Of Magnesia 30 Ml Oral.Susp) 30 ml PO DAILY PRN PRN Reason: Constipation Melatonin (Melatonin 3 Mg Tablet) 9 mg PO BEDTIME [facility] Last Admin: 04/25/24 20:35 Dose: 9 mg Memantine (Memantine Hcl 5 Mg Tablet) 5 mg PO BID [facility] Last Admin: 04/26/24 08:36 Dose: 5 mg Metoprolol Succinate (Metoprolol Succinate Er 25 Mg Tab.Er.24h) 25 mg PO DAILY [facility]; Protocol Last Admin: 04/26/24 08:36 Dose: 25 mg Sertraline HCl (Sertraline Hcl 100 Mg Tablet) 100 mg PO DAILY [facility] Last Admin: 04/26/24 08:36 Dose: 100 mg Thiamine HCl (Thiamine Hcl 100 Mg Tablet) 100 mg PO DAILY [facility] Last Admin: 04/26/24 08:36 Dose: 100 mg Trazodone HCl (Trazodone Hcl 50 Mg Tablet) 50 mg PO BEDTIME [facility] Last Admin: 04/25/24 20:33 Dose: 50 mg Allergies Allergies Allergy/AdvReac Type Severity Reaction Status Date / Time lisinopril Allergy Unknown Verified 04/08/24 17:06 sulfamethoxazole Allergy Unknown Verified 04/08/24 17:06 [From Bactrim] trimethoprim [From Bactrim] Allergy Unknown Verified 04/08/24 17:06 Assessment & Plan Assessment & Plan (1) Major neurocognitive disorder due to another medical condition, with psychotic disturbance: Status: Acute Code(s): F02.82 - Dementia in other diseases classified elsewhere, unspecified severity, with psychotic disturbance Plan Mrs. Barnes is a 83 year-old woman with hx of dementia, vascular type primarily who was brought by son due to presenting with increased paranoid delusions of being poisoned and cap gras delusions thinking son is an impostor for about one month. In the ED, she was found to have a UTI and started on ceftin. However, pt is not presenting as delirious and current paranoia is related to underlying dementia. She is not combative, superficially cooperative although not fully forthcoming with extend of paranoid delusions. This conventional underwriter spoke with her son Karl, who is her HCP, to discuss addition of risperidone low dose 0.5mg po BID. Given that pt is concern about amount of medications that she is taking, can d/c depakote. Start risperidone 0.5mg po BID. Plan 1. We discontinue Risperdal and start fluphenazine titrated up to 2 mg p.o. t.i.d. with for improvement and no evidence of EPS. 2. Zoloft was restarted titrated up to 100 mg p.o. q.h.s.. 3. Karl, her son, reported that she has never been allergic to trazodone so we are restarting it 50 mg p.o. q.h.s. to target insomnia. 4. Fifteen minute checks. Reason for continued inpatient stay Substantial Risk for: inability to function, rapid decompensation and med/psych decompensation Time Spent With Patient Time: Total time managing care of this patient today __20__ minutes.
[2024-04-26 20:00] VITALS: BP 141/65; PULSE 59; RESP 18; TEMP 36.2; O2SAT 95
[2024-04-26] MEDS: traZODone HCL 50 MG TABLET PO (20:34)
[2024-04-26] MEDS: Melatonin 3 MG TABLET 9 MG PO (20:34)
[2024-04-26] MEDS: hydrOXYzine HCL 25 MG TABLET PO (20:34)
[2024-04-26] MEDS: Docusate Sodium 100 MG CAPSULE PO (20:53)
[2024-04-27 08:47] VITALS: BP 134/63; PULSE 59; RESP 15; TEMP 36.6; O2SAT 96
--- NOTE | 2024-04-27 08:47 | PM.PSYDC ---
DS: Providers Provider Date of Service: 04/27/24 Date of admission: 04/09/24 13:39 Date of discharge: 04/28/24 Primary care physician: Sherron Physician Attending physician on discharge: Lito Mahan DS: Diagnosis Discharge Diagnosis (1) Major neurocognitive disorder due to another medical condition, with psychotic disturbance: Status: Acute DS: Medications Discharge Medications Home Medications: Home Medications ?Medication ?Instructions ?Recorded ?Confirmed metoprolol succinate 25 mg 25 mg PO DAILY 04/09/24 04/09/24 tablet,extended release 24 hr sertraline 100 mg tablet 100 mg PO DAILY 04/09/24 04/09/24 Previous Rx's ?Medication ?Instructions ?Recorded memantine 5 mg tablet 5 mg PO BID 30 days #60 tabs 05/12/23 docusate sodium 100 mg capsule 100 mg PO BID 30 days #60 caps 04/25/24 fluphenazine HCl 1 mg tablet 2 mg (2 x 1 mg) PO TID 30 days 04/25/24 #180 tabs hydroxyzine HCl 25 mg tablet 25 mg PO Q6H PRN Anxiety 30 days 04/25/24 #30 tabs melatonin 3 mg tablet 6 mg (2 x 3 mg) PO BEDTIME 30 days 04/25/24 #60 tabs memantine 5 mg tablet 5 mg PO BID 30 days #60 tabs 04/25/24 metoprolol succinate 25 mg 25 mg PO DAILY 30 days #30 tabs 04/25/24 tablet,extended release 24 hr sertraline 100 mg tablet 100 mg PO DAILY 30 days #30 tabs 04/25/24 thiamine HCl (vitamin B1) 100 mg 100 mg PO DAILY 30 days #30 tabs 04/25/24 tablet trazodone 50 mg tablet 50 mg PO BEDTIME 30 days #30 tabs 04/25/24 Mental Status Exam Mental Status Exam Patient Appearance: Well Grooomed and Appropriate Patient Orientation: Person and Situation Level of Consciousness: Awake and Appropriate Patient Behavior: Guarded and Passive Mood Description: Withdrawn Affect Description: Constricted Patient Cognition Impaired: Yes Ability to Follow Directions: Good Speech Pattern: Clear Hallucinations: None Delusions: Ideas of Reference Thought Process: Distracted and Slowed Thinking Thought Content: positive for [place] and positive for Circumstantial Judgement: Fair DS: Summary Hospital Course Hospital Course: The patient is an 83-year-old female, with a past history of dementia and psychosis, admitted here before last July, resident from a jail facility who was brought into the the emergency room since she was noncompliant with medications for 1 month, she relapsed on her depressive symptoms and psychosis. She was assessed by the crisis team and transferring to this facility for psychiatric stabilization. Please see the HPI of the admission note for further details. On admission, the patient was very confused, with auditory hallucinations and paranoia. She believed that her son was an imposter. She also came up with a positive UTI and was treated with antibiotics successfully. We decided to start her on fluphenazine that it was titrated slowly up to 2 mg p.o. t.i.d.. Also we restarted her Zoloft that was titrated up to 100 mg p.o. q.a.m.. The patient slowly improved, she was able to participate in groups, her paranoia and anxiety resolved and she was able to participate in the activities of the unit. She was pleasant cooperative and more oriented. Even though, she is cognitively impaired. We had several family meetings we discussed treatment options and the family agreed to transfer her to jail facility. Since there were no safety concerns discharge planning was discussed. Time spent discussing smoking cessation with patient: 3 to 10 minutes Status at Discharge Cognitive/behavioral status at discharge: Impaired at baseline Functional status at discharge: independent ambulation Overall status at discharge: patient is back to baseline Time Spent with Patient Time attestation: Total time managing care of this patient today __30__ minutes. Time spent: Less than 30 minutes Discharge Plan Discharge Anticipated Discharge Date/Time: 04/28/24 22:00 Patient Disposition: Xfer SNF Discharge Diagnosis: Dementia, Delirium due to UTI resolved. Referrals: Linda Boyle (Therapist) [Other] - 05/14/24 10:00 am (Your therapy appointment will be on 05/14 at 10:00 AM. If there is a need to cancel reschedule the appointment please call the number listed.) Latasha Xavier NP [Physician Coatings Inspector] - 06/12/24 9:00 am (Your Psychiatry appointment is a little farther out than usual. The doctor will put in a refill for your current prescriptions that will last until the appointment. If there are any issues please contact Dr. Mahan ([phone]) if there are any issue with the refill. If you need to cancel or reschedule the appointment please call the number listed.) Discharge Medications: New trazodone 50 mg Tablet 50 mg PO BEDTIME 30 Days Qty: 30 0RF sertraline 100 mg Tablet 100 mg PO DAILY 30 Days Qty: 30 0RF fluphenazine HCl 1 mg Tablet 2 mg PO TID 30 Days Qty: 180 0RF hydroxyzine HCl 25 mg Tablet 25 mg PO Q6H PRN (Reason: Anxiety) 30 Days Qty: 30 0RF metoprolol succinate 25 mg Tablet Extended Release 24 Hr 25 mg PO DAILY 30 Days Qty: 30 0RF Protocol: Hold for SBP/HR < HOLD for SBP < : 90 HOLD for HR < : 60 memantine 5 mg Tablet 5 mg PO BID 30 Days Qty: 60 0RF Continued thiamine HCl (vitamin B1) 100 mg Tablet 100 mg PO DAILY 30 Days Qty: 30 0RF melatonin 3 mg tablet 6 mg PO BEDTIME 30 Days Qty: 60 0RF docusate sodium 100 mg Capsule 100 mg PO BID 30 Days Qty: 60 0RF Discontinued memantine 5 mg Tablet 5 mg PO BID 30 Days Qty: 60 0RF sertraline 100 mg tablet 100 mg PO DAILY metoprolol succinate 25 mg tablet extended release 24 hr 25 mg PO DAILY Discharge Orders: Discharge Order (Routine); Ordered 04/28/24 Ordered By: Lito Mahan Diet: Advance to usual diet Activity on Discharge: As tolerated Stand Alone Forms: Patient Portal Discharge page Print Language: Upper Sorbian Care Plan Goals: Care plan goals achieved in this admission Health Concerns: Continue treatment with primary care physician and other specialists. Plan of Treatment: Continue treatment with outpatient psychiatric providers. 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 She was restarted on her Zoloft and started on fluphenazine titrated up to 2 mg p.o. t.i.d. with for improvement. At this moment she safe to go back to a long-term facility. No safety concerns
[2024-04-27] MEDS: Memantine HCl 5 MG TABLET PO ×2 (08:49→20:51)
[2024-04-27] MEDS: Thiamine HCL 100 MG TABLET PO (08:49)
[2024-04-27] MEDS: fluPHENAZine HCl 1 MG TABLET 2 MG PO ×3 (08:49→20:51)
[2024-04-27] MEDS: Sertraline HCL 100 MG TABLET PO (08:50)
--- NOTE | 2024-04-27 15:14 | HO.PSYCHPN ---
Subjective Subjective Date of Service: 04/27/24 Reason For Visit: disorganized behavior Subjective Notes: Conditional Voluntary Interim History: The nursing staff reported the patient had been compliant with treatment, participating in groups confused but easily redirectable. On interview the patient denies new symptoms she is aware that she is going to be discharged tomorrow. Mental Status Exam Mental Status Exam Patient Appearance: Appropriate Patient Orientation: Person Level of Consciousness: Awake Patient Behavior: Cooperative Mood Description: Calm Affect Description: Constricted Patient Cognition Impaired: Yes Ability to Follow Directions: Good Speech Pattern: Clear Hallucinations: None Delusions: Ideas of Reference Thought Process: Linear Thought Content: positive for [place] Judgement: Fair Diagnostics Vital Signs (24Hr): Vital Signs - 24 hr 04/26/24 20:00 04/27/24 08:47 Temperature 97.1 F 97.8 F Pulse Rate 59 59 Respiratory Rate 18 15 Blood Pressure 141/65 H 134/63 Pulse Oximetry 95 96 Oxygen Delivery Method Room Air Room Air BMI result Body Mass Index 21.4 Labs 04/08/24 12:48 04/09/24 15:46 Medications Medications Current Medications Acetaminophen (Acetaminophen 325 Mg Tablet) 650 mg PO Q6H PRN PRN Reason: Headache/Pain Mild Scale (1-3) Last Admin: 04/16/24 00:35 Dose: 650 mg Al Hydroxide/Mg Hydroxide (Magnesium Hydrox/Alum Hydrox 30 Ml Oral.Susp) 30 ml PO Q6H PRN PRN Reason: Heartburn/Nausea Docusate Sodium (Docusate Sodium 100 Mg Capsule) 100 mg PO BID PRN PRN Reason: Constipation Last Admin: 04/26/24 20:53 Dose: 100 mg Fluphenazine HCl (Fluphenazine Hcl 1 Mg Tablet) 2 mg PO TID [facility]CLUDES [facility] Last Admin: 04/27/24 08:49 Dose: 2 mg Hydroxyzine HCl (Hydroxyzine Hcl 25 Mg Tablet) 25 mg PO Q6H PRN PRN Reason: Anxiety Last Admin: 04/26/24 20:34 Dose: 25 mg Magnesium Hydroxide (Milk Of Magnesia 30 Ml Oral.Susp) 30 ml PO DAILY PRN PRN Reason: Constipation Melatonin (Melatonin 3 Mg Tablet) 9 mg PO BEDTIME [facility] Last Admin: 04/26/24 20:34 Dose: 9 mg Memantine (Memantine Hcl 5 Mg Tablet) 5 mg PO BID [facility]CLUD[facility] Last Admin: 01/10/25 08:49 Dose: 5 mg Metoprolol Succinate (Metoprolol Succinate Er 25 Mg Tab.Er.24h) 25 mg PO DAILY [facility]; Protocol Last Admin: 04/27/24 08:49 Dose: Not Given Sertraline HCl (Sertraline Hcl 100 Mg Tablet) 100 mg PO DAILY [facility] Last Admin: 04/27/24 08:50 Dose: 100 mg Thiamine HCl (Thiamine Hcl 100 Mg Tablet) 100 mg PO DAILY [facility] Last Admin: 04/27/24 08:49 Dose: 100 mg Trazodone HCl (Trazodone Hcl 50 Mg Tablet) 50 mg PO BEDTIME [facility]CLUDES [facility] Last Admin: 04/26/24 20:34 Dose: 50 mg Allergies Allergies Allergy/AdvReac Type Severity Reaction Status Date / Time lisinopril Allergy Unknown Verified 04/08/24 17:06 sulfamethoxazole Allergy Unknown Verified 04/08/24 17:06 [From Bactrim] trimethoprim [From Bactrim] Allergy Unknown Verified 04/08/24 17:06 Assessment & Plan Assessment & Plan (1) Major neurocognitive disorder due to another medical condition, with psychotic disturbance: Status: Acute Code(s): F02.82 - Dementia in other diseases classified elsewhere, unspecified severity, with psychotic disturbance Plan Mrs. Barnes is a 83 year-old woman with hx of dementia, vascular type primarily who was brought by son due to presenting with increased paranoid delusions of being poisoned and cap gras delusions thinking son is an impostor for about one month. In the ED, she was found to have a UTI and started on ceftin. However, pt is not presenting as delirious and current paranoia is related to underlying dementia. She is not combative, superficially cooperative although not fully forthcoming with extend of paranoid delusions. This proposal writer spoke with her son Karl, who is her HCP, to discuss addition of risperidone low dose 0.5mg po BID. Given that pt is concern about amount of medications that she is taking, can d/c depakote. Start risperidone 0.5mg po BID. Plan 1. We discontinue Risperdal and start fluphenazine titrated up to 2 mg p.o. t.i.d. with for improvement and no evidence of EPS. 2. Zoloft was restarted titrated up to 100 mg p.o. q.h.s.. 3. Karl, her son, reported that she has never been allergic to trazodone so we are restarting it 50 mg p.o. q.h.s. to target insomnia. 4. Fifteen minute checks. Reason for continued inpatient stay Substantial Risk for: inability to function, rapid decompensation and med/psych decompensation Time Spent With Patient Time: Total time managing care of this patient today __20__ minutes.
[2024-04-27 20:00] VITALS: BP 131/61; PULSE 64; RESP 16; TEMP 36.7; O2SAT 95
[2024-04-27] MEDS: Melatonin 3 MG TABLET 9 MG PO (20:51)
[2024-04-27] MEDS: hydrOXYzine HCL 25 MG TABLET PO (20:51)
[2024-04-27] MEDS: traZODone HCL 50 MG TABLET PO (20:51)
[2024-04-28 08:39] VITALS: BP 146/66; PULSE 60; RESP 14; TEMP 36.6; O2SAT 97
[2024-04-28] MEDS: Thiamine HCL 100 MG TABLET PO (08:43)
[2024-04-28] MEDS: Sertraline HCL 100 MG TABLET PO (08:43)
[2024-04-28] MEDS: Metoprolol Succinate ER 25 MG TAB.ER.24H PO (08:43)
[2024-04-28] MEDS: Memantine HCl 5 MG TABLET PO (08:43)
[2024-04-28] MEDS: fluPHENAZine HCl 1 MG TABLET 2 MG PO (08:43)
--- NOTE | 2024-04-28 11:38 | PC.NURSE ---
Pt. A & O X 3-4. Limited insight into situation. Reports readiness for discharge. Denies anxiety, depression, SI, HI, and perceptual disturbances. Discharge instructions and medications reviewed with pt. and son/HCP, Karl Barnes, who verbalized understanding. Pt ambulated off unit at 10:25 accompanied by this RN and her son/HCP.
== END 2024-04-28 10:25 | disposition skilled nursing facility (03) | DRG 884 ==
LOC: HO.ED 14:29 → HO.PGERI 04-09 13:44
PROVIDERS: Physician Assistant Medical; Admitting Provider Psychiatry & Neurology Psychiatry; Emergency Provider Emergency Medicine Emergency Medical Services; Visit Provider Psychiatry & Neurology Psychiatry
DX: F01.52 Vascular dementia, unspecified severity, with psychotic disturbance (principal); N39.0 Urinary tract infection, site not specified; W19.XXXA Unspecified fall, initial encounter; I10 Essential (primary) hypertension; E78.5 Hyperlipidemia, unspecified; Z23 Encounter for immunization; Z79.899 Other long term (current) drug therapy
CPT/HCPCS: 36415; 80053; 80061; 80143; 80179; 80307; 81001; 81003; 85025; 90656; 93005; 99285; J2060; J2359; J2679

== ENCOUNTER → 2024-04-08 12:35 | Outpatient (BNV) | payer MEDICARE, SELFPAY | PROVIDERS: Emergency Provider Emergency Medicine Emergency Medical Services; Visit Provider Social Worker | DX: F03.92 Unspecified dementia, unspecified severity, with psychotic disturbance (principal) | CPT/HCPCS: 90792; 99231; 99232 ==

== ENCOUNTER → 2024-04-09 11:45 | Outpatient (BNV) | payer MEDICARE, SELFPAY | PROVIDERS: Admitting Provider Psychiatry & Neurology Psychiatry; Emergency Provider Emergency Medicine Emergency Medical Services; Visit Provider Internal Medicine Cardiovascular Disease | DX: R94.31 Abnormal electrocardiogram [ECG] [EKG] (principal); I48.91 Unspecified atrial fibrillation | CPT/HCPCS: 93010 ==